=== PATIENT | male | born 1940 | race Caucasian/White ===

== ENCOUNTER → 2018-05-30 07:14 | Outpatient (CLI) | payer MEDICARE, SELFPAY ==
[2018-05-30 13:59] LABS: Basophils # 0.1 K/mm3 (0-0.2); Basophils % 0.9 % (0.1-2.0); Eosinophils # 0.5 K/mm3 (0.0-0.4); Eosinophils % 7.1 % (0.1-12.0); Hematocrit 34.5 % (42.0-52.0); Hemoglobin 10.4 g/dL (14.1-18.0); Lymphocytes # 1.2 K/mm3 (0.7-4.5); Lymphocytes % 18.2 K/mm3 (10-50); Mean Corpuscular HGB Conc 30.1 g/dL (31.8-35.4); Mean Corpuscular Hemoglobin 23.5 pg (27.0-31.2); Mean Platelet Volume 9.6 fl (7.4-10.4); Monocytes # 0.4 K/mm3 (0.1-1.0); Monocytes % 6.9 % (1.7-9.3); Neutrophils # 4.3 K/mm3 (1.8-7.8); Platelet Count 236 K/mm3 (142-424); Red Blood Count 4.43 M/mm3 (4.60-6.20); Red Cell Distribution Width 16.7 % (11.5-17.5); White Blood Count 6.5 K/mm3 (4.8-10.8)
[2018-05-30 14:25] LABS: Alanine Aminotransferase 22 U/L (12-78); Albumin Level 3.4 gm/dL (3.4-5.0); Albumin/Globulin Ratio 1.1 (1.1-1.8); Alkaline Phosphatase 44 U/L (46-116); Anion Gap 10.4 mEq/L (5-15); Aspartate Amino Transferase 17 U/L (15-37); Bilirubin,Total 0.3 mg/dL (0.2-1.0); Blood Urea Nitrogen 24 mg/dL (7-18); Calcium 9.5 mg/dL (8.5-10.1); Carbon Dioxide 29 mmol/L (21.0-32.0); Chloride 109 mmol/L (98-107); Chol/HDL Ratio 2.8 (1-3.5); Cholesterol 130 mg/dL (140-200); Creatinine,Serum 1.37 mg/dL (0.70-1.30); Estimated Glomerular Filt Rate 50 ml/min (>60); GFR (African American) 61 ML/MIN (>60); Globulin 3.2 gm/dl (1.3-3.2); Glucose 122 mg/dL (74-106); HDL Cholesterol 47 mg/dL (27-67); LDL Cholesterol 60 mg/dL (0-130); Potassium 4.4 mmoL/L (3.5-5.1); Sodium 144 mmol/L (136-145); Total Protein,Serum 6.6 gm/dL (6.4-8.2); Triglycerides 114 mg/dL (30-200); VLDL Cholesterol 23 mg/dL (0-40)
[2018-05-30 14:36] LABS: Hemoglobin A1C 6.5 % (0.0-7.0)
== END ==
PROVIDERS: Visit Provider Internal Medicine Adolescent Medicine
DX: E11.9 Type 2 diabetes mellitus without complications (principal); I25.119 Atherosclerotic heart disease of native coronary artery with unspecified angina pectoris; E78.5 Hyperlipidemia, unspecified
CPT/HCPCS: 36415; 80053; 80061; 83036; 85025

== ENCOUNTER → 2018-10-13 13:26 | Outpatient (CLI) | payer MEDICARE, SELFPAY ==
--- NOTE | 2018-10-13 | CI_ITS ---
Cerebrovascular Exam Indications: 780.4 Dizziness and giddiness. 785.9 Bruit. IMPRESSIONS 1. The bilateral vertebral arteries are patent with normal antegrade flow. 2. Study suggests less than 20% stenosis involving the right internal carotid artery. 3. Study suggests 50-69% stenosis involving the left internal carotid artery. Carotid duplex study. Complete study and Doppler flow study including spectral analysis, color and rolle scale imaging. Height: Height: 177.8cm. Height: 70in. Weight: Weight: 79.4kg. Weight: 174.6lb. Body mass index: BMI: 25.1kg/m^2. Body surface area: BSA: 1.99m^2. Location: Vascular laboratory. Patient status: Outpatient. Tables: Arterial flow: + +--------+--------+ Location V sys V ed + +--------+--------+ Right CCA - proximal 82.5cm/s 16.5cm/s + +--------+--------+ Right CCA - distal 72.2cm/s 14.9cm/s + +--------+--------+ Right ECA 122cm/s -------- + +--------+--------+ Right ICA - proximal 82.3cm/s 20.1cm/s + +--------+--------+ Right ICA - mid 91.1cm/s 28.3cm/s + +--------+--------+ Right ICA - distal 105cm/s 33.9cm/s + +--------+--------+ Right vertebral 52.9cm/s -------- + +--------+--------+ Left CCA - proximal 86.1cm/s 13.2cm/s + +--------+--------+ Left CCA - distal 71cm/s 13.8cm/s + +--------+--------+ Left ECA 142cm/s -------- + +--------+--------+ Left ICA - proximal 159cm/s 36.3cm/s + +--------+--------+ Left ICA - mid 138cm/s 31.4cm/s + +--------+--------+ Left ICA - distal 107cm/s 29.7cm/s + +--------+--------+ Left vertebral 41.5cm/s -------- + +--------+--------+ Velocity ratios: + + + + + + Right, V sys Right, V ed Left, V sys Left, V ed + + + + + + Max ICA/dist CCA 1.45 2.28 2.24 2.63 + + + + + + (Report amended ) Electronically signed by: Boni Escobedo [id number]
--- NOTE | 2018-10-13 14:06 | CT_ITS ---
CT chest wo con * (This is updated/ Redictated report on [facility]..) HISTORY: Smoker ITS.REASON: H/O NICOTINE DEPENDENCE,LUNG NODULES follow-up ORDERING PHYSICIAN: Asif Kirk MD PATIENT AGE: 78 years COMPARISON: CT chest 02/26/2015 Technique: Axial images obtained. Sagittal and coronal reformatted images are also generated and reviewed. All CT scans at the facility use one or more dose reduction, viz: automated exposure control, ma/kV adjustment per patient size (including targeted exams where dose is matched to indication, i.e. head), or iterative reconstruction technique. . ========= FINDINGS:========= LUNG SAGASTUME . The previously 2014 CT chest demonstrated pneumonia right lower lobe with some areas of nodularity associated with that inflammation process these features have cleared we see that there may be some subtle coarsening residual fibrotic changes at the right base with some borderline bronchiectatic changes towards right base likely from previous multiple pneumonia episodes at right lower lobe. Present patient also had a pneumonia here 05/20/2016 addition to the February 2015 episode. Given this history of recurrent pneumonia close inspection of the airway shows no good evidence of central airway lesion. No endobronchial lesion evident no hilar mass or adenopathy. No focal infiltrates today. Borderline to mild mild airway thickening of mild hyperexpansion with minimal emphysematous changes At Right chest there is some linear scarring anteriorly at the RML as well as linear scarring at right lung base above the right hemidiaphragm. . These are best seen on sagittal slice 18 and 12 respectively.. Slight coarsening markings just above the right hemidiaphragm reflecting mild chronic changes . Small less than 4 mm calcified granuloma at the lateral segment RLL Also note small area of linear density likely reflecting linear scarring superior right upper lobe, axial image 27 sagittal 22-I believe this does reflect some minimal scarring can be followed in one year . Left chest with minimal scarring anteriorly at the lingula is similar to previous study. . MEDIASTINUM/MEAGAN. Scattered small to moderate nodes at the mediastinum appears similar to 2015. With the largest nodes at the right pretracheal region measuring up to 13 mm x 7 mm No hilar no mediastinal adenopathy. Heart normal size. Normal pulmonary arteries. Aorta satisfactory Slight generous ascending aorta 4.1 cm-stable. . Very extensive in prominent Coronary artery calcifications again seen involving left main. Extensive calcification LAD circumflex first diagonal right coronary. Likely extensive at right coronary. CABG noted. Dense calcification at the aortic arch and moderate atherosclerotic calcifications throughout the aorta including origins of the SMA artery UPPER ABDOMEN: .Cholelithiasis. .Slight Progressive atherosclerotic calcification aorta and branches .Left kidney Note 3.1 cm benign cyst at the lateral left kidney-measures fluid density. Just Superior to this is a a small hyperdense nodule or cyst measuring 13 mm.- It has become more evident slightly larger on since 2015 CT studies previously measuring less than 10 mm. Would benefit from follow-up but is most likely hemorrhagic cyst. There are some additional scarring about the left kidney versus 2015 which may reflect interval infection. .Right kidney 12 mm cyst. Osseous. Vertebral bodies the spine intact. Degenerative facet changes throughout the lower T-spine. Prior CABG otherwise chest wall unremarkable... IMPRESSION...... . 1. No suspicious nodule or masses. Benign findingsLung-RADS 2 Only Benign granulomatous disease and benign appearing chronic findings Suggest follow-up screening CT in 12 months-( if patient does have over 30 year
== END ==
PROVIDERS: PCP Internal Medicine Adolescent Medicine; Visit Provider Internal Medicine Adolescent Medicine
DX: R42 Dizziness and giddiness (principal); Z87.891 Personal history of nicotine dependence
CPT/HCPCS: 71250; 93880

== ENCOUNTER → 2018-11-14 09:57 | Outpatient (CLI) | payer MEDICARE, SELFPAY ==
[2018-11-14 13:32] LABS: Hemoglobin A1C 6.2 % (0.0-7.0)
[2018-11-14 13:40] LABS: Basophils # 0.1 K/mm3 (0-0.2); Basophils % 0.8 % (0.1-2.0); Eosinophils # 0.2 K/mm3 (0.0-0.4); Eosinophils % 3.5 % (0.1-12.0); Hematocrit 36.6 % (42.0-52.0); Hemoglobin 11.1 g/dL (14.1-18.0); Lymphocytes # 1.2 K/mm3 (0.7-4.5); Lymphocytes % 18.4 % (10-50); Mean Corpuscular HGB Conc 30.2 g/dL (31.8-35.4); Mean Corpuscular Hemoglobin 24.8 pg (27.0-31.2); Mean Platelet Volume 9.3 fl (7.4-10.4); Monocytes # 0.4 K/mm3 (0.1-1.0); Monocytes % 6.2 % (1.7-9.3); Neutrophils # 4.7 K/mm3 (1.8-7.8); Neutrophils % 71.1 % (37.0-80.0); Platelet Count 213 K/mm3 (142-424); Red Blood Count 4.46 M/mm3 (4.60-6.20); Red Cell Distribution Width 16.3 % (11.5-17.5); White Blood Count 6.6 K/mm3 (4.8-10.8)
[2018-11-14 13:52] LABS: Alanine Aminotransferase 24 U/L (12-78); Albumin Level 3.5 gm/dL (3.4-5.0); Albumin/Globulin Ratio 1.2 (1.1-1.8); Alkaline Phosphatase 42 U/L (46-116); Anion Gap 13.4 mEq/L (5-15); Aspartate Amino Transferase 18 U/L (15-37); Bilirubin,Total 0.4 mg/dL (0.2-1.0); Blood Urea Nitrogen 19 mg/dL (7-18); Calcium 9.2 mg/dL (8.5-10.1); Carbon Dioxide 29 mmol/L (21.0-32.0); Chloride 105 mmol/L (98-107); Chol/HDL Ratio 2.5 (1-3.5); Cholesterol 127 mg/dL (140-200); Creatinine,Serum 1.22 mg/dL (0.70-1.30); Estimated Glomerular Filt Rate 57 ml/min (>60); GFR (African American) 69 ML/MIN (>60); Glucose 115 mg/dL (74-106); HDL Cholesterol 51 mg/dL (27-67); LDL Cholesterol 57 mg/dL (0-130); Potassium 4.4 mmoL/L (3.5-5.1); Sodium 143 mmol/L (136-145); Total Protein,Serum 6.5 gm/dL (6.4-8.2); Triglycerides 97 mg/dL (30-200); VLDL Cholesterol 19 mg/dL (0-40)
== END ==
PROVIDERS: PCP Internal Medicine Adolescent Medicine; Visit Provider Internal Medicine Adolescent Medicine
DX: E78.5 Hyperlipidemia, unspecified (principal); E11.9 Type 2 diabetes mellitus without complications; I10 Essential (primary) hypertension
CPT/HCPCS: 36415; 80053; 80061; 83036; 85025

== ENCOUNTER 2019-02-19 13:57 | Observation (INO) ==
--- NOTE | 2019-02-19 14:43 | Emergency Department Note ---
ED Disposition Clinical Impression: Pneumonia Disposition: Admitted as Observation Condition on Discharge: Fair Time of Disposition: 16:57 - Critical Care Critical Care Time: No Attestation: On 02/19/19, the high probability of a clinically significant, sudden or life threatening deterioration of the following system(s) required my full and direct attention, intervention and personal management. The time I documented below is in addition to time spent performing reported procedures but includes the following listed in this critical care notation. Medical Decision Making - Medical Records Medical records reviewed: Yes: I reviewed the patient's medical records. - John Inquiry Pt receiving controlled substance: No John was queried for this patient: No Vital Signs: 02/19/19 14:21 02/19/19 15:58 02/19/19 17:00 Temperature 97.8 F 97.7 F Temperature Source Oral Oral Pulse Rate [Right Radial] 69 64 55 L Respiratory Rate 24 20 20 Blood Pressure [Right Arm] 114/51 L 118/54 L 139/57 L Blood Pressure Mean [Right Arm] 72 75 84 Blood Pressure Source [Right Arm] Automatic Cuff Automatic Cuff Automatic Cuff Blood Pressure Position [Right Arm] Sitting Supine Sitting 02 Sat by Pulse Oximetry 89 L 94 L 95 Oxygen Delivery Method Room Air Nasal Cannula Nasal Cannula Oxygen Flow Rate (LPM) 2 2 - Lab Data Lab results reviewed: Yes: I reviewed the patient's lab results. Lab Results 02/19/19 14:45: B-Natriuretic Peptide 200 H 02/19/19 14:45: WBC 17.6 H, RBC 3.90 L, Hgb 10.0 L, Hct 31.4 L, MCV 80.4, MCH 25.7 L, MCHC 31.9, RDW 14.6, Plt Count 193, MPV 9.0, Neut % (Auto) 89.4 H, Lymph % (Auto) 5.1 L, [place] % (Auto) 4.8, Eos % (Auto) 0.5, Baso % (Auto) 0.3, Neut # (Auto) 15.7 H, Lymph # (Auto) 0.9, [place] # (Auto) 0.8, Eos # (Auto) 0.1, Baso # (Auto) 0.1, Total Counted 100, Neutrophils % (Manual) 90 H, Band Neutrophils % 2.0, Lymphocytes % (Manual) 5 L, Atypical Lymphs % 1.0, Monocytes % (Manual) 2, Platelet Estimate Normal, RBC Morphology Normal 02/19/19 14:45: Sodium 146 H, Potassium 3.9, Chloride 110 H, Carbon Dioxide 26, Anion Gap 13.9, BUN 20 H, Creatinine 1.29, Estimated Creat Clear 50, Estimated GFR 54 L, Est GFR ( Amer) 65, Glucose 173 H, Calcium 8.5, Troponin I < 0.02 02/19/19 15:30: Lactate 1.6 Result diagrams: 02/19/19 14:45 02/19/19 14:45 Orders (Tests/Meds): ED MEDICATIONS Generic Name Dose Route Start Last Admin Trade Name Freq PRN Reason Stop Dose Admin Ceftriaxone Sodium 1 gm/ 50 mls @ 100 mls/hr 02/19/19 17:15 02/19/19 17:00 Sodium Chloride IV 03/05/19 17:14 100 mls/hr Q24H AAKASH Administration Protocol Azithromycin 500 mg/ Sodium 250 mls @ 250 mls/hr 02/19/19 17:15 02/19/19 17:29 Chloride IV 03/05/19 17:14 250 mls/hr Q24H AAKASH Administration Protocol Discontinued Medications Generic Name Dose Route Start Last Admin Trade Name Freq PRN Reason Stop Dose Admin Levofloxacin/Dextrose 750 mg in 150 mls @ 100 mls/hr 02/19/19 16:45 02/19/19 16:58 Levofloxacin 750mg/150ml Premix IV 03/05/19 16:44 Not Given Q24H AAKASH Protocol Ketorolac Tromethamine 30 mg 02/19/19 16:42 02/19/19 16:58 Toradol 30mg/Ml Vial IV 02/19/19 16:43 30 mg ONCE ONE Administration Methylprednisolone Sodium Succinate 125 mg 02/19/19 14:52 02/19/19 15:13 Solu-Medrol 125mg/2ml Vial IV 02/19/19 14:53 125 mg ONCE ONE Administration ORDERS Category Date Time Status Chest XR 2 view (NOT portable) [XR chest 2V] Stat Exams 02/19/19 14:55 Taken Blood Culture Stat Micro 02/19/19 15:35 Received - Physician Consults Physician Consulted: terell Time: 16:57 Reason -: Admission, Pt condition Comment/Response: community acquired pneumonia, ceftriaxone and zithromax General Adult HPI - General Chief complaint: Chest Pain Stated complaint: soa Time Seen by Provider: 02/19/19 14:40 Mode of Arrival: Family Vehicle Source of Information: Patient Limitations: No Limitations Description of Symptoms (Recalled from ER Triage Doc. by RN): Family states that pt woke up this morning around 0900 very short of breath, but delayed to tell the family. When notified, family took his O2 sat at home and he was 88% on RA. Family states that the patient is has been c/o being hot and having dry mouth that is not relieved by oral intake of fluids. Family states this is very abnormal for him because he is always cold. On the car ride to the ED family states he began having chest pain. Pt states his his pain is an 8/10. Pt has a hx of heart attack, and frequent pneumonia - History of Present Illness HPI narrative: tells me of chilling/"cold shakes" onser this am. minor URI symptoms preceeding and mowed his lawn two nights ago. Breathing difficulty seems chief complaint - Related Data Home Medications Medication Instructions Recorded Confirmed ALPRAZolam [Xanax 0.25mg tab] 0.25 mg PO BID 02/19/19 02/19/19 Albuterol Sulfate [Proair 90 mcg INHALATION Q4HP PRN 02/19/19 02/19/19 Respiclick] Amlodipine Besylate 5 mg PO DAILY 02/19/19 02/19/19 Aspirin [Aspirin 81mg EC Tab] 81 mg PO DAILY 02/19/19 02/19/19 Atorvastatin Calcium [Atorvastatin 20 mg PO DAILY 02/19/19 02/19/19 20mg Tab] Budesonide/Formoterol Fumarate 160 mcg IH BID 02/19/19 02/19/19 [Symbicort 160-4.5 Mcg Inhaler] Carvedilol [Carvedilol 25mg Tab] 25 mg PO BID 02/19/19 02/19/19 Gabapentin 600 mg PO BID 02/19/19 02/19/19 Hydralazine HCl [Hydralazine HCl 50 mg pe PO TID 02/19/19 02/19/19 25mg Tablet] Ipratropium/Albuterol Sulfate 100 mcg INHALATION BID 02/19/19 02/19/19 [Combivent Respimat Inh] Losartan Potassium 100 mg PO DAILY 02/19/19 02/19/19 Magnesium Oxide [Magnesium] 400 mg PO DAILY 02/19/19 02/19/19 Metformin HCl 1,000 mg PO BID 02/19/19 02/19/19 Nitroglycerin [Nitrostat 0.4mg SL 0.4 mg SL Q5MINP PRN 02/19/19 02/19/19 Tablet] [place]-3 Acid Ethyl Esters [Lovaza] 1,000 mg PO BID 02/19/19 02/19/19 cloNIDine HCl [Clonidine HCl] 0.3 mg PO BID 02/19/19 02/19/19 raNITIdine HCl [Zantac 150mg] 150 mg PO BID 02/19/19 02/19/19 Allergies Allergy/AdvReac Type Severity Reaction Status Date / Time No Known Allergies Allergy Unverified 10/26/17 15:33 [facility] History - Hepatitis A Screen Drug use history?: No High risk sexual behaviors?: No History of sexually transmitted infection?: No Currently employed?: No Childcare worker?: No Do you have indoor plumbing?: Yes Do you have electricity?: Yes Attestation statement:: This patient has been screened for Hepatitis A risk factors. I have reviewed the patient's past medical history: Yes - Social History Alcohol Intake: never Occupational Status: other - Psychiatric History Expresses thoughts of harming self/others: None Suicide Plan Description: No Plan ROS Obtained: Yes All systems reviewed & no additional complaints - Constitutional Constitutional: Reports chills, Reports lethargy - Cardiovascular Cardiovascular: Reports dyspnea, Reports dyspnea on exertion - Respiratory Respiratory: Yes dyspnea, Yes dyspnea on exertion, No pain on inspiration - Gastrointestinal Gastrointestingal: Denies: abdominal pain, diarrhea, nausea, vomiting - Musculoskeletal Musculoskeletal: Denies muscle cramps, Denies muscle weakness - Integumentary/Breasts Skin/Breast: Denies rash - Neurologic Neurologic: Denies syncope - Hematologic/Lymphatic Henatologic/Lymphatic: Denies easy bleeding, Denies easy bruising Physical Exam - General General appearance: alert, in no apparent distress - Head Head exam: atraumatic, normocephalic, normal inspection - Eye Eye exam: Present: normal appearance, PERRL, EOMI - ENT ENT exam: Present: normal exam, normal oropharynx, mucous membranes moist, TM's normal bilaterally, normal external ear exam - Respiratory Respiratory exam: Present: wheezes, other (rhonchi in rll). Absent: normal lung sounds bilaterally, respiratory distress - Cardiovascular Cardiovascular exam: Present: regular rate, normal rhythm. Absent: JVD - Abdominal Exam Abdominal exam: Present: soft, normal bowel sounds. Absent: distention, ten derness, guarding - Extremities Exam Extremities exam: Present: normal inspection, full ROM, normal capillary refill. Absent: calf tenderness - Back Exam Back exam: Present: normal inspection. Absent: tenderness - Neurological Exam Neurological exam: Present: alert, oriented X3 - Psychiatric Psychiatric exam: Present: normal affect, normal mood - Skin Skin exam: Present: warm, dry, intact, normal color
[2019-02-19 15:02] LABS: Basophils # 0.1 K/mm3 (0-0.2); Basophils % 0.3 % (0.1-2.0); Eosinophils # 0.1 K/mm3 (0.0-0.4); Eosinophils % 0.5 % (0.1-12.0); Hematocrit 31.4 % (42.0-52.0); Lymphocytes # 0.9 K/mm3 (0.7-4.5); Lymphocytes % 5.1 % (10-50); Mean Corpuscular HGB Conc 31.9 g/dL (31.8-35.4); Mean Corpuscular Hemoglobin 25.7 pg (27.0-31.2); Mean Corpuscular Volume 80.4 fl (80-94); Monocytes # 0.8 K/mm3 (0.1-1.0); Monocytes % 4.8 % (1.7-9.3); Neutrophils # 15.7 K/mm3 (1.8-7.8); Neutrophils % 89.4 % (37.0-80.0); Platelet Count 193 K/mm3 (142-424); Red Cell Distribution Width 14.6 % (11.5-17.5); White Blood Count 17.6 K/mm3 (4.8-10.8)
[2019-02-19 15:13] LABS: Anion Gap 13.9 mEq/L (5-15); Blood Urea Nitrogen 20 mg/dL (7-18); Calcium 8.5 mg/dL (8.5-10.1); Carbon Dioxide 26 mmol/L (21.0-32.0); Chloride 110 mmol/L (98-107); Glucose 173 mg/dL (74-106); Potassium 3.9 mmoL/L (3.5-5.1); Sodium 146 mmol/L (136-145)
[2019-02-19 15:14] LABS: Lymphocytes % 5 % (10-50); Monocytes % 2 % (2-9); Neutrophils % 90 % (42-76); RBC Morphology Normal; Total Cells Counted 100
[2019-02-20 06:56] LABS: Eosinophils % 0.1 % (0.1-12.0); Hematocrit 31.9 % (42.0-52.0); Hemoglobin 9.9 g/dL (14.1-18.0); Lymphocytes # 0.8 K/mm3 (0.7-4.5); Lymphocytes % 3.5 % (10-50); Mean Corpuscular HGB Conc 31.1 g/dL (31.8-35.4); Mean Corpuscular Hemoglobin 25.5 pg (27.0-31.2); Mean Platelet Volume 9.6 fl (7.4-10.4); Monocytes # 0.3 K/mm3 (0.1-1.0); Monocytes % 1.5 % (1.7-9.3); Neutrophils % 94.9 % (37.0-80.0); Platelet Count 200 K/mm3 (142-424); Red Cell Distribution Width 14.6 % (11.5-17.5); White Blood Count 23.2 K/mm3 (4.8-10.8)
[2019-02-20 07:06] LABS: Calcium 8.7 mg/dL (8.5-10.1)
--- NOTE | 2019-02-20 07:34 | Pharmacy Consult Notes ---
[facility] Pharmacy VTE Monitoring - Patient Demographics Admission date: 02/19/19 Report Date: 02/20/19 Time: 07:34 Allergies/Adverse Reactions: Patient Allergies No Known Allergies Allergy (Unverified 10/26/17 15:33) Height: 1.7 m Weight: 78.16 kg Patient Problems: Current Active Problems Pneumonia (Acute) - VTE Risk Labs: VTE Related Lab Results Hgb 9.9 g/dL (14.1-18.0) L 02/20/19 06:11 Hct 31.9 % (42.0-52.0) L 02/20/19 06:11 Plt Count 200 K/mm3 (142-424) 02/20/19 06:11 BUN 28 mg/dL (7-18) H D 02/20/19 06:11 Creatinine 1.39 mg/dL (0.70-1.30) H 02/20/19 06:11 Estimated Creat Clear 47 mL/min (50-200) 02/20/19 06:11 VTE Score: 5 VTE Risk Level: Low Risk - Prophylaxis VTE Prophylaxis Ordered?: Yes Types of VTE Prophylaxis: TEDS Knee High Location of Applied Device: Bilateral Lower Extremeties - VTE Diagnosis Confirmed Treatment or plan recommended: Continue Current Treatment
[2019-02-20 08:29] LABS: Lymphocytes % 4 % (10-50); Monocytes % 1 % (2-9); Neutrophils % 92 % (42-76); Total Cells Counted 100
--- NOTE | 2019-02-20 08:50 | History & Physical Report ---
*Admission Date: 02/19/19 *Chief complaint: Cough/congestion *History of present illness: 79-year-old white male with multiple medical problems who over the past week has had increasing cough and shortness of air, sputum production and shortness of air. Came to the emergency department, found to have infiltrate and low O2 saturations, mid to hospital for IV antibiotics. 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 No: Pacemaker Amputation: No Fractures: No - *Social History Educational Level: Attended Grade School Smoking Status: Light tobacco smoker Tobacco Type: smokeless tobacco # Packs/Day (cigarettes): 0 Alcohol Intake: never *Occupational Status:: retired, other Household Members: spouse *Travel in the last 8 weeks: None - Psychiatric History Expresses thoughts of harming self/others: None Suicide Plan Description: No Plan Family Hx:: No significant family history Review of Systems - Review of Systems Review of systems:: pertinent systems reviewed and negative unless documented below - Constitutional Reports anorexia, Reports body ache(s), Reports chills - Eyes Denies blind spots, Denies blurry vision, Denies change in vision - ENT Denies abnormal hearing, Denies bleeding gums, Denies change in voice - *Cardiovascular Reports chest pain with activity, Reports shortness of breath, Reports shortness of breath with activity, Denies chest pain, Denies chest pain at rest, Denies irregular heart rhythm, Denies leg swelling - *Respiratory Reports change in phlegm color, Reports chest congestion, Reports cough, Reports shortness of breath - *Gastrointestinal Denies abdominal pain, Denies belching, Denies coffee ground vomit - *Genitourinary Denies difficulty urinating - *Musculoskeletal Denies abnormal walking, Denies joint pain, Denies decreased muscle mass - *Neurologic Denies abnormal walking, Denies abnormal hearing, Denies seizure-like activity, Denies fainting - Endocrine Denies cold intolerance - Hematologic/Lymphatic Denies easy bleeding, Denies easy bruising - Allergic/Immunologic Denies GI upset with certain foods Meds Home Medications Medication Instructions Recorded Confirmed Type ALPRAZolam [Xanax 0.25mg tab] 0.25 mg PO HS 02/19/19 02/20/19 History Albuterol Sulfate [Proair 90 mcg INHALATION Q4HP PRN 02/19/19 02/19/19 History Respiclick] Amlodipine Besylate 10 mg PO DAILY 02/19/19 02/20/19 History Aspirin [Aspirin 81mg EC Tab] 81 mg PO DAILY 02/19/19 02/19/19 History Atorvastatin Calcium [Atorvastatin 20 mg PO DAILY 02/19/19 02/19/19 History 20mg Tab] Budesonide/Formoterol Fumarate 160 mcg IH BID 02/19/19 02/19/19 History [Symbicort 160-4.5 Mcg Inhaler] Carvedilol [Carvedilol 25mg Tab] 25 mg PO BID 02/19/19 02/19/19 History Gabapentin 600 mg PO BID 02/19/19 02/19/19 History Ipratropium/Albuterol Sulfate 100 mcg INHALATION BID 02/19/19 02/19/19 History [Combivent Respimat Inh] Losartan Potassium 100 mg PO DAILY 02/19/19 02/19/19 History Magnesium Oxide [Magnesium] 400 mg PO DAILY 02/19/19 02/19/19 History Metformin HCl 1,000 mg PO BID 02/19/19 02/19/19 History Nitroglycerin [Nitrostat 0.4mg SL 0.4 mg SL Q5MINP PRN 02/19/19 02/19/19 History Tablet] [place]-3 Acid Ethyl Esters [Lovaza] 1,000 mg PO BID 02/19/19 02/19/19 History cloNIDine HCl [Clonidine HCl] 0.3 mg PO BID 02/19/19 02/19/19 History raNITIdine HCl [Zantac 150mg] 150 mg PO BID 02/19/19 02/19/19 History Hydralazine HCl 50 mg PO TID 02/20/19 02/20/19 History Isosorbide Mononitrate [Imdur 60mg 60 mg PO DAILY 04/15/19 04/15/19 History ER tablet] Tiotropium [place] [Spiriva 2 puff IH DAILY 02/20/19 02/20/19 History 18mcg/puff inhaler] Allergies Allergy/AdvReac Type Severity Reaction Status Date / Time No Known Allergies Allergy Unverified 10/26/17 15:33 Exam Vital signs and Labs for Last 24 Hours: Temp Pulse Resp BP Pulse Ox 97.5 F L 60 18 151/64 H 98 02/20/19 07:58 02/20/19 07:58 02/20/19 07:58 02/20/19 07:58 02/20/19 07:58 Laboratory Results - last 24 hr 02/19/19 14:45: B-Natriuretic Peptide 200 H 02/19/19 14:45: WBC 17.6 H, RBC 3.90 L, Hgb 10.0 L, Hct 31.4 L, MCV 80.4, MCH 25.7 L, MCHC 31.9, RDW 14.6, Plt Count 193, MPV 9.0, Neut % (Auto) 89.4 H, Lymph % (Auto) 5.1 L, [place] % (Auto) 4.8, Eos % (Auto) 0.5, Baso % (Auto) 0.3, Neut # (Auto) 15.7 H, Lymph # (Auto) 0.9, [place] # (Auto) 0.8, Eos # (Auto) 0.1, Baso # (Auto) 0.1, Total Counted 100, Neutrophils % (Manual) 90 H, Band Neutrophils % 2.0, Lymphocytes % (Manual) 5 L, Atypical Lymphs % 1.0, Monocytes % (Manual) 2, Platelet Estimate Normal, RBC Morphology Normal 02/19/19 14:45: Sodium 146 H, Potassium 3.9, Chloride 110 H, Carbon Dioxide 26, Anion Gap 13.9, BUN 20 H, Creatinine 1.29, Estimated Creat Clear 50, Estimated GFR 54 L, Est GFR ( Amer) 65, Glucose 173 H, Calcium 8.5, Troponin I < 0.02 02/19/19 15:30: Lactate 1.6 02/19/19 22:14: POC Glucose 298 H 02/20/19 06:09: POC Glucose 134 H 02/20/19 06:11: WBC 23.2 H* D, RBC 3.90 L, Hgb 9.9 L, Hct 31.9 L, MCV 82.0, MCH 25.5 L, MCHC 31.1 L, RDW 14.6, Plt Count 200, MPV 9.6, Neut % (Auto) 94.9 H, Lymph % (Auto) 3.5 L, [place] % (Auto) 1.5 L, Eos % (Auto) 0.1, Baso % (Auto) 0.0 L , Neut # (Auto) 22.0 H, Lymph # (Auto) 0.8, [place] # (Auto) 0.3, Eos # (Auto) 0.0, Baso # (Auto) 0.0, Total Counted 100, Neutrophils % (Manual) 92 H, Band Neutrophils % 3.0, Lymphocytes % (Manual) 4 L, Monocytes % (Manual) 1 L, Platelet Estimate Normal 02/20/19 06:11: Sodium 144, Potassium 4.0, Chloride 107, Carbon Dioxide 25, Anion Gap 16.0 H, BUN 28 H D, Creatinine 1.39 H, Estimated Creat Clear 47, Estimated GFR 49 L, Est GFR ( Amer) 59, Glucose 142 H, Calcium 8.7 I & O for Last 24 hours: Intake & Output 02/17/19 02/18/19 02/19/19 02/20/19 11:59 11:59 11:59 11:59 Intake Total 1809 Balance 1809 Weight 172 lb 5 oz Narrative: Patient is pleasant, alert. Oriented x3. Abnormal oxygen readings noted. Oropharynx clear, moist. No JVD. Lungs have good air movement but do have crackles in the right lower lung field. Left side is fairly clear. Abdomen soft and nontender. No edema or clubbing. Heart rate regular with previously noted murmur. Assessment and Plan (1) Diabetes type 2, controlled Current visit: Yes Status: Acute Qualifiers: Diabetes mellitus detention insulin use: without terminal make up operator use Diabetes mellitus complication status: without complication Qualified Code(s): E11.9 - Type 2 diabetes mellitus without complications Category: Medical Code(s): E11.9 - Type 2 diabetes mellitus without complications Complicating factor for infectious disease (2) Hypoxia Current visit: Yes Status: Acute Category: Medical Code(s): R09.02 - Hypoxemia Improving on oxygen therapy (3) Pulmonary emphysema Current visit: Yes Status: Acute Category: Medical Code(s): J43.9 - Emphysema, unspecified Complicates pneumonia admission (4) Pneumonia Current visit: Yes Status: Acute Category: Medical Code(s): J18.9 - Pneumonia, unspecified organism Treat with IV antibiotics as noted above secondary to multiple comorbidities (5) Chronic disease anemia Current visit: Yes Status: Chronic Category: Medical Code(s): D63.8 - Anemia in other chronic diseases classified elsewhere
--- NOTE | 2019-02-20 21:55 | Discharge Summary ---
General - General Admission date:: 02/19/19 Discharge date: 02/21/19 HPI HPI: 79-year-old white male with multiple medical problems who over the past week has had increasing cough and shortness of air, sputum production and shortness of air. Came to the emergency department, found to have infiltrate and low O2 saturations, mid to hospital for IV antibiotics. Hospital Course Hospital Course: Admitted to medicine for management of hypoxemia and pneumonia. Started on antibiotics, increased oxygen from baseline, steroids. Patient improved with medical management. Oxygen status normalized. Transition oral medication. Medically stable for discharge home to complete course of antibiotics and steroids for pneumonia. Tolerating regular diet. Denies fevers, nausea vomiting, diarrhea, headaches. And to follow-up within 1 week with primary care Objective Vital signs: Temp Pulse Resp BP Pulse Ox 97.5 F L 62 20 150/62 H 98 02/20/19 20:00 02/20/19 20:00 02/20/19 20:00 02/20/19 20:00 02/20/19 20:45 Narrative: Patient is pleasant, alert. Oriented x3. Oropharynx clear, moist. No JVD. Lungs have good air movement, faint crackles in right lower lung field, good air movement in left lung field, no crackles or rhonchi. Abdomen soft and nontender. No edema or clubbing. Heart rate regular with previously noted murmur. Results Labs on day of discharge: Labs from last 24 hours 02/20/19 02/20/19 02/20/19 17:18 11:16 06:11 WBC RBC Hgb Hct MCV MCH MCHC RDW Plt Count MPV Neut % (Auto) Lymph % (Auto) [place] % (Auto) Eos % (Auto) Baso % (Auto) Neut # (Auto) Lymph # (Auto) [place] # (Auto) Eos # (Auto) Baso # (Auto) Total Counted Neutrophils % (Manual) Band Neutrophils % Lymphocytes % (Manual) Monocytes % (Manual) Platelet Estimate Sodium 144 Potassium 4.0 Chloride 107 Carbon Dioxide 25 Anion Gap 16.0 H BUN 28 H D Creatinine 1.39 H Estimated Creat Clear 47 Estimated GFR 49 L Est GFR ( Amer) 59 Glucose 142 H POC Glucose 163 H 198 H Calcium 8.7 02/20/19 02/20/19 02/19/19 06:11 06:09 22:14 WBC 23.2 H* D RBC 3.90 L Hgb 9.9 L Hct 31.9 L MCV 82.0 MCH 25.5 L MCHC 31.1 L RDW 14.6 Plt Count 200 MPV 9.6 Neut % (Auto) 94.9 H Lymph % (Auto) 3.5 L [place] % (Auto) 1.5 L Eos % (Auto) 0.1 Baso % (Auto) 0.0 L Neut # (Auto) 22.0 H Lymph # (Auto) 0.8 [place] # (Auto) 0.3 Eos # (Auto) 0.0 Baso # (Auto) 0.0 Total Counted 100 Neutrophils % (Manual) 92 H Band Neutrophils % 3.0 Lymphocytes % (Manual) 4 L Monocytes % (Manual) 1 L Platelet Estimate Normal Sodium Potassium Chloride Carbon Dioxide Anion Gap BUN Creatinine Estimated Creat Clear Estimated GFR Est GFR ( Amer) Glucose POC Glucose 134 H 298 H Calcium DS: Diagnosis - Discharge Diagnosis (1) Diabetes type 2, controlled Status: Chronic (2) Hypoxia Status: Acute Problem details: Acute on chronic hypoxemic respiratory failure (3) Pulmonary emphysema Status: Chronic (4) Pneumonia Status: Acute (5) Chronic disease anemia Status: Chronic Discharge Plan - Patient Discharge Instructions ACTIVITY: Continue current activity DIET: continue same diet Patient Instructions: DI for Pneumonia -- Adult - Follow up Plan Follow up with: Asif Kirk MD [Primary Care Provider] - Disposition: Home, Self-[facility] Medications: Home Medications Medication Instructions Recorded Confirmed Type ALPRAZolam [Xanax 0.25mg tab] 0.25 mg PO HS 02/19/19 02/20/19 History Albuterol Sulfate [Proair 2 puffs INHALATION Q4HP PRN 02/19/19 02/20/19 History Respiclick] Amlodipine Besylate 10 mg PO DAILY 02/19/19 02/20/19 History Aspirin [Aspirin 81mg EC Tab] 81 mg PO DAILY 02/19/19 02/19/19 History Atorvastatin Calcium [Atorvastatin 20 mg PO DAILY 02/19/19 02/19/19 History 20mg Tab] Carvedilol [Carvedilol 25mg Tab] 25 mg PO BID 02/19/19 02/19/19 History Gabapentin 600 mg PO BID 02/19/19 02/19/19 History Ipratropium/Albuterol Sulfate 100 mcg INHALATION BID 02/19/19 02/19/19 History [Combivent Respimat Inh] Losartan Potassium 100 mg PO DAILY 02/19/19 02/19/19 History Magnesium Oxide [Magnesium] 400 mg PO DAILY 02/19/19 02/19/19 History Metformin HCl 1,000 mg PO BID 02/19/19 02/19/19 History Nitroglycerin [Nitrostat 0.4mg SL 0.4 mg SL Q5MINP PRN 02/19/19 02/19/19 History Tablet] [place]-3 Acid Ethyl Esters [Lovaza] 2,000 mg PO BID 02/19/19 02/20/19 History cloNIDine HCl [Clonidine HCl] 0.3 mg PO BID 02/19/19 02/19/19 History raNITIdine HCl [Zantac 150mg] 150 mg PO BID 02/19/19 02/19/19 History Amoxicillin/Potassium Clav 1 tab PO Q12H 8 Days #16 tab 02/20/19 Rx [Augmentin 875-125 Tablet] Budesonide/Formoterol Fumarate 160 mcg IH BID 02/20/19 Rx [Symbicort 160-4.5 Mcg Inhaler] Fexofenadine HCl 180 mg PO DAILY 02/20/19 02/20/19 History Hydralazine HCl 50 mg PO TID 02/20/19 02/20/19 History Isosorbide Mononitrate [Imdur 60mg 60 mg PO DAILY 02/20/19 02/20/19 History ER tablet] Meclizine HCl [Antivert 25mg 25 mg PO TID PRN 02/20/19 02/20/19 History tablet] Meloxicam [Mobic 15 mg tab] 15 mg PO DAILY 02/20/19 02/20/19 History Multivitamin [Daily Multiple 1 each PO DAILY 02/20/19 02/20/19 History Vitamin] Tiotropium [place] [Spiriva 2 puff IH DAILY 02/20/19 02/20/19 History 18mcg/puff inhaler] Tizanidine HCl 2 mg PO Q8HP PRN 02/20/19 02/20/19 History predniSONE [Deltasone 10mg tablet] 40 mg PO DAILY 3 Days #12 tablet 02/20/19 Rx Prescriptions/Medication Reconciliation: New predniSONE [Deltasone 10mg tablet] 40 mg PO DAILY 3 Days #12 tablet Budesonide/Formoterol Fumarate [Symbicort 160-4.5 Mcg Inhaler] 160 mcg IH BID Amoxicillin/Potassium Clav [Augmentin 875-125 Tablet] 1 tab PO Q12H 8 Days #16 tab Continue Metformin HCl 1,000 mg PO BID Losartan Potassium 100 mg PO DAILY Gabapentin 600 mg PO BID cloNIDine HCl [Clonidine HCl] 0.3 mg PO BID Carvedilol [Carvedilol 25mg Tab] 25 mg PO BID Amlodipine Besylate 10 mg PO DAILY raNITIdine HCl [Zantac 150mg] 150 mg PO BID Aspirin [Aspirin 81mg EC Tab] 81 mg PO DAILY Ipratropium/Albuterol Sulfate [Combivent Respimat Inh] 100 mcg INHALATION BID Nitroglycerin [Nitrostat 0.4mg SL Tablet] 0.4 mg SL Q5MINP PRN PRN Reason: Chest Pain Albuterol Sulfate [Proair Respiclick] 2 puffs INHALATION Q4HP PRN PRN Reason: COPD Hydralazine HCl 50 mg PO TID Isosorbide Mononitrate [Imdur 60mg ER tablet] 60 mg PO DAILY Tiotropium [place] [Spiriva 18mcg/puff inhaler] 2 puff IH DAILY Meclizine HCl [Antivert 25mg tablet] 25 mg PO TID PRN PRN Reason: Vertigo Meloxicam [Mobic 15 mg tab] 15 mg PO DAILY Multivitamin [Daily Multiple Vitamin] 1 each PO DAILY [place]-3 Acid Ethyl Esters [Lovaza] 2,000 mg PO BID ALPRAZolam [Xanax 0.25mg tab] 0.25 mg PO HS Atorvastatin Calcium [Atorvastatin 20mg Tab] 20 mg PO DAILY Magnesium Oxide [Magnesium] 400 mg PO DAILY Fexofenadine HCl 180 mg PO DAILY Tizanidine HCl 2 mg PO Q8HP PRN PRN Reason: PAIN
[2019-02-21 07:39] LABS: Hematocrit 29.1 % (42.0-52.0); Hemoglobin 9.1 g/dL (14.1-18.0); Lymphocytes # 0.9 K/mm3 (0.7-4.5); Lymphocytes % 3.5 % (10-50); Mean Corpuscular HGB Conc 31.4 g/dL (31.8-35.4); Mean Corpuscular Hemoglobin 25.5 pg (27.0-31.2); Mean Corpuscular Volume 81.3 fl (80-94); Mean Platelet Volume 9.9 fl (7.4-10.4); Monocytes # 0.6 K/mm3 (0.1-1.0); Monocytes % 2.4 % (1.7-9.3); Neutrophils # 23.7 K/mm3 (1.8-7.8); Platelet Count 209 K/mm3 (142-424); Red Blood Count 3.58 M/mm3 (4.60-6.20); Red Cell Distribution Width 14.7 % (11.5-17.5); White Blood Count 25.3 K/mm3 (4.8-10.8)
[2019-02-21 07:49] LABS: Anion Gap 14.5 mEq/L (5-15); Calcium 8.3 mg/dL (8.5-10.1); Potassium 4.5 mmoL/L (3.5-5.1)
[2019-02-21 10:39] LABS: Lymphocytes % 3 % (10-50); Monocytes % 4 % (2-9); Neutrophils % 91 % (42-76); Total Cells Counted 100
[2019-02-21 10:40] LABS: Hypochromasia 2+
== END 2019-02-21 11:49 | disposition home or self-care (01) ==
LOC: 2ND 13:57 → ER 13:57 → 2ND 18:31
PROVIDERS: ADMIT Internal Medicine Adolescent Medicine; ATTEND Internal Medicine Adolescent Medicine
CPT/HCPCS: 36415; 71020; 71046; 80048; 82962; 83605; 83880; 84484; 85007; 85025; 87040; 93005; 94640; 94761; 96365; 96375; 99284; G0378; J0456

== ENCOUNTER → 2019-05-19 08:14 | Outpatient (CLI) | payer MEDICARE, SELFPAY ==
--- NOTE | 2019-05-19 08:21 | CA_ITS ---
PROCEDURE: 2-D M-mode and color Doppler study INDICATIONS FOR THE TEST: Chest pain+ COPD Heart Murmur Tobacco Smoking Palpitations Fatigue Syncope Edema Hypertension+Diabetes Mellitus+ Rheumatic Fever SOB+CORLEY Obesity Hyperlipidemia Family History HD Additional History SC, CABG, STENTS PATIENT INFORMATION HEIGHT: 71 WEIGHT:176 GENDER: Male B/P:151/64 2-D/M-MODE INTERPRETATION: 2-D MEASUREMENTS OBSERVED VALUES IN CMS Right Ventricular Dimension (RVDd) 3.1 Interventricular Septum (Thickness)(IVsd) 1.2 Left Ventricular Internal Dimensions(LVIDd) 5.0 Left Ventricular Posterior Wall (Thickness)(LVPWd) 1.6 Aortic Root 4.6 Aortic Cusp Separation 1.8 Left Atrial Dimensions (LAD) 4.4 2D 1. Left atrium is mildly enlarged, left ventricle is normal size, mild concentric left ventricular hypertrophy, visually estimated ejection fraction 55% with no regional wall motion abnormality. 2. The right atrium and ventricle are mildly enlarged with normal contractility. 3. The aortic valve is thickened and calcified leaflet continue to display mobility. 4. The mitral and tricuspid valve leaflets are minimally thickened. 5. The pulmonic valve is poorly visualized. 6. No significant pericardial effusion noted. DOPPLER INTERROGATION: Doppler interrogation of the aortic, mitral and tricuspid valvular presence of moderate mitral and mild tricuspid regurgitation, calculated right ventricular systolic pressure 36 mmHg, grade 1 diastolic dysfunction seen with tissue Doppler evidence of raised left atrial pressure. The aortic outflow velocities mildly increased does not represent significant aortic stenosis. CONCLUSION: 1. Mildly enlarged left atrium, normal left ventricular size, mild concentric left ventricular hypertrophy, visually estimated ejection fraction 55% with no regional wall motion abnormality, grade 1 diastolic dysfunction seen with tissue Doppler evidence of raised left atrial pressure. 2. Thickened and calcified aortic valve without significant aortic stenosis aortic insufficiency. 3. Moderate mitral and mild tricuspid regurgitation, likely related ventricular systolic pressure 36 mmHg 4. No significant pericardial effusion noted.
== END ==
PROVIDERS: PCP Internal Medicine Adolescent Medicine; Visit Provider Internal Medicine Adolescent Medicine
DX: R06.00 Dyspnea, unspecified (principal); I10 Essential (primary) hypertension
CPT/HCPCS: 93306

== ENCOUNTER 2019-06-27 14:41 | Inpatient (IN) ==
[2019-06-27 14:45] LABS: ABG Base Excess -0.2 mmol/L (-2.4-2.3); ABG HCO3 25.6 mmhg (22.0-26.0); ABG Oxygen Saturation 74 % (90-100); ABG PCO2 48.6 mmhg (35.0-45.0); ABG PH 7.34 mmol/L (7.35-7.45); ABG TCO2 27.1 mmhg (23-27)
[2019-06-27 14:47] LABS: Tidal Volume CPAP 10 FROM EMT
[2019-06-27 14:48] LABS: ABG PO2 42.1 mmhg (80-100); Oxygen UNSURE %
[2019-06-27 14:57] LABS: Basophils # 0.1 K/mm3 (0-0.2); Basophils % 0.3 % (0.1-2.0); Eosinophils % 0.1 % (0.1-12.0); Hematocrit 31.5 % (42.0-52.0); Hemoglobin 8.9 g/dL (14.1-18.0); Lymphocytes # 1.5 K/mm3 (0.7-4.5); Lymphocytes % 8.7 % (10-50); Mean Corpuscular HGB Conc 28.2 g/dL (31.8-35.4); Mean Corpuscular Volume 69.2 fl (80-94); Mean Platelet Volume 9.3 fl (7.4-10.4); Monocytes # 1.1 K/mm3 (0.1-1.0); Monocytes % 6.2 % (1.7-9.3); Neutrophils # 14.5 K/mm3 (1.8-7.8); Neutrophils % 84.6 % (37.0-80.0); Platelet Count 239 K/mm3 (142-424); Red Blood Count 4.55 M/mm3 (4.60-6.20); Red Cell Distribution Width 18.1 % (11.5-17.5); White Blood Count 17.1 K/mm3 (4.8-10.8)
[2019-06-27 15:11] LABS: Anisocytosis 1+; Hypochromasia 3+; Lymphocytes % 6 % (10-50); Myelocytes % 1 (0-1); Neutrophils % 76 % (42-76); Total Cells Counted 100
[2019-06-27 15:23] LABS: Albumin Level 2.8 gm/dL (3.4-5.0); Anion Gap 14.8 mEq/L (5-15); Bilirubin,Total 0.5 mg/dL (0.2-1.0); Calcium 8.8 mg/dL (8.5-10.1); Globulin 2.7 gm/dl (1.3-3.2); Total Protein,Serum 5.5 gm/dL (6.4-8.2)
--- NOTE | 2019-06-27 19:03 | Emergency Department Note ---
ED Disposition Clinical Impression: Pneumonia, Community acquired pneumonia Disposition: Admitted As Inpatient Condition on Discharge: Fair - Critical Care Critical Care Time: No Attestation: On 06/27/19, the high probability of a clinically significant, sudden or life threatening deterioration of the following system(s) required my full and direct attention, intervention and personal management. The time I documented below is in addition to time spent performing reported procedures but includes the following listed in this critical care notation. Medical Decision Making - John Inquiry Pt receiving controlled substance: No John was queried for this patient: No Vital Signs: 06/27/19 14:36 06/27/19 15:32 06/27/19 16:21 Temperature 98.1 F Temperature Source Oral Pulse Rate Pulse Rate [Right Brachial] 81 58 L 58 L Respiratory Rate 16 Blood Pressure Blood Pressure [Right Arm] 98/53 L 104/53 L 109/51 L Blood Pressure Mean [Right Arm] 68 70 70 Blood Pressure Source Blood Pressure Source [Right Arm] Automatic Cuff Automatic Cuff Automatic Cuff Blood Pressure Position Blood Pressure Position [Right Arm] Sitting Sitting Sitting 02 Sat by Pulse Oximetry 100 87 L 89 L Oxygen Delivery Method Room Air BiPAP BiPAP 06/27/19 18:23 06/27/19 18:34 Temperature 98.4 F Temperature Source Temporal Artery Scan Pulse Rate 61 Pulse Rate [Right Brachial] 56 L Respiratory Rate 26 H Blood Pressure 106/74 L Blood Pressure [Right Arm] 102/52 L Blood Pressure Mean [Right Arm] 68 Blood Pressure Source Automatic Cuff Blood Pressure Source [Right Arm] Automatic Cuff Blood Pressure Position Sitting Blood Pressure Position [Right Arm] Supine 02 Sat by Pulse Oximetry 91 L Oxygen Delivery Method BiPAP BiPAP - Lab Data Lab Results 06/27/19 14:10: B-Natriuretic Peptide 404 H 06/27/19 14:40: Specimen Source L brachial, O2 % Unsure, ABG pH 7.34 L, ABG pCO2 48.6 H, ABG pO2 42.1 L, ABG HCO3 25.6, ABG Total CO2 27.1 H, ABG O2 Saturation 74 L*, ABG Base Excess -0.2, Tidal Volume Cpap 10 from emt 06/27/19 14:40: WBC 17.1 H, RBC 4.55 L, Hgb 8.9 L, Hct 31.5 L, MCV 69.2 L, MCH 19.5 L, MCHC 28.2 L, RDW 18.1 H, Plt Count 239, MPV 9.3, Neut % (Auto) 84.6 H, Lymph % (Auto) 8.7 L, [place] % (Auto) 6.2, Eos % (Auto) 0.1, Baso % (Auto) 0.3, Neut # (Auto) 14.5 H, Lymph # (Auto) 1.5, [place] # (Auto) 1.1 H, Eos # (Auto) 0.0, Baso # (Auto) 0.1, Total Counted 100, Neutrophils % (Manual) 76, Band Neutrophils % 14.0 H, Lymphocytes % (Manual) 6 L, Metamyelocytes % 3.0 H, Myel ocytes % 1, Platelet Estimate Normal, Hypochromasia 3+, Anisocytosis 1+, Microcytosis 2+ 06/27/19 14:40: Sodium 147 H, Potassium 4.8, Chloride 111 H, Carbon Dioxide 26, Anion Gap 14.8, BUN 25 H, Creatinine 2.26 H, Estimated Creat Clear 25, Estimated GFR 28 L, Est GFR ( Amer) 34 L, Glucose 72 L, Calcium 8.8, Total Gagan irubin 0.5, AST 33, ALT 27, Alkaline Phosphatase 56, Troponin I 3.12 H, Total Protein 5.5 L, Albumin 2.8 L, Globulin 2.7, Albumin/Globulin Ratio 1.0 L 06/27/19 14:40: Lactate 3.2 H Result diagrams: 06/27/19 14:40 06/27/19 14:40 Orders (Tests/Meds): ED MEDICATIONS Generic Name Dose Route Start Last Admin Trade Name Jorge L PRN Reason Stop Dose Admin Albuterol/Ipratropium puff 06/27/19 21:00 Combivent Respimat 20mcg/100mcg Inhaler IH 07/27/19 20:59 BID AAKASH Alprazolam 0.25 mg 06/27/19 21:00 Xanax 0.25mg Tablet PO 07/27/19 20:59 HS AAKASH Amlodipine Besylate 10 mg 06/28/19 09:00 Norvasc 10mg Tablet PO 07/28/19 08:59 DAILY AAKASH Aspirin 81 mg 06/28/19 09:00 Aspirin 81mg Enteric Coated Tablet PO 07/28/19 08:59 DAILY AAKASH Atorvastatin Calcium 20 mg 06/28/19 09:00 Lipitor 20mg Tablet PO 07/28/19 08:59 DAILY [facility] Carvedilol 25 mg 06/27/19 21:00 Coreg 25mg Tablet PO 07/27/19 20:59 BID [facility] Gabapentin 600 mg 06/27/19 21:00 Neurontin 600mg Tablet PO 07/27/19 20:59 BID [facility] Sodium Chloride 1,000 mls @ 50 mls/hr 06/27/19 17:45 Sod Chlor 0.9% 1000ml Bag IV 07/27/19 17:44 .Q20H AAKASH Ceftriaxone Sodium 1 gm/ 50 mls @ 100 mls/hr 06/27/19 18:00 06/27/19 17:55 Sodium Chloride IV 07/11/19 17:59 100 mls/hr Q24H AAKASH Administration Protocol Sodium Chloride 2,040 mls @ 1,020 mls/hr 06/27/19 17:35 06/27/19 17:57 Sod Chlor 0.9% 1000ml Bag 30 ml/kg infuse over 2 hr (2040 ml) 06/27/19 19:34 1,020 mls/hr IV Administration .Q2H ONE Isosorbide Mononitrate 60 mg 06/28/19 09:00 Imdur 60mg Er Tablet PO 07/28/19 08:59 DAILY [facility] Multivitamins 1 each 06/28/19 09:00 Multi-Vitamin Plain PO 07/28/19 08:59 DAILY [facility] Nitroglycerin 0.4 mg 06/27/19 17:42 Nitrostat 0.4mg Sl Tablet SL 07/27/19 17:41 Q5MINP PRN Chest Pain Non-Formulary Medication 2 puffs 06/27/19 17:42 Albuterol Sulfate [Proair Respiclick] INHALATION Q4HP PRN COPD Non-Formulary Medication 160 mcg 06/27/19 21:00 Budesonide/Formoterol Fumarate [Symbicort 160-4.5 Mcg Inhaler] IH 07/27/19 20:59 BID [facility] Non-Formulary Medication 0.3 mg 06/27/19 21:00 Clonidine Hcl [Clonidine Hcl] PO 07/27/19 20:59 BID [facility] Non-Formulary Medication 180 mg 06/28/19 09:00 Fexofenadine Hcl PO 07/28/19 08:59 DAILY AAKASH Non-Formulary Medication 100 mg 06/28/19 09:00 Losartan Potassium PO 07/28/19 08:59 DAILY AAKASH Non-Formulary Medication 400 mg 06/28/19 09:00 Magnesium Oxide [Magnesium] PO 07/28/19 08:59 DAILY AAKASH Non-Formulary Medication 15 mg 06/28/19 09:00 Meloxicam [Mobic 15 Mg Tab] PO 07/28/19 08:59 DAILY AAKASH Non-Formulary Medication 2,000 mg 06/27/19 21:00 [place]-3 Acid Ethyl Esters [Lovaza] PO 07/27/19 20:59 BID AAKASH Non-Formulary Medication 150 mg 06/27/19 21:00 Ranitidine Hcl [Zantac 150mg] PO 07/27/19 20:59 BID AAKASH Non-Formulary Medication 1,000 mg 06/27/19 21:00 Metformin Hcl [Metformin 1000mg Tablets] PO 07/27/19 20:59 BID AAKASH Non-Formulary Medication 2 mg 06/27/19 17:42 Tizanidine Hcl PO Q8HP PRN Pain Ondansetron HCl 4 mg 06/27/19 17:37 Zofran 4mg/2ml Vial IV 07/27/19 17:36 Q8HP PRN Nausea Sodium Chloride 10 ml 06/27/19 17:37 Saline Flush 10ml Syringe IV 07/27/19 17:36 NEEDED PRN Maintain IV Site Tiotropium [place] puffs 06/28/19 09:00 Spiriva 18mcg/Puff Inhaler IH 07/28/19 08:59 DAILY AAKASH Discontinued Medications Generic Name Dose Route Start Last Admin Trade Name Freq PRN Reason Stop Dose Admin Azithromycin 500 mg/ Sodium 250 mls @ 250 mls/hr 06/27/19 17:50 Chloride IV 06/27/19 17:51 ONCE ONE Protocol Ceftriaxone Sodium 1 gm/ 50 mls @ 100 mls/hr 06/27/19 17:55 06/27/19 17:57 Sodium Chloride IV 06/27/19 18:24 Not Given ONCE ONE Protocol Miscellaneous 1 unit 06/27/19 17:42 Aerochamber/Optihaler MC 06/27/19 17:43 ONCE ONE ORDERS Category Date Time Status Blood Culture Stat Micro 06/27/19 14:40 Received General Adult HPI - General Chief complaint: Shortness of Breath/Dyspnea Stated complaint: soa Time Seen by Provider: 06/27/19 16:00 Mode of Arrival: EMS Limitations: No Limitations Description of Symptoms (Recalled from ER Triage Doc. by RN): copd exacerbation after mowing grass two days ago without his mask tht he normally wears. pt is alert to name and self, other details, unk - History of Present Illness HPI narrative: Patient is an 79-year-old male who today became greatly obtunded. The patient opted and has been walking around talking though he has chronic lung disease stents in his heart open heart surgery open heart surgery x2 vascular disease as well as aortic aneurysm that has been repaired. The patient comes in at this time because of this change in mental status and difficulty having him do anything compared to what it was like when everything was doing okay. Onset (ago): day(s) Location: chest Radiation: non-radiation Severity: mild Exacerbating factors: none - Related Data Home Medications Medication Instructions Recorded Confirmed ALPRAZolam [Xanax 0.25mg tab] 0.25 mg PO HS 02/19/19 02/20/19 Albuterol Sulfate [Proair 2 puffs INHALATION Q4HP PRN 02/19/19 02/20/19 Respiclick] Amlodipine Besylate 10 mg PO DAILY 02/19/19 02/20/19 Aspirin [Aspirin 81mg EC Tab] 81 mg PO DAILY 02/19/19 02/19/19 Atorvastatin Calcium [Atorvastatin 20 mg PO DAILY 02/19/19 02/19/19 20mg Tab] Carvedilol [Carvedilol 25mg Tab] 25 mg PO BID 02/19/19 02/19/19 Gabapentin 600 mg PO BID 02/19/19 02/19/19 Ipratropium/Albuterol Sulfate 100 mcg INHALATION BID 02/19/19 02/19/19 [Combivent Respimat Inh] Losartan Potassium 100 mg PO DAILY 02/19/19 02/19/19 Magnesium Oxide [Magnesium] 400 mg PO DAILY 02/19/19 02/19/19 Metformin HCl [Metformin 1000mg 1,000 mg PO BID 02/19/19 02/19/19 Tablets] Nitroglycerin [Nitrostat 0.4mg SL 0.4 mg SL Q5MINP PRN 02/19/19 02/19/19 Tablet] [place]-3 Acid Ethyl Esters [Lovaza] 2,000 mg PO BID 02/19/19 02/20/19 cloNIDine HCl [Clonidine HCl] 0.3 mg PO BID 02/19/19 02/19/19 raNITIdine HCl [Zantac 150mg] 150 mg PO BID 02/19/19 02/19/19 Fexofenadine HCl 180 mg PO DAILY 02/20/19 02/20/19 Hydralazine HCl 50 mg PO TID 02/20/19 02/20/19 Isosorbide Mononitrate [Imdur 60mg 60 mg PO DAILY 02/20/19 02/20/19 ER tablet] Meclizine HCl [Antivert 25mg 25 mg PO TID PRN 02/20/19 02/20/19 tablet] Meloxicam [Mobic 15 mg tab] 15 mg PO DAILY 02/20/19 02/20/19 Multivitamin [Daily Multiple 1 each PO DAILY 02/20/19 02/20/19 Vitamin] Tiotropium [place] [Spiriva 2 puff IH DAILY 02/20/19 02/20/19 18mcg/puff inhaler] Tizanidine HCl 2 mg PO Q8HP PRN 02/20/19 02/20/19 Previous Rx's Medication Instructions Recorded Budesonide/Formoterol Fumarate 160 mcg IH BID 02/20/19 [Symbicort 160-4.5 Mcg Inhaler] Allergies Allergy/AdvReac Type Severity Reaction Status Date / Time No Known Allergies Allergy Unverified 10/26/17 15:33 [facility] History - Hepatitis A Screen Drug use history?: No High risk sexual behaviors?: No History of sexually transmitted infection?: No Currently employed?: No Childcare worker?: No Do you have indoor plumbing?: Yes Do you have electricity?: Yes Attestation statement:: This patient has been screened for Hepatitis A risk factors. 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 No: Pacemaker Amputation: No Fractures: No - Social History Smoking Status: Light tobacco smoker Tobacco Type: smokeless tobacco # Packs/Day (cigarettes): 0 Alcohol Intake: never Occupational Status: retired, other Household Members: spouse Family Hx:: No significant family history ROS Obtained: Yes All systems reviewed & no additional complaints Physical Exam - General General appearance: alert, in no apparent distress - Head Head exam: atraumatic, normocephalic, normal inspection - Eye Eye exam: Present: normal appearance, PERRL, EOMI - ENT ENT exam: Present: normal exam, normal oropharynx, mucous membranes moist, TM's normal bilaterally, normal external ear exam - Neck Neck exam: Present: normal inspection, full ROM, trachea midline. Absent: m eningismus, lymphadenopathy - Chest Chest inspection: Present: normal inspection, symmetric chest wall rise, other (Previous cardiac surgery x2). Absent: tenderness - Respiratory Respiratory exam: Present: wheezes, other. Absent: respiratory distress - Cardiovascular Cardiovascular exam: Present: regular rate, irregular rhythm. Absent: JVD - Abdominal Exam Abdominal exam: Present: soft, normal bowel sounds. Absent: distention, tenderness, guarding - Extremities Exam Extremities exam: Present: normal inspection, full ROM, normal capillary refill. Absent: calf tenderness - Back Exam Back exam: Present: normal inspection. Absent: tenderness - Neurological Exam Neurological exam: Present: alert, oriented X3, other (Patient is obtunded though can answers simple questions with some difficulty) - Psychiatric Psychiatric exam: Present: normal affect, normal mood - Skin Skin exam: Present: warm, dry, intact, normal color - Lymphatic Lymphatic Findings: no adenopathy
[2019-06-28 07:12] LABS: Basophils # 0.1 K/mm3 (0-0.2); Basophils % 0.3 % (0.1-2.0); Hematocrit 30.2 % (42.0-52.0); Hemoglobin 8.4 g/dL (14.1-18.0); Lymphocytes # 1.2 K/mm3 (0.7-4.5); Lymphocytes % 4.2 % (10-50); Mean Corpuscular HGB Conc 27.7 g/dL (31.8-35.4); Mean Corpuscular Volume 70.1 fl (80-94); Mean Platelet Volume 9.9 fl (7.4-10.4); Monocytes # 1.1 K/mm3 (0.1-1.0); Monocytes % 4.2 % (1.7-9.3); Neutrophils # 24.9 K/mm3 (1.8-7.8); Neutrophils % 91.2 % (37.0-80.0); Platelet Count 214 K/mm3 (142-424); Red Blood Count 4.31 M/mm3 (4.60-6.20); Red Cell Distribution Width 18.3 % (11.5-17.5); White Blood Count 27.3 K/mm3 (4.8-10.8)
[2019-06-28 07:30] LABS: Albumin Level 2.8 gm/dL (3.4-5.0); Albumin/Globulin Ratio 0.9 (1.1-1.8); Anion Gap 16.2 mEq/L (5-15); Bilirubin,Total 0.3 mg/dL (0.2-1.0); Calcium 8.5 mg/dL (8.5-10.1); Globulin 3.1 gm/dl (1.3-3.2); Total Protein,Serum 5.9 gm/dL (6.4-8.2)
--- NOTE | 2019-06-28 07:34 | Pharmacy Consult Notes ---
[facility] Pharmacy VTE Monitoring - Patient Demographics Admission date: 06/28/19 Report Date: 06/28/19 Time: 07:34 Allergies/Adverse Reactions: Patient Allergies No Known Allergies Allergy (Verified 06/27/19 22:33) Height: 1.78 m Weight: 81.102 kg Patient Problems: Current Active Problems Pneumonia (Acute) Community acquired pneumonia (Acute) - VTE Risk Labs: VTE Related Lab Results Hgb 8.9 g/dL (14.1-18.0) L 06/27/19 14:40 Hct 31.5 % (42.0-52.0) L 06/27/19 14:40 Plt Count 239 K/mm3 (142-424) 06/27/19 14:40 BUN 43 mg/dL (7-18) H D 06/28/19 05:47 Creatinine 3.51 mg/dL (0.70-1.30) H D 06/28/19 05:47 Estimated Creat Clear 19 mL/min (50-200) 06/28/19 05:47 Was VTE Risk Assessment Performed: Yes VTE Risk Level: Moderate Risk Clinical Trial Participant: No - Prophylaxis VTE Prophylaxis Ordered?: Yes Types of VTE Prophylaxis: TEDS Knee High
--- NOTE | 2019-06-28 07:44 | H&P/Discharge Summary ---
General - General Admission date:: 06/27/19 Discharge date: 06/28/19 *Admission Date: 06/28/19 *Chief complaint: Mental status changes/confusion/shortness of air *History of present illness: 79-year-old white male with history of coronary disease, status post stent placement in 2011, who over the past couple of weeks has reported increasing pain in his legs and some dysfunction. This has now transitioned into inc reasing cough and congestion, along with some chest pain and functional decline issues, but he actually mowed his yard 2 days ago and felt very short of air after this event. Is been progressively feeling more sick with coughing and congestion and the afternoon of admission to [facility] became "unresponsive" with garbled speech and diminished activity. Brought to the emergency department. In the emergency department was found to have infiltrates, was hypoxic and somewhat acidotic and responded well to CPAP. Admitted to hospital for antibiotic therapy, IV fluids and further diagnostic testing. [facility] History I have reviewed the patient's past medical history: Yes Medical History: Reports:: Aneurysm, Cancer (SKIN), Congestive Heart Failure, Coronary Artery Disease, Diabetes Mellitus Type 2, Hyperlipidemia, Hypertension (History of malignant hypertension with mental status changes in the past), Myocardial Infarction, Peripheral Artery Disease, Peripheral Vascular Disease Denies:: Diabetes Mellitus Type 1, Internal Pacemaker, MRSA *Have you ever received a pneumonia vaccine?: Yes *Have you received a flu vaccine this season?: Yes Other Medical History: Reports: Anemia (Chronic disease anemia), Arthritis, Cataracts, Sinus Problems Other Surgeries: Yes: CABG, Cardiac Catheterization, Cardiac Surgery, Colonoscopy, Coronary Stent, EGD, Skin Cancer Excision. No: Pacemaker Amputation: No Fractures: No - *Social History Smoking Status: Former smoker Tobacco Type: smokeless tobacco # Packs/Day (cigarettes): 0 Alcohol Intake: never *Occupational Status:: retired, other Household Members: spouse *Travel in the last 8 weeks: None Family Hx:: No significant family history Review of Systems - Review of Systems Review of systems:: unable to obtain Patient is minimally responsive but very tired, unable to really give a detailed review of systems. Notes in HPI per family report Exam Vital signs and Labs for Last 24 Hours: Temp Pulse Resp BP Pulse Ox 97.5 F L 60 20 119/59 L 97 06/28/19 00:00 06/28/19 06:00 06/28/19 06:00 06/28/19 06:00 06/28/19 06:00 Laboratory Results - last 24 hr 06/27/19 14:10: B-Natriuretic Peptide 404 H 06/27/19 14:40: Specimen Source L brachial, O2 % Unsure, ABG pH 7.34 L, ABG pCO2 48.6 H, ABG pO2 42.1 L, ABG HCO3 25.6, ABG Total CO2 27.1 H, ABG O2 Saturation 74 L*, ABG Base Excess -0.2, Tidal Volume Cpap 10 from emt 06/27/19 14:40: WBC 17.1 H, RBC 4.55 L, Hgb 8.9 L, Hct 31.5 L, MCV 69.2 L, MCH 19.5 L, MCHC 28.2 L, RDW 18.1 H, Plt Count 239, MPV 9.3, Neut % (Auto) 84.6 H, Lymph % (Auto) 8.7 L, [place] % (Auto) 6.2, Eos % (Auto) 0.1, Baso % (Auto) 0.3, Neut # (Auto) 14.5 H, Lymph # (Auto) 1.5, [place] # (Auto) 1.1 H, Eos # (Auto) 0.0, Baso # (Auto) 0.1, Total Counted 100, Neutrophils % (Manual) 76, Band Neutrophils % 14.0 H, Lymphocytes % (Manual) 6 L, Metamyelocytes % 3.0 H, Myelocytes % 1, Platelet Estimate Normal, Hypochromasia 3+, Anisocytosis 1+, M icrocytosis 2+ 06/27/19 14:40: Sodium 147 H, Potassium 4.8, Chloride 111 H, Carbon Dioxide 26, Anion Gap 14.8, BUN 25 H, Creatinine 2.26 H, Estimated Creat Clear 25, Estimated GFR 28 L, Est GFR ( Amer) 34 L, Glucose 72 L, Calcium 8.8, Total Bilirubin 0.5, AST 33, ALT 27, Alkaline Phosphatase 56, Troponin I 3.12 H, Total Protein 5.5 L, Albumin 2.8 L, Globulin 2.7, Albumin/Globulin Ratio 1.0 L 06/27/19 14:40: Lactate 3.2 H 06/27/19 19:02: Lactate 3.3 H 06/27/19 20:26: POC Glucose 87 06/27/19 20:59: Troponin I 13.39 H 06/27/19 22:20: Lactate 3.6 H 06/27/19 22:28: POC Glucose 98 06/28/19 03:00: Troponin I 25.49 H 06/28/19 05:47: Sodium 144, Potassium 6.2 H* D, Chloride 110 H, Carbon Dioxide 24, Anion Gap 16.2 H, BUN 43 H D, Creatinine 3.51 H D, Estimated Creat Clear 19, Estimated GFR 17 L*, Est GFR ( Amer) 20 L D, Glucose 99 D, Calcium 8.5, Total Bilirubin 0.3, AST 299 H D, ALT 221 H D, Alkaline Phosphatase 47, Total Protein 5.9 L, Albumin 2.8 L, Globulin 3.1, Albumin/Globulin Ratio 0.9 L 06/28/19 06:04: POC Glucose 107 I & O for Last 24 hours: Intake & Output 06/25/19 06/26/19 06/27/19 06/28/19 11:59 11:59 11:59 11:59 Intake Total 2402 / 2402 Output Total 325 / 325 Balance 2076 / 2076 Weight 178 lb 12.8 oz Narrative: Patient is in the stepdown unit. On BiPAP. Will respond to commands, but is not very conversant. Pupillary reactivity is equal. Oropharynx clear, CPAP in good position. Lungs have rhonchi in both bases but is moving air symmetrically with the assistance of CPAP. Heart rate regular. In the 60s. Blood pressures acceptable. Abdomen soft and nontender. Extremities have no clubbing or edema. Good skin turgor. Hospital Course Hospital Course: Patient was admitted to hospital. Ruled in for non-STEMI with significant enzyme elevation up to 17 and then 25 this morning. Rhythm has been stable with sinus bradycardia. Blood pressures been stable. In talking to the family after the diagnosis of non-STEMI was made they requested transfer to [facility] where his cardiology service is located. Have contacted radiology service and they have agreed to accept the patient in transfer. Of note he has developed hyperkalemia and worsening acute kidney injury this morning. I have ordered calcium gluconate, Kayexalate and slightly increased his fluid rate. Patient will be transferred to [place] for further evaluation of the complicated cardiac issues. Results Labs on day of discharge: Labs from last 24 hours 06/28/19 06/28/19 06/28/19 06:04 05:47 03:00 WBC RBC Hgb Hct MCV MCH MCHC RDW Plt Count MPV Neut % (Auto) Lymph % (Auto) [place] % (Auto) Eos % (Auto) Baso % (Auto) Neut # (Auto) Lymph # (Auto) [place] # (Auto) Eos # (Auto) Baso # (Auto) Total Counted Neutrophils % (Manual) Band Neutrophils % Lymphocytes % (Manual) Metamyelocytes % Myelocytes % Platelet Estimate Hypochromasia Anisocytosis Microcytosis Specimen Source O2 % ABG pH ABG pCO2 ABG pO2 ABG HCO3 ABG Total CO2 ABG O2 Saturation ABG Base Excess Tidal Volume Sodium 144 Potassium 6.2 H* D Chloride 110 H Carbon Dioxide 24 Anion Gap 16.2 H BUN 43 H D Creatinine 3.51 H D Estimated Creat Clear 19 Estimated GFR 17 L* Est GFR ( Amer) 20 L D Glucose 99 D POC Glucose 107 Lactate Calcium 8.5 Total Bilirubin 0.3 AST 299 H D ALT 221 H D Alkaline Phosphatase 47 Troponin I 25.49 H B-Natriuretic Peptide Total Protein 5.9 L Albumin 2.8 L Globulin 3.1 Albumin/Globulin Ratio 0.9 L 06/27/19 06/27/19 06/27/19 22:28 22:20 20:59 WBC RBC Hgb Hct MCV MCH MCHC RDW Plt Count MPV Neut % (Auto) Lymph % (Auto) [place] % (Auto) Eos % (Auto) Baso % (Auto) Neut # (Auto) Lymph # (Auto) [place] # (Auto) Eos # (Auto) Baso # (Auto) Total Counted Neutrophils % (Manual) Band Neutrophils % Lymphocytes % (Manual) Metamyelocytes % Myelocytes % Platelet Estimate Hypochromasia Anisocytosis Microcytosis Specimen Source O2 % ABG pH ABG pCO2 ABG pO2 ABG HCO3 ABG Total CO2 ABG O2 Saturation ABG Base Excess Tidal Volume Sodium Potassium Chloride Carbon Dioxide Anion Gap BUN Creatinine Estimated Creat Clear Estimated GFR Est GFR ( Amer) Glucose POC Glucose 98 Lactate 3.6 H Calcium Total Bilirubin AST ALT Alkaline Phosphatase Troponin I 13.39 H B-Natriuretic Peptide Total Protein Albumin Globulin Albumin/Globulin Ratio 06/27/19 06/27/19 06/27/19 20:26 19:02 14:40 WBC RBC Hgb Hct MCV MCH MCHC RDW Plt Count MPV Neut % (Auto) Lymph % (Auto) [place] % (Auto) Eos % (Auto) Baso % (Auto) Neut # (Auto) Lymph # (Auto) [place] # (Auto) Eos # (Auto) Baso # (Auto) Total Counted Neutrophils % (Manual) Band Neutrophils % Lymphocytes % (Manual) Metamyelocytes % Myelocytes % Platelet Estimate Hypochromasia Anisocytosis Microcytosis Specimen Source O2 % ABG pH ABG pCO2 ABG pO2 ABG HCO3 ABG Total CO2 ABG O2 Saturation ABG Base Excess Tidal Volume Sodium Potassium Chloride Carbon Dioxide Anion Gap BUN Creatinine Estimated Creat Clear Estimated GFR Est GFR ( Amer) Glucose POC Glucose 87 Lactate 3.3 H 3.2 H Calcium Total Bilirubin AST ALT Alkaline Phosphatase Troponin I B-Natriuretic Peptide Total Protein Albumin Globulin Albumin/Globulin Ratio 06/27/19 06/27/19 06/27/19 14:40 14:40 14:40 WBC 17.1 H RBC 4.55 L Hgb 8.9 L Hct 31.5 L MCV 69.2 L MCH 19.5 L MCHC 28.2 L RDW 18.1 H Plt Count 239 MPV 9.3 Neut % (Auto) 84.6 H Lymph % (Auto) 8.7 L [place] % (Auto) 6.2 Eos % (Auto) 0.1 Baso % (Auto) 0.3 Neut # (Auto) 14.5 H Lymph # (Auto) 1.5 [place] # (Auto) 1.1 H Eos # (Auto) 0.0 Baso # (Auto) 0.1 Total Counted 100 Neutrophils % (Manual) 76 Band Neutrophils % 14.0 H Lymphocytes % (Manual) 6 L Metamyelocytes % 3.0 H Myelocytes % 1 Platelet Estimate Normal Hypochromasia 3+ Anisocytosis 1+ Microcytosis 2+ Specimen Source L brachial O2 % Unsure ABG pH 7.34 L ABG pCO2 48.6 H ABG pO2 42.1 L ABG HCO3 25.6 ABG Total CO2 27.1 H ABG O2 Saturation 74 L* ABG Base Excess -0.2 Tidal Volume Cpap 10 from emt Sodium 147 H Potassium 4.8 Chloride 111 H Carbon Dioxide 26 Anion Gap 14.8 BUN 25 H Creatinine 2.26 H Estimated Creat Clear 25 Estimated GFR 28 L Est GFR ( Amer) 34 L Glucose 72 L POC Glucose Lactate Calcium 8.8 Total Bilirubin 0.5 AST 33 ALT 27 Alkaline Phosphatase 56 Troponin I 3.12 H B-Natriuretic Peptide Total Protein 5.5 L Albumin 2.8 L Globulin 2.7 Albumin/Globulin Ratio 1.0 L 06/27/19 14:10 WBC RBC Hgb Hct MCV MCH MCHC RDW Plt Count MPV Neut % (Auto) Lymph % (Auto) [place] % (Auto) Eos % (Auto) Baso % (Auto) Neut # (Auto) Lymph # (Auto) [place] # (Auto) Eos # (Auto) Baso # (Auto) Total Counted Neutrophils % (Manual) Band Neutrophils % Lymphocytes % (Manual) Metamyelocytes % Myelocytes % Platelet Estimate Hypochromasia Anisocytosis Microcytosis Specimen Source O2 % ABG pH ABG pCO2 ABG pO2 ABG HCO3 ABG Total CO2 ABG O2 Saturation ABG Base Excess Tidal Volume Sodium Potassium Chloride Carbon Dioxide Anion Gap BUN Creatinine Estimated Creat Clear Estimated GFR Est GFR ( Amer) Glucose POC Glucose Lactate Calcium Total Bilirubin AST ALT Alkaline Phosphatase Troponin I B-Natriuretic Peptide 404 H Total Protein Albumin Globulin Albumin/Globulin Ratio DS: Diagnosis - Discharge Diagnosis (1) Non-STEMI (non-ST elevated myocardial infarction) Status: Acute (2) Hyperkalemia Status: Acute (3) Acute kidney injury Status: Acute (4) Community acquired pneumonia Status: Acute (5) Hypoxia Status: Acute Problem details: Acute on chronic hypoxemic respiratory failure Discharge Plan - Patient Discharge Instructions ACTIVITY: Continue current activity DIET: continue same diet, NPO Patient Instructions: DI for Heart Attack, Pneumonia-Adult, Heart Attack, Pneumococcal Vaccine, DI for Pneumonia -- Adult - Follow up Plan Follow up with: Provider,Referral, [Primary Care Provider] - Disposition: Xfer Short-Term Hosp Home Medications: Home Medications Medication Instructions Recorded Confirmed Type ALPRAZolam [Xanax 0.25mg tab] 0.25 mg PO HS PRN 02/19/19 06/27/19 History Albuterol Sulfate [Proair 2 puffs INHALATION Q4HP PRN 02/19/19 06/27/19 History Respiclick] Amlodipine Besylate 10 mg PO DAILY 02/19/19 06/27/19 History Aspirin [Aspirin 81mg EC Tab] 81 mg PO DAILY 02/19/19 06/27/19 History Atorvastatin Calcium [Atorvastatin 20 mg PO HS 02/19/19 06/27/19 History 20mg Tab] Carvedilol [Carvedilol 25mg Tab] 25 mg PO BID 02/19/19 06/27/19 History Gabapentin 600 mg PO BID 02/19/19 06/27/19 History Ipratropium/Albuterol Sulfate 100 mcg INHALATION BID 02/19/19 06/27/19 History [Combivent Respimat Inh] Losartan Potassium 100 mg PO DAILY 02/19/19 06/27/19 History Magnesium Oxide [Magnesium] 400 mg PO DAILY 02/19/19 06/27/19 History Metformin HCl [Metformin 1000mg 1,000 mg PO BID 02/19/19 06/27/19 History Tablets] Nitroglycerin [Nitrostat 0.4mg SL 0.4 mg SL Q5MINP PRN 02/19/19 06/27/19 History Tablet] [place]-3 Acid Ethyl Esters [Lovaza] 2,000 mg PO BID 02/19/19 06/27/19 History cloNIDine HCl [Clonidine HCl] 0.3 mg PO BID 02/19/19 06/27/19 History raNITIdine HCl [Zantac 150mg] 150 mg PO BID 02/19/19 06/27/19 History Budesonide/Formoterol Fumarate 160 mcg IH BID 02/20/19 06/28/19 Rx [Symbicort 160-4.5 Mcg Inhaler] Hydralazine HCl 50 mg PO TID 02/20/19 06/27/19 History Isosorbide Mononitrate [Imdur 60mg 60 mg PO DAILY 02/20/19 06/27/19 History ER tablet] Meclizine HCl [Antivert 25mg 25 mg PO TID PRN 02/20/19 06/27/19 History tablet] Multivitamin [Daily Multiple 1 each PO HS 02/20/19 06/27/19 History Vitamin] Tiotropium [place] [Spiriva 2 puff IH DAILY 02/20/19 06/27/19 History 18mcg/puff inhaler] Tizanidine HCl 2 mg PO Q8HP PRN 02/20/19 06/27/19 History Docusate Sodium [Stool Softener] 100 mg PO DAILYP PRN 06/27/19 06/27/19 History Prescriptions/Medication Reconciliation: Continued Metformin HCl [Metformin 1000mg Tablets] 1,000 mg PO BID Losartan Potassium 100 mg PO DAILY Gabapentin 600 mg PO BID cloNIDine HCl [Clonidine HCl] 0.3 mg PO BID Carvedilol [Carvedilol 25mg Tab] 25 mg PO BID Amlodipine Besylate 10 mg PO DAILY raNITIdine HCl [Zantac 150mg] 150 mg PO BID Aspirin [Aspirin 81mg EC Tab] 81 mg PO DAILY Ipratropium/Albuterol Sulfate [Combivent Respimat Inh] 100 mcg INHALATION BID Nitroglycerin [Nitrostat 0.4mg SL Tablet] 0.4 mg SL Q5MINP PRN PRN Reason: Chest Pain Albuterol Sulfate [Proair Respiclick] 2 puffs INHALATION Q4HP PRN PRN Reason: COPD Hydralazine HCl 50 mg PO TID Isosorbide Mononitrate [Imdur 60mg ER tablet] 60 mg PO DAILY Tiotropium [place] [Spiriva 18mcg/puff inhaler] 2 puff IH DAILY Meclizine HCl [Antivert 25mg tablet] 25 mg PO TID PRN PRN Reason: Vertigo Multivitamin [Daily Multiple Vitamin] 1 each PO HS Docusate Sodium [Stool Softener] 100 mg PO DAILYP PRN PRN Reason: Constipation [place]-3 Acid Ethyl Esters [Lovaza] 2,000 mg PO BID ALPRAZolam [Xanax 0.25mg tab] 0.25 mg PO HS PRN PRN Reason: Anxiety Atorvastatin Calcium [Atorvastatin 20mg Tab] 20 mg PO HS Magnesium Oxide [Magnesium] 400 mg PO DAILY Tizanidine HCl 2 mg PO Q8HP PRN PRN Reason: PAIN Budesonide/Formoterol Fumarate [Symbicort 160-4.5 Mcg Inhaler] 160 mcg IH BID - Problem Reconciliation Problems Reviewed?: Yes
[2019-06-28 07:57] LABS: Chol/HDL Ratio 1.7 (1-3.5)
--- NOTE | 2019-06-28 10:39 | Electrocardiograph Report ---
APPROVED REPORT Exam: Resting ECG HR:49 bpm ECG Measurements Heart Rate 49 AXES MT 192 P -23 QRSd 90 QRS 12 QT 436 T62 QTc 393 <Conclusion> Marked sinus bradycardia Abnormal ECG Electronically signed by : Asif Kirk, 06/28/2019 10:38:39
--- NOTE | 2019-06-28 10:39 | Electrocardiograph Report ---
APPROVED REPORT Exam: Resting ECG HR:49 bpm ECG Measurements Heart Rate 49 AXES OR 192 P -23 QRSd 90 QRS 12 QT 436 T62 QTc 393 <Conclusion> Marked sinus bradycardia Abnormal ECG Electronically signed by : Asif Kirk, 06/28/2019 10:38:42
--- NOTE | 2019-06-28 13:05 | Electrocardiograph Report ---
APPROVED REPORT Exam: Resting ECG HR:59 bpm ECG Measurements Heart Rate 59 AXES QRSd 74 QRS 24 QT 392 T51 QTc 388 <Conclusion> Atrial fibrillation with slow ventricular response Abnormal ECG Electronically signed by : Asif Kirk, 06/28/2019 13:04:35
[2019-06-28 14:11] LABS: Lymphocytes % 21 % (10-50); Neutrophils % 73 % (42-76); Total Cells Counted 100
[2019-06-28 14:12] LABS: Hypochromasia 2+
== END 2019-06-28 11:31 | disposition short-term general hospital (02) | DRG 280 ==
LOC: ER 14:41 → ICU 17:22 → 2ND 20:32 → ICU 22:07
PROVIDERS: ADMIT Internal Medicine Adolescent Medicine; ATTEND Internal Medicine Adolescent Medicine
DX: E87.5 Hyperkalemia; J18.9 Pneumonia, unspecified organism; J96.21 Acute and chronic respiratory failure with hypoxia; Z95.1 Presence of aortocoronary bypass graft; I25.2 Old myocardial infarction; N17.9 Acute kidney failure, unspecified; I11.0 Hypertensive heart disease with heart failure; I25.10 Atherosclerotic heart disease of native coronary artery without angina pectoris; I50.9 Heart failure, unspecified; E11.9 Type 2 diabetes mellitus without complications; Z95.5 Presence of coronary angioplasty implant and graft; I21.4 Non-ST elevation (NSTEMI) myocardial infarction
CPT/HCPCS: J0456

== ENCOUNTER 2019-09-14 18:30 | Observation (INO) ==
[2019-09-14 19:11] LABS: Basophils # 0.1 K/mm3 (0-0.2); Basophils % 0.9 % (0.1-2.0); Eosinophils # 0.4 K/mm3 (0.0-0.4); Eosinophils % 5.3 % (0.1-12.0); Hematocrit 33.9 % (42.0-52.0); Hemoglobin 9.8 g/dL (14.1-18.0); Lymphocytes # 1.8 K/mm3 (0.7-4.5); Lymphocytes % 22.9 % (10-50); Mean Corpuscular Volume 76.2 fl (80-94); Mean Platelet Volume 9.2 fl (7.4-10.4); Monocytes # 0.7 K/mm3 (0.1-1.0); Monocytes % 8.9 % (1.7-9.3); Neutrophils # 4.9 K/mm3 (1.8-7.8); Neutrophils % 61.9 % (37.0-80.0); Platelet Count 231 K/mm3 (142-424); Red Blood Count 4.45 M/mm3 (4.60-6.20); Red Cell Distribution Width 21.1 % (11.5-17.5)
[2019-09-14 19:25] LABS: Blood Urea Nitrogen 19 mg/dL (7-18); C-Reactive Protein 0.3 mg/dL (0.0-0.9); Calcium 9.2 mg/dL (8.5-10.1); Carbon Dioxide 30 mmol/L (21.0-32.0); Chloride 108 mmol/L (98-107); Glucose 65 mg/dL (74-106); Sodium 144 mmol/L (136-145)
--- NOTE | 2019-09-14 20:35 | Emergency Department Note ---
ED Disposition Clinical Impression: Bradycardia Chest pain Qualifiers: Chest pain type: unspecified Qualified Code(s): R07.9 - Chest pain, unspecified Anemia Qualifiers: Anemia type: unspecified type Qualified Code(s): D64.9 - Anemia, unspecified Diabetes type 2, controlled Qualifiers: Diabetes mellitus [place]st[place] insulin use: unspecified senior care insulin use status Diabetes mellitus complication status: with unspecified complications Qualified Code(s): E11.8 - Type 2 diabetes mellitus with unspecified complications Disposition: Admitted as Observation Condition on Discharge: Good Referrals: Asif Kirk MD [Primary Care Provider] - - Critical Care Critical Care Time: No Attestation: On 09/14/19, the high probability of a clinically significant, sudden or life threatening deterioration of the following system(s) required my full and direct attention, intervention and personal management. The time I documented below is in addition to time spent performing reported procedures but includes the following listed in this critical care notation. Medical Decision Making - Medical Records Medical records reviewed: Yes: I reviewed the patient's medical records. - John Inquiry Pt receiving controlled substance: No Vital Signs: 09/14/19 18:47 Temperature 97.9 F Temperature Source Oral Pulse Rate [Left Radial] 50 L Respiratory Rate 22 Blood Pressure [Right Arm] 102/48 L Blood Pressure Mean [Right Arm] 66 Blood Pressure Position [Right Arm] Sitting 02 Sat by Pulse Oximetry 98 Oxygen Delivery Method Room Air - Lab Data Lab results reviewed: Yes: I reviewed the patient's lab results. Lab Results 09/14/19 18:30: WBC 8.0, RBC 4.45 L, Hgb 9.8 L, Hct 33.9 L, MCV 76.2 L, MCH 22.1 L, MCHC 29.0 L, RDW 21.1 H, Plt Count 231, MPV 9.2, Neut % (Auto) 61.9, Lymph % (Auto) 22.9, [place] % (Auto) 8.9, Eos % (Auto) 5.3, Baso % (Auto) 0.9, Neut # (Auto) 4.9, Lymph # (Auto) 1.8, [place] # (Auto) 0.7, Eos # (Auto) 0.4, Baso # (Auto) 0.1 09/14/19 18:30: Sodium 144, Potassium 4.0, Chloride 108 H, Carbon Dioxide 30, Anion Gap 10.0, BUN 19 H, Creatinine 1.22, Estimated Creat Clear 50, Estimated GFR 57 L, Est GFR ( Amer) 69, Glucose 65 L, Calcium 9.2, Troponin I < 0.02, C-Reactive Protein 0.3 09/14/19 18:30: B-Natriuretic Peptide 253 H 09/14/19 18:30: ESR 22 H Result diagrams: 09/14/19 18:30 09/14/19 18:30 Orders (Tests/Meds): ORDERS Category Date Time Status CT head/brain wo con Stat Cat Scan 09/14/19 18:52 Taken Chest XR -- portable [XR chest portable] Stat Exams 09/14/19 18:51 Taken - Radiology Data #1 Image(s): Chest Image Reviewed: Yes I reviewed the patient's radiology image Preliminary Findings: Normal/NAD - CT Data CT Scan: Head Time Received: 21:[address] Reviewed: Yes: I have viewed the radiologist's interpretation Preliminary Findings: Abnormal (nad ) - ECG Data Tracing #1 Arrhythmias present: sinus adri Ischemic changes: non-specific ST-T wave changes Chest Pain HPI - General Chief Complaint: Chest Pain Stated Complaint: Chest Pain Time Seen by Provider: 09/14/19 20:32 Mode of Arrival: Ambulatory Source of Information: Patient, Relative, Medical Record Limitations: No Limitations Description of Symptoms (Recalled from ER Triage Doc. by RN): to ed per pvt car with c/o intermittent lt side temporal headache x 3-4 days lasting approx 2-3 secs. [facility] home health nurse at house today states pt needs to go to ed due to low heart rate, dizziness, generalized weakness. - History of Present Illness HPI narrative: this wm who has hx of cad with recent nstemi in 06/26 - has over the last few days had dec hr and dizzyness ayden with standing and movement - pt was seen by home health nurse and advised to come to ed - no chest pain at this time - no syncope MD complaint: chest pain indicative of cardiac Onset (ago): day(s) Duration: now resolved Activity at onset: light activity Pain location: left chest Severity: moderate Quality: dull Pain radiation: none Risk Factors for CAD: Family Hx of CAD, Diabetes Treatments prior to or on arrival for Cardiac Chest Pain: none - KAVON Score for Non-Stemi Age of Patient: 80-89 years old Heart Rate: 50-69 bpm Systolic Blood Pressure: 100-119 mmHg Serum Creatinine: 1.20-1.59 mg/dl CHF [place] Class: I-No CHF Other Risk Factors: None Non-Stemi Risk Score: 147 - Related Data Prior Cardiac Testing/Procedures: Stenting Home Medications Medication Instructions Recorded Confirmed ALPRAZolam [Xanax 0.25mg tab] 0.25 mg PO HS PRN 02/19/19 09/14/19 Albuterol Sulfate [Proair 2 puffs INHALATION Q4HP PRN 02/19/19 09/14/19 Respiclick] Amlodipine Besylate 10 mg PO HS 02/19/19 09/14/19 Aspirin [Aspirin 81mg EC Tab] 81 mg PO HS 02/19/19 09/14/19 Atorvastatin Calcium [Atorvastatin 20 mg PO HS 02/19/19 09/14/19 20mg Tab] Gabapentin 600 mg PO BID 02/19/19 09/14/19 Ipratropium/Albuterol Sulfate 100 mcg INHALATION BID 02/19/19 09/14/19 [Combivent Respimat Inh] Losartan Potassium 100 mg PO DAILY 02/19/19 09/14/19 Magnesium Oxide [Magnesium] 400 mg PO HS 02/19/19 09/14/19 Metformin HCl [Metformin 1000mg 1,000 mg PO BID 02/19/19 09/14/19 Tablets] Nitroglycerin [Nitrostat 0.4mg SL 0.4 mg SL Q5MINP PRN 02/19/19 09/14/19 Tablet] [place]-3 Acid Ethyl Esters [Lovaza] 2,000 mg PO BID 02/19/19 09/14/19 cloNIDine HCl [Clonidine HCl] 0.3 mg PO BID 02/19/19 09/14/19 raNITIdine HCl [Zantac 150mg] 150 mg PO BID 02/19/19 09/14/19 Hydralazine HCl 75 mg PO TID 02/20/19 09/14/19 Isosorbide Mononitrate [Imdur 60mg 60 mg PO DAILY 02/20/19 09/14/19 ER tablet] Meclizine HCl [Antivert 25mg 25 mg PO TID PRN 02/20/19 09/14/19 tablet] Multivitamin [Daily Multiple 1 each PO HS 02/20/19 09/14/19 Vitamin] Tiotropium [place] [Spiriva 2 puff IH DAILY 02/20/19 09/14/19 18mcg/puff inhaler] Tizanidine HCl 2 mg PO Q8HP PRN 02/20/19 09/14/19 Docusate Sodium [Stool Softener] 100 mg PO DAILYP PRN 06/27/19 09/14/19 Budesonide/Formoterol Fumarate 160 mcg IH BID 09/14/19 09/14/19 [Symbicort 160-4.5 Mcg Inhaler] Hydrocod/Acet 5/325 mg [[place] 1 tab PO Q6HP PRN 09/14/19 09/14/19 5/325mg tablet] Metoprolol Tartrate [Lopressor 50 mg PO BID 09/14/19 09/14/19 50mg tablet] Allergies Allergy/AdvReac Type Severity Reaction Status Date / Time No Known Allergies Allergy Verified 09/14/19 20:06 [facility] History - Hepatitis A Screen Drug use history?: No High risk sexual behaviors?: No History of sexually transmitted infection?: No Currently employed?: No Childcare worker?: No Do you have indoor plumbing?: Yes Do you have electricity?: Yes Attestation statement:: This patient has been screened for Hepatitis A risk factors. I have reviewed the patient's past medical history: Yes Medical History: Reports:: Aneurysm, Cancer (SKIN), Congestive Heart Failure, Coronary Artery Disease, Diabetes Mellitus Type 2, Hyperlipidemia, Hypertension (History of malignant hypertension with mental status changes in the past), Myocardial Infarction, Peripheral Artery Disease, Peripheral Vascular Disease Denies:: Diabetes Mellitus Type 1, Internal Pacemaker, MRSA Other Medical History: Reports: Anemia (Chronic disease anemia), Arthritis, Cataracts, Sinus Problems Other Surgeries: Yes: CABG, Cardiac Catheterization, Cardiac Surgery, Colonoscopy, Coronary Stent, EGD, Skin Cancer Excision. No: Pacemaker Amputation: No Fractures: No - Social History Smoking Status: Former smoker Tobacco Type: smokeless tobacco # Packs/Day (cigarettes): 0 Alcohol Intake: never Occupational Status: retired, other Housing: other Household Members: spouse Family Hx:: No significant family history ROS Obtained: Yes All systems reviewed & no additional complaints - Constitutional Constitutional: Denies fever(s) - Eyes Eyes: Denies change in vision - ENT Ears, Nose, Mouth, and Throat: Denies sore throat - Cardiovascular Cardiovascular: Reports chest pain, Reports dyspnea, Denies radiating jaw, neck or arm pain, Reports slow heart rate - Respiratory Respiratory: No cough - Gastrointestinal Gastrointestingal: Denies: abdominal pain - Genitourinary Male Genitourinary: Denies flank pain - Musculoskeletal Musculoskeletal: Denies joint pain - Integumentary/Breasts Skin/Breast: Denies rash - Neurologic Neurologic: Denies focal weakness, Denies seizure-like activity Physical Exam - General General appearance: alert - Head Head exam: normocephalic - Eye Eye exam: Present: PERRL, EOMI - ENT ENT exam: Present: mucous membranes dry - Neck Neck exam: Present: trachea midline - Respiratory Respiratory exam: Present: other (dec bs bilat ). Absent: respiratory distress - Cardiovascular Cardiovascular exam: Present: bradycardia, systolic murmur, +S4 - Abdominal Exam Abdominal exam: Present: soft - Extremities Exam Extremities exam: Absent: calf tenderness - Neurological Exam Neurological exam: Present: alert, oriented X3, CN II-XII intact - Psychiatric Psychiatric exam: Present: normal affect - Skin Skin exam: Absent: rash
[2019-09-15 06:44] LABS: Basophils % 0.6 % (0.1-2.0); Eosinophils # 0.4 K/mm3 (0.0-0.4); Eosinophils % 5.3 % (0.1-12.0); Hematocrit 29.7 % (42.0-52.0); Lymphocytes # 2.2 K/mm3 (0.7-4.5); Mean Corpuscular HGB Conc 28.8 g/dL (31.8-35.4); Mean Corpuscular Volume 75.2 fl (80-94); Mean Platelet Volume 9.6 fl (7.4-10.4); Monocytes # 0.7 K/mm3 (0.1-1.0); Monocytes % 8.9 % (1.7-9.3); Neutrophils # 4.1 K/mm3 (1.8-7.8); Neutrophils % 55.2 % (37.0-80.0); Platelet Count 198 K/mm3 (142-424); Red Blood Count 3.95 M/mm3 (4.60-6.20); Red Cell Distribution Width 20.9 % (11.5-17.5); White Blood Count 7.4 K/mm3 (4.8-10.8)
[2019-09-15 07:05] LABS: Calcium 8.9 mg/dL (8.5-10.1)
[2019-09-15 07:12] LABS: Hemoglobin 8.7 g/dL (14.1-18.0)
--- NOTE | 2019-09-15 07:34 | Pharmacy Consult Notes ---
[facility] Pharmacy VTE Monitoring - Patient Demographics Admission date: 09/14/19 Report Date: 09/15/19 Time: 07:34 Allergies/Adverse Reactions: Patient Allergies No Known Allergies Allergy (Verified 09/14/19 20:06) Height: 1.8 m Weight: 71.724 kg Patient Problems: Current Active Problems Diabetes type 2, controlled (Chronic) Chest pain (Acute) Bradycardia (Acute) Anemia (Acute) - VTE Risk Labs: VTE Related Lab Results Hgb 8.7 g/dL (14.1-18.0) L D 09/15/19 06:04 Hct 29.7 % (42.0-52.0) L 09/15/19 06:04 Plt Count 198 K/mm3 (142-424) 09/15/19 06:04 BUN 18 mg/dL (7-18) 09/15/19 06:04 Creatinine 1.12 mg/dL (0.70-1.30) 09/15/19 06:04 Estimated Creat Clear 53 mL/min (50-200) 09/15/19 06:04 Was VTE Risk Assessment Performed: Yes VTE Score: 5 VTE Risk Level: Low Risk Clinical Trial Participant: No - Prophylaxis VTE Prophylaxis Ordered?: Yes Types of VTE Prophylaxis: TEDS Knee High Location of Applied Device: Bilateral Lower Extremeties
--- NOTE | 2019-09-15 08:21 | H&P/Discharge Summary ---
General - General Admission date:: 09/14/19 Discharge date: 09/15/19 *Admission Date: 09/14/19 *Chief complaint: Fatigue and dizziness *History of present illness: 79-year-old white male with history of hypertension, recurrent pneumonia and diastolic CHF who presented to the emergency department at the advice of his home health nurse for bradycardia with symptomatic dizziness and fatigue. he was found to have heart rates in the 40s. Admitted to hospital for further diagnostic testing and labs. [facility] History I have reviewed the patient's past medical history: Yes Medical History: Reports:: Aneurysm, Cancer (SKIN), Congestive Heart Failure, Coronary Artery Disease, Diabetes Mellitus Type 2, Hyperlipidemia, Hypertension (History of malignant hypertension with mental status changes in the past), Myocardial Infarction, Peripheral Artery Disease, Peripheral Vascular Disease Denies:: Diabetes Mellitus Type 1, Internal Pacemaker, MRSA *Have you ever received a pneumonia vaccine?: Yes *Have you received a flu vaccine this season?: Yes Other Medical History: Reports: Anemia (Chronic disease anemia), Arthritis, Cataracts, Sinus Problems Other Surgeries: Yes: CABG, Cardiac Catheterization, Cardiac Surgery, Colonoscopy, Coronary Stent, EGD, Skin Cancer Excision. No: Pacemaker Amputation: No Fractures: No - *Social History Educational Level: Attended Grade School Smoking Status: Former smoker Tobacco Type: smokeless tobacco # Packs/Day (cigarettes): 2 Smoking End Date: 1989 Alcohol Intake: never *Occupational Status:: retired, other Housing: other Household Members: spouse *Travel in the last 8 weeks: None Family Hx:: Asthma, Cancer, Heart Attack Review of Systems - Review of Systems Review of systems:: pertinent systems reviewed and negative unless documented below Denies chest pain, dyspnea over baseline, leg swelling or abdominal pain or vomiting. - *Neurologic Denies localized weakness, Denies seizure-like activity Exam Vital signs and Labs for Last 24 Hours: Temp Pulse Resp BP Pulse Ox 98.2 F 52 L 18 162/74 H 96 09/15/19 07:26 09/15/19 07:26 09/15/19 07:26 09/15/19 07:26 09/15/19 07:26 Laboratory Results - last 24 hr 09/14/19 18:30: WBC 8.0, RBC 4.45 L, Hgb 9.8 L, Hct 33.9 L, MCV 76.2 L, MCH 22.1 L, MCHC 29.0 L, RDW 21.1 H, Plt Count 231, MPV 9.2, Neut % (Auto) 61.9, Lymph % (Auto) 22.9, [place] % (Auto) 8.9, Eos % (Auto) 5.3, Baso % (Auto) 0.9, Neut # (Auto) 4.9, Lymph # (Auto) 1.8, [place] # (Auto) 0.7, Eos # (Auto) 0.4, Baso # (Auto) 0.1 09/14/19 18:30: Sodium 144, Potassium 4.0, Chloride 108 H, Carbon Dioxide 30, Anion Gap 10.0, BUN 19 H, Creatinine 1.22, Estimated Creat Clear 50, Estimated GFR 57 L, Est GFR ( Amer) 69, Glucose 65 L, Calcium 9.2, Troponin I < 0.02, C-Reactive Protein 0.3 09/14/19 18:30: B-Natriuretic Peptide 253 H 09/14/19 18:30: ESR 22 H 09/15/19 00:10: Troponin I 0.02 09/15/19 03:25: Troponin I 0.02 09/15/19 05:45: POC Glucose 93 09/15/19 06:04: WBC 7.4, RBC 3.95 L, Hgb 8.7 L D, Hct 29.7 L, MCV 75.2 L, MCH 21.7 L, MCHC 28.8 L, RDW 20.9 H, Plt Count 198, MPV 9.6, Neut % (Auto) 55.2, Lymph % (Auto) 30.0, [place] % (Auto) 8.9, Eos % (Auto) 5.3, Baso % (Auto) 0.6, Neut # (Auto) 4.1, Lymph # (Auto) 2.2, [place] # (Auto) 0.7, Eos # (Auto) 0.4, Baso # (Auto) 0.0 09/15/19 06:04: Sodium 144, Potassium 4.0, Chloride 108 H, Carbon Dioxide 29, Anion Gap 11.0, BUN 18, Creatinine 1.12, Estimated Creat Clear 53, Estimated GFR 63, Est GFR ( Amer) 76, Glucose 94 D, Calcium 8.9, Magnesium 1.6 I & O for Last 24 hours: Intake & Output 09/12/19 09/13/19 09/14/19 09/15/19 11:59 11:59 11:59 11:59 Intake Total 1323 / 1323 Balance 1323 / 1323 Weight 158 lb 2 oz Narrative: Patient is awake. Alert. Oriented x3. Wishes to go home this morning. Oropharynx clear, no JVD. Pulse rate in the low 70s, regular. Abdomen soft and nontender. Anterior lung page are clear. No edema or clubbing. No neurologic deficits. Hospital Course Hospital Course: Patient was admitted overnight, beta-blockers were held, patient tolerated this well, blood pressure this morning is in the 150 range systolic. Pulse rate in the 70s and he feels much better. Troponin levels are negative. Patient will be discharged home with increased amlodipine dose with close follow-up in office on Wednesday. Results Labs on day of discharge: Labs from last 24 hours 09/15/19 09/15/19 09/15/19 06:04 06:04 05:45 WBC 7.4 RBC 3.95 L Hgb 8.7 L D Hct 29.7 L MCV 75.2 L MCH 21.7 L MCHC 28.8 L RDW 20.9 H Plt Count 198 MPV 9.6 Neut % (Auto) 55.2 Lymph % (Auto) 30.0 [place] % (Auto) 8.9 Eos % (Auto) 5.3 Baso % (Auto) 0.6 Neut # (Auto) 4.1 Lymph # (Auto) 2.2 [place] # (Auto) 0.7 Eos # (Auto) 0.4 Baso # (Auto) 0.0 ESR Sodium 144 Potassium 4.0 Chloride 108 H Carbon Dioxide 29 Anion Gap 11.0 BUN 18 Creatinine 1.12 Estimated Creat Clear 53 Estimated GFR 63 Est GFR ( Amer) 76 Glucose 94 D POC Glucose 93 Calcium 8.9 Magnesium 1.6 Troponin I C-Reactive Protein B-Natriuretic Peptide 09/15/19 09/15/19 09/14/19 03:25 00:10 18:30 WBC RBC Hgb Hct MCV MCH MCHC RDW Plt Count MPV Neut % (Auto) Lymph % (Auto) [place] % (Auto) Eos % (Auto) Baso % (Auto) Neut # (Auto) Lymph # (Auto) [place] # (Auto) Eos # (Auto) Baso # (Auto) ESR 22 H Sodium Potassium Chloride Carbon Dioxide Anion Gap BUN Creatinine Estimated Creat Clear Estimated GFR Est GFR ( Amer) Glucose POC Glucose Calcium Magnesium Troponin I 0.02 0.02 C-Reactive Protein B-Natriuretic Peptide 09/14/19 09/14/19 09/14/19 18:30 18:30 18:30 WBC 8.0 RBC 4.45 L Hgb 9.8 L Hct 33.9 L MCV 76.2 L MCH 22.1 L MCHC 29.0 L RDW 21.1 H Plt Count 231 MPV 9.2 Neut % (Auto) 61.9 Lymph % (Auto) 22.9 [place] % (Auto) 8.9 Eos % (Auto) 5.3 Baso % (Auto) 0.9 Neut # (Auto) 4.9 Lymph # (Auto) 1.8 [place] # (Auto) 0.7 Eos # (Auto) 0.4 Baso # (Auto) 0.1 ESR Sodium 144 Potassium 4.0 Chloride 108 H Carbon Dioxide 30 Anion Gap 10.0 BUN 19 H Creatinine 1.22 Estimated Creat Clear 50 Estimated GFR 57 L Est GFR ( Amer) 69 Glucose 65 L POC Glucose Calcium 9.2 Magnesium Troponin I < 0.02 C-Reactive Protein 0.3 B-Natriuretic Peptide 253 H DS: Diagnosis - Discharge Diagnosis (1) Bradycardia Status: Resolved Discharge Plan - Patient Discharge Instructions ACTIVITY: Continue current activity DIET: continue same diet Patient Instructions: Angina, Anemia, DI for Angina, DI for Atypical Chest Pain, DI for Chest Pain - Follow up Plan Follow up with: Asif Kirk MD [Primary Care Provider] - 09/19/19 Disposition: Home, Self-Custodial Medications: Home Medications Medication Instructions Recorded Confirmed Type ALPRAZolam [Xanax 0.25mg tab] 0.25 mg PO HS PRN 02/19/19 09/14/19 History Albuterol Sulfate [Proair 2 puffs INHALATION Q4HP PRN 02/19/19 09/14/19 History Respiclick] Aspirin [Aspirin 81mg EC Tab] 81 mg PO HS 02/19/19 09/14/19 History Atorvastatin Calcium [Atorvastatin 20 mg PO HS 02/19/19 09/14/19 History 20mg Tab] Gabapentin 600 mg PO BID 02/19/19 09/14/19 History Ipratropium/Albuterol Sulfate 100 mcg INHALATION BID 02/19/19 09/14/19 History [Combivent Respimat Inh] Losartan Potassium 100 mg PO DAILY 02/19/19 09/14/19 History Magnesium Oxide [Magnesium] 400 mg PO HS 02/19/19 09/14/19 History Metformin HCl [Metformin 1000mg 1,000 mg PO BID 02/19/19 09/14/19 History Tablets] Nitroglycerin [Nitrostat 0.4mg SL 0.4 mg SL Q5MINP PRN 02/19/19 09/14/19 History Tablet] [place]-3 Acid Ethyl Esters [Lovaza] 2,000 mg PO BID 02/19/19 09/14/19 History cloNIDine HCl [Clonidine HCl] 0.3 mg PO BID 02/19/19 09/14/19 History raNITIdine HCl [Zantac 150mg] 150 mg PO BID 02/19/19 09/14/19 History Hydralazine HCl 75 mg PO TID 02/20/19 09/14/19 History Isosorbide Mononitrate [Imdur 60mg 60 mg PO DAILY 02/20/19 09/14/19 History ER tablet] Meclizine HCl [Antivert 25mg 25 mg PO TID PRN 02/20/19 09/14/19 History tablet] Multivitamin [Daily Multiple 1 each PO HS 02/20/19 09/14/19 History Vitamin] Tiotropium [place] [Spiriva 2 puff IH DAILY 02/20/19 09/14/19 History 18mcg/puff inhaler] Tizanidine HCl 2 mg PO Q8HP PRN 02/20/19 09/14/19 History Docusate Sodium [Stool Softener] 100 mg PO DAILYP PRN 06/27/19 09/14/19 History Budesonide/Formoterol Fumarate 160 mcg IH BID 09/14/19 09/14/19 History [Symbicort 160-4.5 Mcg Inhaler] Hydrocod/Acet 5/325 mg [[place] 1 tab PO Q6HP PRN 09/14/19 09/14/19 History 5/325mg tablet] Amlodipine Besylate 10 mg PO BID #60 tab 09/15/19 Rx Metoprolol Tartrate [Lopressor 100 mg PO BID 09/15/19 09/15/19 History 100mg Tablet] Prescriptions/Medication Reconciliation: Continued Metformin HCl [Metformin 1000mg Tablets] 1,000 mg PO BID Losartan Potassium 100 mg PO DAILY Gabapentin 600 mg PO BID cloNIDine HCl [Clonidine HCl] 0.3 mg PO BID raNITIdine HCl [Zantac 150mg] 150 mg PO BID Aspirin [Aspirin 81mg EC Tab] 81 mg PO HS Ipratropium/Albuterol Sulfate [Combivent Respimat Inh] 100 mcg INHALATION BID Nitroglycerin [Nitrostat 0.4mg SL Tablet] 0.4 mg SL Q5MINP PRN PRN Reason: Chest Pain Albuterol Sulfate [Proair [place]] 2 puffs INHALATION Q4HP PRN PRN Reason: COPD Hydralazine HCl 75 mg PO TID Isosorbide Mononitrate [Imdur 60mg ER tablet] 60 mg PO DAILY Tiotropium [place] [Spiriva 18mcg/puff inhaler] 2 puff IH DAILY Meclizine HCl [Antivert 25mg tablet] 25 mg PO TID PRN PRN Reason: Vertigo Multivitamin [Daily Multiple Vitamin] 1 each PO HS Docusate Sodium [Stool Softener] 100 mg PO DAILYP PRN PRN Reason: Constipation Hydrocod/Acet 5/325 mg [[place] 5/325mg tablet] 1 tab PO Q6HP PRN PRN Reason: back pain Budesonide/Formoterol Fumarate [Symbicort 160-4.5 Mcg Inhaler] 160 mcg IH BID [place]-3 Acid Ethyl Esters [Lovaza] 2,000 mg PO BID ALPRAZolam [Xanax 0.25mg tab] 0.25 mg PO HS PRN PRN Reason: Anxiety Atorvastatin Calcium [Atorvastatin 20mg Tab] 20 mg PO HS Magnesium Oxide [Magnesium] 400 mg PO HS Changed Amlodipine Besylate 10 mg PO BID #60 tab Discontinued Metoprolol Tartrate [Lopressor 100mg Tablet] 100 mg PO BID No Action Tizanidine HCl 2 mg PO Q8HP PRN PRN Reason: PAIN - Problem Reconciliation Problems Reviewed?: Yes
--- NOTE | 2019-09-16 07:28 | Electrocardiograph Report ---
APPROVED REPORT Exam: Resting ECG HR:49 bpm ECG Measurements Heart Rate [address] 186 P 34 QRSd 102 QRS 23 QT 458 T28 QTc 413 <Conclusion> Marked sinus bradycardia with marked sinus arrhythmia Abnormal ECG Electronically signed by : Asif Kirk, 09/16/2019 07:27:51
== END 2019-09-15 10:26 | disposition home health service (06) ==
LOC: 2ND 18:30 → ER 18:30 → 2ND 21:31
PROVIDERS: ADMIT Emergency Medicine; ATTEND Internal Medicine Adolescent Medicine
CPT/HCPCS: 36415; 70450; 71010; 71045; 80048; 82962; 83735; 83880; 84484; 85025; 85651; 86140; 93005; 94640; 99284; G0378

== ENCOUNTER 2019-10-27 14:38 | Observation (INO) ==
[2019-10-27 15:31] LABS: Basophils # 0.1 K/mm3 (0-0.2); Basophils % 0.2 % (0.1-2.0); Eosinophils # 0.1 K/mm3 (0.0-0.4); Eosinophils % 0.4 % (0.1-12.0); Lymphocytes # 1.1 K/mm3 (0.7-4.5); Lymphocytes % 4.3 % (10-50); Mean Corpuscular HGB Conc 30.2 g/dL (31.8-35.4); Mean Corpuscular Volume 68.6 fl (80-94); Mean Platelet Volume 10.2 fl (7.4-10.4); Monocytes # 1.2 K/mm3 (0.1-1.0); Monocytes % 4.7 % (1.7-9.3); Neutrophils # 23.2 K/mm3 (1.8-7.8); Neutrophils % 90.4 % (37.0-80.0); Platelet Count 265 K/mm3 (142-424); Red Blood Count 4.02 M/mm3 (4.60-6.20)
[2019-10-27 15:39] LABS: Hematocrit 27.5 % (42.0-52.0); Hemoglobin 8.2 g/dL (14.1-18.0); White Blood Count 25.1 K/mm3 (4.8-10.8)
[2019-10-27 15:54] LABS: Eosinophils % 2 % (0-3); Lymphocytes % 3 % (10-50); Monocytes % 1 % (2-9); Neutrophils % 94 % (42-76); Total Cells Counted 100
[2019-10-27 15:55] LABS: Anisocytosis 2+; Hypochromasia 2+
[2019-10-27 15:56] LABS: Anion Gap 14.9 mEq/L (5-15); Calcium 8.7 mg/dL (8.5-10.1); Ovalocytes 1+
--- NOTE | 2019-10-27 16:42 | Emergency Department Note ---
ED Disposition Clinical Impression: Pneumonia, Coronary artery disease, CHF (congestive heart failure), Diabetes mellitus type 2, controlled, Hypertension, Hyperlipidemia, Peripheral vascular disease, Hypochromic microcytic anemia, Renal insufficiency, Generalized weakness Disposition: Admitted As Inpatient Condition on Discharge: Serious Time of Disposition: 19:30 - Critical Care Critical Care Time: No Attestation: On 10/27/19, the high probability of a clinically significant, sudden or life threatening deterioration of the following system(s) required my full and direct attention, intervention and personal management. The time I documented below is in addition to time spent performing reported procedures but includes the following listed in this critical care notation. Medical Decision Making - Medical Records Medical records reviewed: Yes: I reviewed the patient's medical records. - John Inquiry Pt receiving controlled substance: No Vital Signs: 10/27/19 14:38 10/27/19 15:49 10/27/19 19:09 Temperature 98.1 F 98.9 F Temperature Source Oral Oral Pulse Rate Pulse Rate [Right] 89 93 H 82 Respiratory Rate 18 20 Blood Pressure Blood Pressure [Right Arm] 130/74 122/69 130/68 Blood Pressure Mean [Right Arm] 92 86 88 Blood Pressure Source [Right Arm] Automatic Cuff Blood Pressure Position [Right Arm] Sitting 02 Sat by Pulse Oximetry 98 91 L 95 Oxygen Delivery Method Room Air Room Air 10/27/19 19:47 Temperature 98.9 F Temperature Source Oral Pulse Rate 86 Pulse Rate [Right] Respiratory Rate 16 Blood Pressure 132/68 Blood Pressure [Right Arm] Blood Pressure Mean [Right Arm] Blood Pressure Source [Right Arm] Blood Pressure Position [Right Arm] 02 Sat by Pulse Oximetry Oxygen Delivery Method Room Air - Lab Data Lab results reviewed: Yes: I reviewed the patient's lab results. Lab Results 10/27/19 15:15: WBC 25.1 H*, RBC 4.02 L, Hgb 8.2 L, Hct 27.5 L, MCV 68.6 L, MCH 20.7 L, MCHC 30.2 L, RDW 19.0 H, Plt Count 265, MPV 10.2, Neut % (Auto) 90.4 H, Lymph % (Auto) 4.3 L, [place] % (Auto) 4.7, Eos % (Auto) 0.4, Baso % (Auto) 0.2, Neut # (Auto) 23.2 H, Lymph # (Auto) 1.1, [place] # (Auto) 1.2 H, Eos # (Auto) 0.1, Baso # (Auto) 0.1, Total Counted 100, Neutrophils % (Manual) 94 H, Lymphocytes % (Manual) 3 L, Monocytes % (Manual) 1 L, Eosinophils % (Manual) 2, Platelet Estimate Normal, Hypochromasia 2+, Poikilocytosis 1+, Anisocytosis 2+, Microcytosis 2+, Ovalocytes 1+, Acanthocytes (Spur) 1+ 10/27/19 15:15: Sodium 143, Potassium 3.9, Chloride 106, Carbon Dioxide 26, Anion Gap 14.9, BUN 21 H, Creatinine 1.43 H, Estimated Creat Clear 53, Estimated GFR 48 L, Est GFR ( Amer) 58 L, Glucose 84, Calcium 8.7, Troponin I 0.09 H 10/27/19 15:15: Lactate 1.4 10/27/19 15:15: B-Natriuretic Peptide 108 H 10/27/19 15:15: TSH 1.31 10/27/19 16:55: Urine Color Yellow, Urine Appearance Clear, Urine pH 5.0, Ur Specific [place] 1.020, Urine Protein 2+, Urine Glucose (UA) Negative, Urine Ketones Negative, Urine Blood Negative, Urine Nitrate Negative, Urine Bilirubin Negative, Urine Urobilinogen 0.2, Ur Leukocyte Esterase Negative, Urine WBC 3-5, Ur Squamous Epith Cells 5-10, Urine Bacteria Trace 10/27/19 17:43: Troponin I 0.07 H Result diagrams: 10/27/19 15:15 10/27/19 15:15 Orders (Tests/Meds): ED MEDICATIONS Generic Name Dose Route Start Last Admin Trade Name Freq PRN Reason Stop Dose Admin Aspirin 325 mg 10/28/19 09:00 Aspirin 325mg Tablet PO 11/27/19 08:59 DAILY AAKASH Discontinued Medications Generic Name Dose Route Start Last Admin Trade Name Freq PRN Reason Stop Dose Admin Aspirin 324 mg 10/27/19 16:40 10/27/19 17:04 Aspirin 81mg Chewable Tablet PO 10/27/19 16:41 324 mg ONCE ONE Administration Piperacillin Sod/Tazobactam 50 mls @ 100 mls/hr 10/27/19 16:45 10/27/19 16:30 Sod 3.375 gm/ Sodium Chloride IV 10/27/19 17:14 100 mls/hr ONCE ONE Administration Protocol ORDERS Category Date Time Status Troponin I Q3H Lab 10/27/19 20:45 Ordered Blood Culture Stat Micro 10/27/19 15:15 Received - Physician Consults Physician Consulted: Dr. Bob Time: 19:17 Reason -: Admission - KAVON Score for Non-Stemi Age of Patient: 80-89 years old Heart Rate: 70-89 bpm Systolic Blood Pressure: 120-139 mmhg Serum Creatinine: 1.20-1.59 mg/dl CHF [place] Class: I-No CHF Other Risk Factors: Elevated Cardiac Enzymes or Biomarkers Non-Stemi Risk Score: 158 Risk Stratification: [id number] = High Risk General Adult HPI - General Chief complaint: Weakness Stated complaint: weakness Time Seen by Provider: 10/27/19 15:00 Mode of Arrival: EMS Limitations: No Limitations Description of Symptoms (Recalled from ER Triage Doc. by RN): C/o helen. leg weakness and a sever headache going on for 2 months. - History of Present Illness HPI narrative: 79-year-old male reports to the emergency department with complaints of generalized weakness. Patient fell during ambulation this morning but states no localized weakness or numbness. Onset (ago): hour(s) (8) Severity: moderate Relieving factors: none Exacerbating factors: none Associated symptoms: shortness of breath, weakness Treatments prior to arrival: none - Related Data Home Medications Medication Instructions Recorded Confirmed ALPRAZolam [Xanax 0.25mg tab] 0.25 mg PO HS PRN 02/19/19 10/27/19 Albuterol Sulfate [Proair 2 puffs INHALATION Q4HP PRN 02/19/19 10/27/19 Respiclick] Aspirin [Aspirin 81mg EC Tab] 81 mg PO HS 02/19/19 10/27/19 Atorvastatin Calcium [Atorvastatin 20 mg PO HS 02/19/19 10/27/19 20mg Tab] Gabapentin 600 mg PO BID 02/19/19 10/27/19 Ipratropium/Albuterol Sulfate 100 mcg INHALATION BID 02/19/19 10/27/19 [Combivent Respimat Inh] Losartan Potassium 100 mg PO DAILY 02/19/19 10/27/19 Magnesium Oxide [Magnesium] 400 mg PO HS 02/19/19 10/27/19 Metformin HCl [Metformin 1000mg 1,000 mg PO BID 02/19/19 10/27/19 Tablets] Nitroglycerin [Nitrostat 0.4mg SL 0.4 mg SL Q5MINP PRN 02/19/19 10/27/19 Tablet] [place]-3 Acid Ethyl Esters [Lovaza] 2,000 mg PO BID 02/19/19 10/27/19 cloNIDine HCL [Clonidine HCl] 0.3 mg PO BID 02/19/19 10/27/19 raNITIdine HCl [Zantac 150mg] 150 mg PO BID 02/19/19 10/27/19 Hydralazine HCl 75 mg PO TID 02/20/19 10/27/19 Isosorbide Mononitrate [Imdur 60mg 60 mg PO DAILY 02/20/19 10/27/19 ER tablet] Meclizine HCl [Antivert 25mg 25 mg PO TID PRN 02/20/19 10/27/19 tablet] Multivitamin [Daily Multiple 1 each PO HS 02/20/19 10/27/19 Vitamin] Tiotropium [place] [Spiriva 2 puff IH DAILY 02/20/19 10/27/19 18mcg/puff inhaler] Tizanidine HCl 2 mg PO Q8HP PRN 02/20/19 10/27/19 Docusate Sodium [Stool Softener] 100 mg PO DAILYP PRN 06/27/19 10/27/19 Budesonide/Formoterol Fumarate 160 mcg IH BID 09/14/19 10/27/19 [Symbicort 160-4.5 Mcg Inhaler] Hydrocod/Acet 5/325 mg [[place] 1 tab PO Q6HP PRN 09/14/19 10/27/19 5/325mg tablet] Clopidogrel Bisulfate [Plavix 75mg 75 mg PO DAILY 09/15/19 10/27/19 Tab] Furosemide [Lasix 40mg tablet] 40 mg PO DAILY 09/15/19 10/27/19 Previous Rx's Medication Instructions Recorded Amlodipine Besylate 10 mg PO BID #60 tab 09/15/19 Allergies Allergy/AdvReac Type Severity Reaction Status Date / Time No Known Allergies Allergy Verified 10/27/19 19:09 [facility] History - Hepatitis A Screen Drug use history?: No High risk sexual behaviors?: No History of sexually transmitted infection?: No Currently employed?: No Childcare worker?: No Do you have indoor plumbing?: Yes Do you have electricity?: Yes Attestation statement:: This patient has been screened for Hepatitis A risk factors. Medical History: Reports:: Aneurysm, Cancer (SKIN), Congestive Heart Failure, Coronary Artery Disease, Diabetes Mellitus Type 2, Hyperlipidemia, Hypertension (History of malignant hypertension with mental status changes in the past), Myocardial Infarction, Peripheral Artery Disease, Peripheral Vascular Disease Denies:: Diabetes Mellitus Type 1, Internal Pacemaker, MRSA Other Medical History: Reports: Anemia (Chronic disease anemia), Arthritis, Cataracts, Sinus Problems Other Surgeries: Yes: CABG, Cardiac Catheterization, Cardiac Surgery, Colonoscopy, Coronary Stent, EGD, Skin Cancer Excision. No: Pacemaker Amputation: No Fractures: No - Social History Smoking Status: Former smoker Tobacco Type: smokeless tobacco # Packs/Day (cigarettes): 2 Alcohol Intake: never Occupational Status: retired, other Housing: other Household Members: spouse Family Hx:: Asthma, Cancer, Heart Attack ROS Obtained: Yes Systems reviewed as appropriate & no additional complaints - Constitutional Constitutional: Reports weakness - Eyes Eyes: Reports system reviewed and no additional complaints, except as docu - ENT Ears, Nose, Mouth, and Throat: Reports system reviewed and no additional complaints, except as docu - Cardiovascular Cardiovascular: Reports system reviewed and no additional complaints, except as docu - Respiratory Respiratory: Yes system reviewed and no additional complaints, except as docu - Genitourinary Male Genitourinary: Reports system reviewed and no additional complaints, except as docu - Musculoskeletal Musculoskeletal: Reports system reviewed and no additional complaints, except as docu - Integumentary/Breasts Skin/Breast: Reports system reviewed and no additional complaints, except as docu - Neurologic Neurologic: Reports system reviewed and no additional complaints, except as docu, Reports weakness (Generalized) - Endocrine Endocrine: Reports system reviewed and no additional complaints, except as docu - Hematologic/Lymphatic Henatologic/Lymphatic: Reports system reviewed and no additional complaints, except as docu - Allergic/Immunologic Allergic/Immunologic: Reports system reviewed and no additional complaints, except as docu Physical Exam - General General appearance: alert, in no apparent distress - Head Head exam: atraumatic, normocephalic, normal inspection - Eye Eye exam: Present: normal appearance, PERRL, EOMI - ENT ENT exam: Present: normal exam, normal oropharynx, mucous membranes moist, normal external ear exam - Neck Neck exam: Present: normal inspection, full ROM, trachea midline. Absent: meningismus, lymphadenopathy - Chest Chest inspection: Present: normal inspection, symmetric chest wall rise. Absent: tenderness - Respiratory Respiratory exam: Present: other (Administered lung sounds bilaterally.). Absent: respiratory distress - Cardiovascular Cardiovascular exam: Present: regular rate, normal rhythm. Absent: JVD - Abdominal Exam Abdominal exam: Present: soft, normal bowel sounds. Absent: distention, tenderness, guarding - Extremities Exam Extremities exam: Present: normal inspection, full ROM, normal capillary refill. Absent: calf tenderness - Back Exam Back exam: Present: normal inspection. Absent: tenderness - Neurological Exam Neurological exam: Present: alert, oriented X3, CN II-XII intact. Absent: motor sensory deficit - Psychiatric Psychiatric exam: Present: normal affect, normal mood - Skin Skin exam: Present: warm, dry, intact, normal color
[2019-10-27 17:00] LABS: Microscopic, Urine URINE MICROSCOPIC (MICROSCOPIC)
[2019-10-27 17:03] LABS: Appearance,Urine CLEAR (Clear); Bilirubin,Urine Negative (Negative); Blood, Urine Negative (Negative); Color,Urine YELLOW (Yellow); Glucose,Urine (UA) Negative (Negative); Ketones,Urine Negative (Negative); Leukocyte Esterase,Urine Negative (Negative); Protein,Urine 2+ (Negative); Urobilinogen,Urine 0.2 EU/dl (0.2)
[2019-10-27 18:35] LABS: Bacteria,Urine Trace /lpf
[2019-10-28 07:24] LABS: Basophils # 0.1 K/mm3 (0-0.2); Basophils % 0.4 % (0.1-2.0); Eosinophils # 0.3 K/mm3 (0.0-0.4); Eosinophils % 1.7 % (0.1-12.0); Lymphocytes # 2.2 K/mm3 (0.7-4.5); Lymphocytes % 13.2 % (10-50); Mean Corpuscular HGB Conc 29.8 g/dL (31.8-35.4); Mean Corpuscular Volume 72.5 fl (80-94); Mean Platelet Volume 9.3 fl (7.4-10.4); Monocytes # 0.9 K/mm3 (0.1-1.0); Monocytes % 5.5 % (1.7-9.3); Neutrophils # 13.4 K/mm3 (1.8-7.8); Neutrophils % 79.1 % (37.0-80.0); Platelet Count 208 K/mm3 (142-424); Red Blood Count 3.71 M/mm3 (4.60-6.20); Red Cell Distribution Width 17.3 % (11.5-17.5); White Blood Count 16.9 K/mm3 (4.8-10.8)
[2019-10-28 07:27] LABS: Hematocrit 27.2 % (42.0-52.0)
[2019-10-28 07:30] LABS: Albumin Level 2.7 gm/dL (3.4-5.0); Albumin/Globulin Ratio 0.8 (1.1-1.8); Anion Gap 14.8 mEq/L (5-15); Bilirubin,Total 0.3 mg/dL (0.2-1.0); Calcium 8.8 mg/dL (8.5-10.1); Chol/HDL Ratio 1.8 (1-3.5); Globulin 3.6 gm/dl (1.3-3.2); Phosphorous 3.9 mg/dL (2.4-4.9); Total Protein,Serum 6.3 gm/dL (6.4-8.2)
[2019-10-28 08:40] LABS: Eosinophils % 1 % (0-3); Hypochromasia 1+; Lymphocytes % 19 % (10-50); Monocytes % 4 % (2-9); Neutrophils % 76 % (42-76); Total Cells Counted 100
--- NOTE | 2019-10-28 09:08 | History & Physical Report ---
*Admission Date: 10/27/19 *Chief complaint: Fall with hip pain, headache and cough and congestion. *History of present illness: 79-year-old white male, significant past medical history includes COPD, oxygen requirement at home, nebulizer requiring, with frequent exacerbations and frequent episodes of community-acquired pneumonia, also has type 2 diabetes and systolic congestive heart failure, as well as lumbar neuralgia, significant spinal stenosis and lower extremity weakness and chronic pain, who presents to the hospital after falling in the middle of the night and being unable to get up for several hours. Is brought to the emergency department where he was found to have leukocytosis, febrile status, anemia and significant debility. Admitted to hospital for IV antibiotics and further diagnostic testing. 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 No: Pacemaker Amputation: No Fractures: No - *Social History Educational Level: Attended Grade School Smoking Status: Former smoker Tobacco Type: cigarettes # Packs/Day (cigarettes): 2 Alcohol Intake: never *Occupational Status:: retired, other Housing: other Household Members: spouse *Travel in the last 8 weeks: None Family Hx:: Unable to obtain Review of Systems - Review of Systems Review of systems:: pertinent systems reviewed and negative unless documented below Patient complains of a headache that has had for several months. Complains of shortness of air and productive cough but this is improved overnight. Main complaint is global weakness. Denies chest pain. Otherwise 10 point review of systems negative except as outlined in the HPI. - *Neurologic Reports weakness (Generalized) Meds Home Medications Medication Instructions Recorded Confirmed Type ALPRAZolam [Xanax 0.25mg tab] 0.25 mg PO HS PRN 02/19/19 10/27/19 History Albuterol Sulfate [Proair 2 puffs INHALATION Q4HP PRN 02/19/19 10/27/19 History Respiclick] Aspirin [Aspirin 81mg EC Tab] 81 mg PO HS 02/19/19 10/27/19 History Atorvastatin Calcium [Atorvastatin 20 mg PO HS 02/19/19 10/27/19 History 20mg Tab] Gabapentin 600 mg PO BID 02/19/19 10/27/19 History Ipratropium/Albuterol Sulfate 100 mcg INHALATION BID PRN 02/19/19 10/27/19 History [Combivent Respimat Inh] Losartan Potassium 100 mg PO DAILY 02/19/19 10/27/19 History Magnesium Oxide [Magnesium] 400 mg PO HS 02/19/19 10/27/19 History Metformin HCl [Metformin 1000mg 1,000 mg PO BID 02/19/19 10/27/19 History Tablets] Nitroglycerin [Nitrostat 0.4mg SL 0.4 mg SL Q5MINP PRN 02/19/19 10/27/19 History Tablet] [place]-3 Acid Ethyl Esters [Lovaza] 2,000 mg PO BID 02/19/19 10/27/19 History cloNIDine HCL [Clonidine HCl] 0.3 mg PO BID 02/19/19 10/27/19 History raNITIdine HCl [Zantac 150mg] 150 mg PO BID 02/19/19 10/27/19 History Hydralazine HCl 75 mg PO TID 02/20/19 10/27/19 History Isosorbide Mononitrate [Imdur 60mg 60 mg PO DAILY 02/20/19 10/27/19 History ER tablet] Meclizine HCl [Antivert 25mg 25 mg PO TID PRN 02/20/19 10/27/19 History tablet] Multivitamin [Daily Multiple 1 each PO HS 02/20/19 10/27/19 History Vitamin] Tiotropium [place] [Spiriva 2 puff IH DAILY 02/20/19 10/27/19 History 18mcg/puff inhaler] Tizanidine HCl 2 mg PO Q8HP PRN 02/20/19 10/27/19 History Docusate Sodium [Stool Softener] 100 mg PO DAILYP PRN 06/27/19 10/27/19 History Budesonide/Formoterol Fumarate 160 mcg IH DAILY 09/14/19 10/27/19 History [Symbicort 160-4.5 Mcg Inhaler] Hydrocod/Acet 5/325 mg [[place] 1 tab PO Q6HP PRN 09/14/19 10/27/19 History 5/325mg tablet] Clopidogrel Bisulfate [Plavix 75mg 75 mg PO DAILY 09/15/19 10/27/19 History Tab] Furosemide [Lasix 40mg tablet] 40 mg PO DAILY 09/15/19 10/27/19 History Allergies Allergy/AdvReac Type Severity Reaction Status Date / Time No Known Allergies Allergy Verified 10/27/19 19:09 Exam Vital signs and Labs for Last 24 Hours: Temp Pulse Resp BP Pulse Ox 98.1 F 78 18 129/50 L 93 L 10/28/19 04:10 10/28/19 08:00 10/28/19 04:10 10/28/19 08:00 10/28/19 06:34 Laboratory Results - last 24 hr 10/27/19 15:15: WBC 25.1 H*, RBC 4.02 L, Hgb 8.2 L, Hct 27.5 L, MCV 68.6 L, MCH 20.7 L, MCHC 30.2 L, RDW 19.0 H, Plt Count 265, MPV 10.2, Neut % (Auto) 90.4 H, Lymph % (Auto) 4.3 L, [place] % (Auto) 4.7, Eos % (Auto) 0.4, Baso % (Auto) 0.2, Neut # (Auto) 23.2 H, Lymph # (Auto) 1.1, [place] # (Auto) 1.2 H, Eos # (Auto) 0.1, Baso # (Auto) 0.1, Total Counted 100, Neutrophils % (Manual) 94 H, Lymphocytes % (Manual) 3 L, Monocytes % (Manual) 1 L, Eosinophils % (Manual) 2, Platelet Estimate Normal, Hypochromasia 2+, Poikilocytosis 1+, Anisocytosis 2+, Microcytosis 2+, Ovalocytes 1+, Acanthocytes (Spur) 1+ 10/27/19 15:15: Sodium 143, Potassium 3.9, Chloride 106, Carbon Dioxide 26, Anion Gap 14.9, BUN 21 H, Creatinine 1.43 H, Estimated Creat Clear 53, Estimated GFR 48 L, Est GFR ( Amer) 58 L, Glucose 84, Calcium 8.7, Troponin I 0.09 H 10/27/19 15:15: Lactate 1.4 10/27/19 15:15: B-Natriuretic Peptide 108 H 10/27/19 15:15: TSH 1.31 10/27/19 16:55: Urine Color Yellow, Urine Appearance Clear, Urine pH 5.0, Ur Specific [place] 1.020, Urine Protein 2+, Urine Glucose (UA) Negative, Urine Ketones Negative, Urine Blood Negative, Urine Nitrate Negative, Urine Bilirubin Negative, Urine Urobilinogen 0.2, Ur Leukocyte Esterase Negative, Urine WBC 3-5, Ur Squamous Epith Cells 5-10, Urine Bacteria Trace 10/27/19 17:43: Troponin I 0.07 H 10/27/19 20:27: POC Glucose 123 H 10/27/19 21:40: Troponin I 0.07 H 10/28/19 06:42: POC Glucose 97 10/28/19 06:53: WBC 16.9 H D, RBC 3.71 L, Hgb 8.0 L, Hct 27.2 L, MCV 72.5 L, MCH 21.6 L, MCHC 29.8 L, RDW 17.3, Plt Count 208, MPV 9.3, Neut % (Auto) 79.1, Lymph % (Auto) 13.2, [place] % (Auto) 5.5, Eos % (Auto) 1.7, Baso % (Auto) 0.4, Neut # (Auto) 13.4 H, Lymph # (Auto) 2.2, [place] # (Auto) 0.9, Eos # (Auto) 0.3, Baso # (Auto) 0.1, Total Counted 100, Neutrophils % (Manual) 76, Lymphocytes % (Manual) 19, Monocytes % (Manual) 4, Eosinophils % (Manual) 1, Platelet Estimate Normal, Hypochromasia 1+ 10/28/19 06:53: Sodium 143, Potassium 3.8, Chloride 106, Carbon Dioxide 26, Anion Gap 14.8, BUN 23 H, Creatinine 1.46 H, Estimated Creat Clear 40, Estimated GFR 46 L, Est GFR ( Amer) 56 L, Glucose 103 D, Calcium 8.8, Phosphorus 3.9, Magnesium 1.5, Total Bilirubin 0.3, AST 18, ALT 20, Alkaline Phosphatase 84, Total Protein 6.3 L, Albumin 2.7 L, Globulin 3.6 H, Albumin/Globulin Ratio 0.8 L, Triglycerides 57, Cholesterol 117 L, LDL Cholesterol 40, VLDL Cholesterol 11, HDL Cholesterol 66, Cholesterol/HDL Ratio 1.8 I & O for Last 24 hours: Intake & Output 10/25/19 10/26/19 10/27/19 10/28/19 11:59 11:59 11:59 11:59 Intake Total 560 / 560 Balance 560 / 560 Weight 154 lb 1 oz Microbiology Reports for the Last 24 Hours: Microbiology 10/28/19 02:10 Sputum - Expectorated Sputum Gram Stain - Final Narrative: Patient is pleasant, talkative, alert, oriented x3. Oropharynx clear. No JVD. Heart rate regular. Rhonchi and crackles in the right anterior lower lung field. Left side fairly clear. Abdomen soft nontender. Globally weak. No focal deficits. No skin breakdown, some bruising on the right hip from his fall. No evidence of joint displacement or bony trauma. No evidence of leg foreshortening or twisting. Assessment and Plan (1) Frequent falls Current visit: Yes Status: Acute Category: Medical Code(s): R29.6 - Repeated falls Treat anemia as noted below, along with his pneumonia. PT/OT evaluation. Has had home health in the past. Would probably benefit from this again. (2) Type 2 diabetes mellitus Current visit: Yes Status: Acute Category: Medical Code(s): E11.9 - Type 2 diabetes mellitus without complications Overall doing well on metformin. No changes in plans, watch sugar tomorrow (3) CHF (congestive heart failure) Current visit: Yes Status: Acute Category: Medical Code(s): I50.9 - Heart failure, unspecified Clinically not fluid overloaded. Cautious transfusion today. (4) Generalized weakness Current visit: Yes Status: Acute Category: Medical Code(s): R53.1 - Weakness (5) Hypochromic microcytic anemia Current visit: Yes Status: Acute Category: Medical Code(s): D50.9 - Iron deficiency anemia, unspecified Given symptomatology of falls, weakness, transfuse 1 unit, reassess fluid status and probable transfuse second unit tomorrow (6) Pneumonia Current visit: Yes Status: Acute Category: Medical Code(s): J18.9 - Pneumonia, unspecified organism Aggressive antibiotic therapy, await culture results
--- NOTE | 2019-10-28 10:00 | Pharmacy Consult Notes ---
[facility] Pharmacy VTE Monitoring - Patient Demographics Admission date: 10/27/19 Report Date: 10/28/19 Time: 09:59 Allergies/Adverse Reactions: Patient Allergies No Known Allergies Allergy (Verified 10/27/19 19:09) Height: 1.8 m Weight: 69.882 kg Patient Problems: Current Active Problems Pneumonia (Acute) Diabetes type 2, controlled (Chronic) Coronary artery disease (Acute) CHF (congestive heart failure) (Acute) Hypertension (Acute) Hyperlipidemia (Acute) Peripheral vascular disease (Acute) Hypochromic microcytic anemia (Acute) Renal insufficiency (Acute) Generalized weakness (Acute) - VTE Risk Labs: VTE Related Lab Results Hgb 8.0 g/dL (14.1-18.0) L 10/28/19 06:53 Hct 27.2 % (42.0-52.0) L 10/28/19 06:53 Plt Count 208 K/mm3 (142-424) 10/28/19 06:53 BUN 23 mg/dL (7-18) H 10/28/19 06:53 Creatinine 1.46 mg/dL (0.70-1.30) H 10/28/19 06:53 Estimated Creat Clear 40 mL/min (50-200) 10/28/19 06:53 Was VTE Risk Assessment Performed: Yes VTE Score: 11 VTE Risk Level: Moderate Risk - Prophylaxis VTE Prophylaxis Ordered?: Yes Types of VTE Prophylaxis: TEDS Knee High Location of Applied Device: Bilateral Lower Extremeties
--- NOTE | 2019-10-28 11:15 | Electrocardiograph Report ---
APPROVED REPORT Exam: Resting ECG HR:79 bpm ECG Measurements Heart Rate 79 AXES SD 182 P 36 QRSd 88 QRS 23 QT 390 T73 QTc 447 <Conclusion> Normal sinus rhythm Nonspecific T wave abnormality Abnormal ECG Electronically signed by : Asif Kirk, 10/28/2019 11:15:30
[2019-10-28 15:00] LABS: Hemoglobin 8.5 g/dL (14.1-18.0)
[2019-10-29 07:12] LABS: Basophils # 0.1 K/mm3 (0-0.2); Basophils % 0.6 % (0.1-2.0); Eosinophils # 0.4 K/mm3 (0.0-0.4); Eosinophils % 3.8 % (0.1-12.0); Hematocrit 29.4 % (42.0-52.0); Hemoglobin 8.9 g/dL (14.1-18.0); Lymphocytes # 1.3 K/mm3 (0.7-4.5); Lymphocytes % 11.8 % (10-50); Mean Corpuscular HGB Conc 30.3 g/dL (31.8-35.4); Mean Corpuscular Volume 73.8 fl (80-94); Mean Platelet Volume 9.3 fl (7.4-10.4); Monocytes # 0.7 K/mm3 (0.1-1.0); Neutrophils # 8.1 K/mm3 (1.8-7.8); Neutrophils % 76.7 % (37.0-80.0); Platelet Count 213 K/mm3 (142-424); Red Blood Count 3.99 M/mm3 (4.60-6.20); Red Cell Distribution Width 17.8 % (11.5-17.5); White Blood Count 10.5 K/mm3 (4.8-10.8)
[2019-10-29 07:21] LABS: Anion Gap 14.2 mEq/L (5-15); Calcium 8.9 mg/dL (8.5-10.1)
--- NOTE | 2019-10-29 08:51 | Progress Note ---
Internal Medicine - PN: Subj *Date: 10/29/19 *Time: 08:49 Interval history: Overall patient feels better. No shortness of air when resting. Has been eating well. Less of a cough. Exam Vital signs and Labs for Last 24 Hours: Temp Pulse Resp BP Pulse Ox 98.2 F 83 18 137/69 95 10/29/19 07:53 10/29/19 07:53 10/29/19 07:53 10/29/19 07:53 10/29/19 07:53 Laboratory Results - last 24 hr 10/28/19 06:19: POC Glucose 68 L 10/28/19 09:50: Blood Type O Positive, Antibody Screen Negative, Crossmatch (AHG) See Detail 10/28/19 09:53: Blood Type Confirm O Positive 10/28/19 14:50: Hgb 8.5 L, Hct 28.0 L 10/29/19 06:35: WBC 10.5 D, RBC 3.99 L, Hgb 8.9 L, Hct 29.4 L, MCV 73.8 L, MCH 22.3 L, MCHC 30.3 L, RDW 17.8 H, Plt Count 213, MPV 9.3, Neut % (Auto) 76.7, Lymph % (Auto) 11.8, [place] % (Auto) 7.0, Eos % (Auto) 3.8, Baso % (Auto) 0.6, Neut # (Auto) 8.1 H, Lymph # (Auto) 1.3, [place] # (Auto) 0.7, Eos # (Auto) 0.4, Baso # (Auto) 0.1 10/29/19 06:35: Sodium 142, Potassium 4.2, Chloride 105, Carbon Dioxide 27, Anion Gap 14.2, BUN 25 H, Creatinine 1.42 H, Estimated Creat Clear 42, Estimated GFR 48 L, Est GFR ( Amer) 58 L, Glucose 98, Calcium 8.9 I & O for Last 24 hours: Intake & Output 10/26/19 10/27/19 10/28/19 10/29/19 11:59 11:59 11:59 11:59 Intake Total 560 / 560 1463 / 1463 Output Total 2 / 2 Balance 560 / 560 1461 / 1461 Weight 154 lb 1 oz 157 lb 5 oz Microbiology Reports for the Last 24 Hours: Microbiology 10/28/19 02:10 Sputum - Expectorated Sputum Gram Stain - Final 10/28/19 02:10 Sputum - Expectorated Sputum Sputum Culture - Preliminary - Constitutional no acute distress - *Routine HEENT Exam Eye: Present: EOMI, PERRL ENT: Present: mucous membranes moist - *Routine Neck Exam Present: supple, full ROM. Absent: JVD - *Routine Respiratory Exam Present: decreased breath sounds, rhonchi - *Routine Cardiovascular Exam Present: RRR, Normal S1, Normal S2 - *Routine Abdominal Exam Present: soft, normoactive bowel sounds - *Routine Skin Exam Present: warm. Absent: rash - *Routine Neurological Exam Present: alert, oriented X3 Assessment and Plan (1) Frequent falls Current visit: Yes Status: Acute Category: Medical Code(s): R29.6 - Repeated falls (2) Type 2 diabetes mellitus Current visit: Yes Status: Acute Category: Medical Code(s): E11.9 - Type 2 diabetes mellitus without complications (3) CHF (congestive heart failure) Current visit: Yes Status: Acute Category: Medical Code(s): I50.9 - Heart failure, unspecified (4) Generalized weakness Current visit: Yes Status: Acute Category: Medical Code(s): R53.1 - Weakness (5) Hypochromic microcytic anemia Current visit: Yes Status: Acute Category: Medical Code(s): D50.9 - Iron deficiency anemia, unspecified (6) Pneumonia Current visit: Yes Status: Acute Category: Medical Code(s): J18.9 - Pneumonia, unspecified organism - Assessment and plan all Dx Assessment and Plan for all problems:: Overall improving. Await sputum cultures. Anemia improved after 1 unit with hemoglobin 8.9. PT/OT evaluation. Probable home tomorrow with oral antibiotics, medication adjustment at home health for PT/OT given his significant weakness.
[2019-10-30 06:37] LABS: Anion Gap 13.4 mEq/L (5-15); Calcium 8.7 mg/dL (8.5-10.1)
[2019-10-30 06:38] LABS: Basophils # 0.1 K/mm3 (0-0.2); Basophils % 0.6 % (0.1-2.0); Eosinophils # 0.3 K/mm3 (0.0-0.4); Eosinophils % 3.6 % (0.1-12.0); Lymphocytes # 1.3 K/mm3 (0.7-4.5); Lymphocytes % 14.6 % (10-50); Mean Corpuscular HGB Conc 29.4 g/dL (31.8-35.4); Mean Corpuscular Volume 73.9 fl (80-94); Mean Platelet Volume 9.5 fl (7.4-10.4); Monocytes # 0.7 K/mm3 (0.1-1.0); Neutrophils # 6.3 K/mm3 (1.8-7.8); Neutrophils % 73.1 % (37.0-80.0); Platelet Count 208 K/mm3 (142-424); Red Blood Count 3.65 M/mm3 (4.60-6.20); White Blood Count 8.7 K/mm3 (4.8-10.8)
[2019-10-30 06:44] LABS: Hemoglobin 7.9 g/dL (14.1-18.0)
--- NOTE | 2019-10-30 08:54 | Discharge Summary ---
General - General Admission date:: 10/27/19 Discharge date: 10/30/19 HPI HPI: 79-year-old white male, significant past medical history includes COPD, oxygen requirement at home, nebulizer requiring, with frequent exacerbations and frequent episodes of community-acquired pneumonia, also has type 2 diabetes and systolic congestive heart failure, as well as lumbar neuralgia, significant spinal stenosis and lower extremity weakness and chronic pain, who presents to the hospital after falling in the middle of the night and being unable to get up for several hours. Is brought to the emergency department where he was found to have leukocytosis, febrile status, anemia and significant debility. Admitted to hospital for IV antibiotics and further diagnostic testing. Hospital Course Hospital Course: Patient was admitted, placed on IV antibiotics and tolerated this well and had good improvement. Clinically presented with pneumonia and infiltrates, present on admission. Leukocytosis improved. Given patient's breathlessness and other issues he was given 1 unit of packed cells because of his anemia. The breathlessness improved and patient's hemoglobin stabilized right around 8 g. It was decided he would benefit from home health for PT/OT, home safety evaluation and nursing evaluation for blood pressure issues and he reached maximal medical improvement in the hospital. He has multiple falls at home. He is eligible for home health because of weakness, falls and is unable to leave the house without extreme difficulty because of his lumbar neuralgia, chronic pain and ataxia issues. Please note I examined the patient in a [id number] fashion today. Objective Vital signs: Temp Pulse Resp BP Pulse Ox 97.9 F 70 19 144/69 H 93 L 10/30/19 07:42 10/30/19 08:00 10/30/19 07:42 10/30/19 07:42 10/30/19 07:42 Narrative: Patient is alert, pleasant, slept well overnight. Reports that he is slightly nervous-but reports this is an hospital phenomenon. Oropharynx moist and clear, no JVD. Lungs good with good air movement. Minimal rhonchi in the right base. But improved over admission. Heart rate regular. No murmurs. Abdomen soft and nontender. No edema or clubbing. Globally weak but otherwise neurologically intact. Results Labs on day of discharge: Labs from last 24 hours 10/30/19 10/30/19 06:10 06:10 WBC 8.7 RBC 3.65 L Hgb 7.9 L* Hct 27.0 L MCV 73.9 L MCH 21.7 L MCHC 29.4 L RDW 18.0 H Plt Count 208 MPV 9.5 Neut % (Auto) 73.1 Lymph % (Auto) 14.6 [place] % (Auto) 8.0 Eos % (Auto) 3.6 Baso % (Auto) 0.6 Neut # (Auto) 6.3 Lymph # (Auto) 1.3 [place] # (Auto) 0.7 Eos # (Auto) 0.3 Baso # (Auto) 0.1 Sodium 142 Potassium 4.4 Chloride 106 Carbon Dioxide 27 Anion Gap 13.4 BUN 24 H Creatinine 1.41 H Estimated Creat Clear 42 Estimated GFR 48 L Est GFR ( Amer) 59 Glucose 116 H Calcium 8.7 Preliminary micro results at discharge 10/27/19 15:15 Blood Culture - Preliminary Blood NO GROWTH AFTER 48 HOURS 10/27/19 15:15 Blood Culture - Preliminary Blood NO GROWTH AFTER 48 HOURS 10/28/19 02:10 Sputum Culture - Preliminary Sputum - Expectorated Sputum DS: Diagnosis - Discharge Diagnosis (1) Frequent falls Status: Acute (2) Type 2 diabetes mellitus Status: Acute (3) CHF (congestive heart failure) Status: Acute (4) Generalized weakness Status: Acute (5) Hypochromic microcytic anemia Status: Acute (6) Pneumonia Status: Acute Discharge Plan - Patient Discharge Instructions ACTIVITY: Continue current activity DIET: continue same diet Patient Instructions: Pneumonia-Adult, Heart Failure, Coronary Artery Disease, Essential Hypertension, Pneumococcal Vaccine, DI for Heart Failure, DI for Pneumonia -- Adult, DI for High Blood Pressure, DI for Coronary Artery Disease - Follow up Plan Follow up with: Asif Kirk MD [Primary Care Provider] - 11/14/19 Disposition: Home Health Service Home Medications: Home Medications Medication Instructions Recorded Confirmed Type ALPRAZolam [Xanax 0.25mg tab] 0.25 mg PO HS PRN 02/19/19 10/27/19 History Albuterol Sulfate [Proair 2 puffs INHALATION Q4HP PRN 02/19/19 10/27/19 History Respiclick] Aspirin [Aspirin 81mg EC Tab] 81 mg PO HS 02/19/19 10/27/19 History Atorvastatin Calcium [Atorvastatin 20 mg PO HS 02/19/19 10/27/19 History 20mg Tab] Gabapentin 600 mg PO BID 02/19/19 10/27/19 History Ipratropium/Albuterol Sulfate 100 mcg INHALATION BID PRN 02/19/19 10/27/19 History [Combivent Respimat Inh] Losartan Potassium 100 mg PO DAILY 02/19/19 10/27/19 History Magnesium Oxide [Magnesium] 400 mg PO HS 02/19/19 10/27/19 History Metformin HCl [Metformin 1000mg 1,000 mg PO BID 02/19/19 10/27/19 History Tablets] Nitroglycerin [Nitrostat 0.4mg SL 0.4 mg SL Q5MINP PRN 02/19/19 10/27/19 History Tablet] [place]-3 Acid Ethyl Esters [Lovaza] 2,000 mg PO BID 02/19/19 10/27/19 History cloNIDine HCL [Clonidine HCl] 0.3 mg PO BID 02/19/19 10/27/19 History Hydralazine HCl 75 mg PO TID 02/20/19 10/27/19 History Isosorbide Mononitrate [Imdur 60mg 60 mg PO DAILY 02/20/19 10/27/19 History ER tablet] Meclizine HCl [Antivert 25mg 25 mg PO TID PRN 02/20/19 10/27/19 History tablet] Multivitamin [Daily Multiple 1 each PO HS 02/20/19 10/27/19 History Vitamin] Tiotropium [place] [Spiriva 2 puff IH DAILY 02/20/19 10/27/19 History 18mcg/puff inhaler] Docusate Sodium [Stool Softener] 100 mg PO DAILYP PRN 06/27/19 10/27/19 History Budesonide/Formoterol Fumarate 2 puffs IH BID #0 09/14/19 10/27/19 History [Symbicort 160-4.5 Mcg Inhaler] Hydrocod/Acet 5/325 mg [[place] 1 tab PO Q6HP PRN 09/14/19 10/27/19 History 5/325mg tablet] Clopidogrel Bisulfate [Plavix 75mg 75 mg PO DAILY 09/15/19 10/27/19 History Tab] Amlodipine Besylate [Amlodipine 10 mg PO DAILY 10/28/19 10/28/19 History 10mg Tab] Famotidine [Pepcid 20mg Tablet] 20 mg PO BID 10/28/19 10/28/19 History Amoxicillin/Potassium Clav 1 tab PO Q12H #14 tab 10/30/19 Rx [Augmentin 875-125 Tablet] levoFLOXacin [Levaquin 500mg 500 mg PO DAILY #7 tab 10/30/19 Rx tab] Prescriptions/Medication Reconciliation: New Amoxicillin/Potassium Clav [Augmentin 875-125 Tablet] 1 tab PO Q12H #14 tab levoFLOXacin [Levaquin 500mg tab] 500 mg PO DAILY #7 tab Continued Metformin HCl [Metformin 1000mg Tablets] 1,000 mg PO BID Losartan Potassium 100 mg PO DAILY Gabapentin 600 mg PO BID cloNIDine HCL [Clonidine HCl] 0.3 mg PO BID Aspirin [Aspirin 81mg EC Tab] 81 mg PO HS Ipratropium/Albuterol Sulfate [Combivent Respimat Inh] 100 mcg INHALATION BID PRN PRN Reason: Shortness Of Breath Nitroglycerin [Nitrostat 0.4mg SL Tablet] 0.4 mg SL Q5MINP PRN PRN Reason: Chest Pain Albuterol Sulfate [Proair [place]iclick] 2 puffs INHALATION Q4HP PRN PRN Reason: COPD Hydralazine HCl 75 mg PO TID Isosorbide Mononitrate [Imdur 60mg ER tablet] 60 mg PO DAILY Tiotropium [place] [Spiriva 18mcg/puff inhaler] 2 puff IH DAILY Meclizine HCl [Antivert 25mg tablet] 25 mg PO TID PRN PRN Reason: Vertigo Multivitamin [Daily Multiple Vitamin] 1 each PO HS Docusate Sodium [Stool Softener] 100 mg PO DAILYP PRN PRN Reason: Constipation Hydrocod/Acet 5/325 mg [[place] 5/325mg tablet] 1 tab PO Q6HP PRN PRN Reason: back pain Budesonide/Formoterol Fumarate [Symbicort 160-4.5 Mcg Inhaler] 2 puffs IH BID #0 Famotidine [Pepcid 20mg Tablet] 20 mg PO BID [place]-3 Acid Ethyl Esters [Lovaza] 2,000 mg PO BID ALPRAZolam [Xanax 0.25mg tab] 0.25 mg PO HS PRN PRN Reason: Anxiety Atorvastatin Calcium [Atorvastatin 20mg Tab] 20 mg PO HS Magnesium Oxide [Magnesium] 400 mg PO HS Clopidogrel Bisulfate [Plavix 75mg Tab] 75 mg PO DAILY Amlodipine Besylate [Amlodipine 10mg Tab] 10 mg PO DAILY - Problem Reconciliation Problems Reviewed?: Yes
== END 2019-10-30 10:35 | disposition home health service (06) ==
LOC: 2ND 14:38 → ER 14:38 → 2ND 20:11
PROVIDERS: ADMIT Internal Medicine Adolescent Medicine; ATTEND Internal Medicine Adolescent Medicine
CPT/HCPCS: 36415; 70450; 71010; 71020; 71045; 71046; 72100; 73502; 80048; 80053; 80061; 81001; 82962; 83605; 83735; 83880; 84100; 84443; 84484; 85007; 85014; 85018; 85025; 86850; 87040; 87070; 87205; 93005; 94640; 94761; 96365; 97161; 97165; 99284; G0378; J1956; J2543; P9016

== ENCOUNTER → 2019-11-03 07:58 | Outpatient (CLI) | payer MEDICARE, SELFPAY ==
[2019-11-03 13:39] LABS: Basophils # 0.1 K/mm3 (0-0.2); Basophils % 0.9 % (0.1-2.0); Eosinophils # 0.7 K/mm3 (0.0-0.4); Eosinophils % 6.9 % (0.1-12.0); Hematocrit 30.7 % (42.0-52.0); Lymphocytes # 1.6 K/mm3 (0.7-4.5); Mean Corpuscular HGB Conc 29.3 g/dL (31.8-35.4); Mean Corpuscular Hemoglobin 21.3 pg (27.0-31.2); Mean Corpuscular Volume 72.6 fl (80-94); Mean Platelet Volume 9.1 fl (7.4-10.4); Monocytes # 0.9 K/mm3 (0.1-1.0); Monocytes % 9.1 % (1.7-9.3); Neutrophils # 6.8 K/mm3 (1.8-7.8); Neutrophils % 67.2 % (37.0-80.0); Platelet Count 294 K/mm3 (142-424); Red Blood Count 4.22 M/mm3 (4.60-6.20); Red Cell Distribution Width 19.5 % (11.5-17.5); White Blood Count 10.1 K/mm3 (4.8-10.8)
[2019-11-03 14:30] LABS: Alanine Aminotransferase 27 U/L (12-78); Albumin/Globulin Ratio 0.9 (1.1-1.8); Alkaline Phosphatase 85 U/L (46-116); Anion Gap 15.8 mEq/L (5-15); Aspartate Amino Transferase 16 U/L (15-37); Bilirubin,Total 0.3 mg/dL (0.2-1.0); Blood Urea Nitrogen 20 mg/dL (7-18); Calcium 9.3 mg/dL (8.5-10.1); Carbon Dioxide 26 mmol/L (21.0-32.0); Chloride 107 mmol/L (98-107); Creatinine,Serum 1.29 mg/dL (0.70-1.30); Estimated Glomerular Filt Rate 54 ml/min (>60); GFR (African American) 65 ML/MIN (>60); Globulin 3.5 gm/dl (1.3-3.2); Glucose 147 mg/dL (74-106); Potassium 3.8 mmoL/L (3.5-5.1); Sodium 145 mmol/L (136-145); Total Protein,Serum 6.5 gm/dL (6.4-8.2)
== END ==
PROVIDERS: Visit Provider Internal Medicine Adolescent Medicine
DX: D64.9 Anemia, unspecified (principal)
CPT/HCPCS: 36415; 80053; 85025

== ENCOUNTER 2019-12-16 01:38 | Inpatient (IN) ==
--- NOTE | 2019-12-16 01:43 | Emergency Department Note ---
ED Disposition Clinical Impression: Healthcare-associated pneumonia, Hypoglycemia Disposition: Admitted as Observation Condition on Discharge: Fair - Critical Care Critical Care Time: No Attestation: On , the high probability of a clinically significant, sudden or life threatening deterioration of the following system(s) required my full and direct attention, intervention and personal management. The time I documented below is in addition to time spent performing reported procedures but includes the following listed in this critical care notation. Medical Decision Making - John Inquiry Pt receiving controlled substance: No Vital Signs: 12/16/19 01:35 12/16/19 02:16 Temperature 99.4 F 98.7 F Temperature Source Oral Oral Pulse Rate [Left Radial] 89 82 Respiratory Rate 17 14 Blood Pressure [Right Arm] 116/67 139/66 Blood Pressure Mean [Right Arm] 83 90 Blood Pressure Source [Right Arm] Automatic Cuff Automatic Cuff Blood Pressure Position [Right Arm] Sitting Sitting 02 Sat by Pulse Oximetry 96 98 Oxygen Delivery Method Nasal Cannula Nasal Cannula Oxygen Flow Rate (LPM) 3 3 - Lab Data Lab Results 12/16/19 01:30: WBC 23.6 H*, RBC 4.38 L, Hgb 9.0 L, Hct 31.1 L, MCV 70.8 L, MCH 20.4 L, MCHC 28.8 L, RDW 17.2, Plt Count 292, MPV 8.9, Neut % (Auto) 90.9 H, Lymph % (Auto) 4.0 L, [place] % (Auto) 4.4, Eos % (Auto) 0.3, Baso % (Auto) 0.4, Ne ut # (Auto) 21.4 H, Lymph # (Auto) 1.0, [place] # (Auto) 1.0, Eos # (Auto) 0.1, Baso # (Auto) 0.1, Total Counted 100, Neutrophils % (Manual) 80 H, Band N eutrophils % 15.0 H, Lymphocytes % (Manual) 4 L, Monocytes % (Manual) 1 L, Platelet Estimate Normal, Hypochromasia 3+, Anisocytosis 1+, Microcytosis 3+ 12/16/19 01:30: Sodium 144, Potassium 4.0, Chloride 111 H, Carbon Dioxide 25, Anion Gap 12.0, BUN 17, Creatinine 1.41 H, Estimated Creat Clear 41, Estimated GFR 48 L, Est GFR ( Amer) 59, Glucose 47 L, Calcium 8.6, Total Bilirubin 0.4, AST 19, ALT 18, Alkaline Phosphatase 76, Troponin I 0.05, Total Protein 6.4, Albumin 3.2 L, Globulin 3.2, Albumin/Globulin Ratio 1.0 L 12/16/19 01:30: Lactate 1.6 Result diagrams: 12/16/19 01:30 12/16/19 01:30 Orders (Tests/Meds): ED MEDICATIONS Generic Name Dose Route Start Last Admin Trade Name Freq PRN Reason Stop Dose Admin Levofloxacin/Dextrose 750 mg in 150 mls @ 100 mls/hr 12/16/19 02:30 Levofloxacin 750mg/150ml Premix IV 12/30/19 02:29 Q24H AAKASH Protocol Cefepime HCl 2 gm/ Sodium 100 mls @ 100 mls/hr 12/16/19 02:30 12/16/19 02:37 Chloride IV 12/30/19 02:29 100 mls/hr Q12H AAKASH Administration Protocol Miscellaneous 1 each 12/16/19 02:30 12/16/19 03:02 Vancomycin Consult Request NOTAPPLIC 12/16/19 14:29 1 each CONSULT PHARMACY AAKASH Administration Discontinued Medications Generic Name Dose Route Start Last Admin Trade Name Freq PRN Reason Stop Dose Admin Dextrose 50 ml 12/16/19 02:30 12/16/19 02:37 Dextrose 50% 50ml Syringe IVP 12/16/19 02:31 50 ml ONCE ONE Administration ORDERS Category Date Time Status XR chest portable Stat Exams 12/16/19 01:56 Taken Rapid Influenza A&B Antigens Stat Lab 12/16/19 01:56 Ordered Troponin I Q3H Lab 12/16/19 05:00 Ordered Troponin I Q3H Lab 12/16/19 08:00 Ordered Blood Culture Stat Micro 12/16/19 01:30 Received - ECG Data Tracing #1 EKG interpreted by Chuck Saldivar MD: Rhythm: sinus Rate: 86 [place]: normal Ectopy: none Conduction: normal ST Segment Changes: none T Wave Changes: Nonspecific Q Waves: none No evidence of acute ischemia or injury - Physician Consults Physician Consulted: Dr. Kirk Time: 02:45 Reason -: Admission Comment/Response: Agrees to admit the patient to the hospital. We discussed the patient's clinical information, including history, exam, laboratory and radiology results and ED course. Per hospital procedure, I will write temporary bridge inpatient orders on the patient. Specific orders requested by the admitting physician: Continue current antibiotics General Adult HPI - General Stated complaint: weakness, SOB Time Seen by Provider: 12/16/19 01:42 - History of Present Illness HPI narrative: History obtained from patient and family. Patient is brought in by ambulance. Family states he started getting ill today with generalized weakness, difficulty breathing, productive cough, fever to 101 degrees. They state he has a prior history of pneumonia and symptoms now are the same as prior episodes. Patient is on oxygen here and family states that he wears 3 L at night. - Related Data Home Medications Medication Instructions Recorded Confirmed Albuterol Sulfate [Proair 2 puffs INHALATION Q4HP PRN 02/19/19 12/16/19 Respiclick] Aspirin [Aspirin 81mg EC Tab] 81 mg PO HS 02/19/19 12/16/19 Atorvastatin Calcium [Atorvastatin 20 mg PO HS 02/19/19 12/16/19 20mg Tab] Gabapentin 600 mg PO BID PRN 02/19/19 12/16/19 Losartan Potassium 100 mg PO DAILY 02/19/19 12/16/19 Magnesium Oxide [Magnesium] 400 mg PO HS 02/19/19 12/16/19 Metformin HCl [Metformin 1000mg 1,000 mg PO BID 02/19/19 12/16/19 Tablets] [place]-3 Acid Ethyl Esters [Lovaza] 2,000 mg PO BID 02/19/19 12/16/19 cloNIDine HCL [Clonidine HCl] 0.3 mg PO BID 02/19/19 12/16/19 Hydralazine HCl 75 mg PO TID 02/20/19 12/16/19 Isosorbide Mononitrate [Imdur 60mg 60 mg PO DAILY 02/20/19 12/16/19 ER tablet] Multivitamin [Daily Multiple 1 each PO HS 02/20/19 12/16/19 Vitamin] Tiotropium [place] [Spiriva 2 puff IH DAILY 02/20/19 12/16/19 18mcg/puff inhaler] Budesonide/Formoterol Fumarate 2 puffs IH BID #0 09/14/19 12/16/19 [Symbicort 160-4.5 Mcg Inhaler] Clopidogrel Bisulfate [Plavix 75mg 75 mg PO DAILY 09/15/19 12/16/19 Tab] Amlodipine Besylate [Amlodipine 10 mg PO DAILY 10/28/19 12/16/19 10mg Tab] Allergies Allergy/AdvReac Type Severity Reaction Status Date / Time No Known Allergies Allergy Verified 10/27/19 19:09 [facility] History - Hepatitis A Screen Attestation statement:: This patient has been screened for Hepatitis A risk factors. I have reviewed the patient's past medical history: Yes Medical History: Reports:: Aneurysm, Cancer (SKIN), Congestive Heart Failure, Coronary Artery Disease, Diabetes Mellitus Type 2, Hyperlipidemia, Hypertension (History of malignant hypertension with mental status changes in the past), Myocardial Infarction, Peripheral Artery Disease, Peripheral Vascular Disease Denies:: Diabetes Mellitus Type 1, Internal Pacemaker, MRSA Other Medical History: Reports: Anemia (Chronic disease anemia), Arthritis, Cataracts, Sinus Problems Other Surgeries: Yes: CABG, Cardiac Catheterization, Cardiac Surgery, Colonoscopy, Coronary Stent, EGD, Skin Cancer Excision. No: Pacemaker Amputation: No Fractures: No - Social History Smoking Status: Former smoker Tobacco Type: cigarettes # Packs/Day (cigarettes): 2 Alcohol Intake: never Occupational Status: retired, other Housing: other Household Members: spouse Family Hx:: Unable to obtain ROS Obtained: Yes All systems reviewed & no additional complaints - Constitutional Constitutional: Reports fatigue, Reports fever(s) - Cardiovascular Cardiovascular: Denies chest pain - Respiratory Respiratory: Yes cough, Yes dyspnea - Gastrointestinal Gastrointestingal: Reports: vomiting. Denies: abdominal pain - Musculoskeletal Musculoskeletal: Reports joint pain (Left knee) Physical Exam - General General appearance: alert, in no apparent distress - Head Head exam: atraumatic, normocephalic - Eye Eye exam: Present: normal appearance, EOMI - ENT ENT exam: Present: mucous membranes moist - Neck Neck exam: Present: normal inspection, trachea midline - Chest Chest inspection: Present: normal inspection, symmetric chest wall rise - Respiratory Respiratory exam: Present: normal lung sounds bilaterally. Absent: respiratory distress - Cardiovascular Cardiovascular exam: Present: regular rate, normal rhythm, normal heart sounds - Abdominal Exam Abdominal exam: Present: soft, normal bowel sounds. Absent: distention, tenderness - Extremities Exam Extremities exam: Present: normal inspection, other (No erythema or heat of the joints). Absent: tenderness, joint swelling - Neurological Exam Neurological exam: Present: alert - Psychiatric Psychiatric exam: Present: normal affect, normal mood - Skin Skin exam: Present: warm, dry. Absent: rash, cyanosis
[2019-12-16 02:05] LABS: Basophils # 0.1 K/mm3 (0-0.2); Basophils % 0.4 % (0.1-2.0); Eosinophils # 0.1 K/mm3 (0.0-0.4); Eosinophils % 0.3 % (0.1-12.0); Hematocrit 31.1 % (42.0-52.0); Mean Corpuscular HGB Conc 28.8 g/dL (31.8-35.4); Mean Corpuscular Volume 70.8 fl (80-94); Mean Platelet Volume 8.9 fl (7.4-10.4); Monocytes % 4.4 % (1.7-9.3); Neutrophils # 21.4 K/mm3 (1.8-7.8); Neutrophils % 90.9 % (37.0-80.0); Platelet Count 292 K/mm3 (142-424); Red Blood Count 4.38 M/mm3 (4.60-6.20); Red Cell Distribution Width 17.2 % (11.5-17.5)
[2019-12-16 02:08] LABS: White Blood Count 23.6 K/mm3 (4.8-10.8)
[2019-12-16 02:21] LABS: Anisocytosis 1+; Hypochromasia 3+; Lymphocytes % 4 % (10-50); Monocytes % 1 % (2-9); Neutrophils % 80 % (42-76); Total Cells Counted 100
[2019-12-16 02:28] LABS: Albumin Level 3.2 gm/dL (3.4-5.0); Bilirubin,Total 0.4 mg/dL (0.2-1.0); Calcium 8.6 mg/dL (8.5-10.1); Globulin 3.2 gm/dl (1.3-3.2); Total Protein,Serum 6.4 gm/dL (6.4-8.2)
--- NOTE | 2019-12-16 08:54 | History & Physical Report ---
*Admission Date: 12/16/19 *Chief complaint: Cough/congestion/lethargy *History of present illness: 79-year-old white male with multiple medical problems, including COPD that is oxygen requiring, and propensity for pneumonia with probable recurrent aspiration issues who was brought to the emergency department by his family with lethargy, fever and clouded consciousness. Found to have elevated white count, increased oxygen requirement, hypoglycemia and infiltrate on chest x-ray. Given recent exposure to hospital environment about 6 weeks ago he was placed on broad-spectrum antibiotics for hospital- acquired pneumonia. [facility] History I have reviewed the patient's past medical history: Yes Medical History: Reports:: Aneurysm, Cancer (skin), Congestive Heart Failure, Coronary Artery Disease, Diabetes Mellitus Type 2, Hyperlipidemia, Hypertension, Myocardial Infarction, Peripheral Artery Disease, Peripheral Vascular Disease Denies:: Diabetes Mellitus Type 1, Internal Pacemaker, MRSA *Have you ever received a pneumonia vaccine?: Yes *Have you received a flu vaccine this season?: Yes Other Medical History: Reports: Anemia, Arthritis, Cataracts, Sinus Problems Other Surgeries: Yes: CABG, Cardiac Catheterization, Cardiac Surgery, Colonoscopy, Coronary Stent, EGD, Skin Cancer Excision. No: Pacemaker Amputation: No Fractures: No - *Social History Smoking Status: Former smoker Tobacco Type: cigarettes # Packs/Day (cigarettes): 1 Alcohol Intake: current Alcohol Intake Frequency:: holidays/special occasions only *Occupational Status:: retired Housing: house Household Members: spouse, significant other, family, children *Travel in the last 8 weeks: None Family Hx:: No significant family history Review of Systems - Review of Systems Review of systems:: pertinent systems reviewed and negative unless documented below This morning patient feels better. Denies pain. Reports breathing is still a little bit "rough" but other than leg pain denies other symptoms. GI, cardiac, skin, ENT symptoms negative. Meds Home Medications Medication Instructions Recorded Confirmed Type Albuterol Sulfate [Proair 2 puffs INHALATION Q4HP PRN 02/19/19 12/16/19 History Respiclick] Aspirin [Aspirin 81mg EC Tab] 81 mg PO HS 02/19/19 12/16/19 History Atorvastatin Calcium [Atorvastatin 20 mg PO HS 02/19/19 12/16/19 History 20mg Tab] Gabapentin 600 mg PO BID PRN 02/19/19 12/16/19 History Losartan Potassium 100 mg PO DAILY 02/19/19 12/16/19 History Magnesium Oxide [Magnesium] 400 mg PO HS 02/19/19 12/16/19 History Metformin HCl [Metformin 1000mg 1,000 mg PO BID 02/19/19 12/16/19 History Tablets] [place]-3 Acid Ethyl Esters [Lovaza] 2,000 mg PO BID 02/19/19 12/16/19 History cloNIDine HCL [Clonidine HCl] 0.3 mg PO BID 02/19/19 12/16/19 History Hydralazine HCl 75 mg PO TID 02/20/19 12/16/19 History Isosorbide Mononitrate [Imdur 60mg 60 mg PO DAILY 02/20/19 12/16/19 History ER tablet] Multivitamin [Daily Multiple 1 each PO HS 02/20/19 12/16/19 History Vitamin] Tiotropium [place] [Spiriva 2 puff IH DAILY 02/20/19 12/16/19 History 18mcg/puff inhaler] Budesonide/Formoterol Fumarate 2 puffs IH BID #0 09/14/19 12/16/19 History [Symbicort 160-4.5 Mcg Inhaler] Clopidogrel Bisulfate [Plavix 75mg 75 mg PO DAILY 09/15/19 12/16/19 History Tab] Amlodipine Besylate [Amlodipine 10 mg PO DAILY 10/28/19 12/16/19 History 10mg Tab] Allergies Allergy/AdvReac Type Severity Reaction Status Date / Time No Known Allergies Allergy Verified 10/27/19 19:09 Exam Vital signs and Labs for Last 24 Hours: Temp Pulse Resp BP Pulse Ox 99.1 F 84 18 126/58 L 94 L 12/16/19 04:33 12/16/19 06:25 12/16/19 04:33 12/16/19 04:33 12/16/19 06:25 Laboratory Results - last 24 hr 12/16/19 01:30: WBC 23.6 H*, RBC 4.38 L, Hgb 9.0 L, Hct 31.1 L, MCV 70.8 L, MCH 20.4 L, MCHC 28.8 L, RDW 17.2, Plt Count 292, MPV 8.9, Neut % (Auto) 90.9 H, Lymph % (Auto) 4.0 L, [place] % (Auto) 4.4, Eos % (Auto) 0.3, Baso % (Auto) 0.4, Neut # (Auto) 21.4 H, Lymph # (Auto) 1.0, [place] # (Auto) 1.0, Eos # (Auto) 0.1, Baso # (Auto) 0.1, Total Counted 100, Neutrophils % (Manual) 80 H, Band Neutrophils % 15.0 H, Lymphocytes % (Manual) 4 L, Monocytes % (Manual) 1 L, Platelet Estimate Normal, Hypochromasia 3+, Anisocytosis 1+, Microcytosis 3+ 12/16/19 01:30: Sodium 144, Potassium 4.0, Chloride 111 H, Carbon Dioxide 25, Anion Gap 12.0, BUN 17, Creatinine 1.41 H, Estimated Creat Clear 41, Estimated GFR 48 L, Est GFR ( Amer) 59, Glucose 47 L, Calcium 8.6, Total Bilirubin 0.4, AST 19, ALT 18, Alkaline Phosphatase 76, Troponin I 0.05, Total Protein 6.4, Albumin 3.2 L, Globulin 3.2, Albumin/Globulin Ratio 1.0 L 12/16/19 01:30: Lactate 1.6 12/16/19 03:42: POC Glucose 134 H 12/16/19 04:59: POC Glucose 84 12/16/19 05:57: POC Glucose 95 12/16/19 06:56: POC Glucose 65 L I & O for Last 24 hours: Intake & Output 12/13/19 12/14/19 12/15/19 12/16/19 11:59 11:59 11:59 11:59 Intake Total 144 / 144 Balance 144 / 144 Weight 144 lb 1 oz Narrative: Patient is pleasant. Oriented x2. A little fuzzy about the date. Oropharynx clear, slightly dry, no JVD. Otherwise ENT exam clear. Lungs with rhonchi and crackles especially in the right side. Left side clear. Abdomen soft and nontender. Skin turgor good. Able to move all extremities well. Cranial nerves and peripheral neurologic exam unremarkable. Heart rate regular. Previously noted murmur. Assessment and Plan (1) Diabetes type 2, controlled Current visit: Yes Status: Acute Category: Medical Code(s): E11.9 - Type 2 diabetes mellitus without complications Complicates all aspects of his care. Hold oral antidiabetic agents given his admission hypoglycemia. (2) Healthcare-associated pneumonia Current visit: Yes Status: Acute Category: Medical Code(s): J18.9 - Pneumonia, unspecified organism Agree with admission, broad-spectrum antibiotics, follow leukocytosis carefully. Sputum and blood cultures pending (3) Hypoglycemia Current visit: Yes Status: Acute Category: Medical Code(s): E16.2 - Hypoglycemia, unspecified Corrected with administration of dextrose intravenously. See plan above for diabetes (4) Acute kidney injury Current visit: No Status: Acute Category: Medical Code(s): N17.9 - Acute kidney failure, unspecified Seems to be at baseline. Watch carefully (5) CHF (congestive heart failure) Current visit: No Status: Chronic Qualifiers: Heart failure type: diastolic Heart failure chronicity: chronic Qualified Code(s): I50.32 - Chronic diastolic (congestive) heart failure Category: Medical Code(s): I50.9 - Heart failure, unspecified Chronic diastolic heart failure with EF 55% in May 2019. Complicates all aspects of his care, watch fluid status carefully. (6) Community acquired pneumonia Current visit: No Status: Acute Category: Medical Code(s): J18.9 - Pneumonia, unspecified organism
--- NOTE | 2019-12-16 10:25 | Pharmacy Consult Notes ---
[facility] VTE Monitoring - Patient Demographics Admission date: 12/16/19 Report Date: 12/16/19 Time: 10:25 Allergies/Adverse Reactions: Patient Allergies No Known Allergies Allergy (Verified 10/27/19 19:09) Height: 1.8 m Weight: 65.346 kg Patient Problems: Current Active Problems Healthcare-associated pneumonia (Acute) Hypoglycemia (Acute) Diabetes type 2, controlled (Acute) - VTE Risk Labs: VTE Related Lab Results Hgb 9.0 g/dL (14.1-18.0) L 12/16/19 01:30 Hct 31.1 % (42.0-52.0) L 12/16/19 01:30 Plt Count 292 K/mm3 (142-424) 12/16/19 01:30 BUN 17 mg/dL (7-18) 12/16/19 01:30 Creatinine 1.41 mg/dL (0.70-1.30) H 12/16/19 01:30 Estimated Creat Clear 41 mL/min (50-200) 12/16/19 01:30 Was VTE Risk Assessment Performed: Yes VTE Score: 6 VTE Risk Level: Moderate Risk - Prophylaxis VTE Prophylaxis Ordered?: Yes Types of VTE Prophylaxis: TEDS Knee High Location of Applied Device: Bilateral Lower Extremeties, Refused
--- NOTE | 2019-12-16 10:56 | Pharmacy Consult Notes ---
- Pharmacy Consult Date: 12/16/19 Time: 10:55 Referring provider: DR. ANNE Reason for Consult:: VANCOMYCIN DOSING Allergies and ADEs:: Allergies Allergy/AdvReac Type Severity Reaction Status Date / Time No Known Allergies Allergy Verified 10/27/19 19:09 Home Medications:: Home Medications Medication Instructions Recorded Confirmed Type Albuterol Sulfate [Proair 2 puffs INHALATION Q4HP PRN 02/19/19 12/16/19 History Respiclick] Aspirin [Aspirin 81mg EC Tab] 81 mg PO HS 02/19/19 12/16/19 History Atorvastatin Calcium [Atorvastatin 20 mg PO HS 02/19/19 12/16/19 History 20mg Tab] Gabapentin 600 mg PO BID PRN 02/19/19 12/16/19 History Losartan Potassium 100 mg PO DAILY 02/19/19 12/16/19 History Magnesium Oxide [Magnesium] 400 mg PO HS 02/19/19 12/16/19 History Metformin HCl [Metformin 1000mg 1,000 mg PO BID 02/19/19 12/16/19 History Tablets] [place]-3 Acid Ethyl Esters [Lovaza] 2,000 mg PO BID 02/19/19 12/16/19 History cloNIDine HCL [Clonidine HCl] 0.3 mg PO BID 02/19/19 12/16/19 History Hydralazine HCl 75 mg PO TID 02/20/19 12/16/19 History Isosorbide Mononitrate [Imdur 60mg 60 mg PO DAILY 02/20/19 12/16/19 History ER tablet] Multivitamin [Daily Multiple 1 each PO HS 02/20/19 12/16/19 History Vitamin] Tiotropium [place] [Spiriva 2 puff IH DAILY 02/20/19 12/16/19 History 18mcg/puff inhaler] Budesonide/Formoterol Fumarate 2 puffs IH BID #0 09/14/19 12/16/19 History [Symbicort 160-4.5 Mcg Inhaler] Clopidogrel Bisulfate [Plavix 75mg 75 mg PO DAILY 09/15/19 12/16/19 History Tab] Amlodipine Besylate [Amlodipine 10 mg PO DAILY 10/28/19 12/16/19 History 10mg Tab] Height: 1.8 m Weight: 65.346 kg Laboratory Results:: Laboratory Results - last 24 hr 12/16/19 01:30: WBC 23.6 H*, RBC 4.38 L, Hgb 9.0 L, Hct 31.1 L, MCV 70.8 L, MCH 20.4 L, MCHC 28.8 L, RDW 17.2, Plt Count 292, MPV 8.9, Neut % (Auto) 90.9 H, Lymph % (Auto) 4.0 L, [place] % (Auto) 4.4, Eos % (Auto) 0.3, Baso % (Auto) 0.4, Neut # (Auto) 21.4 H, Lymph # (Auto) 1.0, [place] # (Auto) 1.0, Eos # (Auto) 0.1, Baso # (Auto) 0.1, Total Counted 100, Neutrophils % (Manual) 80 H, Band Neutrophils % 15.0 H, Lymphocytes % (Manual) 4 L, Monocytes % (Manual) 1 L, Platelet Estimate Normal, Hypochromasia 3+, Anisocytosis 1+, Microcytosis 3+ 12/16/19 01:30: Sodium 144, Potassium 4.0, Chloride 111 H, Carbon Dioxide 25, Anion Gap 12.0, BUN 17, Creatinine 1.41 H, Estimated Creat Clear 41, Estimated GFR 48 L, Est GFR ( Amer) 59, Glucose 47 L, Calcium 8.6, Total Bilirubin 0.4, AST 19, ALT 18, Alkaline Phosphatase 76, Troponin I 0.05, Total Protein 6.4, Albumin 3.2 L, Globulin 3.2, Albumin/Globulin Ratio 1.0 L 12/16/19 01:30: Lactate 1.6 12/16/19 03:42: POC Glucose 134 H 12/16/19 04:59: POC Glucose 84 12/16/19 05:57: POC Glucose 95 12/16/19 06:56: POC Glucose 65 L Medical History: Reports:: Aneurysm, Cancer (skin), Congestive Heart Failure, Coronary Artery Disease, Diabetes Mellitus Type 2, Hyperlipidemia, Hypertension, Myocardial Infarction, Peripheral Artery Disease, Peripheral Vascular Disease Denies:: Diabetes Mellitus Type 1, Internal Pacemaker, MRSA Assessment and Plan (1) Diabetes type 2, controlled Current visit: Yes Status: Acute Category: Medical Code(s): E11.9 - Type 2 diabetes mellitus without complications (2) Healthcare-associated pneumonia Current visit: Yes Status: Acute Category: Medical Code(s): J18.9 - Pneumonia, unspecified organism (3) Hypoglycemia Current visit: Yes Status: Acute Category: Medical Code(s): E16.2 - Hypoglycemia, unspecified (4) Acute kidney injury Current visit: No Status: Acute Category: Medical Code(s): N17.9 - Acute kidney failure, unspecified (5) CHF (congestive heart failure) Current visit: No Status: Chronic Qualifiers: Heart failure type: diastolic Heart failure chronicity: chronic Qualified Code(s): I50.32 - Chronic diastolic (congestive) heart failure Category: Medical Code(s): I50.9 - Heart failure, unspecified (6) Community acquired pneumonia Current visit: No Status: Acute Category: Medical Code(s): J18.9 - Pneumonia, unspecified organism - Assessment and plan all Dx Assessment and Plan for all problems:: BASED ON PATIENT FACTORS, RECOMMEND VANCOMYCIN 1250 MG IV ONCE, FOLLOWED BY VANCOMYCIN 1 GM IV Q24H. PHARMACY WILL FOLLOW DAILY AND ADJUST APPROPRIATE.
--- NOTE | 2019-12-16 11:50 | Electrocardiograph Report ---
APPROVED REPORT Exam: Resting ECG HR:86 bpm ECG Measurements Heart Rate 86 AXES HI 184 P 11 QRSd 86 QRS -5 QT 378 T54 QTc 452 <Conclusion> Normal sinus rhythm Nonspecific T wave abnormality Abnormal ECG Electronically signed by : Asif Kirk, 12/16/2019 11:49:51
[2019-12-17 06:14] LABS: Basophils # 0.1 K/mm3 (0-0.2); Basophils % 0.3 % (0.1-2.0); Eosinophils # 0.2 K/mm3 (0.0-0.4); Hemoglobin 8.3 g/dL (14.1-18.0); Lymphocytes # 1.7 K/mm3 (0.7-4.5); Lymphocytes % 8.1 % (10-50); Mean Corpuscular HGB Conc 28.9 g/dL (31.8-35.4); Mean Corpuscular Volume 69.5 fl (80-94); Mean Platelet Volume 7.8 fl (7.4-10.4); Monocytes # 1.4 K/mm3 (0.1-1.0); Monocytes % 6.8 % (1.7-9.3); Neutrophils # 17.6 K/mm3 (1.8-7.8); Neutrophils % 83.9 % (37.0-80.0); Platelet Count 246 K/mm3 (142-424); Red Blood Count 4.12 M/mm3 (4.60-6.20)
[2019-12-17 06:19] LABS: Hematocrit 28.6 % (42.0-52.0)
[2019-12-17 06:31] LABS: Albumin Level 2.9 gm/dL (3.4-5.0); Albumin/Globulin Ratio 0.9 (1.1-1.8); Bilirubin,Total 0.5 mg/dL (0.2-1.0); Globulin 3.4 gm/dl (1.3-3.2); Total Protein,Serum 6.3 gm/dL (6.4-8.2)
[2019-12-17 06:42] LABS: Anisocytosis 1+; Hypochromasia 2+; Lymphocytes % 8 % (10-50); Monocytes % 5 % (2-9); Neutrophils % 82 % (42-76); Rouleaux 1+; Total Cells Counted 100
--- NOTE | 2019-12-17 08:57 | Progress Note ---
Internal Medicine - PN: Subj *Date: 12/17/19 *Time: 08:55 Interval history: Overall patient is feeling much better. His up in a chair, has been able to go to the bathroom by himself without significant dizziness. Blood pressure record of 231 systolic in the nurses aide record is spurious. Re checked personally and was normal. Exam Vital signs and Labs for Last 24 Hours: Temp Pulse Resp BP Pulse Ox 97.3 F L 98 H 18 231/83 H 93 L 12/17/19 08:00 12/17/19 08:00 12/17/19 08:00 12/17/19 08:00 12/17/19 08:00 Laboratory Results - last 24 hr 12/16/19 08:01: POC Glucose 188 H 12/16/19 11:14: POC Glucose 91 12/16/19 14:10: POC Glucose 94 12/16/19 14:40: Influenza Type A Ag Negative, Influenza Type B Ag Negative 12/16/19 15:45: Troponin I < 0.02 12/16/19 16:50: POC Glucose 113 H 12/16/19 20:27: POC Glucose 138 H 12/17/19 01:24: POC Glucose 112 H 12/17/19 05:35: WBC 21.0 H*, RBC 4.12 L, Hgb 8.3 L, Hct 28.6 L, MCV 69.5 L, MCH 20.1 L, MCHC 28.9 L, RDW 17.0, Plt Count 246, MPV 7.8, Neut % (Auto) 83.9 H, Lymph % (Auto) 8.1 L, [place] % (Auto) 6.8, Eos % (Auto) 1.0, Baso % (Auto) 0.3, Neut # (Auto) 17.6 H, Lymph # (Auto) 1.7, [place] # (Auto) 1.4 H, Eos # (Auto) 0.2, Baso # (Auto) 0.1, Total Counted 100, Neutrophils % (Manual) 82 H, Band Neutrophils % 5.0, Lymphocytes % (Manual) 8 L, Monocytes % (Manual) 5, Platelet Estimate Normal, Hypochromasia 2+, Anisocytosis 1+, Microcytosis 2+, [place]leaux 1+ 12/17/19 05:35: Sodium 147 H, Potassium 4.0, Chloride 111 H, Carbon Dioxide 24, Anion Gap 16.0 H, BUN 20 H, Creatinine 1.44 H, Estimated Creat Clear 41, Estimated GFR 47 L, Est GFR ( Amer) 57 L, Glucose 102, Calcium 9.0, Total Bilirubin 0.5, AST 20, ALT 21, Alkaline Phosphatase 75, Total Protein 6.3 L, Albumin 2.9 L, Globulin 3.4 H, Albumin/Globulin Ratio 0.9 L 12/17/19 06:12: POC Glucose 115 H I & O for Last 24 hours: Intake & Output 12/14/19 12/15/19 12/16/19 12/17/19 11:59 11:59 11:59 11:59 Intake Total 384 / 384 2778 / 2778 Output Total 400 / 400 Balance 384 / 384 2378 / 2378 Weight 144 lb 1 oz 154 lb 5 oz Microbiology Reports for the Last 24 Hours: Microbiology 12/16/19 01:30 Blood Blood Culture - Preliminary Gram Positive Cocci 12/16/19 01:30 Blood Blood Culture - Preliminary 12/16/19 11:17 Sputum - Expectorated Sputum Gram Stain - Final 12/16/19 11:17 Sputum - Expectorated Sputum Sputum Culture - Preliminary Gram Negative Rods Narrative: Awake, alert, ENT exam unremarkable. No JVD. Lungs have rhonchi in both bases but much clearer. Heart rate regular. Abdomen soft, no edema or clubbing. Neurologic exam nonfocal. Assessment and Plan (1) Diabetes type 2, controlled Current visit: Yes Status: Acute Category: Medical Code(s): E11.9 - Type 2 diabetes mellitus without complications (2) Healthcare-associated pneumonia Current visit: Yes Status: Acute Category: Medical Code(s): J18.9 - Pneumonia, unspecified organism (3) Hypoglycemia Current visit: Yes Status: Acute Category: Medical Code(s): E16.2 - Hypoglycemia, unspecified (4) Acute kidney injury Current visit: No Status: Acute Category: Medical Code(s): N17.9 - Acute kidney failure, unspecified (5) CHF (congestive heart failure) Current visit: No Status: Chronic Qualifiers: Heart failure type: diastolic Heart failure chronicity: chronic Qualified Code(s): I50.32 - Chronic diastolic (congestive) heart failure Category: Medical Code(s): I50.9 - Heart failure, unspecified (6) Community acquired pneumonia Current visit: No Status: Acute Category: Medical Code(s): J18.9 - Pneumonia, unspecified organism - Assessment and plan all Dx Assessment and Plan for all problems:: Overall good improvement. Continue current antibiotics. Await sputum culture results.
[2019-12-18 04:55] LABS: Basophils # 0.1 K/mm3 (0-0.2); Eosinophils # 0.4 K/mm3 (0.0-0.4); Monocytes # 0.7 K/mm3 (0.1-1.0)
[2019-12-18 05:05] LABS: Albumin Level 2.4 gm/dL (3.4-5.0); Albumin/Globulin Ratio 0.8 (1.1-1.8); Anion Gap 12.9 mEq/L (5-15); Basophils % 0.6 % (0.1-2.0); Bilirubin,Total 0.5 mg/dL (0.2-1.0); Calcium 8.5 mg/dL (8.5-10.1); Eosinophils % 3.5 % (0.1-12.0); Globulin 3.1 gm/dl (1.3-3.2); Lymphocytes # 1.1 K/mm3 (0.7-4.5); Lymphocytes % 9.1 % (10-50); Mean Corpuscular HGB Conc 28.7 g/dL (31.8-35.4); Mean Corpuscular Volume 70.1 fl (80-94); Mean Platelet Volume 9.5 fl (7.4-10.4); Neutrophils # 9.5 K/mm3 (1.8-7.8); Neutrophils % 80.8 % (37.0-80.0); Platelet Count 214 K/mm3 (142-424); Red Blood Count 3.49 M/mm3 (4.60-6.20); Red Cell Distribution Width 17.5 % (11.5-17.5); Total Protein,Serum 5.5 gm/dL (6.4-8.2); White Blood Count 11.7 K/mm3 (4.8-10.8)
[2019-12-18 05:06] LABS: Vancomycin,Trough 9.6 mcg/ml (10.0-20.0)
[2019-12-18 05:09] LABS: Hematocrit 24.5 % (42.0-52.0)
--- NOTE | 2019-12-18 08:28 | Progress Note ---
Internal Medicine - PN: Subj *Date: 12/18/19 *Time: 08:27 Interval history: Patient up in a chair this morning, eating well. Feels better except feels very tired and occasionally dizzy when he stands up. Exam Vital signs and Labs for Last 24 Hours: Temp Pulse Resp BP Pulse Ox 97.9 F 80 16 130/59 L 90 L 12/18/19 04:00 12/18/19 06:08 12/18/19 04:00 12/18/19 04:00 12/18/19 06:08 Laboratory Results - last 24 hr 12/17/19 11:49: POC Glucose 133 H 12/17/19 16:25: POC Glucose 212 H 12/17/19 20:33: POC Glucose 195 H 12/18/19 04:30: WBC 11.7 H D, RBC 3.49 L, Hgb 7.0 L*, Hct 24.5 L, MCV 70.1 L, MCH 20.1 L, MCHC 28.7 L, RDW 17.5, Plt Count 214, MPV 9.5, Neut % (Auto) 80.8 H, Lymph % (Auto) 9.1 L, [place] % (Auto) 6.0, Eos % (Auto) 3.5, Baso % (Auto) 0.6, Neut # (Auto) 9.5 H, Lymph # (Auto) 1.1, [place] # (Auto) 0.7, Eos # (Auto) 0.4, Baso # (Auto) 0.1 12/18/19 04:30: Sodium 147 H, Potassium 3.9, Chloride 113 H, Carbon Dioxide 25, Anion Gap 12.9, BUN 21 H, Creatinine 1.24, Estimated Creat Clear 47, Estimated GFR 56 L, Est GFR ( Amer) 68, Glucose 158 H D, Calcium 8.5, Total Bilirubin 0.5, AST 16, ALT 21, Alkaline Phosphatase 65, Total Protein 5.5 L, Albumin 2.4 L D, Globulin 3.1, Albumin/Globulin Ratio 0.8 L, Vancomycin Trough 9.6 L 12/18/19 05:41: POC Glucose 160 H I & O for Last 24 hours: Intake & Output 12/15/19 12/16/19 12/17/19 12/18/19 11:59 11:59 11:59 11:59 Intake Total 384 / 384 2778 / 2778 2448 / 2448 Output Total 400 / 400 Balance 384 / 384 2378 / 2378 2448 / 2448 Weight 144 lb 1 oz 154 lb 5 oz 155 lb 7 oz Microbiology Reports for the Last 24 Hours: Microbiology 12/16/19 01:30 Blood Blood Culture - Preliminary Staphylococcus epidermidis 12/16/19 11:17 Sputum - Expectorated Sputum Gram Stain - Final 12/16/19 11:17 Sputum - Expectorated Sputum Sputum Culture - Preliminary Escherichia coli 12/16/19 01:30 Blood Blood Culture - Preliminary Narrative: Rhonchi in the right chest. Otherwise good air movement. Left side clear. Heart rate regular. No edema or clubbing. Alert, oriented. Abdomen soft. ENT exam clear. Neurologic exam nonfocal. Assessment and Plan (1) Diabetes type 2, controlled Current visit: Yes Status: Acute Category: Medical Code(s): E11.9 - Type 2 diabetes mellitus without complications (2) Healthcare-associated pneumonia Current visit: Yes Status: Acute Category: Medical Code(s): J18.9 - Pneumonia, unspecified organism (3) Hypoglycemia Current visit: Yes Status: Acute Category: Medical Code(s): E16.2 - Hypoglycemia, unspecified (4) Acute kidney injury Current visit: No Status: Acute Category: Medical Code(s): N17.9 - Acute kidney failure, unspecified (5) CHF (congestive heart failure) Current visit: No Status: Chronic Qualifiers: Heart failure type: diastolic Heart failure chronicity: chronic Qualified Code(s): I50.32 - Chronic diastolic (congestive) heart failure Category: Medical Code(s): I50.9 - Heart failure, unspecified (6) Community acquired pneumonia Current visit: No Status: Acute Category: Medical Code(s): J18.9 - Pneumonia, unspecified organism - Assessment and plan all Dx Assessment and Plan for all problems:: Pneumonia with E. coli, ESBL producing. Switch therapy to Invanz to cover this as well as vancomycin to cover staph epi in the culture. Transfuse blood today given symptomatic dizziness and hemoglobin less than 8. Anemia is from chronic disease, possible discharge in the next 24 to 48 hours
--- NOTE | 2019-12-18 09:21 | Pharmacy Consult Notes ---
- Pharmacy Consult Date: 12/18/19 Time: 09:19 Referring provider: DR. ANNE Reason for Consult:: VANCOMYCIN TROUGH LEVEL Allergies and ADEs:: Allergies Allergy/AdvReac Type Severity Reaction Status Date / Time No Known Allergies Allergy Verified 10/27/19 19:09 Home Medications:: Home Medications Medication Instructions Recorded Confirmed Type Albuterol Sulfate [Proair 2 puffs INHALATION Q4HP PRN 02/19/19 12/16/19 History Respiclick] Aspirin [Aspirin 81mg EC Tab] 81 mg PO HS 02/19/19 12/16/19 History Atorvastatin Calcium [Atorvastatin 20 mg PO HS 02/19/19 12/16/19 History 20mg Tab] Gabapentin 600 mg PO BID PRN 02/19/19 12/16/19 History Losartan Potassium 100 mg PO DAILY 02/19/19 12/16/19 History Magnesium Oxide [Magnesium] 400 mg PO HS 02/19/19 12/16/19 History Metformin HCl [Metformin 1000mg 1,000 mg PO BID 02/19/19 12/16/19 History Tablets] [place]-3 Acid Ethyl Esters [Lovaza] 2,000 mg PO BID 02/19/19 12/16/19 History cloNIDine HCL [Clonidine HCl] 0.3 mg PO BID 02/19/19 12/16/19 History Hydralazine HCl 75 mg PO TID 02/20/19 12/16/19 History Isosorbide Mononitrate [Imdur 60mg 60 mg PO DAILY 02/20/19 12/16/19 History ER tablet] Multivitamin [Daily Multiple 1 each PO HS 02/20/19 12/16/19 History Vitamin] Tiotropium [place] [Spiriva 2 puff IH DAILY 02/20/19 12/16/19 History 18mcg/puff inhaler] Budesonide/Formoterol Fumarate 2 puffs IH BID #0 09/14/19 12/16/19 History [Symbicort 160-4.5 Mcg Inhaler] Clopidogrel Bisulfate [Plavix 75mg 75 mg PO DAILY 09/15/19 12/16/19 History Tab] Amlodipine Besylate [Amlodipine 10 mg PO DAILY 10/28/19 12/16/19 History 10mg Tab] Height: 1.8 m Weight: 70.505 kg Laboratory Results:: Laboratory Results - last 24 hr 12/17/19 11:49: POC Glucose 133 H 12/17/19 16:25: POC Glucose 212 H 12/17/19 20:33: POC Glucose 195 H 12/18/19 04:30: WBC 11.7 H D, RBC 3.49 L, Hgb 7.0 L*, Hct 24.5 L, MCV 70.1 L, MCH 20.1 L, MCHC 28.7 L, RDW 17.5, Plt Count 214, MPV 9.5, Neut % (Auto) 80.8 H, Lymph % (Auto) 9.1 L, [place] % (Auto) 6.0, Eos % (Auto) 3.5, Baso % (Auto) 0.6, Neut # (Auto) 9.5 H, Lymph # (Auto) 1.1, [place] # (Auto) 0.7, Eos # (Auto) 0.4, Baso # (Auto) 0.1 12/18/19 04:30: Sodium 147 H, Potassium 3.9, Chloride 113 H, Carbon Dioxide 25, Anion Gap 12.9, BUN 21 H, Creatinine 1.24, Estimated Creat Clear 47, Estimated GFR 56 L, Est GFR ( Amer) 68, Glucose 158 H D, Calcium 8.5, Total Bilirubin 0.5, AST 16, ALT 21, Alkaline Phosphatase 65, Total Protein 5.5 L, Albumin 2.4 L D, Globulin 3.1, Albumin/Globulin Ratio 0.8 L, Vancomycin Trough 9.6 L 12/18/19 05:41: POC Glucose 160 H 12/18/19 09:05: Crossmatch (AHG) See Detail Medical History: Reports:: Aneurysm, Cancer (skin), Congestive Heart Failure, Coronary Artery Disease, Diabetes Mellitus Type 2, Hyperlipidemia, Hypertension, Myocardial Infarction, Peripheral Artery Disease, Peripheral Vascular Disease Denies:: Diabetes Mellitus Type 1, Internal Pacemaker, MRSA Assessment and Plan (1) Diabetes type 2, controlled Current visit: Yes Status: Acute Category: Medical Code(s): E11.9 - Type 2 diabetes mellitus without complications (2) Healthcare-associated pneumonia Current visit: Yes Status: Acute Category: Medical Code(s): J18.9 - Pneumonia, unspecified organism (3) Hypoglycemia Current visit: Yes Status: Acute Category: Medical Code(s): E16.2 - Hypoglycemia, unspecified (4) Acute kidney injury Current visit: No Status: Acute Category: Medical Code(s): N17.9 - Acute kidney failure, unspecified (5) CHF (congestive heart failure) Current visit: No Status: Chronic Qualifiers: Heart failure type: diastolic Heart failure chronicity: chronic Qualified Code(s): I50.32 - Chronic diastolic (congestive) heart failure Category: Medical Code(s): I50.9 - Heart failure, unspecified (6) Community acquired pneumonia Current visit: No Status: Acute Category: Medical Code(s): J18.9 - Pneumonia, unspecified organism - Assessment and plan all Dx Assessment and Plan for all problems:: BASED ON PATIENT FACTORS AND VANCOMYCIN TROUGH LEVEL, RECOMMEND CONTINUING VANCOMYCIN 1 GM IV Q24H. PHARMACY WILL CONTINUE TO MONITOR DAILY AND ADJUST APPROPRIATE. BASED ON CULTURES, LEVAQUIN AND CEFEPIME WERE STOPPED AND INVANZ WAS ADDED.
[2019-12-18 19:06] LABS: Hematocrit 31.6 % (42.0-52.0); Hemoglobin 9.6 g/dL (14.1-18.0)
[2019-12-19 06:14] LABS: Basophils # 0.1 K/mm3 (0-0.2); Basophils % 0.8 % (0.1-2.0); Eosinophils # 0.6 K/mm3 (0.0-0.4); Eosinophils % 5.9 % (0.1-12.0); Hematocrit 31.1 % (42.0-52.0); Lymphocytes # 1.3 K/mm3 (0.7-4.5); Lymphocytes % 12.6 % (10-50); Mean Corpuscular HGB Conc 32.3 g/dL (31.8-35.4); Mean Corpuscular Volume 72.3 fl (80-94); Mean Platelet Volume 8.2 fl (7.4-10.4); Monocytes # 0.8 K/mm3 (0.1-1.0); Monocytes % 7.4 % (1.7-9.3); Neutrophils # 7.5 K/mm3 (1.8-7.8); Neutrophils % 73.3 % (37.0-80.0); Platelet Count 214 K/mm3 (142-424); Red Cell Distribution Width 18.1 % (11.5-17.5); White Blood Count 10.2 K/mm3 (4.8-10.8)
[2019-12-19 06:22] LABS: Calcium 9.1 mg/dL (8.5-10.1)
--- NOTE | 2019-12-19 07:22 | Discharge Summary ---
General - General Admission date:: 12/16/19 Discharge date: 12/19/19 HPI HPI: 79-year-old white male with multiple medical problems, including COPD that is oxygen requiring, and propensity for pneumonia with probable recurrent aspiration issues who was brought to the emergency department by his family with lethargy, fever and clouded consciousness. Found to have elevated white count, increased oxygen requirement, hypoglycemia and infiltrate on chest x-ray. Given recent exposure to hospital environment about 6 weeks ago he was placed on broad-spectrum antibiotics for hospital- acquired pneumonia. Hospital Course Hospital Course: 79-year-old male with COPD admitted for worsening respiratory status and concern for pneumonia. Found to have healthcare acquired pneumonia with ESBL bacteria. Initially started on broad-spectrum antibiotics, transition to Invanz based on sensitivities. Patient clinically had improvement and return to baseline oxygen requirement. Tolerating good p.o. intake. No diarrhea, chest pain, nausea, vomiting. Patient did have constipation with difficulty having a bowel movement. Initiated on aggressive bowel regimen during admission. Plan to continue Invanz for a total of 10 days. Last dose on 12/27/2019. PICC placed on day of discharge for infusions of Invanz at home. Prescription sent to home health for medication. Hemodynamically stable. Medically stable for discharge home. Objective Vital signs: Temp Pulse Resp BP Pulse Ox 98.3 F 78 16 112/64 91 L 12/19/19 04:00 12/19/19 06:10 12/19/19 04:00 12/19/19 04:00 12/19/19 06:10 Narrative: No acute distress on baseline oxygen, sitting comfortably in bedside chair. Fair air movement bilaterally. Left side clear. Rhonchi in right posterior lung field best heard lower lobe Heart rate regular, no murmur No edema or clubbing. Alert, oriented x3 Abdomen soft. ENT exam clear. Neurologic exam nonfocal. Results Labs on day of discharge: Labs from last 24 hours 12/19/19 12/19/19 12/19/19 05:50 05:50 05:48 WBC 10.2 RBC 4.30 L Hgb 10.0 L Hct 31.1 L MCV 72.3 L MCH 23.3 L MCHC 32.3 RDW 18.1 H Plt Count 214 MPV 8.2 Neut % (Auto) 73.3 Lymph % (Auto) 12.6 [place] % (Auto) 7.4 Eos % (Auto) 5.9 Baso % (Auto) 0.8 Neut # (Auto) 7.5 Lymph # (Auto) 1.3 [place] # (Auto) 0.8 Eos # (Auto) 0.6 H Baso # (Auto) 0.1 Sodium 144 Potassium 4.0 Chloride 109 H Carbon Dioxide 25 Anion Gap 14.0 BUN 18 Creatinine 1.23 Estimated Creat Clear 48 Estimated GFR 57 L Est GFR ( Amer) 69 Glucose 103 POC Glucose 91 Calcium 9.1 Blood Type Antibody Screen Crossmatch ([facility]) 12/18/19 12/18/19 12/18/19 20:09 18:51 16:27 WBC RBC Hgb 9.6 L D Hct 31.6 L MCV MCH MCHC RDW Plt Count MPV Neut % (Auto) Lymph % (Auto) [place] % (Auto) Eos % (Auto) Baso % (Auto) Neut # (Auto) Lymph # (Auto) [place] # (Auto) Eos # (Auto) Baso # (Auto) Sodium Potassium Chloride Carbon Dioxide Anion Gap BUN Creatinine Estimated Creat Clear Estimated GFR Est GFR ( Amer) Glucose POC Glucose 109 187 H Calcium Blood Type Antibody Screen Crossmatch ([facility]) 12/18/19 12/18/19 11:30 09:05 WBC RBC Hgb Hct MCV MCH MCHC RDW Plt Count MPV Neut % (Auto) Lymph % (Auto) [place] % (Auto) Eos % (Auto) Baso % (Auto) Neut # (Auto) Lymph # (Auto) [place] # (Auto) Eos # (Auto) Baso # (Auto) Sodium Potassium Chloride Carbon Dioxide Anion Gap BUN Creatinine Estimated Creat Clear Estimated GFR Est GFR ( Amer) Glucose POC Glucose 147 H Calcium Blood Type O Positive Antibody Screen Negative Crossmatch ([facility]) See Detail Preliminary micro results at discharge 12/16/19 01:30 Blood Culture - Preliminary Blood Staphylococcus epidermidis 12/16/19 01:30 Blood Culture - Preliminary Blood Staphylococcus epidermidis DS: Diagnosis - Discharge Diagnosis (1) Diabetes type 2, controlled Status: Chronic (2) Healthcare-associated pneumonia Status: Acute (3) Hypoglycemia Status: Resolved (4) Acute kidney injury Status: Resolved (5) CHF (congestive heart failure) Status: Chronic (6) Community acquired pneumonia Status: Inactive Discharge Plan - Patient Discharge Instructions Patient Instructions: DI for Pneumonia -- Adult, DI for Hypoglycemia, DI for Multiple Drug-resistant Organism (MDRO) Infection, Extended Spectrum Beta- Lactamase Infection - Follow up Plan Follow up with: Asif Kirk MD [Primary Care Provider] - Disposition: Home Health Service Home Medications: Home Medications Medication Instructions Recorded Confirmed Type Albuterol Sulfate [Proair 2 puffs INHALATION Q4HP PRN 02/19/19 12/16/19 History Respiclick] Aspirin [Aspirin 81mg EC Tab] 81 mg PO HS 02/19/19 12/16/19 History Atorvastatin Calcium [Atorvastatin 20 mg PO HS 02/19/19 12/16/19 History 20mg Tab] Gabapentin 600 mg PO BID PRN 02/19/19 12/16/19 History Losartan Potassium 100 mg PO DAILY 02/19/19 12/16/19 History Magnesium Oxide [Magnesium] 400 mg PO HS 02/19/19 12/16/19 History Metformin HCl [Metformin 1000mg 1,000 mg PO BID 02/19/19 12/16/19 History Tablets] [place]-3 Acid Ethyl Esters [Lovaza] 2,000 mg PO BID 02/19/19 12/16/19 History cloNIDine HCL [Clonidine HCl] 0.3 mg PO BID 02/19/19 12/16/19 History Hydralazine HCl 75 mg PO TID 02/20/19 12/16/19 History Isosorbide Mononitrate [Imdur 60mg 60 mg PO DAILY 02/20/19 12/16/19 History ER tablet] Multivitamin [Daily Multiple 1 each PO HS 02/20/19 12/16/19 History Vitamin] Tiotropium [place] [Spiriva 2 puff IH DAILY 02/20/19 12/16/19 History 18mcg/puff inhaler] Budesonide/Formoterol Fumarate 2 puffs IH BID #0 09/14/19 12/16/19 History [Symbicort 160-4.5 Mcg Inhaler] Clopidogrel Bisulfate [Plavix 75mg 75 mg PO DAILY 09/15/19 12/16/19 History Tab] Amlodipine Besylate [Amlodipine 10 mg PO DAILY 10/28/19 12/16/19 History 10mg Tab] Prescriptions/Medication Reconciliation: New Ertapenem Sodium [Invanz 1gm Vial] 1 gm IV Q24H vial Continued Metformin HCl [Metformin 1000mg Tablets] 1,000 mg PO BID Losartan Potassium 100 mg PO DAILY Gabapentin 600 mg PO BID PRN PRN Reason: pain cloNIDine HCL [Clonidine HCl] 0.3 mg PO BID Aspirin [Aspirin 81mg EC Tab] 81 mg PO HS Albuterol Sulfate [Proair Respiclick] 2 puffs INHALATION Q4HP PRN PRN Reason: COPD Hydralazine HCl 75 mg PO TID Isosorbide Mononitrate [Imdur 60mg ER tablet] 60 mg PO DAILY Tiotropium [place] [Spiriva 18mcg/puff inhaler] 2 puff IH DAILY Multivitamin [Daily Multiple Vitamin] 1 each PO HS Budesonide/Formoterol Fumarate [Symbicort 160-4.5 Mcg Inhaler] 2 puffs IH BID #0 [place]-3 Acid Ethyl Esters [Lovaza] 2,000 mg PO BID Atorvastatin Calcium [Atorvastatin 20mg Tab] 20 mg PO HS Magnesium Oxide [Magnesium] 400 mg PO HS Clopidogrel Bisulfate [Plavix 75mg Tab] 75 mg PO DAILY Amlodipine Besylate [Amlodipine 10mg Tab] 10 mg PO DAILY - Problem Reconciliation Problems Reviewed?: Yes
== END 2019-12-19 15:45 | disposition home health service (06) | DRG 178 ==
LOC: 2ND 01:38 → ER 01:38 → OBSVTOIN 03:50 → 2ND 03:55
PROVIDERS: ADMIT Internal Medicine Adolescent Medicine; ATTEND Internal Medicine Adolescent Medicine
CPT/HCPCS: 36415; 36569; 71010; 71045; 80048; 80053; 80202; 82962; 83605; 84484; 85007; 85014; 85018; 85025; 86850; 87040; 87070; 87077; 87186; 87205; 87275; 87276; 93005; 94640; 94761; 96365; 96367; 96375; 99285; C1751; J1335; J1956; J3370; P9016

== ENCOUNTER → 2020-08-09 07:10 | Outpatient (CLI) | payer MEDICARE, SELFPAY ==
[2020-08-09 13:57] LABS: Chloride 104 mmol/L (98-107)
[2020-08-09 13:58] LABS: Potassium 4.1 mmoL/L (3.5-5.1); Sodium 142 mmol/L (136-145)
[2020-08-09 14:00] LABS: Alanine Aminotransferase 18 U/L (12-78); Anion Gap 12.1 mEq/L (5-15); Aspartate Amino Transferase 26 U/L (17-59); Blood Urea Nitrogen 17 mg/dl (9-20); Carbon Dioxide 30 mmol/L (22.0-30.0); Estimated Glomerular Filt Rate 72 ml/min (>60); GFR (African American) 87 ML/MIN (>60)
[2020-08-09 14:01] LABS: Albumin Level 3.7 g/dl (3.5-5.0); Albumin/Globulin Ratio 1.5 (1.1-1.8); Alkaline Phosphatase 71 U/L (38-126); Bilirubin,Total 0.6 mg/dl (0.2-1.3); Calcium 9.3 mg/dl (8.4-10.2); Chol/HDL Ratio 1.9 (1-3.5); Cholesterol 133 mg/dl (140-200); Globulin 2.4 g/dL (1.3-3.2); Glucose 109 mg/dl (74-100); HDL Cholesterol 70 mg/dl (40-60); Total Protein,Serum 6.1 g/dl (6.3-8.2); Triglycerides 123 mg/dl (30-150); VLDL Cholesterol 25 mg/dL (0-40)
[2020-08-09 14:11] LABS: Basophils # 0.1 K/mm3 (0-0.2); Basophils % 1.1 % (0.1-2.0); Eosinophils # 0.4 K/mm3 (0.0-0.4); Eosinophils % 4.8 % (0.1-12.0); Hematocrit 40.3 % (42.0-52.0); Hemoglobin 12.4 g/dL (14.1-18.0); Lymphocytes # 1.8 K/mm3 (0.7-4.5); Lymphocytes % 21.7 % (10-50); Mean Corpuscular HGB Conc 30.9 g/dL (31.8-35.4); Mean Corpuscular Hemoglobin 28.7 pg (27.0-31.2); Mean Corpuscular Volume 92.8 fl (80-94); Monocytes # 0.5 K/mm3 (0.1-1.0); Monocytes % 6.6 % (1.7-9.3); Neutrophils # 5.4 K/mm3 (1.8-7.8); Neutrophils % 65.8 % (37.0-80.0); Platelet Count 182 K/mm3 (142-424); Red Blood Count 4.34 M/mm3 (4.60-6.20); Red Cell Distribution Width 13.4 % (11.5-17.5); White Blood Count 8.2 K/mm3 (4.8-10.8)
[2020-08-09 14:12] LABS: Direct LDL Cholesterol 49.54 mg/dL (100-129)
[2020-08-09 14:38] LABS: Hemoglobin A1C 5.7 % (4.0-6.0)
== END ==
PROVIDERS: Visit Provider Internal Medicine Adolescent Medicine
DX: I25.119 Atherosclerotic heart disease of native coronary artery with unspecified angina pectoris (principal); E78.5 Hyperlipidemia, unspecified; E11.9 Type 2 diabetes mellitus without complications; Z79.84 Long term (current) use of oral hypoglycemic drugs
CPT/HCPCS: 36415; 80053; 80061; 83036; 85025

== ENCOUNTER → 2021-11-20 08:04 | Outpatient (CLI) | payer MEDICARE, SELFPAY ==
[2021-11-20 14:43] LABS: Basophils # 0.1 K/mm3 (0-0.2); Basophils % 1.1 % (0.1-2.0); Eosinophils # 0.4 K/mm3 (0.0-0.4); Eosinophils % 4.8 % (0.1-12.0); Hematocrit 41.7 % (42.0-52.0); Hemoglobin 13.2 g/dL (14.1-18.0); Lymphocytes # 1.6 K/mm3 (0.7-4.5); Lymphocytes % 19.7 % (10-50); Mean Corpuscular HGB Conc 31.7 g/dL (31.8-35.4); Mean Corpuscular Hemoglobin 29.1 pg (27.0-31.2); Mean Corpuscular Volume 91.8 fl (80-94); Monocytes # 0.6 K/mm3 (0.1-1.0); Monocytes % 7.4 % (1.7-9.3); Neutrophils # 5.6 K/mm3 (1.8-7.8); Platelet Count 225 K/mm3 (142-424); Red Blood Count 4.54 M/mm3 (4.60-6.20); Red Cell Distribution Width 13.8 % (11.5-17.5); White Blood Count 8.4 K/mm3 (4.8-10.8)
[2021-11-20 15:22] LABS: Alanine Aminotransferase 15 U/L (12-78); Albumin Level 3.9 g/dl (3.5-5.0); Albumin/Globulin Ratio 1.8 (1.1-1.8); Alkaline Phosphatase 72 U/L (38-126); Anion Gap 9.5 mEq/L (5-15); Aspartate Amino Transferase 22 U/L (17-59); Bilirubin,Total 0.4 mg/dl (0.2-1.3); Blood Urea Nitrogen 21 mg/dl (9-20); Calcium 9.4 mg/dl (8.4-10.2); Carbon Dioxide 30 mmol/L (22.0-30.0); Chloride 102 mmol/L (98-107); Chol/HDL Ratio 2.3 (1-3.5); Cholesterol 136 mg/dl (140-200); Estimated Glomerular Filt Rate 42 ml/min (>60); GFR (African American) 50 ML/MIN (>60); Globulin 2.2 g/dL (1.3-3.2); Glucose 84 mg/dl (74-100); HDL Cholesterol 58 mg/dl (40-60); Potassium 4.5 mmoL/L (3.5-5.1); Sodium 137 mmol/L (136-145); Total Protein,Serum 6.1 g/dl (6.3-8.2); Triglycerides 127 mg/dl (30-150); VLDL Cholesterol 25 mg/dL (0-40)
[2021-11-20 15:33] LABS: Direct LDL Cholesterol 52.35 mg/dL (100-129)
== END ==
PROVIDERS: Visit Provider Internal Medicine Adolescent Medicine
DX: I25.119 Atherosclerotic heart disease of native coronary artery with unspecified angina pectoris (principal); E11.9 Type 2 diabetes mellitus without complications; Z79.84 Long term (current) use of oral hypoglycemic drugs
CPT/HCPCS: 36415; 80053; 80061; 83036; 85025

== ENCOUNTER 2022-01-05 08:32 | Observation (INO) | payer MEDICARE, SELFPAY ==
[2022-01-05] VITALS (16 sets, daily range): BP systolic 78–132; BP diastolic 27–66; PULSE 47–75; RESP 15–20; TEMP 36.4–36.8; O2SAT 90–98; BMI 21.0; BMI 20.7
--- NOTE | 2022-01-05 08:40 | CT_ITS ---
FINAL REPORT CLINICAL HISTORY: stroke r/o COMPARISON: October 27, 2019 FINDINGS: Axial images of the head were obtained without contrast. Coronal reformatted images were also obtained. This study was performed with techniques to keep radiation doses as low as reasonably achievable (ALARA). Individualized dose reduction techniques using automated exposure control or adjustment of mA and/or kV according to the patient's size were employed. There is generalized age-appropriate atrophy. Periventricular low-attenuation areas are seen consistent with mild chronic ischemic changes. There is no evidence of intracranial hemorrhage or mass. There is no evidence of acute infarct. There is no evidence of shift of the midline structures. No skull abnormality is seen on the bone window images. There are retention cysts or polyps in the maxillary sinuses. IMPRESSION: Atrophy and mild periventricular chronic ischemic changes. No acute intracranial abnormality identified. Overall stable exam from the previous. Reviewed, Interpreted and Dictated by Bob Aguero III, MD Transcribed by Ethel Zamudio Authenticated by Bob Aguero III, MD on 01/05/2022 09:04:25 AM [facility]
--- NOTE | 2022-01-05 08:42 | PC.NURSE ---
called for stroke protocol ct
--- NOTE | 2022-01-05 08:44 | CT_ITS ---
FINAL REPORT TECHNIQUE: Thin section axial CT with IV contrast supplemented with multiplanar reconstruction under CT angiogram protocol. This study was performed with techniques to keep radiation doses as low as reasonably achievable (ALARA). Individualized dose reduction techniques using automated exposure control or adjustment of mA and/or kV according to the patient''s size were employed. NASCET criteria was utilized during interpretation. CLINICAL HISTORY: coffee ground emesis and dysarthria FINDINGS: Aortic arch: Arch shows no significant narrowing. Great vessel origins are widely patent. Right carotid: Calcified plaque is noted in the common carotid and internal carotid arteries but without evidence of significant stenosis or occlusion. Left carotid: Calcified plaque is noted in the common carotid and internal carotid arteries but without evidence of significant stenosis or occlusion. Vertebral: The vertebral arteries are codominant. No significant stenosis is present. IMPRESSION: No evidence of significant stenosis or major branch occlusion. Authenticated by Bob Aguero III, MD on 01/05/2022 10:27:44 AM [facility]
--- NOTE | 2022-01-05 08:44 | CT_ITS ---
FINAL REPORT TECHNIQUE: Thin section axial CT with IV contrast supplemented with multiplanar reconstruction under CT angiogram protocol. 3-D reconstructions were performed. This study was performed with techniques to keep radiation doses as low as reasonably achievable (ALARA). Individualized dose reduction techniques using automated exposure control or adjustment of mA and/or kV according to the patient''s size were employed. CLINICAL HISTORY: coffee ground emesis and dysarthria FINDINGS: The distal internal carotid and basilar arteries are patent without significant stenosis. The proximal anterior, middle and posterior cerebral arteries are patent without evidence of significant stenosis or major branch occlusion. There is no evidence of aneurysm or vascular malformation. IMPRESSION: No evidence of significant stenosis or major branch occlusion. Authenticated by oBb Aguero III, MD on 01/05/2022 10:30:04 AM [facility]
[2022-01-05 08:46] LABS: Chloride 102 mmol/L (98-107)
[2022-01-05 08:47] LABS: Potassium 4.9 mmoL/L (3.5-5.1); Sodium 136 mmol/L (136-145)
[2022-01-05 08:48] LABS: Basophils # 0.1 K/mm3 (0-0.2); Basophils % 0.3 % (0.1-2.0); Eosinophils # 0.1 K/mm3 (0.0-0.4); Eosinophils % 0.7 % (0.1-12.0); Hematocrit 40.5 % (42.0-52.0); Hemoglobin 12.8 g/dL (14.1-18.0); Lymphocytes # 0.8 K/mm3 (0.7-4.5); Lymphocytes % 4.7 % (10-50); Mean Corpuscular HGB Conc 31.5 g/dL (31.8-35.4); Mean Corpuscular Volume 91.9 fl (80-94); Mean Platelet Volume 8.7 fl (7.4-10.4); Monocytes # 0.7 K/mm3 (0.1-1.0); Monocytes % 4.4 % (1.7-9.3); Neutrophils # 14.6 K/mm3 (1.8-7.8); Platelet Count 227 K/mm3 (142-424); Red Cell Distribution Width 13.3 % (11.5-17.5); White Blood Count 16.2 K/mm3 (4.8-10.8)
[2022-01-05 08:49] LABS: Alanine Aminotransferase 16 U/L (12-78); Alkaline Phosphatase 84 U/L (38-126); Aspartate Amino Transferase 25 U/L (17-59); Bilirubin,Total 0.4 mg/dl (0.2-1.3); Blood Urea Nitrogen 24 mg/dl (9-20); Creatinine Clearance Estimated 32 mL/min (50-200); Estimated Glomerular Filt Rate 39 ml/min (>60); GFR (African American) 47 ML/MIN (>60)
[2022-01-05 08:50] LABS: Albumin Level 3.6 g/dl (3.5-5.0); Albumin/Globulin Ratio 1.6 (1.1-1.8); Anion Gap 6.9 mEq/L (5-15); Carbon Dioxide 32 mmol/L (22.0-30.0); Globulin 2.3 g/dL (1.3-3.2); Glucose 106 mg/dl (74-100); Total Protein,Serum 5.9 g/dl (6.3-8.2)
[2022-01-05 08:54] LABS: MANUAL DIFFERENTIAL MANUAL DIFFERENTIAL (MANUAL DIFF)
[2022-01-05 08:55] LABS: INR 1.02 (0.9-1.1); Prothrombin Time 11.5 seconds (10.1-12.5)
--- NOTE | 2022-01-05 09:02 | CT_ITS ---
FINAL REPORT TECHNIQUE: Axial images were obtained from the lung apex to the mid abdomen by computed tomography. Coronal reformatted images were obtained. This study was performed with techniques to keep radiation doses as low as reasonably achievable, (ALARA). Individualized dose reduction techniques using automated exposure control or adjustment of mA and/or kV according to the patient's size were employed. CLINICAL HISTORY: dyspnea FINDINGS: Patient status post median sternotomy. There is no axillary adenopathy. There are multiple mildly enlarged mediastinal lymph nodes which are nonspecific. Heart size is normal. There is a small right pleural effusion. There is mild emphysema. There are multifocal right lung opacities which are most worrisome for pneumonia. There are minimal left lung ground-glass opacities which may also represent pneumonia. IMPRESSION: 1. Multifocal right lung opacities are most worrisome for pneumonia. 2. Minimal left lung ground-glass opacities may also represent pneumonia. 3. Multiple mildly enlarged mediastinal lymph nodes are nonspecific. 4. Small right pleural effusion. Reviewed, Interpreted and Dictated by Bob Aguero III, MD Transcribed by RITIKA Brandon Authenticated by Bob Aguero III, MD on 01/05/2022 11:04:51 AM [facility]
--- NOTE | 2022-01-05 09:02 | CT_ITS ---
FINAL REPORT TECHNIQUE: Axial CT images of the abdomen were obtained without contrast. Coronal reformatted images were also obtained.This study was performed with techniques to keep radiation doses as low as reasonably achievable (ALARA). Individualized dose reduction techniques using automated exposure control or adjustment of mA and/or kV according to the patient''s size were employed. CLINICAL HISTORY: coughing up melena, coffee ground emesis FINDINGS: Motion artifact limits many images. The liver has an unremarkable appearance, without evidence of mass. There are gallstones in the gallbladder. There is no evidence of biliary ductal dilatation. The pancreas appears normal. The spleen size is within normal limits. There are multiple bilateral renal cysts. There is no evidence of renal stone or hydronephrosis. There is no evidence of adenopathy. No abnormal fluid collection is seen. There are multiple fluid-filled bowel loops in a nonspecific pattern. There are sigmoid diverticuli. There are diffuse vascular calcifications. The appendix is not visualized. IMPRESSION: 1. Cholelithiasis. 2. Multiple fluid-filled loops of bowel in a nonspecific pattern. Reviewed, Interpreted and Dictated by Bob Aguero III, MD Transcribed by RITIKA Brandon Authenticated by Bob Aguero III, MD on 01/05/2022 11:04:54 AM [facility]
[2022-01-05 09:14] LABS: Coronavirus 19, PCR Not Detected (NotDetected); Influenza A, PCR Not Detected (NotDetected); Influenza B, PCR Not Detected (NotDetected)
[2022-01-05 09:20] LABS: Eosinophils % 1 % (0-3); Lymphocytes % 4 % (10-50); Monocytes % 2 % (2-9); Neutrophils % 93 % (42-76); Platelet Estimate Normal; RBC Morphology Normal; Total Cells Counted 100
--- NOTE | 2022-01-05 09:25 | PC.NURSE ---
Pt returned from rad
--- NOTE | 2022-01-05 10:56 | PC.NURSE ---
Went in to assess patient. No new needs at this time. Advised we were waiting on CT chest results
--- NOTE | 2022-01-05 11:17 | HMH.PHACONS ---
- Pharmacy Consult Date: 01/05/22 Time: 11:17 Referring provider: DR. FERRARA Reason for Consult:: VANCOMYCIN DOSING Allergies and ADEs:: Allergies Allergy/AdvReac Type Severity Reaction Status Date / Time No Known Allergies Allergy Verified 10/27/19 19:09 Home Medications:: Home Medications Medication Instructions Recorded Confirmed Type Albuterol Sulfate [Proair 2 puffs INHALATION Q4HP PRN 02/19/19 12/16/19 History Respiclick] Aspirin [Aspirin 81mg EC Tab] 81 mg PO HS 02/19/19 12/16/19 History Atorvastatin Calcium [Lipitor 20mg 20 mg PO HS 02/19/19 12/16/19 History Tab] Gabapentin 600 mg PO BID PRN 02/19/19 12/16/19 History Losartan Potassium 100 mg PO DAILY 02/19/19 12/16/19 History Magnesium Oxide [Magnesium] 400 mg PO HS 02/19/19 12/16/19 History Metformin HCl [Metformin 1000mg 1,000 mg PO BID 02/19/19 12/16/19 History Tablets] [place]-3 Acid Ethyl Esters [Lovaza] 2,000 mg PO BID 02/19/19 12/16/19 History cloNIDine HCL [Clonidine HCl] 0.3 mg PO BID 02/19/19 12/16/19 History Hydralazine HCl 75 mg PO TID 02/20/19 12/16/19 History Isosorbide Mononitrate [Imdur 60mg 60 mg PO DAILY 02/20/19 12/16/19 History ER tablet] Multivitamin [Daily Multiple 1 each PO HS 02/20/19 12/16/19 History Vitamin] Tiotropium [place] [Spiriva 2 puff IH DAILY 02/20/19 12/16/19 History 18mcg/puff inhaler] Budesonide/Formoterol Fumarate 2 puffs IH BID #0 09/14/19 12/16/19 History [Symbicort 160-4.5 Mcg Inhaler] Clopidogrel Bisulfate [Plavix 75mg 75 mg PO DAILY 09/15/19 12/16/19 History Tab] Amlodipine Besylate [Amlodipine 10 mg PO DAILY 10/28/19 12/16/19 History 10mg Tab] Ertapenem Sodium [Invanz 1gm Vial] 1 gm IV Q24H vial 12/19/19 Rx Height: 1.8 m Weight: 68.492 kg Laboratory Results:: Laboratory Results - last 24 hr 01/05/22 08:35: WBC 16.2 H, RBC 4.40 L, Hgb 12.8 L, Hct 40.5 L, MCV 91.9, MCH 29.0, MCHC 31.5 L, RDW 13.3, Plt Count 227, MPV 8.7, Neut % (Auto) 90.0 H, Lymph % (Auto) 4.7 L, [place] % (Auto) 4.4, Eos % (Auto) 0.7, Baso % (Auto) 0.3, Neut # (Auto) 14.6 H, Lymph # (Auto) 0.8, [place] # (Auto) 0.7, Eos # (Auto) 0.1, Baso # (Auto) 0.1, Total Counted 100, Neutrophils % (Manual) 93 H, Lymphocytes % (Manual) 4 L, Monocytes % (Manual) 2, Eosinophils % (Manual) 1, Platelet Estimate Normal, RBC Morphology Normal 01/05/22 08:35: Sodium 136, Potassium 4.9, Chloride 102, Carbon Dioxide 32 H, Anion Gap 6.9, BUN 24 H, Creatinine 1.70 H, Estimated Creat Clear 32, Estimated GFR 39 L, Est GFR ( Amer) 47 L, Glucose 106 H, Calcium 8.0 L, Total Bilirubin 0.4, AST 25, ALT 16, Alkaline Phosphatase 84, Total Protein 5.9 L, Albumin 3.6, Globulin 2.3, Albumin/Globulin Ratio 1.6 01/05/22 08:35: PT 11.5, INR 1.02 01/05/22 09:10: SARS-CoV-2 (PCR) Not detected, Influenza A Untype (PCR) Not detected, Influenza Type B (PCR) Not detected Medical History: Reports:: Aneurysm, Cancer (skin), Congestive Heart Failure, Coronary Artery Disease, Diabetes Mellitus Type 2, Hyperlipidemia, Hypertension, Myocardial Infarction, Peripheral Artery Disease, Peripheral Vascular Disease Denies:: Diabetes Mellitus Type 1, Internal Pacemaker, MRSA Assessment and Plan - Assessment and plan all Dx Assessment and Plan for all problems:: Age: 82 yo Serum creatinine: 1.7 mg/dL Height: 71.0 Inches Weight (kg): 68.5 Assessment: IBW (kg): 70.80 Dosing wt(kg): 68.5 Estimated Creatinine clearance (ml/min): 27.1 CRCL method: Cockcroft and Gault using ibw(default). Drug selected: Vancomycin Loading dose (mg): 0 Vd (liters): 54.8 (factor used: 0.8 L/kg) Andrés (hr-1): 0.027 Half life (hrs): 25.67 Recommended dose: 1250 mg Interval: 36 hrs Infusion time (hrs): 2.0 Predicted peak (mcg/mL): 35.7 Predicted trough (mcg/mL): 14.26 Total body weight is being used for vancomycin dosing. Recommendations:
--- NOTE | 2022-01-05 11:43 | PC.NURSE ---
Dr Cummings spoke to Dr Kirk, to be admitted with pneumonia
--- NOTE | 2022-01-05 12:08 | HMH.EDGENADL ---
ED Disposition Clinical Impression: Pneumonia Disposition: Admitted As Inpatient Condition on Discharge: Good Time of Disposition: 10:00 - Critical Care Critical Care Time: No Attestation: On 01/05/22, the high probability of a clinically significant, sudden or life threatening deterioration of the following system(s) required my full and direct attention, intervention and personal management. The time I documented below is in addition to time spent performing reported procedures but includes the following listed in this critical care notation. Medical Decision Making - Medical Records Medical records reviewed: Yes: I reviewed the patient's medical records. - John Inquiry Pt receiving controlled substance: No Vital Signs: 01/05/22 08:33 01/05/22 09:00 01/05/22 09:30 Pulse Rate 71 73 Pulse Rate [Left Radial] 75 Respiratory Rate 18 18 20 Blood Pressure 113/54 L 122/52 L Blood Pressure [Right Arm] 114/50 L Blood Pressure Mean 82 86 Blood Pressure Mean [Right Arm] 71 Blood Pressure Source [Right Arm] Automatic Cuff Blood Pressure Position [Right Arm] Sitting 02 Sat by Pulse Oximetry 92 L 91 L 90 L Oxygen Delivery Method Room Air 01/05/22 10:00 Pulse Rate 71 Pulse Rate [Left Radial] Respiratory Rate 18 Blood Pressure 113/50 L Blood Pressure [Right Arm] Blood Pressure Mean 79 Blood Pressure Mean [Right Arm] Blood Pressure Source [Right Arm] Blood Pressure Position [Right Arm] 02 Sat by Pulse Oximetry 94 L Oxygen Delivery Method - Lab Data Lab results reviewed: Yes: I reviewed the patient's lab results. Lab Results 01/05/22 08:35: WBC 16.2 H, RBC 4.40 L, Hgb 12.8 L, Hct 40.5 L, MCV 91.9, MCH 29.0, MCHC 31.5 L, RDW 13.3, Plt Count 227, MPV 8.7, Neut % (Auto) 90.0 H, Lymph % (Auto) 4.7 L, [place] % (Auto) 4.4, Eos % (Auto) 0.7, Baso % (Auto) 0.3, Neut # (Auto) 14.6 H, Lymph # (Auto) 0.8, [place] # (Auto) 0.7, Eos # (Auto) 0.1, Baso # (Auto) 0.1, Total Counted 100, Neutrophils % (Manual) 93 H, Lymphocytes % (Manual) 4 L, Monocytes % (Manual) 2, Eosinophils % (Manual) 1, Platelet Estimate Normal, RBC Morphology Normal 01/05/22 08:35: Sodium 136, Potassium 4.9, Chloride 102, Carbon Dioxide 32 H, Anion Gap 6.9, BUN 24 H, Creatinine 1.70 H, Estimated Creat Clear 32, Estimated GFR 39 L, Est GFR ( Amer) 47 L, Glucose 106 H, Calcium 8.0 L, Total Bilirubin 0.4, AST 25, ALT 16, Alkaline Phosphatase 84, Total Protein 5.9 L, Albumin 3.6, Globulin 2.3, Albumin/Globulin Ratio 1.6 01/05/22 08:35: PT 11.5, INR 1.02 01/05/22 09:10: SARS-CoV-2 (PCR) Not detected, Influenza A Untype (PCR) Not detected, Influenza Type B (PCR) Not detected 01/05/22 12:13: Lactate 1.0 Result diagrams: 01/05/22 08:35 01/05/22 08:35 Orders (Tests/Meds): ED MEDICATIONS Generic Name Dose Route Start Last Admin Trade Name Freq PRN Reason Stop Dose Admin Ceftriaxone Sodium 1 gm/ 50 mls @ 100 mls/hr 01/05/22 11:30 Sodium Chloride IV 01/19/22 11:29 Q24H AAKASH Azithromycin 500 mg/ Sodium 250 mls @ 250 mls/hr 01/05/22 11:30 Chloride IV 01/19/22 11:29 Q24H AAKASH Sodium Chloride 10 ml 01/05/22 08:41 Sodium Chloride 0.9% 10ml Flush Syringe IV 02/04/22 08:40 NEEDED PRN Maintain IV Site Discontinued Medications Generic Name Dose Route Start Last Admin Trade Name Freq PRN Reason Stop Dose Admin Vancomycin/PEG/[place]/Lysine/Water 1.25 gm in 250 mls @ 125 mls/hr 01/05/22 11:00 Vancomycin 1.25gm/250ml (Peg) Premix IV 01/19/22 10:59 Q36H AAKASH Iopamidol 100 ml 01/05/22 09:32 01/05/22 09:35 Iopamidol-370 (76%);100ml Bottle IV 01/05/22 09:33 100 ml ONCE ONE Administration Miscellaneous 1 each 01/05/22 11:15 Vancomycin Consult Request * 02/04/22 11:14 CONSULT PHARMACY [facility] Sodium Chloride 50 ml 01/05/22 09:32 01/05/22 09:35 0.9 % Sodium Chloride 50 Ml Vial IV 01/05/22 09:33 50 ml ONCE ONE Administration Sodium Chloride 10 ml 01/05/22 09:32
--- NOTE | 2022-01-05 14:04 | HMH.PHAVTE ---
[facility] Pharmacy VTE Monitoring - Patient Demographics Admission date: 01/05/22 Report Date: 01/05/22 Time: 14:04 Allergies/Adverse Reactions: Patient Allergies No Known Allergies Allergy (Verified 10/27/19 19:09) Height: 1.8 m Weight: 67.273 kg Patient Problems: Current Active Problems Pneumonia (Acute) - VTE Risk Labs: VTE Related Lab Results Hgb 12.8 g/dL (14.1-18.0) L 01/05/22 08:35 Hct 40.5 % (42.0-52.0) L 01/05/22 08:35 Plt Count 227 K/mm3 (142-424) 01/05/22 08:35 PT 11.5 seconds (10.1-12.5) 01/05/22 08:35 INR 1.02 (0.9-1.1) 01/05/22 08:35 BUN 24 mg/dl (9-20) H 01/05/22 08:35 Creatinine 1.70 mg/dl (0.66-1.25) H 01/05/22 08:35 Estimated Creat Clear 32 mL/min (50-200) 01/05/22 08:35 - Prophylaxis VTE Prophylaxis Ordered?: Yes Types of VTE Prophylaxis: TEDS Knee High Location of Applied Device: Bilateral Lower Extremeties
--- NOTE | 2022-01-05 17:55 | HMH.HP ---
*Admission Date: 01/05/22 *Chief complaint: Cough/fever/mental status changes *History of present illness: 82-year-old white male with history of emphysema who has had several admissions for mental status changes when he has metabolic permutations, including hypertensive urgency's, and pneumonias. He had a very good 82rd birthday republican at his home on Wednesday, but that night after eating quite a bit of fried chicken and cake was not himself and through the day this morning was just not awake and very sluggish. Brought to the emergency department where work-up revealed negative CT scan of head over baseline, but did have infiltrate in his chest, slightly high white count and elevated temperature. Diagnosed with lobar pneumonia and admitted to hospital for treatment of community-acquired pneumonia and oxygen status and further testing if needed regarding his mental status changes. [facility] History I have reviewed the patient's past medical history: Yes Medical History: Reports:: Aneurysm, Cancer (skin), Congestive Heart Failure, Coronary Artery Disease, Hyperlipidemia, Hypertension, Myocardial Infarction, Peripheral Artery Disease, Peripheral Vascular Disease Denies:: Diabetes Mellitus Type 1, Diabetes Mellitus Type 2, Internal Pacemaker, MRSA *Have you ever received a pneumonia vaccine?: Yes *Have you received a flu vaccine this season?: Yes Other Medical History: Reports: Anemia, Arthritis, Cataracts, Sinus Problems Other Surgeries: Yes: CABG, Cardiac Catheterization, Cardiac Surgery, Colonoscopy, Coronary Stent, EGD, Skin Cancer Excision. No: Pacemaker Amputation: No Fractures: No - *Social History Smoking Status: Former smoker Tobacco Type: cigarettes # Packs/Day (cigarettes): 1 Alcohol Intake: never Alcohol Intake Frequency:: holidays/special occasions only *Occupational Status:: retired Housing: house Household Members: spouse *Travel in the last 8 weeks: None Family Hx:: No significant family history Review of Systems - Review of Systems Review of systems:: pertinent systems reviewed and negative unless documented below - *Neurologic Reports weakness Meds Home Medications Medication Instructions Recorded Confirmed Type Albuterol Sulfate [Proair 2 puffs INHALATION Q4HP PRN 02/19/19 01/05/22 History Respiclick] Aspirin [Aspirin 81mg EC Tab] 81 mg PO HS 02/19/19 01/05/22 History Atorvastatin Calcium [Lipitor 20mg 20 mg PO HS 02/19/19 01/05/22 History Tab] Gabapentin 600 mg PO BID PRN 02/19/19 01/05/22 History Losartan Potassium 100 mg PO DAILY 02/19/19 01/05/22 History cloNIDine HCL [Clonidine HCl] 0.3 mg PO BID 02/19/19 01/05/22 History Hydralazine HCl 75 mg PO TID 02/20/19 01/05/22 History Isosorbide Mononitrate [Imdur 60mg 60 mg PO DAILY 02/20/19 01/05/22 History ER tablet] Multivitamin [Daily Multiple 1 each PO HS 02/20/19 01/05/22 History Vitamin] Tiotropium [place] [Spiriva 2 puff IH DAILY 02/20/19 01/05/22 History 18mcg/puff inhaler] Budesonide/Formoterol Fumarate 2 puffs IH BID #0 09/14/19 01/05/22 History [Symbicort 160-4.5 Mcg Inhaler] Clopidogrel Bisulfate [Plavix 75mg 75 mg PO DAILY 09/15/19 01/05/22 History Tab] Amlodipine Besylate [Amlodipine 10 mg PO DAILY 10/28/19 01/05/22 History 10mg Tab] Ertapenem Sodium [Invanz 1gm Vial] 1 gm IV Q24H 01/05/22 01/05/22 History Magnesium Oxide 250 mg PO DAILY 01/05/22 01/05/22 History [place]-3 Fatty Acids/Fish Oil 2 each PO BID 01/05/22 01/05/22 History [[place] 3 1,000 mg Softgel] Allergies Allergy/AdvReac Type Severity Reaction Status Date / Time No Known Allergies Allergy Verified 10/27/19 19:09 Exam Vital signs and Labs for Last 24 Hours: Temp Pulse Resp BP Pulse Ox 97.6 F 50 L 16 118/66 97 01/05/22 16:00 01/05/22 16:00 01/05/22 16:00 01/05/22 16:00 01/05/22 16:00 Laboratory Results - last 24 hr 01/05/22 08:35: WBC 16.2 H, RBC 4.40 L, Hgb 12.8 L, Hct 40.5 L, MCV 91.9, MCH 29.0, MCHC
[2022-01-06] VITALS: BP 147/54; PULSE 59; RESP 18; TEMP 36.5; O2SAT 98
[2022-01-06 04:00] VITALS: BP 160/57; PULSE 69; RESP 16; TEMP 36.6; O2SAT 96
[2022-01-06 04:15] LABS: POC Glucose,Bedside 83 (70-110)
[2022-01-06 06:00] VITALS: BMI 20.9
--- NOTE | 2022-01-06 06:00 | PC.NURSE ---
PATIENT RESTED WELL THRU THE NIGHT. PATIENT HAS COMPLAINT OF 4 EPISODES OF DIARRHEA. THIS RN OR SRNA HAVE NOT SEEN DIARRHEA THUS FAR. PATIENT HAS NO OTHER COMPLAINTS OR CONCERNS AT THIS TIME.
--- NOTE | 2022-01-06 06:11 | PC.NURSE ---
PATIENT MENTIONED THAT HE WAS SITTING AT HOME FEELING FINE WHEN HE STOOD UP AND COULDN'T WALK AND FELL. THIS RN HAD ORTHOSTATIC BP COMPLETED BY SRNA. FINDINGS ARE FOLLOW: SUPINE: 160/57 SITTIN/76 STANDIN/81.
[2022-01-06 06:49] LABS: Basophils # 0.1 K/mm3 (0-0.2); Red Cell Distribution Width 13.8 % (11.5-17.5)
[2022-01-06 06:53] LABS: Alanine Aminotransferase 16 U/L (12-78); Albumin Level 3.3 g/dl (3.5-5.0); Albumin/Globulin Ratio 1.4 (1.1-1.8); Alkaline Phosphatase 68 U/L (38-126); Aspartate Amino Transferase 24 U/L (17-59); Bilirubin,Total 0.4 mg/dl (0.2-1.3); Blood Urea Nitrogen 31 mg/dl (9-20); Calcium 8.2 mg/dl (8.4-10.2); Carbon Dioxide 32 mmol/L (22.0-30.0); Chloride 103 mmol/L (98-107); Creatinine Clearance Estimated 30 mL/min (50-200); Estimated Glomerular Filt Rate 36 ml/min (>60); GFR (African American) 44 ML/MIN (>60); Globulin 2.3 g/dL (1.3-3.2); Glucose 81 mg/dl (74-100); Magnesium 2.9 mg/dl (1.6-2.3); Sodium 138 mmol/L (136-145); Total Protein,Serum 5.6 g/dl (6.3-8.2)
[2022-01-06 07:32] LABS: Basophils % 0.5 % (0.1-2.0); Eosinophils # 0.2 K/mm3 (0.0-0.4); Hematocrit 37.3 % (42.0-52.0); Lymphocytes # 1.5 K/mm3 (0.7-4.5); Lymphocytes % 6.7 % (10-50); Mean Corpuscular Hemoglobin 29.3 pg (27.0-31.2); Mean Corpuscular Volume 94.5 fl (80-94); Mean Platelet Volume 10.2 fl (7.4-10.4); Monocytes # 1.1 K/mm3 (0.1-1.0); Monocytes % 4.9 % (1.7-9.3); Neutrophils # 19.2 K/mm3 (1.8-7.8); Neutrophils % 86.8 % (37.0-80.0); Platelet Count 200 K/mm3 (142-424); Red Blood Count 3.95 M/mm3 (4.60-6.20); White Blood Count 22.1 K/mm3 (4.8-10.8)
[2022-01-06 07:36] LABS: Hemoglobin 11.6 g/dL (14.1-18.0)
[2022-01-06 07:39] LABS: MANUAL DIFFERENTIAL MANUAL DIFFERENTIAL (MANUAL DIFF)
[2022-01-06 08:00] VITALS: BP 164/57; PULSE 63; RESP 17; TEMP 36.7; O2SAT 94
--- NOTE | 2022-01-06 09:52 | HMH.PHAINT ---
Home med rec complete
--- NOTE | 2022-01-06 10:08 | SW/DCPLANNER ---
Addendum entered by Chaparrita Cheek 01/06/22 12:56: [facility] has stated that this patient will be accept and home health services will begin for this patient. Addendum entered by Chaparrita Cheek 01/06/22 11:40: CORRECTION: patient information/order has been faxed to [facility]. Original Note: The plan for this patient is to discharge home later this afternoon. Patient stated that he used home health services ([facility]) in the past and would be willing to have home health services again. Due to [facility] no longer accepting admissions patient information will be faxed to [facility] once medically stable for discharge. Patient stated that he has appropriate DME at home and home O2. Patient could discharge later today.
--- NOTE | 2022-01-06 10:14 | HMH.DCSUM ---
General - General Admission date:: 01/05/22 Discharge date: 01/06/22 HPI HPI: 82-year-old white male with history of emphysema who has had several admissions for mental status changes when he has metabolic permutations, including hypertensive urgency's, and pneumonias. He had a very good 82rd birthday alliance party at his home on Wednesday, but that night after eating quite a bit of fried chicken and cake was not himself and through the day this morning was just not awake and very sluggish. Brought to the emergency department where work-up revealed negative CT scan of head over baseline, but did have infiltrate in his chest, slightly high white count and elevated temperature. Diagnosed with lobar pneumonia and admitted to hospital for treatment of community-acquired pneumonia and oxygen status and further testing if needed regarding his mental status changes. Hospital Course Hospital Course: Admitted for community-acquired pneumonia and acute chronic hypoxemic respiratory failure given his increased oxygen requirement. Started on antibiotics and steroids. Has responded very well to antibiotic course and steroids. On exam this morning patient sitting at bedside feeding himself. States he feels much better. On 4 L oxygen which is home dose for him. Has oxygen at home, people to care for him and check on him. Medically stable for discharge home with continued outpatient antibiotic therapy and steroid therapy. Follow-up in the clinic in the coming days to week for close eval and monitoring. Objective Vital signs: Temp Pulse Resp BP Pulse Ox 98.0 F 63 17 164/57 H 94 L 01/06/22 08:00 01/06/22 08:00 01/06/22 08:00 01/06/22 08:00 01/06/22 08:00 Narrative: - Constitutional improved distress, on 4L NC (home dose) - *Routine HEENT Exam Head: Present: normocephalic Eye: Present: EOMI, PERRL ENT: Present: mucous membranes moist - *Routine Neck Exam Present: supple. Absent: lymphadenopathy - *Routine Respiratory Exam Present: faint wheeze, diminished air movement; faint crackles in the right lower lateral lung field - *Routine Cardiovascular Exam Present: RRR - *Routine Abdominal Exam Present: soft, normoactive bowel sounds. Absent: tenderness - *Routine Extremities Exam Absent: cyanosis, clubbing, edema - *Routine Skin Exam Present: warm. Absent: rash - *Routine Neurological Exam Present: alert, CN II-XII intact, sitting at bedside eating, baseline level of function, baseline orientation Results Labs on day of discharge: Labs from last 24 hours 01/06/22 01/06/22 01/06/22 05:58 05:58 04:05 WBC 22.1 H* D RBC 3.95 L Hgb 11.6 L Hct 37.3 L MCV 94.5 H MCH 29.3 MCHC 31.0 L RDW 13.8 Plt Count 200 MPV 10.2 Neut % (Auto) 86.8 H Lymph % (Auto) 6.7 L [place] % (Auto) 4.9 Eos % (Auto) 1.0 Baso % (Auto) 0.5 Neut # (Auto) 19.2 H Lymph # (Auto) 1.5 Henderson # (Auto) 1.1 H Eos # (Auto) 0.2 Baso # (Auto) 0.1 Sodium 138 Potassium 5.0 Chloride 103 Carbon Dioxide 32 H Anion Gap 8.0 BUN 31 H D Creatinine 1.80 H Estimated Creat Clear 30 Estimated GFR 36 L Est GFR ( Amer) 44 L Glucose 81 D POC Glucose 83 Lactate Calcium 8.2 L Magnesium 2.9 H Total Bilirubin 0.4 AST 24 ALT 16 Alkaline Phosphatase 68 Total Protein 5.6 L Albumin 3.3 L Globulin 2.3 Albumin/Globulin Ratio 1.4 01/05/22 12:13 WBC RBC Hgb Hct MCV MCH MCHC RDW Plt Count MPV Neut % (Auto) Lymph % (Auto) Henderson % (Auto) Eos % (Auto) Baso % (Auto) Neut # (Auto) Lymph # (Auto) Henderson # (Auto) Eos # (Auto) Baso # (Auto) Sodium Potassium Chloride Carbon Dioxide Anion Gap BUN Creatinine Estimated Creat Clear Estimated GFR Est GFR ( Amer) Glucose POC Glucose Lactate 1.0 Calcium Magnesium Total Bilirubin AST ALT Alkaline Phosphata
[2022-01-06 12:12] LABS: Lymphocytes % 5 % (10-50); Monocytes % 6 % (2-9); Neutrophils % 89 % (42-76); Total Cells Counted 100
[2022-01-06 12:13] LABS: Platelet Estimate Normal
--- NOTE | 2022-01-06 15:23 | HMH.PHAINT ---
Discharge counseling complete. Informed pt of new medications, purpose, how to take, and potential side effects. Pt understood and had no questions or concerns
--- NOTE | 2022-01-08 13:06 | CARE MANAGER ---
01/07/22 Contacted patient's daughter, Neeru, after hospital discharge on 01/06/22. She states the patient feels worse today and short of breath. 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 After discussing with MD discovered he has nebulizer machine but no medicine. He received nebulizer treatments in the hospital, so I contacted MD and he ordered nebs for patient. Called sister back and discussed this with her. Also encouraged them to contact MD with progressive shortness of air or any other new or worsening symptoms. ANDREW Lea
== END 2022-01-06 17:15 | disposition home or self-care (01) ==
LOC: ER 09:02 → 2ND 12:16
PROVIDERS: Internal Medicine Adolescent Medicine; Admitting Provider Internal Medicine Adolescent Medicine; Emergency Provider Student in an Organized Health Care Education/Training Program; PCP Internal Medicine Adolescent Medicine; Visit Provider Internal Medicine Adolescent Medicine
DX: J18.9 Pneumonia, unspecified organism (principal); J44.0 Chronic obstructive pulmonary disease with (acute) lower respiratory infection; I25.2 Old myocardial infarction; M19.90 Unspecified osteoarthritis, unspecified site; Z95.5 Presence of coronary angioplasty implant and graft; Z87.891 Personal history of nicotine dependence; E78.5 Hyperlipidemia, unspecified; J96.21 Acute and chronic respiratory failure with hypoxia; Z99.81 Dependence on supplemental oxygen; Z20.822 Contact with and (suspected) exposure to COVID-19; E11.51 Type 2 diabetes mellitus with diabetic peripheral angiopathy without gangrene
CPT/HCPCS: G0378; 36415; 70450; 70496; 70498; 71250; 74176; 80053; 82962; 83605; 83735; 85007; 85025; 85610; 87040; 94760; 94761; 96374; 99285; C9803; J0456; J0696; Q9967; U0003; U0005

== ENCOUNTER → 2022-07-07 10:35 | Outpatient (POV) | payer MEDICARE, SELFPAY | PROVIDERS: Visit Provider Dermatology | DX: Z00.00 Encounter for general adult medical examination without abnormal findings (principal) ==

== ENCOUNTER 2023-03-16 18:10 | Emergency (ER) | payer MEDICARE, SELFPAY ==
[2023-03-16 18:10] VITALS: BP 129/80; PULSE 57; RESP 16; TEMP 37.1; O2SAT 95; BMI 20.5
--- NOTE | 2023-03-16 18:28 | CT_ITS ---
PROCEDURE INFORMATION: Exam: CTA Neck With Contrast Exam date and time: 03/16/2023 7:47 PM Age: 83 years old Clinical indication: Numbness; Additional info: Lue numbness x1 day, chest pain TECHNIQUE: Imaging protocol: Computed tomographic angiography of the neck with contrast. 3D rendering (Not supervised by radiologist): MIP and/or 3D reconstructed images were created by the technologist. Radiation optimization: All CT scans at this facility use at least one of these dose optimization techniques: automated exposure control; mA and/or kV adjustment per patient size (includes targeted exams where dose is matched to clinical indication); or iterative reconstruction. Contrast material: ISOVUE; Contrast volume: 160 ml; Contrast route: INTRAVENOUS (IV); REPORTING DATA: Count of CT and Cardiac NM exams in prior 12 months: This patient has received 0 known CTs and 0 known cardiac nuclear medicine studies in the 12 months prior to the current study. COMPARISON: CT ANGIO NECK 01/05/2022 9:10 AM FINDINGS: Right common carotid artery: Moderate calcific atherosclerotic disease of the right carotid bulb resulting in moderate stenosis. Right internal carotid artery: No stenosis of the extracranial segment. No dissection or occlusion. Right external carotid artery: No occlusion or stenosis of the origin. Left common carotid artery: Severe calcific atherosclerotic disease of the left carotid bulb resulting in moderate stenosis. Left internal carotid artery: No stenosis of the extracranial segment. No dissection or occlusion. Left external carotid artery: No occlusion or stenosis of the origin. Right vertebral artery: No stenosis. No dissection or occlusion. Left vertebral artery: No stenosis. No dissection or occlusion. Soft tissues: Normal. No significant soft tissue swelling. Bones/joints: No acute fracture. IMPRESSION: 1. Moderate calcific atherosclerotic disease of the right carotid bulb resulting in moderate stenosis. 2. Severe calcific atherosclerotic disease of the left carotid bulb resulting in moderate stenosis. REFERENCES: NASCET CRITERIA. The degree of stenosis in the cervical segment of the internal carotid artery is based on NASCET criteria. Normal is no stenosis. Mild is less than 50% stenosis. Moderate is 50-69% stenosis. Severe is 70% to 99% stenosis. Total occlusion is no detectable patent lumen.
--- NOTE | 2023-03-16 18:28 | CT_ITS ---
PROCEDURE INFORMATION: Exam: CTA Head With Contrast, Arteriography Exam date and time: 03/16/2023 7:47 PM Age: 83 years old Clinical indication: Numbness; Additional info: Lue numbness x1 day, chest pain TECHNIQUE: Imaging protocol: Computed tomographic angiography of the head with contrast. Exam focused on the arteries. 3D rendering (Not supervised by radiologist): MIP and/or 3D reconstructed images were created by the technologist. Radiation optimization: All CT scans at this facility use at least one of these dose optimization techniques: automated exposure control; mA and/or kV adjustment per patient size (includes targeted exams where dose is matched to clinical indication); or iterative reconstruction. Contrast material: ISOVUE; Contrast volume: 160 ml; Contrast route: INTRAVENOUS (IV); REPORTING DATA: Count of CT and Cardiac NM exams in prior 12 months: This patient has received 0 known CTs and 0 known cardiac nuclear medicine studies in the 12 months prior to the current study. COMPARISON: CT HEAD/BRAIN WO CON 03/16/2023 7:45 PM FINDINGS: ANTERIOR CIRCULATION: Right internal carotid artery: Moderate to severe calcific atherosclerotic disease involving the cavernous and ophthalmic segments of the right ICA resulting in moderate stenosis. Right middle cerebral artery: No occlusion or significant stenosis. No aneurysm. Right anterior cerebral artery: No occlusion or significant stenosis. No aneurysm. Left internal carotid artery: Moderate to severe calcific atherosclerotic disease involving the cavernous and ophthalmic segments of the left ICA resulting in moderate stenosis. Left middle cerebral artery: No occlusion or significant stenosis. No aneurysm. Left anterior cerebral artery: No occlusion or significant stenosis. No aneurysm. POSTERIOR CIRCULATION: Right vertebral artery: No occlusion or significant stenosis. No aneurysm. Left vertebral artery: No occlusion or significant stenosis. No aneurysm. Basilar artery: No occlusion or significant stenosis. No aneurysm. Right posterior cerebral artery: No occlusion or significant stenosis. No aneurysm. Left posterior cerebral artery: No occlusion or significant stenosis. No aneurysm. Brain: No definite mass, mass effect, or midline shift. Cerebral ventricles: No ventriculomegaly. Bones/joints: Unremarkable. No acute fracture. Soft tissues: Unremarkable. IMPRESSION: 1. Moderate to severe calcific atherosclerotic disease involving the cavernous and ophthalmic segments of the right ICA resulting in moderate stenosis. 2. Moderate to severe calcific atherosclerotic disease involving the cavernous and ophthalmic segments of the left ICA resulting in moderate stenosis.
--- NOTE | 2023-03-16 18:28 | CT_ITS ---
PROCEDURE INFORMATION: Exam: CT Head Without Contrast Exam date and time: 03/16/2023 7:45 PM Age: 83 years old Clinical indication: Numbness / parasthesia; Left; Additional info: Lue numbness x1 day, chest pain TECHNIQUE: Imaging protocol: Computed tomography of the head without contrast. Radiation optimization: All CT scans at this facility use at least one of these dose optimization techniques: automated exposure control; mA and/or kV adjustment per patient size (includes targeted exams where dose is matched to clinical indication); or iterative reconstruction. REPORTING DATA: Count of CT and Cardiac NM exams in prior 12 months: This patient has received 0 known CTs and 0 known cardiac nuclear medicine studies in the 12 months prior to the current study. COMPARISON: CT HEAD/BRAIN WO CON 10/27/2019 2:48 PM FINDINGS: Brain: There is moderate diffuse cerebral volume loss present. Multiple subcortical and deep hypoattenuating white matter foci are present, likely related to small vessel senescent changes and can also be seen with prior infectious / inflammatory insult, or prior traumatic events. No hyperattenuating foci are identified to suggest acute intracranial hemorrhage. Cerebral ventricles: No ventriculomegaly. Paranasal sinuses: Visualized sinuses are unremarkable. No fluid levels. Mastoid air cells: Visualized mastoid air cells are well aerated. Bones/joints: Unremarkable. No acute fracture. Soft tissues: Unremarkable. IMPRESSION: 1. Multiple subcortical and deep hypoattenuating white matter foci are present, likely related to small vessel senescent changes and can also be seen with prior infectious / inflammatory insult, or prior traumatic events. 2. No hyperattenuating foci are identified to suggest acute intracranial hemorrhage.
--- NOTE | 2023-03-16 18:28 | CT_ITS ---
PROCEDURE INFORMATION: Exam: CTA Chest With Contrast Exam date and time: 03/16/2023 7:51 PM Age: 83 years old Clinical indication: Sternal or substernal pain; Additional info: Lue numbness x1 day, chest pain TECHNIQUE: Imaging protocol: Computed tomographic angiography of the chest with contrast. 3D rendering (Not supervised by radiologist): MIP and/or 3D reconstructed images were created by the technologist. Radiation optimization: All CT scans at this facility use at least one of these dose optimization techniques: automated exposure control; mA and/or kV adjustment per patient size (includes targeted exams where dose is matched to clinical indication); or iterative reconstruction. Contrast material: ISOVUE; Contrast volume: 160 ml; Contrast route: INTRAVENOUS (IV); REPORTING DATA: Count of CT and Cardiac NM exams in prior 12 months: This patient has received 0 known CTs and 0 known cardiac nuclear medicine studies in the 12 months prior to the current study. COMPARISON: CT CHEST WO CON 01/05/2022 9:16 AM FINDINGS: Pulmonary arteries: Normal. No pulmonary emboli. Aorta: Extensive aortic calcifications. No aortic aneurysm. No aortic dissection. Lungs: Suspect emphysema. No consolidation. Several small pulmonary nodules measuring up to 5 mm within the anterior right upper lobe. Pleural spaces: No pneumothorax. No pleural effusion. Heart: No cardiomegaly. No pericardial effusion. Coronary arteries: Coronary artery calcifications. Lymph nodes: No enlarged lymph nodes. Gallbladder and bile ducts: Calcified gallstones. Kidneys and ureters: Renal cysts measuring up to 3.9 cm. Bones/joints: Median sternotomy wires. Soft tissues: No significant swelling. IMPRESSION: Several small pulmonary nodules measuring up to 5 mm within the anterior right upper lobe. For patients at low risk (minimal or absent history of smoking and of other known risk factors), no routine follow-up is indicated. For patients at high risk (history of smoking or of other known risk factors), consider optional CT Chest at 12 months. (Reference: Chauncey) References: Chauncey Reyes et al. Guidelines for Management of Incidental Pulmonary Nodules Detected on CT Images: From the Fleischner Society 2017. Radiology. 2017;284(1):228-243.
--- NOTE | 2023-03-16 18:29 | XR_ITS ---
PROCEDURE INFORMATION: Exam: XR Chest Exam date and time: 03/16/2023 7:47 PM Age: 83 years old Clinical indication: Cough and shortness of breath; Additional info: Cough, SOA TECHNIQUE: Imaging protocol: Radiologic exam of the chest. Views: 1 view. COMPARISON: CT CHEST WO CON 01/05/2022 9:16 AM FINDINGS: Lungs: No consolidation. Pleural spaces: No pneumothorax. Heart/Mediastinum: No cardiomegaly. Bones/joints: Median sternotomy wires. IMPRESSION: No acute findings. CTA chest dictated separately.
[2023-03-16 18:38] LABS: Chloride 101 mmol/L (98-107); Potassium 4.6 mmoL/L (3.5-5.1); Sodium 142 mmol/L (136-145)
[2023-03-16 18:41] LABS: Alanine Aminotransferase 21 U/L (12-78); Albumin/Globulin Ratio 1.5 (1.1-1.8); Alkaline Phosphatase 84 U/L (38-126); Anion Gap 15.6 mEq/L (5-15); Aspartate Amino Transferase 24 U/L (17-59); Bilirubin,Total 0.4 mg/dl (0.2-1.3); Blood Urea Nitrogen 20 mg/dl (9-20); Carbon Dioxide 30 mmol/L (22.0-30.0); Creatinine Clearance Estimated 37 mL/min (50-200); Estimated Glomerular Filt Rate 48 ml/min (>60); GFR (African American) 58 ML/MIN (>60); Globulin 2.6 g/dL (1.3-3.2); Total Protein,Serum 6.6 g/dl (6.3-8.2)
[2023-03-16 18:42] LABS: Glucose 123 mg/dl (74-100)
--- NOTE | 2023-03-16 18:44 | ECG_ITS ---
APPROVED REPORT Exam: Resting ECG HR:61 bpm ECG Measurements Heart Rate 61 AXES TX 140 P -59 QRSd 93 QRS 14 QT 407 T 37 QTc 410 Conclusion SINUS RHYTHM WITH SINUS ARRHYTHMIA NORMAL ECG UNCONFIRMED REPORT Electronically signed by : Asif Kirk MD 03/17/2023 21:17:14
[2023-03-16 18:46] LABS: Basophils # 0.1 K/mm3 (0-0.2); Basophils % 0.7 % (0.1-2.0); Eosinophils # 0.4 K/mm3 (0.0-0.4); Hematocrit 41.6 % (42.0-52.0); Hemoglobin 13.1 g/dL (14.1-18.0); Lymphocytes # 1.5 K/mm3 (0.7-4.5); Lymphocytes % 17.5 % (10-50); Mean Corpuscular HGB Conc 31.4 g/dL (31.8-35.4); Mean Corpuscular Hemoglobin 28.8 pg (27.0-31.2); Mean Corpuscular Volume 91.6 fl (80-94); Mean Platelet Volume 9.4 fl (7.4-10.4); Monocytes # 0.6 K/mm3 (0.1-1.0); Monocytes % 6.4 % (1.7-9.3); Neutrophils # 6.3 K/mm3 (1.8-7.8); Neutrophils % 71.4 % (37.0-80.0); Platelet Count 203 K/mm3 (142-424); Red Blood Count 4.54 M/mm3 (4.60-6.20); Red Cell Distribution Width 13.3 % (11.5-17.5); White Blood Count 8.8 K/mm3 (4.8-10.8)
--- NOTE | 2023-03-16 18:50 | PC.NURSE ---
due to pt gfr, radiologist recommends 500 cc of NS for scan. aware
[2023-03-16 18:53] LABS: Troponin I 0.02 ng/ml (0.00-0.034)
--- NOTE | 2023-03-16 18:53 | PC.NURSE ---
pt given warm blankets
--- NOTE | 2023-03-16 20:42 | HMH.EDGENADL ---
Discharge Plan Disposition Patient Disposition: Home, Self-Care Condition: Good Prescriptions Prescriptions: No Action atorvastatin 20 mg tablet 20 mg PO HS Label Comments: TAKE 1 TABLET BY MOUTH AT BEDTIME hydrocodone-acetaminophen 5-325 mg tablet 1 tab PO BIDP PRN (Reason: Pain) clonidine HCl 0.3 mg tablet 0.3 mg PO BID clopidogrel 75 mg tablet 75 mg PO DAILY carvedilol 3.125 mg tablet 3.125 mg PO BID Label Comments: TAKE 1 TABLET BY MOUTH TWICE DAILY isosorbide mononitrate 60 mg tablet extended release 24 hr 60 mg PO DAILY Label Comments: TAKE 1 TABLET BY MOUTH ONCE DAILY IN THE MORNING alprazolam 0.25 mg tablet 0.25 mg PO DAILY amlodipine 10 mg tablet 10 mg PO DAILY ferrous sulfate [FeroSul] 325 mg (65 mg iron) tablet 325 mg PO BID Label Comments: TAKE 1 TABLET BY MOUTH TWICE DAILY aspirin 81 mg Tablet,Chewable 81 mg PO DAILY hydralazine 50 mg tablet 50 mg PO Q6HP PRN (Reason: Anxiety) gabapentin 100 mg capsule 100 mg PO TID losartan 100 mg tablet 100 mg PO DAILY escitalopram oxalate 10 mg tablet 10 mg PO DAILY Label Comments: TAKE 1 TABLET BY MOUTH ONCE DAILY Referrals Follow up/Referrals: Asif Kirk MD [Primary Care Provider] - See instructions Activity Restrictions/Add. Instructions Additional Instructions/Restrictions: You were evaluated in the emergency department today. Please follow-up closely with your primary care provider. Return to the emergency department for any new or worsening symptoms. Clinical Impressions Clinical Impression: Arm paresthesia, left Instructions Patient Instructions: DI for Numbness/Tingling Discharge ED Provider: Kendal Sal General Adult HPI General Chief complaint: Neuro Symptoms/Deficit Stated complaint: Weakness Time Seen by Provider: 03/16/23 18:17 Mode of Arrival: EMS Source of Information: Patient and EMS Limitations: No Limitations Description of Symptoms (Recalled from ER Triage Doc. by RN): report recieved from EMS. they were called to pts resideance by family. per report from family pt has been having left arm numbness and tingiling for two days. numbness is constant. History of Present Illness HPI narrative: This patient is an 83-year-old male with a history of CVA, NSTEMI, CAD, CHF, hypertension, hyperlipidemia, type 2 diabetes, and frequent falls presenting to the emergency department for evaluation with concern for several days of left upper extremity tingling. No other acute concerns noted by the patient. He states that it is constant. Nothing seems to make it better or worse. No traumatic injuries noted. No fevers, chills, headache, vision changes, chest pain, shortness of breath, abdominal pain, nausea, vomiting, weakness, change in bowel movements, or other concerns. Related Data Home Medications Medication Instructions Recorded Confirmed alprazolam 0.25 mg tablet 0.25 mg PO DAILY Anxiety 03/16/23 03/16/23 amlodipine 10 mg tablet 10 mg PO DAILY High blood pressure 03/16/23 03/16/23 aspirin 81 mg chewable tablet 81 mg PO DAILY Heart health 03/16/23 03/16/23 atorvastatin 20 mg tablet 20 mg PO HS Cholesterol 03/16/23 03/16/23 carvedilol 3.125 mg tablet 3.125 mg PO BID Heart rhythm 03/16/23 03/16/23 clonidine HCl 0.3 mg tablet 0.3 mg PO BID High blood pressure 03/16/23 03/16/23 clopidogrel 75 mg tablet 75 mg PO DAILY Blood thinner 03/16/23 03/16/23 escitalopram oxalate 10 mg tablet 10 mg PO DAILY Mood 03/16/23 03/16/23 ferrous sulfate 325 mg (65 mg 325 mg PO BID Supplement 03/16/23 03/16/23 iron) tablet (FeroSul) gabapentin 100 mg capsule 100 mg PO TID Pain 03/16/23 03/16/23 hydralazine 50 mg tablet 50 mg PO Q6HP PRN Anxiety 03/16/23 03/16/23 hydrocodone 5 mg-acetaminophen 325 1 tab PO BIDP PRN Pain 03/16/23 03/16/23 mg tablet isosorbide mononitrate 60 mg 60 mg PO DAILY High blood pressure 03/16/23 03/16/23 ta
[2023-03-16 21:05] VITALS: BP 129/80; PULSE 63; RESP 17; TEMP 36.6; O2SAT 95
== END 2023-03-16 21:07 | disposition home or self-care (01) ==
PROVIDERS: Emergency Provider Emergency Medicine; PCP Internal Medicine Adolescent Medicine
DX: R53.1 Weakness (principal); R20.0 Anesthesia of skin; R20.2 Paresthesia of skin; I11.0 Hypertensive heart disease with heart failure; I50.9 Heart failure, unspecified; Z87.891 Personal history of nicotine dependence
CPT/HCPCS: 70450; 70496; 70498; 71045; 71275; 80053; 84484; 85025; 93005; 96360; 96361; 99285; Q9967

== ENCOUNTER → 2023-06-29 06:49 | Outpatient (CLI) | payer MEDICARE, SELFPAY ==
--- NOTE | 2023-06-29 07:16 | CT_ITS ---
PROCEDURE INFORMATION: Exam: CT Head Without Contrast Exam date and time: 06/29/2023 7:15 AM Age: 83 years old Clinical indication: Injury or trauma; Fall; Concussion/head injury; Consciousness not specified; Additional info: Injury of head, fall hit back of his head, imbalance TECHNIQUE: Imaging protocol: Computed tomography of the head without contrast. Radiation optimization: All CT scans at this facility use at least one of these dose optimization techniques: automated exposure control; mA and/or kV adjustment per patient size (includes targeted exams where dose is matched to clinical indication); or iterative reconstruction. REPORTING DATA: Count of CT and Cardiac NM exams in prior 12 months: This patient has received 4 known CTs and 0 known cardiac nuclear medicine studies in the 12 months prior to the current study. COMPARISON: CT HEAD/BRAIN WO CON 03/16/2023 7:45 PM FINDINGS: Brain: There is mild periventricular white matter hypodensity likely representing chronic microvascular ischemic change. There is no mass effect, midline shift, acute hemorrhage, extra-axial fluid collection or acute lobar infarct. Cerebral ventricles: No ventriculomegaly. Paranasal sinuses: Polypoid mucosal disease is noted in the floors of the maxillary antra. Mastoid air cells: Visualized mastoid air cells are well aerated. Bones/joints: Unremarkable. No acute fracture. Soft tissues: Unremarkable. Intracranial process. IMPRESSION: No acute
== END ==
PROVIDERS: PCP Internal Medicine Adolescent Medicine; Visit Provider Internal Medicine Adolescent Medicine
DX: R26.89 Other abnormalities of gait and mobility (principal); S09.90XA Unspecified injury of head, initial encounter; W19.XXXA Unspecified fall, initial encounter
CPT/HCPCS: 70450

== ENCOUNTER 2023-08-08 10:36 | Emergency (ER) | payer MEDICARE, SELFPAY ==
--- NOTE | 2023-08-08 10:31 | ECG_ITS ---
APPROVED REPORT Exam: Resting ECG HR:57 bpm ECG Measurements Heart Rate 57 AXES MT 161 P -3 QRSd 98 QRS 53 QT 431 T 127 QTc 425 Conclusion SINUS BRADYCARDIA MODERATE ST DEPRESSION [0.05+ mV ST DEPRESSION] ABNORMAL QRS-T ANGLE [QRS-T AXIS DIFFERENCE > 60] ABNORMAL ECG UNCONFIRMED REPORT Electronically signed by : Asif Kirk MD 08/09/2023 17:12:33
--- NOTE | 2023-08-08 10:35 | PC.NURSE ---
EKG obtained @1031 upon arrival
[2023-08-08 10:36] VITALS: BP 141/51; PULSE 62; RESP 13; TEMP 36.3; O2SAT 97; BMI 19.5
--- NOTE | 2023-08-08 10:50 | PC.NURSE ---
Dr. Pastrana at [facility] for pt eval
--- NOTE | 2023-08-08 11:01 | CT_ITS ---
PROCEDURE INFORMATION: Exam: CT Lumbar Spine Without Contrast Exam date and time: 08/08/2023 11:30 AM Age: 83 years old Clinical indication: Injury or trauma; Fall; Additional info: Fall, pain TECHNIQUE: Imaging protocol: Computed tomography of the lumbar spine without contrast. Radiation optimization: All CT scans at this facility use at least one of these dose optimization techniques: automated exposure control; mA and/or kV adjustment per patient size (includes targeted exams where dose is matched to clinical indication); or iterative reconstruction. REPORTING DATA: Count of CT and Cardiac NM exams in prior 12 months: This patient has received 5 known CTs and 0 known cardiac nuclear medicine studies in the 12 months prior to the current study. COMPARISON: CR XR LUMBAR SPINE 2-3V 10/27/2019 9:32 PM FINDINGS: Bones/joints: No acute fracture. Normal alignment. Pedicle screws at L4-L5 with laminectomies. Severe disc space narrowing at L3-L4 and L4-L5, with metallic spacer noted at L4-L5. No significant disc bulge or herniation. No severe spinal canal stenosis. Prominent facet arthropathy lower lumbar spine. No significant neural foraminal narrowing. Soft tissues: Unremarkable. IMPRESSION: No acute findings.
--- NOTE | 2023-08-08 11:01 | CT_ITS ---
PROCEDURE INFORMATION: Exam: CT Thoracic Spine Without Contrast Exam date and time: 08/08/2023 11:26 AM Age: 83 years old Clinical indication: Injury or trauma; Fall; Additional info: Fall, pain TECHNIQUE: Imaging protocol: Computed tomography of the thoracic spine without contrast. Radiation optimization: All CT scans at this facility use at least one of these dose optimization techniques: automated exposure control; mA and/or kV adjustment per patient size (includes targeted exams where dose is matched to clinical indication); or iterative reconstruction. REPORTING DATA: Count of CT and Cardiac NM exams in prior 12 months: This patient has received 5 known CTs and 0 known cardiac nuclear medicine studies in the 12 months prior to the current study. COMPARISON: CT CERVICAL SPINE WO CON 08/08/2023 11:23 AM FINDINGS: Bones/joints: No acute fracture. Normal alignment. No significant disc bulge or herniation. No severe spinal canal stenosis. No significant neural foraminal narrowing. Soft tissues: Unremarkable. IMPRESSION: Unremarkable CT Spine.
--- NOTE | 2023-08-08 11:01 | CT_ITS ---
PROCEDURE INFORMATION: Exam: CT Head Without Contrast Exam date and time: 08/08/2023 11:21 AM Age: 83 years old Clinical indication: Injury or trauma; Additional info: Fall, struck head, on ac TECHNIQUE: Imaging protocol: Computed tomography of the head without contrast. Total images: 277 Radiation optimization: All CT scans at this facility use at least one of these dose optimization techniques: automated exposure control; mA and/or kV adjustment per patient size (includes targeted exams where dose is matched to clinical indication); or iterative reconstruction. REPORTING DATA: Count of CT and Cardiac NM exams in prior 12 months: This patient has received 5 known CTs and 0 known cardiac nuclear medicine studies in the 12 months prior to the current study. COMPARISON: CT HEAD/BRAIN WO CON 06/29/2023 7:15 AM FINDINGS: Brain: No hemorrhage, mass effect or midline shift. Age-related atrophy and chronic white matter ischemic changes, with no evidence of an acute intracranial abnormality. Cerebral ventricles: No ventriculomegaly. Paranasal sinuses: Mucous retention cyst noted within both maxillary sinuses. Mastoid air cells: Visualized mastoid air cells are well aerated. Bones/joints: No acute fracture. Soft tissues: No acute changes IMPRESSION: 1. No hemorrhage, mass effect or midline shift. 2. Age-related atrophy and chronic white matter ischemic changes, with no evidence of an acute intracranial abnormality.
--- NOTE | 2023-08-08 11:01 | XR_ITS ---
PROCEDURE INFORMATION: Exam: XR Chest Exam date and time: 08/08/2023 11:31 AM Age: 83 years old Clinical indication: Injury or trauma; Fall; Blunt trauma (contusions or hematomas); Additional info: Pre op, bradycardia TECHNIQUE: Imaging protocol: Radiologic exam of the chest. Views: 1 view. COMPARISON: CR XR CHEST PORTABLE 03/16/2023 7:47 PM FINDINGS: Lungs: Unremarkable. No consolidation. Pleural spaces: Unremarkable. No pleural effusion. No pneumothorax. Heart/Mediastinum: Unremarkable. No cardiomegaly. Bones/joints: Median sternotomy wires. . IMPRESSION: No acute findings.
--- NOTE | 2023-08-08 11:01 | CT_ITS ---
PROCEDURE INFORMATION: Exam: CT Cervical Spine Without Contrast Exam date and time: 08/08/2023 11:23 AM Age: 83 years old Clinical indication: Injury or trauma; Fall; Additional info: Fall, struck head, on ac TECHNIQUE: Imaging protocol: Computed tomography of the cervical spine without contrast. Radiation optimization: All CT scans at this facility use at least one of these dose optimization techniques: automated exposure control; mA and/or kV adjustment per patient size (includes targeted exams where dose is matched to clinical indication); or iterative reconstruction. REPORTING DATA: Count of CT and Cardiac NM exams in prior 12 months: This patient has received 5 known CTs and 0 known cardiac nuclear medicine studies in the 12 months prior to the current study. COMPARISON: CT ANGIO NECK 03/16/2023 7:47 PM FINDINGS: Bones/joints: No acute fracture. Normal alignment. Grade 1 anterolisthesis at C3-C4. Moderate to severe disc space narrowing C4 through C7. No significant disc bulge or herniation. No severe spinal canal stenosis. Multilevel facet arthropathy. No significant neural foraminal narrowing. Lungs: Lung apices are normal. Soft tissues: Unremarkable. IMPRESSION: No acute findings.
--- NOTE | 2023-08-08 11:01 | CT_ITS ---
PROCEDURE INFORMATION: Exam: CT Pelvis Without Contrast; Skeletal Exam date and time: 08/08/2023 11:31 AM Age: 83 years old Clinical indication: Injury or trauma; Fall; Additional info: Fall, shortened lle TECHNIQUE: Imaging protocol: Computed tomography of the pelvis without contrast. Exam focused on the skeleton. Radiation optimization: All CT scans at this facility use at least one of these dose optimization techniques: automated exposure control; mA and/or kV adjustment per patient size (includes targeted exams where dose is matched to clinical indication); or iterative reconstruction. REPORTING DATA: Count of CT and Cardiac NM exams in prior 12 months: This patient has received 5 known CTs and 0 known cardiac nuclear medicine studies in the 12 months prior to the current study. COMPARISON: CT ABDOMEN PELVIS WO CON 01/05/2022 9:16 AM FINDINGS: Stomach and bowel: Colonic diverticulosis without CT evidence of diverticulitis. Bones/joints: Displaced and angulated subcapital fracture proximal left femur. No dislocation of the femoral head. Pedicle screws lower lumbar spine. Osteoarthritic changes both hips, right worse than left. Soft tissues: Unremarkable. IMPRESSION: Displaced and angulated subcapital fracture proximal left femur.
--- NOTE | 2023-08-08 11:01 | XR_ITS ---
PROCEDURE INFORMATION: Exam: XR Left Femur Exam date and time: 08/08/2023 11:34 AM Age: 83 years old Clinical indication: Injury or trauma; Fall; Blunt trauma; Thigh or upper leg; Left; Additional info: Femur lef TECHNIQUE: Imaging protocol: Radiologic exam of the left femur. Views: 2 views. COMPARISON: CR XR HIP LT 2-3V W/PELVIS 08/08/2023 11:33 AM FINDINGS: Bones/joints: Distal femur intact. Proximal femur included on hip imaging. Soft tissues: Unremarkable. Vasculature: Vascular calcifications. IMPRESSION: Distal femur intact.
--- NOTE | 2023-08-08 11:01 | XR_ITS ---
PROCEDURE INFORMATION: Exam: XR Left Hip Exam date and time: 08/08/2023 11:33 AM Age: 83 years old Clinical indication: Injury or trauma; Fall; Blunt trauma (contusions or hematomas); Left; Hip; Additional info: Fall, shortened and ex rotated TECHNIQUE: Imaging protocol: Radiologic exam of the left hip. Views: 2 or 3 views hip with pelvis when performed. COMPARISON: CT BONY PELVIS 08/08/2023 11:31 AM FINDINGS: Bones/joints: Subcapital fracture left proximal femur. Degenerative changes both hips, right worse than left. Pedicle screws L4 and L5. Soft tissues: Unremarkable. IMPRESSION: Subcapital fracture left proximal femur.
[2023-08-08 11:12] LABS: Chloride 109 mmol/L (98-107)
[2023-08-08 11:13] LABS: Potassium 4.9 mmoL/L (3.5-5.1); Sodium 140 mmol/L (136-145)
[2023-08-08 11:15] LABS: Alanine Aminotransferase 19 U/L (12-78); Alkaline Phosphatase 78 U/L (38-126); Aspartate Amino Transferase 23 U/L (17-59); Bilirubin,Total 0.4 mg/dl (0.2-1.3); Blood Urea Nitrogen 43 mg/dl (9-20); Creatinine Clearance Estimated 22 mL/min (50-200); Estimated Glomerular Filt Rate 29 ml/min (>60); GFR (African American) 35 ML/MIN (>60)
[2023-08-08 11:16] LABS: Albumin Level 3.5 g/dl (3.5-5.0); Albumin/Globulin Ratio 1.5 (1.1-1.8); Anion Gap 11.9 mEq/L (5-15); Calcium 8.5 mg/dl (8.4-10.2); Carbon Dioxide 24 mmol/L (22.0-30.0); Globulin 2.4 g/dL (1.3-3.2); Glucose 127 mg/dl (74-100); Total Protein,Serum 5.9 g/dl (6.3-8.2)
[2023-08-08 11:17] LABS: Basophils # 0.1 K/mm3 (0-0.2); Basophils % 0.5 % (0.1-2.0); Eosinophils # 0.3 K/mm3 (0.0-0.4); Eosinophils % 2.5 % (0.1-12.0); Hematocrit 38.4 % (42.0-52.0); Hemoglobin 11.7 g/dL (14.1-18.0); Lymphocytes # 1.3 K/mm3 (0.7-4.5); Lymphocytes % 10.2 % (10-50); Mean Corpuscular HGB Conc 30.4 g/dL (31.8-35.4); Mean Corpuscular Hemoglobin 27.6 pg (27.0-31.2); Mean Corpuscular Volume 90.9 fl (80-94); Mean Platelet Volume 9.2 fl (7.4-10.4); Monocytes # 0.9 K/mm3 (0.1-1.0); Monocytes % 7.3 % (1.7-9.3); Neutrophils # 9.9 K/mm3 (1.8-7.8); Neutrophils % 79.5 % (37.0-80.0); Platelet Count 185 K/mm3 (142-424); Red Blood Count 4.23 M/mm3 (4.60-6.20); Red Cell Distribution Width 13.9 % (11.5-17.5); White Blood Count 12.5 K/mm3 (4.8-10.8)
--- NOTE | 2023-08-08 11:18 | HMH.EDGENADL ---
Discharge Plan Disposition Patient Disposition: Xfer Short-Term Hosp Prescriptions Prescriptions: No Action atorvastatin 20 mg tablet 20 mg PO HS Patient Comments: TAKE 1 TABLET BY MOUTH AT BEDTIME hydrocodone-acetaminophen 5-325 mg tablet 1 tab PO BIDP PRN (Reason: Pain) clonidine HCl 0.3 mg tablet 0.3 mg PO BID clopidogrel 75 mg tablet 75 mg PO DAILY carvedilol 3.125 mg tablet 3.125 mg PO BID Patient Comments: TAKE 1 TABLET BY MOUTH TWICE DAILY isosorbide mononitrate 60 mg tablet extended release 24 hr 60 mg PO DAILY Patient Comments: TAKE 1 TABLET BY MOUTH ONCE DAILY IN THE MORNING alprazolam 0.25 mg tablet 0.25 mg PO DAILY amlodipine 10 mg tablet 10 mg PO DAILY ferrous sulfate [FeroSul] 325 mg (65 mg iron) tablet 325 mg PO BID Patient Comments: TAKE 1 TABLET BY MOUTH TWICE DAILY aspirin 81 mg Tablet,Chewable 81 mg PO DAILY hydralazine 50 mg tablet 50 mg PO Q6HP PRN (Reason: Anxiety) gabapentin 100 mg capsule 100 mg PO TID losartan 100 mg tablet 100 mg PO DAILY escitalopram oxalate 10 mg tablet 10 mg PO DAILY Patient Comments: TAKE 1 TABLET BY MOUTH ONCE DAILY Referrals Follow up/Referrals: Asif Kirk MD [Primary Care Provider] - See instructions Clinical Impressions Clinical Impression: TRACIE (acute kidney injury), Bradycardia Closed subcapital fracture of left femur Qualifiers: Encounter type: initial encounter Qualified Code(s): S72.012A - Unspecified intracapsular fracture of left femur, initial encounter for closed fracture Stand Alone Forms Stand Alone Forms: Transfer Record - ED Discharge ED Provider: Tong Pastrana General Adult HPI General Chief complaint: Fall Stated complaint: Lethargy, Pain Time Seen by Provider: 08/08/23 10:40 Mode of Arrival: EMS Source of Information: Patient and EMS Limitations: No Limitations Description of Symptoms (Recalled from ER Triage Doc. by RN): Per EMS patient got up yesterday and felt swimmy headed and fell injuring his left hip and leg. States he has been having issues with dizziness for approx 1 week. Denies LOC. History of Present Illness HPI narrative: 83-year-old male with history of hypertension, hyperlipidemia, type 2 diabetes, CKD, COPD not on home oxygen, CHF, frequent falls, chronic debility presenting with fall. Patient states that on 08/07 around 8 PM, he fell in the kitchen after tripping. Has not been able to bear weight since after landing on his left hip. Has significant hip lateral/anterior left hip near groin. Hip pain is severe, made worse with motion, does not radiate. Denies numbness, weakness, tingling, but has had midline back pain since that time as well. States he did hit his head, does not think he lost consciousness. He is on blood thinners, but cannot remember which ones. Patient took 2 Percocets prior to coming in today. Related Data Home Medications Medication Instructions Recorded Confirmed alprazolam 0.25 mg tablet 0.25 mg PO DAILY Anxiety 03/16/23 03/16/23 amlodipine 10 mg tablet 10 mg PO DAILY High blood pressure 03/16/23 03/16/23 aspirin 81 mg chewable tablet 81 mg PO DAILY Heart health 03/16/23 03/16/23 atorvastatin 20 mg tablet 20 mg PO HS Cholesterol 03/16/23 03/16/23 carvedilol 3.125 mg tablet 3.125 mg PO BID Heart rhythm 03/16/23 03/16/23 clonidine HCl 0.3 mg tablet 0.3 mg PO BID High blood pressure 03/16/23 03/16/23 clopidogrel 75 mg tablet 75 mg PO DAILY Blood thinner 03/16/23 03/16/23 escitalopram oxalate 10 mg tablet 10 mg PO DAILY Mood 03/16/23 03/16/23 ferrous sulfate 325 mg (65 mg 325 mg PO BID Supplement 03/16/23 03/16/23 iron) tablet (FeroSul) gabapentin 100 mg capsule 100 mg PO TID Pain 03/16/23 03/16/23 hydralazine 50 mg tablet 50 mg PO Q6HP PRN Anxiety 03/16/23 03/16/23 hydrocodone 5 mg-acetaminophen 325 1 tab PO BIDP PRN Pain 03/16/23 03/16/23 mg tablet isosorbide mononit
--- NOTE | 2023-08-08 11:21 | PC.NURSE ---
Pt gone to [facility] via stretcher
--- NOTE | 2023-08-08 11:26 | PC.NURSE ---
C-collar applied per Dr. Pastrana
[2023-08-08 11:27] LABS: Troponin I 0.02 ng/ml (0.00-0.034)
[2023-08-08 11:51] VITALS: BP 113/46; PULSE 78; O2SAT 90
[2023-08-08 11:52] LABS: Activated Partial Thrombo Time 27.4 seconds (22.8-30.6); INR 1.06 (0.9-1.1); Prothrombin Time 11.4 seconds (10.1-12.5)
--- NOTE | 2023-08-08 11:54 | PC.NURSE ---
Pt returned from RAD
[2023-08-08 12:00] VITALS: BP 138/55; PULSE 72; RESP 15; O2SAT 91
--- NOTE | 2023-08-08 12:05 | PC.NURSE ---
Dr. Pastrana speaking with Dr. Joseph at
--- NOTE | 2023-08-08 12:11 | PC.NURSE ---
Pt accepted to [facility] by Dr. Joseph
--- NOTE | 2023-08-08 12:19 | PC.NURSE ---
Report given to Raphael at ER.
--- NOTE | 2023-08-08 12:24 | PC.NURSE ---
Dr. Pastrana at [facility] to update pt/family on POC
[2023-08-08 12:31] VITALS: BP 140/58; PULSE 69; RESP 17; O2SAT 96
[2023-08-08 12:52] VITALS: BP 140/58; PULSE 69; RESP 17; TEMP 36.3; O2SAT 96
== END 2023-08-08 12:53 | disposition short-term general hospital (02) ==
PROVIDERS: Emergency Provider Emergency Medicine; PCP Internal Medicine Adolescent Medicine
DX: N17.9 Acute kidney failure, unspecified (principal); S72.012A Unspecified intracapsular fracture of left femur, initial encounter for closed fracture; R00.1 Bradycardia, unspecified; I13.0 Hypertensive heart and chronic kidney disease with heart failure and stage 1 through stage 4 chronic kidney disease, or unspecified chronic kidney disease; I50.9 Heart failure, unspecified; N18.9 Chronic kidney disease, unspecified; E11.22 Type 2 diabetes mellitus with diabetic chronic kidney disease; J44.9 Chronic obstructive pulmonary disease, unspecified; E78.5 Hyperlipidemia, unspecified; R29.6 Repeated falls; W01.0XXA Fall on same level from slipping, tripping and stumbling without subsequent striking against object, initial encounter
CPT/HCPCS: 70450; 71045; 72125; 72128; 72131; 72192; 73502; 73552; 80053; 84484; 85025; 85610; 85730; 93005; 99285

== ENCOUNTER → 2023-08-15 21:39 | Outpatient (CLI) | payer MEDICARE, SELFPAY ==
--- OUTSIDE RECORDS SUMMARY | 2023-08-15 21:42 | XMS_ITS | Clinical Summary ---
Author Name Unknown Address [address] [place] [address] Phone Organization [facility] Address [address] [place] [address] Phone Care Team Providers Care Planer Off Bearer Name Role Phone Jeffery SAAVEDRA, Ming Vee [ ] Conditions or Problems Problem Name Problem Code Onset Date Status Entry Date Provider Comment Standard Description Annotate Acute on chronic respiratory failure with hypoxia 45383938 (SNOMED CT) 01/10 Active 01/10 Neeru L Acute respiratory failure Coronary artery disease, S/P CABG 392828273 (SNOMED CT) 01/10 Active 01/10 Neeru L Arteriosclerosis of coronary artery bypass graft Benign Essential Hypertension 5169815 (SNOMED CT) 01/10 Active 01/10 Neeru L Benign essential hypertension E coli Pneumonia 81361343 (SNOMED CT) 01/10 Active 01/10 Neeru L Pneumonia due to Escherichia coli ESBL infection Z16.12 (ICD-10-CM ) 01/10 Active 01/10 Neeru L Extended
--- OUTSIDE RECORDS SUMMARY | 2023-08-15 21:43 | XMS_ITS | Continuity of Care Document ---
Author Name Unknown Address [address] [place] [address] [phone] Organization [facility] Phone Care Team Providers Care Mental Health Specialist Name Role Phone SADI ANNE Admitting SADI ANNE Primary Care SADI ANNE Primary Attending [phone] SADI ANNE Unavailable ALLERGIES AND ADVERSE REACTIONS ALLERGIES AND ADVERSE REACTIONS Code System Allergy Substance Adverse Reaction Date Reaction (Severity) Comment Status Reported By Updated By No Known Allergies RESULTS Patient: ARMANI SCHILLING Date of : 1940 LABORATORY RESULTS ORDER 200: CBC AUTO W DIFF ( LOINC: 71829-9) ORDER DATE: June 22, 2023 6:23:00 PM UTC Specimen Source: Whole Blood PERFORMING LAB: [address] [id number] Result Comment: Final Result Date: June 22, 2023 6:28:00 PM UTC (TECH: TH) LOINC TEST FLAG RESULT REFERENCE RANGE UPDA JOSEPH BY 6690-2 Leukocytes [#/volume] in Blood by Automated count N 11.2 10^3/uL 4.5 10^3/uL - 11.5 10^3/uL June 22, 2023 6:28:00 PM UTC (TECH: TH) 789-8 Erythrocytes [#/volume] in Blood by Automated count N 4.25 10^6/uL 4.25 10^6/uL - 5.57 10^6/uL June 22, 2023 6:28:00 PM UTC (TECH: TH) 718-7 Hemoglobin [Mass/volume] in Blood L 12.0
--- OUTSIDE RECORDS SUMMARY | 2023-08-15 21:43 | XMS_ITS | Continuity of Care Document ---
Author Name Unknown Address [address] [place] [address] [phone] Organization [facility] Phone Care Team Providers Care [employer] Name Role Phone SADI ANNE Admitting SADI ANNE Primary Care SADI ANNE Primary Attending SADI ANNE Unavailable ALLERGIES AND ADVERSE REACTIONS ALLERGIES AND ADVERSE REACTIONS Code System Allergy Substance Adverse Reaction Date Reaction (Severity) Comment Status Reported By Updated By No Known Allergies RESULTS Patient: ARMANI SCHILLING Date of : 1940 LABORATORY RESULTS ORDER 200: CBC AUTO W DIFF ( LOINC: 38962-5) ORDER DATE: June 22, 2023 6:23:00 PM UTC Specimen Source: Whole Blood PERFORMING LAB: [address] [id number] Result Comment: Final Result Date: June 22, 2023 6:28:00 PM UTC (TECH: TH) LOINC TEST FLAG RESULT REFERENCE RANGE UPDA JOSEPH BY 6690-2 Leukocytes [#/volume ] in Blood by Automated count N 11.2 10^3/uL 4.5 10^3/uL - 11.5 10^3/uL June 22, 2023 6:28:00 PM UTC (TECH: TH) 789-8 Erythrocytes [#/volu me] in Blood by Automated count N 4.25 10^6/uL 4.25 10^6/uL - 5.57 10^6/uL June 22, 2023 6:28:00 PM UTC (TECH: TH) 718-7 Hemoglobin [Mass/volume] in Blood L
[2023-08-15 22:27] LABS: Chloride 104 mmol/L (98-107); Potassium 4.5 mmoL/L (3.5-5.1); Sodium 140 mmol/L (136-145)
[2023-08-15 22:30] LABS: Blood Urea Nitrogen 33 mg/dl (9-20); Estimated Glomerular Filt Rate 53 ml/min (>60); GFR (African American) 64 ML/MIN (>60)
[2023-08-15 22:31] LABS: Anion Gap 9.5 mEq/L (5-15); Basophils # 0.1 K/mm3 (0-0.2); Basophils % 0.4 % (0.1-2.0); Calcium 8.6 mg/dl (8.4-10.2); Carbon Dioxide 31 mmol/L (22.0-30.0); Eosinophils # 0.6 K/mm3 (0.0-0.4); Eosinophils % 5.4 % (0.1-12.0); Glucose 129 mg/dl (74-100); Hematocrit 30.4 % (42.0-52.0); Hemoglobin 9.6 g/dL (14.1-18.0); Lymphocytes # 1.4 K/mm3 (0.7-4.5); Lymphocytes % 12.2 % (10-50); Mean Corpuscular HGB Conc 31.5 g/dL (31.8-35.4); Mean Corpuscular Hemoglobin 27.8 pg (27.0-31.2); Mean Corpuscular Volume 88.2 fl (80-94); Mean Platelet Volume 10.3 fl (7.4-10.4); Monocytes # 0.8 K/mm3 (0.1-1.0); Monocytes % 7.1 % (1.7-9.3); Neutrophils # 8.8 K/mm3 (1.8-7.8); Platelet Count 314 K/mm3 (142-424); Red Blood Count 3.45 M/mm3 (4.60-6.20); Red Cell Distribution Width 13.9 % (11.5-17.5); White Blood Count 11.8 K/mm3 (4.8-10.8)
== END ==
PROVIDERS: PCP Internal Medicine Adolescent Medicine; Visit Provider Internal Medicine Adolescent Medicine
DX: Z01.812 Encounter for preprocedural laboratory examination (principal); D72.829 Elevated white blood cell count, unspecified; R71.8 Other abnormality of red blood cells
CPT/HCPCS: 80048; 85025

== ENCOUNTER 2024-01-20 09:55 | Outpatient (CLI) | payer MEDICARE, SELFPAY ==
[2024-01-20 10:20] VITALS: BP 129/52; PULSE 59; RESP 16; O2SAT 93
[2024-01-20] MEDS: IRON SUCROSE COMPLEX 200 MG in 0.9 % SODIUM CHLORIDE 100 ML 220 MG IV (10:20)
[2024-01-20 10:55] VITALS: BP 134/49; PULSE 63; RESP 16
[2024-01-20] MEDS: SODIUM CHLORIDE 0.9% 50ML BAG 50 ML IV (11:15)
== END 2024-01-20 11:10 | disposition home or self-care (01) ==
LOC: INF 09:56
PROVIDERS: PCP Internal Medicine Adolescent Medicine; Visit Provider Internal Medicine Adolescent Medicine
DX: D50.8 Other iron deficiency anemias (principal)
CPT/HCPCS: 96365; J1756

== ENCOUNTER 2024-01-27 09:07 | Outpatient (CLI) | payer MEDICARE, SELFPAY ==
[2024-01-27 09:45] VITALS: BP 142/78; PULSE 59; RESP 18; TEMP 36.8; O2SAT 96
[2024-01-27] MEDS: SODIUM CHLORIDE 0.9% 10ML FLUSH SYRINGE 10 ML IV (09:45)
[2024-01-27] MEDS: 0.9 % SODIUM CHLORIDE 50 ML 100 ML IV (09:45)
[2024-01-27] MEDS: IRON SUCROSE COMPLEX 200 MG in 0.9 % SODIUM CHLORIDE 100 ML 220 MG IV (09:45)
[2024-01-27 10:15] VITALS: BP 135/51; PULSE 55; O2SAT 99
== END 2024-01-27 10:20 | disposition home or self-care (01) ==
LOC: INF 09:08
PROVIDERS: PCP Internal Medicine Adolescent Medicine; Visit Provider Internal Medicine Adolescent Medicine
DX: D50.8 Other iron deficiency anemias (principal)
CPT/HCPCS: 96365; J1756

== ENCOUNTER 2024-02-03 13:40 | Outpatient (CLI) | payer MEDICARE, SELFPAY ==
[2024-02-03 14:00] VITALS: BP 157/64; PULSE 62; RESP 16; TEMP 36.5; O2SAT 95
[2024-02-03] MEDS: SODIUM CHLORIDE 0.9% 50ML BAG 50 ML IV (14:19)
[2024-02-03] MEDS: SODIUM CHLORIDE 0.9% 10ML FLUSH SYRINGE 10 ML IV (14:20)
[2024-02-03 15:06] VITALS: BP 155/64; PULSE 66; RESP 16; O2SAT 99
== END 2024-02-03 15:08 | disposition home or self-care (01) ==
PROVIDERS: PCP Internal Medicine Adolescent Medicine; Visit Provider Internal Medicine Adolescent Medicine
DX: D50.8 Other iron deficiency anemias (principal)
CPT/HCPCS: 96365

== ENCOUNTER 2024-02-10 09:50 | Outpatient (CLI) | payer MEDICARE, SELFPAY ==
[2024-02-10] MEDS: IRON SUCROSE COMPLEX 200 MG in 0.9 % SODIUM CHLORIDE 100 ML 220 MG IV (10:08)
[2024-02-10] MEDS: SODIUM CHLORIDE 0.9% 50ML BAG 50 ML IV (10:09)
[2024-02-10 10:16] VITALS: BP 131/64; PULSE 66; RESP 18; O2SAT 97
[2024-02-10 10:45] VITALS: BP 137/63; PULSE 63
== END 2024-02-10 10:50 | disposition home or self-care (01) ==
LOC: INF 09:51
PROVIDERS: PCP Internal Medicine Adolescent Medicine; Visit Provider Internal Medicine Adolescent Medicine
DX: D50.9 Iron deficiency anemia, unspecified (principal)
CPT/HCPCS: 96365; J1756

== ENCOUNTER 2024-02-17 10:13 | Outpatient (CLI) | payer MEDICARE, SELFPAY ==
[2024-02-17] MEDS: IRON SUCROSE COMPLEX 200 MG in 0.9 % SODIUM CHLORIDE 100 ML 220 MG IV (10:34)
[2024-02-17] MEDS: SODIUM CHLORIDE 0.9% 50ML BAG 50 ML IV (10:34)
[2024-02-17 10:40] VITALS: BP 116/53; PULSE 58; RESP 16; O2SAT 95
[2024-02-17 11:10] VITALS: BP 107/59; PULSE 61; RESP 16; O2SAT 95
== END 2024-02-17 11:21 | disposition home or self-care (01) ==
PROVIDERS: PCP Internal Medicine Adolescent Medicine; Visit Provider Internal Medicine Adolescent Medicine
DX: D50.8 Other iron deficiency anemias (principal)
CPT/HCPCS: 96365; J1756

== ENCOUNTER 2024-07-17 18:51 | Inpatient (IN) | payer MEDICARE, SELFPAY ==
[2024-07-17] VITALS (10 sets, daily range): BP systolic 130–146; BP diastolic 60–69; PULSE 58–73; RESP 18–21; TEMP 36.8–37.2; O2SAT 91–97; BMI 19.5
--- NOTE | 2024-07-17 18:55 | ECG_ITS ---
APPROVED REPORT Exam: Resting ECG HR:71 bpm ECG Measurements Heart Rate 71 AXES LA 180 P 41 QRSd 105 QRS 23 QT 388 T 82 QTc 411 Conclusion SINUS RHYTHM WITH SINUS ARRHYTHMIA NONSPECIFIC T-WAVE ABNORMALITY BORDERLINE ECG Electronically signed by : GUSTAVO BOYER, 07/17/2024 22:07:32
--- NOTE | 2024-07-17 19:01 | ED_ITS ---
Discharge Plan Disposition Patient Disposition: Home, Self-Care Chief Complaint: Upper Respiratory Infection Prescriptions Prescriptions: No Action atorvastatin 20 mg tablet 20 mg PO HS Patient Comments: TAKE 1 TABLET BY MOUTH AT BEDTIME hydrocodone-acetaminophen 5-325 mg tablet 1 tab PO BIDP PRN (Reason: Pain) clonidine HCl 0.3 mg tablet 0.3 mg PO BID clopidogrel 75 mg tablet 75 mg PO DAILY carvedilol 3.125 mg tablet 3.125 mg PO BID Patient Comments: TAKE 1 TABLET BY MOUTH TWICE DAILY isosorbide mononitrate 60 mg tablet extended release 24 hr 60 mg PO DAILY Patient Comments: TAKE 1 TABLET BY MOUTH ONCE DAILY IN THE MORNING alprazolam 0.25 mg tablet 0.25 mg PO DAILY amlodipine 10 mg tablet 10 mg PO DAILY ferrous sulfate [FeroSul] 325 mg (65 mg iron) tablet 325 mg PO BID Patient Comments: TAKE 1 TABLET BY MOUTH TWICE DAILY aspirin 81 mg Tablet,Chewable 81 mg PO DAILY hydralazine 50 mg tablet 50 mg PO Q6HP PRN (Reason: Anxiety) gabapentin 100 mg capsule 100 mg PO TID losartan 100 mg tablet 100 mg PO DAILY escitalopram oxalate 10 mg tablet 10 mg PO DAILY Patient Comments: TAKE 1 TABLET BY MOUTH ONCE DAILY Referrals Follow up/Referrals: Asif Kirk MD [Primary Care Provider] - See instructions Clinical Impressions Clinical Impression: Pneumonia, Acute exacerbation of chronic obstructive pulmonary disease Print Language Print Language: Guamanian Discharge ED Provider: Roman Fuchs HPI General Chief Complaint: Upper Respiratory Infection Stated Complaint: coughing/weakness Time Seen by Provider: 07/17/24 19:00 History of Present Illness HPI narrative: Patient is a 84-year-old male with past medical history of COPD on 2 to 3 L nasal cannula at baseline, hypertension, coronary artery disease status post bypass graft, diabetes who presents emergency department for evaluation of cough shortness of breath. Onset was acute, over the last 72 to 96 hours. Patient has had cough, shortness of breath throughout the course, there is associated soreness of his chest throughout when he coughs, no resting chest pain. No vomiting. No other acute complaints at this time. Patient has good support system at home and has been doing DuoNebs and incentive spirometer for which symptoms have been refractory. Patient has had to be intubated with pneumonia before. Related Data Home Medications ?Medication ?Instructions ?Recorded ?Confirmed alprazolam 0.25 mg tablet 0.25 mg PO DAILY Anxiety 03/16/23 02/17/24 amlodipine 10 mg tablet 10 mg PO DAILY High blood pressure 03/16/23 02/17/24 aspirin 81 mg chewable tablet 81 mg PO DAILY Heart health 03/16/23 02/17/24 atorvastatin 20 mg tablet 20 mg PO HS Cholesterol 03/16/23 02/17/24 carvedilol 3.125 mg tablet 3.125 mg PO BID Heart rhythm 03/16/23 02/17/24 clonidine HCl 0.3 mg tablet 0.3 mg PO BID High blood pressure 03/16/23 02/17/24 clopidogrel 75 mg tablet 75 mg PO DAILY Blood thinner 03/16/23 02/17/24 escitalopram oxalate 10 mg tablet 10 mg PO DAILY Mood 03/16/23 02/17/24 ferrous sulfate 325 mg (65 mg 325 mg PO BID Supplement 03/16/23 02/17/24 iron) tablet (FeroSul) gabapentin 100 mg capsule 100 mg PO TID Pain 03/16/23 02/17/24 hydralazine 50 mg tablet 50 mg PO Q6HP PRN Anxiety 03/16/23 02/17/24 hydrocodone 5 mg-acetaminophen 325 1 tab PO BIDP PRN Pain 03/16/23 02/17/24 mg tablet isosorbide mononitrate 60 mg 60 mg PO DAILY High blood pressure 03/16/23 02/17/24 tablet,extended release 24 hr losartan 100 mg tablet 100 mg PO DAILY High blood pressure 03/16/23 02/17/24 Allergies Allergy/AdvReac Type Severity Reaction Status Date / Time No Known Allergies Allergy Verified 02/03/24 14:23 [facility] Disclaimer: The information contained in this section may have been updated after the patient was seen, as this information can be updated by other users. Medical History (Updated 07/17/24 @ 22:01 by Roman Fuchs MD) Skin cancer Non-STEMI (non-ST elevated myocardial infarction) Emphysema lung CAD (coronary artery disease) CHF (congestive heart failure) PVD (peripheral vascular disease) Diabetes type 2, controlled Anxiety Hyperlipidemia Iron deficiency anemia Hypertension Surgical History History of esophagogastroduodenoscopy (EGD) Hx of colonoscopy Stented coronary artery History of cardiac cath Hx of CABG Social History Smoking Status: Former smoker tobacco type: cigarettes packs per day: 1 second hand exposure: No alcohol intake: never current occupational status: retired Travel in the last 8 weeks: None household members: spouse housing: house current occupational exposures/hazards: No caffeine: Yes ROS Obtained: Yes Systems reviewed as appropriate & no additional complaints except as documented Physical Exam General General appearance: alert and in no apparent distress Head Head exam: atraumatic and normocephalic Eye Eye exam: Present PERRL and EOMI ENT ENT exam: Present mucous membranes moist Neck Neck exam: Present normal inspection Chest Chest inspection: Present normal inspection and symmetric chest wall rise Respiratory Respiratory exam: Present respiratory distress (Slight tachypnea) and wheezes (Expiratory phase, global) Cardiovascular Cardiovascular exam: Present regular rate and normal rhythm Abdominal Exam Abdominal exam: Present soft; Absent tenderness Extremities Exam Extremities exam: Present normal inspection Neurological Exam Neurological exam: Present alert Psychiatric Psychiatric exam: Present normal affect Skin Skin exam: Present warm and dry HEART Score HEART Score HEART Score assessment performed?: Yes History (anamnesis): Slightly suspicious ECG: Normal Age: >65 years Risk factors: 3 or more risk factors Troponin: </= normal limit HEART Score: 4 Critical Care Critical Care Time Critical Care Time: Yes Attestation: On 07/17/24, the high probability of a clinically significant, sudden or life threatening deterioration of the following system(s) required my full and direct attention, intervention and personal management. The time I documented below is in addition to time spent performing reported procedures but includes the following listed in this critical care notation. Total Time Total Critical Care Time: 40 Medical Decision Making John Inquiry Pt receiving controlled substance: No Vital Signs Vital Signs: 07/17/24 18:51 07/17/24 19:02 07/17/24 19:31 Temperature 98.9 F Temperature Source Oral Pulse Rate 69 63 Pulse Rate [Left Radial] 73 Respiratory Rate 19 Blood Pressure 138/67 144/69 H Blood Pressure [Right Arm] 136/68 Blood Pressure Mean [Right Arm] 90 02 Sat by Pulse Oximetry 94 L 94 L 97 Oxygen Delivery Method Nasal Cannula Room Air Oxygen Flow Rate (LPM) 2 07/17/24 20:00 07/17/24 20:30 07/17/24 21:00 Temperature Temperature Source Pulse Rate 58 L 58 L 63 Pulse Rate [Left Radial] Respiratory Rate Blood Pressure 146/69 H 134/62 134/65 Blood Pressure [Right Arm] Blood Pressure Mean [Right Arm] 02 Sat by Pulse Oximetry 94 L 92 L 91 L Oxygen Delivery Method Oxygen Flow Rate (LPM) Lab Data Labs: Lab Results 07/17/24 19:01: WBC 12.2 H, RBC 4.64, Hgb 13.4 L, Hct 44.0, MCV 94.8 H, MCH 28.9, MCHC 30.5 L, RDW 13.9, Plt Count 239, MPV 9.0, Neut % (Auto) 78.7, Lymph % (Auto) 9.3 L, Person % (Auto) 8.1, Eos % (Auto) 3.3, Baso % (Auto) 0.6, Neut # (Auto) 9.6 H, Lymph # (Auto) 1.1, Person # (Auto) 1.0, Eos # (Auto) 0.4, Baso # (Auto) 0.1, Sodium 141, Potassium 4.2, Chloride 106, Carbon Dioxide 31 H, Anion Gap 8.2, BUN 22 H, Creatinine 1.40 H, Estimated Creat Clear 35, Estimated GFR 48 L, Est GFR ( Amer) 58 L, Glucose 143 H, Calcium 8.4, Total Bilirubin 0.5, AST 24, ALT 18, Alkaline Phosphatase 76, Troponin I 0.01, Total Protein 6.3, A lbumin 3.3 L, Globulin 3.0, Albumin/Globulin Ratio 1.1 07/17/24 19:07: VBG pH 7.39, VBG pCO2 47.3, VBG pO2 93.8 H, VBG HCO3 27.9, VBG Total CO2 29.4 H, VBG O2 Saturation 97.5 H, VBG Base Excess 2.9 H, VBG Lactic Acid 1.6 07/17/24 19:01 07/17/24 19:01 Response Orders (Tests/Meds): ED MEDICATIONS Discontinued Medications Generic Name Dose Route Start Last Admin Trade Name Freq PRN Reason Stop Dose Admin Albuterol/Ipratropium 9 ml 07/17/24 19:07 07/17/24 19:15 Ipratropium/Albuterol 3 Ml Neb IH 07/17/24 19:08 9 ml ONCE ONE Administration Azithromycin 500 mg 07/17/24 19:07 07/17/24 19:16 Azithromycin 250mg Tablet PO 07/17/24 19:08 500 mg ONCE ONE Administration Magnesium Sulfate 2 gm in 50 mls @ 50 mls/hr 07/17/24 19:07 07/17/24 19:15 Magnesium Sulfate 2gm/50ml Premix IV 07/17/24 20:06 50 mls/hr ONCE ONE Administration Ceftriaxone Sodium 1 gm/ 50 mls @ 100 mls/hr 07/17/24 21:11 07/17/24 21:17 Sodium Chloride IV 07/17/24 21:40 100 mls/hr ONCE ONE Administration Methylprednisolone Sodium Succinate 125 mg 07/17/24 19:07 07/17/24 19:15 Methylprednisolone Sod Succ 125mg Vial IV 07/17/24 19:08 125 mg ONCE ONE Administration ORDERS Category Date Time Status CXR 2 view (NOT portable) [XR chest 2V] Stat Exams 07/17/24 19:07 Completed CBC w/Auto Diff [Complete Blood Count Auto Diff] Stat Lab 07/17/24 19:01 Completed CMP [Comprehensive Metabolic Panel] Stat Lab 07/17/24 19:01 Completed Trop I [Troponin I] Stat Lab 07/17/24 19:01 Completed Troponin I Q3H Lab 07/17/24 22:15 Ordered Troponin I Q3H Lab 07/18/24 01:15 Ordered VBG [Venous Blood Gas] Stat RT 07/17/24 19:07 Completed ECG Data Tracing #1: ECG Narrative: Independently interpreted by me rate of 71, rhythm is regular, axis normal, no ST elevation in anatomical contiguous leads, QTc 411 MDM Narrative Medical Decision Narrative: In summary patient is 84-year-old male past medical history described above who presents emergency department for evaluation of shortness of breath and cough in the setting of COPD on oxygen at baseline. Patient is hemodynamically stable nontoxic-appearing upon arrival, afebrile. Patient is at his baseline oxygen requirement saturating in the mid 90s. He does have expiratory phase wheezing. Differential diagnosis includes COPD exacerbation, pneumonia, among others. With respect to chest pain single troponin will be obtained however it sounds mechanical in nature from his cough. Workup will be conducted with hematologic labs, chest x-ray, EKG, troponin. Initial inventions include DuoNePerformable x 3, methylprednisolone, azithromycin, IV magnesium. Workup reviewed by me, hematologic labs remarkable for white blood cell count 12.2, compensated acid- base status. Chest x-ray informally interpreted by me, left lower lobe pneumonia for which ceftriaxone will be added. Patient does not meet sepsis criteria currently with isolated leukocytosis and aggressive volume resuscitation will be deferred given that he appears euvolemic. Case discussed with hospital medicine regarding management they agree patient will benefit from continued evaluation at this time given pneumonia and age. Patient admitted in stable condition.
--- NOTE | 2024-07-17 19:07 | XR_ITS ---
PROCEDURE INFORMATION: Exam: XR Chest Exam date and time: 07/17/2024 7:40 PM Age: 84 years old Clinical indication: Cough; Additional info: Copd cough TECHNIQUE: Imaging protocol: Radiologic exam of the chest. Views: 2 views. COMPARISON: CR XR CHEST PORTABLE 08/08/2023 11:31 AM FINDINGS: Lungs: Left lower lobe consolidative opacities. Pleural spaces: No pleural effusion. No pneumothorax. Heart/Mediastinum: Postsurgical changes of CABG. Calcified atherosclerotic changes of the thoracic aorta. No cardiomegaly. Bones/joints: Median sternotomy. IMPRESSION: Left lower lobe consolidative opacities suspicious for pneumonia.
[2024-07-17 19:14] LABS: Basophils # 0.1 K/mm3 (0-0.2); Basophils % 0.6 % (0.1-2.0); Eosinophils # 0.4 K/mm3 (0.0-0.4); Eosinophils % 3.3 % (0.1-12.0); Hemoglobin 13.4 g/dL (14.1-18.0); Lymphocytes # 1.1 K/mm3 (0.7-4.5); Lymphocytes % 9.3 % (10-50); Mean Corpuscular HGB Conc 30.5 g/dL (31.8-35.4); Mean Corpuscular Hemoglobin 28.9 pg (27.0-31.2); Mean Corpuscular Volume 94.8 fl (80-94); Monocytes % 8.1 % (1.7-9.3); Neutrophils # 9.6 K/mm3 (1.8-7.8); Neutrophils % 78.7 % (37.0-80.0); Platelet Count 239 K/mm3 (142-424); Red Blood Count 4.64 M/mm3 (4.60-6.20); Red Cell Distribution Width 13.9 % (11.5-17.5); White Blood Count 12.2 K/mm3 (4.8-10.8)
[2024-07-17] MEDS: METHYLPREDNISOLONE SOD SUCC 125MG VIAL 125 MG IV (19:15)
[2024-07-17] MEDS: MAGNESIUM SULFATE IN WATER 2 GM/50 ML PIGGYBACK IV (19:15)
[2024-07-17] MEDS: IPRATROPIUM/ALBUTEROL 3 ML NEB 9 ML IH (19:15)
[2024-07-17] MEDS: AZITHROMYCIN 250MG TABLET 500 MG PO (19:16)
[2024-07-17 19:28] LABS: Lactate Venous 1.6 mmol/L (0.4-2.0); VBG Base Excess 2.9 mmol/L (-2.4-2.3); VBG HCO3 27.9 mmol/L (23-30); VBG Oxygen Saturation 97.5 % (50-70); VBG PCO2 47.3 mmol/L (35-51); VBG PH 7.39 mmol/L (7.31-7.41); VBG PO2 93.8 mmol/L (28-40); VBG Total CO2 29.4 mmol/L (23-27)
--- NOTE | 2024-07-17 21:11 | PC.NURSE ---
Rounded on patient at this time patient is sleeping, family member at bedside.
[2024-07-17] MEDS: CEFTRIAXONE 1 GM 1 GM in 0.9 % SODIUM CHLORIDE 50 ML IV (21:17)
--- NOTE | 2024-07-17 21:32 | PC.NURSE ---
contacted lab to find out if they were needing additional blood and spoke with benson. Benson stated she would check on it and find out why the troponin/cmp hadn't resulted numbers yet.
[2024-07-17 21:37] LABS: Albumin Level 3.3 g/dl (3.5-5.0); Chloride 106 mmol/L (98-107); Potassium 4.2 mmoL/L (3.5-5.1); Sodium 141 mmol/L (136-145)
[2024-07-17 21:39] LABS: Blood Urea Nitrogen 22 mg/dl (9-20); Creatinine Clearance Estimated 35 mL/min (50-200); Estimated Glomerular Filt Rate 48 ml/min (>60); GFR (African American) 58 ML/MIN (>60)
[2024-07-17 21:40] LABS: Alanine Aminotransferase 18 U/L (12-78); Albumin/Globulin Ratio 1.1 (1.1-1.8); Alkaline Phosphatase 76 U/L (38-126); Anion Gap 8.2 mEq/L (5-15); Aspartate Amino Transferase 24 U/L (17-59); Bilirubin,Total 0.5 mg/dl (0.2-1.3); Calcium 8.4 mg/dl (8.4-10.2); Carbon Dioxide 31 mmol/L (22.0-30.0); Glucose 143 mg/dl (74-100); Total Protein,Serum 6.3 g/dl (6.3-8.2)
[2024-07-17 21:58] LABS: Troponin I 0.01 ng/ml (0.00-0.034)
--- NOTE | 2024-07-17 22:01 | PC.NURSE ---
Notified House of admission, Dx: Left lobe pneumonia admitted to hospitalist.
--- NOTE | 2024-07-17 22:02 | EXP.HP ---
History of Present Illness *Admission Date: 07/17/24 *Reason for visit:: SOB *History of present illness: This is a 84-year-old male with PMHx of COPD on 2 to 3 L nasal cannula at baseline, hypertension, coronary artery disease status post bypass graft, controlled NIDDM who presented to ED for evaluation of cough and shortness of breath started over the last 72 to 96 hours. Patient has had cough, shortness of breath throughout the course, there is associated soreness of his chest throughout when he coughs, no resting chest pain. No vomiting. No other acute complaints at this time. Patient has good support system at home and has been doing DuoNebs and incentive spirometer for which symptoms have been refractory. Patient has had to be intubated with pneumonia before. Admitted for further monitoring and treatment. [facility] Disclaimer: The information contained in this section may have been updated after the patient was seen, as this information can be updated by other users. Medical History (Updated 07/18/24 @ 06:19 by Delvis Vega APRN) Abdominal aneurysm Skin cancer Non-STEMI (non-ST elevated myocardial infarction) Emphysema lung CAD (coronary artery disease) CHF (congestive heart failure) PVD (peripheral vascular disease) Diabetes type 2, controlled Anxiety Hyperlipidemia Iron deficiency anemia Hypertension Surgical History (Updated 07/17/24 @ 23:32 by Tiffany Morales RN) History of lumbar surgery History of esophagogastroduodenoscopy (EGD) Hx of colonoscopy Stented coronary artery History of cardiac cath Hx of CABG Family History (Updated 07/17/24 @ 23:32 by Tiffany Morales RN) Other No significant family history Social History (Updated 07/17/24 @ 23:13 by Tiffany Morales RN) Smoking Status: Former smoker tobacco type: cigarettes packs per day: 1 second hand exposure: No alcohol intake: never current occupational status: retired Travel in the last 8 weeks: None household members: spouse housing: house current occupational exposures/hazards: No caffeine: Yes Review of Systems Review of Systems Review of systems:: pertinent systems reviewed and negative unless documented below Meds Home Medications and Allergies Home Medications ?Medication ?Instructions ?Recorded ?Confirmed ?Type alprazolam 0.25 mg tablet 0.25 mg PO DAILY Anxiety 03/16/23 07/17/24 History amlodipine 10 mg tablet 5 mg PO DAILY High blood pressure 03/16/23 07/17/24 History aspirin 81 mg chewable tablet 81 mg PO DAILY Heart health 03/16/23 07/17/24 History atorvastatin 20 mg tablet 20 mg PO HS Cholesterol 03/16/23 07/17/24 History carvedilol 3.125 mg tablet 3.125 mg PO BID Heart rhythm 03/16/23 07/17/24 History clonidine HCl 0.3 mg tablet 0.3 mg PO BID High blood pressure 03/16/23 07/17/24 History escitalopram oxalate 10 mg tablet 10 mg PO DAILY Mood 03/16/23 07/17/24 History ferrous sulfate 325 mg (65 mg 325 mg PO BID Supplement 03/16/23 07/17/24 History iron) tablet (FeroSul) gabapentin 100 mg capsule 100 mg PO TID Pain 03/16/23 07/17/24 History hydralazine 50 mg tablet 50 mg PO Q6HP PRN Anxiety 03/16/23 07/17/24 History hydrocodone 5 mg-acetaminophen 325 1 tab PO BIDP PRN Pain 03/16/23 07/17/24 History mg tablet isosorbide mononitrate 60 mg 60 mg PO DAILY High blood pressure 03/16/23 07/17/24 History tablet,extended release 24 hr New Prescriptions to Start Prescriptions: Allergies Allergy/AdvReac Type Severity Reaction Status Date / Time No Known Allergies Allergy Verified 02/03/24 14:23 Exam Data for Last 24 hours Vital signs and Labs for Last 24 Hours: Temp Pulse Resp BP Pulse Ox O2 Del Method O2 Flow Rate 98.9 F 63 19 134/65 91 L Nasal Cannula 3 07/17/24 18:51 07/17/24 21:00 07/17/24 18:51 07/17/24 21:00 07/17/24 21:00 07/17/24 21:00 07/17/24 21:00 Laboratory Results - last 24 hr 07/17/24 19:01: WBC 12.2 H, RBC 4.64, Hgb 13.4 L, Hct 44.0, MCV 94.8 H, MCH 28.9, MCHC 30.5 L, RDW 13.9, Plt Count 239, MPV 9.0, Neut % (Auto) 78.7, Lymph % (Auto) 9.3 L, [place] % (Auto) 8.1, Eos % (Auto) 3.3, Baso % (Auto) 0.6, Neut # (Auto) 9.6 H, Lymph # (Auto) 1.1, [place] # (Auto) 1.0, Eos # (Auto) 0.4, Baso # (Auto) 0.1, Sodium 141, Potassium 4.2, Chloride 106, Carbon Dioxide 31 H, Anion Gap 8.2, BUN 22 H, Creatinine 1.40 H, Estimated Creat Clear 35, Estimated GFR 48 L, Est GFR ( Amer) 58 L, Glucose 143 H, Calcium 8.4, Total Bilirubin 0.5, AST 24, ALT 18, Alkaline Phosphatase 76, Troponin I 0.01, Total Protein 6.3, Albumin 3.3 L, Globulin 3.0, Albumin/Globulin Ratio 1.1 07/17/24 19:07: VBG pH 7.39, VBG pCO2 47.3, VBG pO2 93.8 H, VBG HCO3 27.9, VBG Total CO2 29.4 H, VBG O2 Saturation 97.5 H, VBG Base Excess 2.9 H, VBG Lactic Acid 1.6 I & O for Last 24 hours: Intake & Output 07/14/24 07/15/24 07/16/24 07/17/24 23:59 23:59 23:59 23:59 Weight 63.503 kg Constitutional Constitutional: mild distress, thin and cooperative *Routine HEENT Exam Head: Present normocephalic Eye: Present EOMI and PERRL ENT: Present mucous membranes moist *Routine Neck Exam Neck: Present supple; Absent lymphadenopathy *Routine Respiratory Exam Respiratory: Present CTA bilaterally, crackles, diminished air movement and symmetric chest movement; Absent respiratory distress *Routine Cardiovascular Exam Cardiovascular: Present RRR, Normal S1 and Normal S2 *Routine Abdominal Exam Abdominal: Present soft and normoactive bowel sounds; Absent tenderness *Routine Rectal Exam Rectal:: deferred *Routine Genitalia Exam Genitalia:: deferred *Routine Extremities Exam Extremities: Absent cyanosis, clubbing or edema *Routine Skin Exam Skin: Present warm; Absent rash *Routine Neurological Exam Neurological: Present alert and oriented X3 H&P: Result Imaging and Cardiology EKG: Status: image reviewed by me, Preliminary report and final report Chest x-ray: Status: image reviewed by me, Preliminary report and final report Assessment and Plan *Assessment and plan (1) Left lower lobe pneumonia: Status: Acute Qualifiers: Pneumonia type: due to unspecified organism Qualified Code(s): J18.9 - Pneumonia, unspecified organism Category: Medical Code(s): J18.9 - Pneumonia, unspecified organism (2) Acute exacerbation of chronic obstructive pulmonary disease: Status: Acute Category: Medical Code(s): J44.1 - Chronic obstructive pulmonary disease with (acute) exacerbation (3) CKD (chronic kidney disease): Status: Acute Qualifiers: Chronic kidney disease stage: stage 3 (moderate) Chronic kidney disease stage 3 subtype: stage 3a (GFR 45-59) Qualified Code(s): N18.31 - Chronic kidney disease, stage 3a Category: Medical Code(s): N18.9 - Chronic kidney disease, unspecified (4) CHF (congestive heart failure): Status: Chronic Qualifiers: Heart failure chronicity: chronic Heart failure type: diastolic Qualified Code(s): I50.32 - Chronic diastolic (congestive) heart failure Category: Medical Code(s): I50.9 - Heart failure, unspecified (5) Diabetes type 2, controlled: Status: Chronic Qualifiers: Diabetes mellitus complication status: with unspecified complications 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 transplanted heart: [place] heart Qualified Code(s): I25.10 - Atherosclerotic heart disease of [place] coronary artery without angina pectoris Category: Medical Code(s): I25.10 - Atherosclerotic heart disease of [place] coronary artery without angina pectoris (7) Hypertension: Status: Acute Qualifiers: Hypertension type: unspecified Qualified Code(s): I10 - Essential (primary) hypertension Category: Medical Code(s): I10 - Essential (primary) hypertension (8) Hyperlipidemia: Status: Acute Qualifiers: Hyperlipidemia type: unspecified Qualified Code(s): E78.5 - Hyperlipidemia, unspecified Category: Medical Code(s): E78.5 - Hyperlipidemia, unspecified Plan 84-year-old male with PMHx of COPD on 2 to 3 L nasal cannula at baseline, hypertension, coronary artery disease status post bypass graft, controlled NIDDM who presented to ED for evaluation of cough and shortness of breath started over the last 72 to 96 hours. Initial work up revealed hematologic labs remarkable for white blood cell count 12.2, compensated acid-base status. Chest x-ray reviewed, agreed for findings suggesting left lower lobe pneumonia. started on zithro and ceft. Patient required Duoneb and IV solumedrol, remains on 3L of oxygen [place]. Discussed with ED for admission. agreed for inpatient monitoring due to advanced age, others comorbidities and risk for decompensatin. Plan as follow:. -Left lower community-acquired pneumonia Acute on chronic respiratory failure with hypercarbia COPD exacerbation Admit patient for medical sepsis dispo MedSurg Continuous monitoring O2 saturation. Currently on 3 L nasal cannula keep saturation above 92 IV Solu-Medrol given in the ER. Started on IV ceftriaxone Zithromax p.o.. Continue daily DuoNeb 3 mL every 6 Sputum culture pending Blood culture pending Vital signs per unit. Monitor for sepsis Repeat daily labs -Chronic kidney disease: Caution with nephrotoxic medication. Creatinine around baseline Monitor renal function. Documented output Other chronic conditions: CHF, controlled [id number] diabetes, coronary artery disease, hypertension and hyperlipidemia Conditions reviewed. Stable Monitor Accu-Cheks before meals. Sliding scale low regimen are needed for blood sugar greater than 200 Home regimen medication reviewed and reconciled. On aspirin and statin Resume amlodipine clonidine and hydralazine for high blood pressure Isosorbide mononitrate for CAD Ferrous sulfate for anemia Chronic pain medication with gabapentin Lovenox for DVT prophylaxis. Protonix for GI bleed protection Full code
--- NOTE | 2024-07-17 22:30 | PC.NURSE ---
Nurse to nurse report to Tiffany MORALES.
--- NOTE | 2024-07-17 22:57 | PC.NURSE ---
Patient arrived to floor via wheelchair from ED at 22:46.
[2024-07-17] MEDS: IPRATROPIUM/ALBUTEROL 3 ML NEB IH (23:53)
[2024-07-18] VITALS (7 sets, daily range): BP systolic 131–157; BP diastolic 54–75; PULSE 53–87; RESP 16–19; TEMP 36.3–36.8; O2SAT 91–98
[2024-07-18 00:27] LABS: Troponin I < 0.01 ng/ml (0.00-0.034)
[2024-07-18 02:57] LABS: Troponin I < 0.01 ng/ml (0.00-0.034)
--- NOTE | 2024-07-18 05:52 | PC.NURSE ---
Attempted to call hospitalist due to patients FSBS 194 and no insulin being ordered. Phone went straight to voicemail.
[2024-07-18 05:54] LABS: POC Glucose,Bedside 194 (70-110)
--- NOTE | 2024-07-18 05:55 | PC.NURSE ---
Spoke with Alex Vega APRN regarding FSBS and insulin. See provider notification.
[2024-07-18 06:18] LABS: Basophils % 0.1 % (0.1-2.0); Hematocrit 44.4 % (42.0-52.0); Hemoglobin 13.2 g/dL (14.1-18.0); Lymphocytes # 0.5 K/mm3 (0.7-4.5); Lymphocytes % 5.1 % (10-50); Mean Corpuscular HGB Conc 29.6 g/dL (31.8-35.4); Mean Corpuscular Hemoglobin 28.7 pg (27.0-31.2); Mean Platelet Volume 8.8 fl (7.4-10.4); Monocytes # 0.1 K/mm3 (0.1-1.0); Monocytes % 1.6 % (1.7-9.3); Neutrophils # 8.4 K/mm3 (1.8-7.8); Neutrophils % 93.2 % (37.0-80.0); Platelet Count 225 K/mm3 (142-424); Red Blood Count 4.58 M/mm3 (4.60-6.20); Red Cell Distribution Width 13.8 % (11.5-17.5)
[2024-07-18 06:19] LABS: Alanine Aminotransferase 17 U/L (12-78); Albumin Level 3.1 g/dl (3.5-5.0); Alkaline Phosphatase 79 U/L (38-126); Anion Gap 8.3 mEq/L (5-15); Aspartate Amino Transferase 21 U/L (17-59); Bilirubin,Total 0.3 mg/dl (0.2-1.3); Blood Urea Nitrogen 23 mg/dl (9-20); Calcium 8.5 mg/dl (8.4-10.2); Carbon Dioxide 30 mmol/L (22.0-30.0); Chloride 106 mmol/L (98-107); Creatinine Clearance Estimated 38 mL/min (50-200); Estimated Glomerular Filt Rate 52 ml/min (>60); GFR (African American) 63 ML/MIN (>60); Glucose 244 mg/dl (74-100); MANUAL DIFFERENTIAL MANUAL DIFFERENTIAL (MANUAL DIFF); Magnesium 2.4 mg/dl (1.6-2.3); Potassium 4.3 mmoL/L (3.5-5.1); Sodium 140 mmol/L (136-145); Total Protein,Serum 6.1 g/dl (6.3-8.2)
[2024-07-18] MEDS: IPRATROPIUM/ALBUTEROL 3 ML NEB IH ×4 (06:25→23:15)
[2024-07-18] MEDS: ALPRAZolam 0.25MG TABLET 0.25 MG PO (08:02)
[2024-07-18 08:03] LABS: Hypochromasia 1+; Lymphocytes % 3 % (10-50); Neutrophils % 97 % (42-76); Platelet Estimate Normal; Total Cells Counted 100
[2024-07-18] MEDS: AMLODIPINE 5MG TABLET 5 MG PO (08:03)
[2024-07-18] MEDS: CARVEDILOL 3.125MG TABLET 3.125 MG PO ×2 (08:03→20:49)
[2024-07-18] MEDS: AZITHROMYCIN 250MG TABLET 500 MG PO (08:03)
[2024-07-18] MEDS: CITALOPRAM 20MG TABLET 20 MG PO (08:03)
[2024-07-18] MEDS: ENOXAPARIN 40MG/0.4ML SYRINGE 40 MG SQ (08:03)
[2024-07-18] MEDS: ISOSORBIDE MONO 60MG TAB.ER.24H 60 MG PO (08:03)
[2024-07-18] MEDS: ASPIRIN 81MG CHEWABLE TABLET 81 MG PO (08:03)
[2024-07-18] MEDS: GABAPENTIN 100MG CAPSULE 100 MG PO ×3 (08:03→20:48)
[2024-07-18] MEDS: FERROUS SULFATE 325MG TABLET 325 MG PO ×2 (08:03→20:49)
[2024-07-18] MEDS: cloNIDine 0.2MG TABLET 0.3 MG PO ×2 (08:04→20:48)
--- NOTE | 2024-07-18 08:38 | CT_ITS ---
FINAL REPORT TECHNIQUE: Axial images were obtained from the lung apex to the mid abdomen by computed tomography. Coronal reformatted images were obtained. This study was performed with techniques to keep radiation doses as low as reasonably achievable, (ALARA). Individualized dose reduction techniques using automated exposure control or adjustment of mA and/or kV according to the patient''s size were employed. CLINICAL HISTORY: Abnormal CXR, Pulmonary nodules RUL, TObacco, COPD COMPARISON: Chest x-ray 07/17/2024 and CTA chest 03/16/2023 FINDINGS: There is evidence of prior median sternotomy. There are multiple borderline sized mediastinal nodes which are nonspecific and favored to be reactive. No axillary mass or adenopathy is seen.There is no pericardial or pleural effusion. No pulmonary mass or suspicious nodule is identified. New opacities in the bilateral lower lobes, left greater than right, and in the lingula are consistent with pneumonia. The chest wall is intact.Limited images of the upper abdomen are unremarkable. IMPRESSION: Findings consistent with pneumonia in the bilateral lower lobes and lingula. Reviewed, Interpreted and Dictated by Bob Aguero III, MD Transcribed by Christelle Colon Authenticated and . [facility]
--- NOTE | 2024-07-18 09:12 | HMH.PHAINT1 ---
Pharmacy Intervention Comments: MEDICATION RECONCILIATION COMPLETE USING LIST FROM MD OFFICE.
--- NOTE | 2024-07-18 09:59 | P.PN_ITS ---
Subjective *Date: 07/18/24 *Time: 09:59 Interval history: The patient is seen and examined at bedside this morning. I am accompanied by his nurse Jennifer. Nursing staff report that he remains afebrile with stable vital signs and saturating appropriately on 2 L of oxygen which is his typical home oxygen requirement. His morning laboratory studies have been reviewed and discussed including a normal white blood cell count 9, normal hemoglobin 13 and platelet count 225. His electrolytes are normal. His creatinine is 1.3 which is his baseline. He is tolerating his IV antibiotic therapy with no adverse events. A CT scan of the chest was ordered with his chronic COPD, pulmonary nodules and abnormal chest x-ray findings. Exam Data for Last 24 hours Vital signs and Labs for Last 24 Hours: Temp Pulse Resp BP Pulse Ox O2 Del Method O2 Flow Rate 97.8 F 73 19 157/75 H 98 Nasal Cannula 2 07/18/24 08:00 07/18/24 08:00 07/18/24 08:00 07/18/24 08:00 07/18/24 08:00 07/18/24 08:56 07/18/24 08:56 Laboratory Results - last 24 hr 07/17/24 19:01: WBC 12.2 H, RBC 4.64, Hgb 13.4 L, Hct 44.0, MCV 94.8 H, MCH 28.9, MCHC 30.5 L, RDW 13.9, Plt Count 239, MPV 9.0, Neut % (Auto) 78.7, Lymph % (Auto) 9.3 L, [place] % (Auto) 8.1, Eos % (Auto) 3.3, Baso % (Auto) 0.6, Neut # (Auto) 9.6 H, Lymph # (Auto) 1.1, [place] # (Auto) 1.0, Eos # (Auto) 0.4, Baso # (Auto) 0.1, Sodium 141, Potassium 4.2, Chloride 106, Carbon Dioxide 31 H, Anion Gap 8.2, BUN 22 H, Creatinine 1.40 H, Estimated Creat Clear 35, Estimated GFR 48 L, Est GFR ( Amer) 58 L, Glucose 143 H, Calcium 8.4, Total Bilirubin 0.5, AST 24, ALT 18, Alkaline Phosphatase 76, Troponin I 0.01, Total Protein 6.3, Albumin 3.3 L, Globulin 3.0, Albumin/Globulin Ratio 1.1 07/17/24 19:07: VBG pH 7.39, VBG pCO2 47.3, VBG pO2 93.8 H, VBG HCO3 27.9, VBG Total CO2 29.4 H, VBG O2 Saturation 97.5 H, VBG Base Excess 2.9 H, VBG Lactic Acid 1.6 07/17/24 22:30: Troponin I < 0.01 07/18/24 01:45: Troponin I < 0.01 07/18/24 05:31: WBC 9.0 D, RBC 4.58 L, Hgb 13.2 L, Hct 44.4, MCV 97.0 H, MCH 28.7, MCHC 29.6 L, RDW 13.8, Plt Count 225, MPV 8.8, Neut % (Auto) 93.2 H, Lymph % (Auto) 5.1 L, [place] % (Auto) 1.6 L, Eos % (Auto) 0.0 L, Baso % (Auto) 0.1, Neut # (Auto) 8.4 H, Lymph # (Auto) 0.5 L, [place] # (Auto) 0.1, Eos # (Auto) 0.0, Baso # (Auto) 0.0, Total Counted 100, Neutrophils % (Manual) 97 H, Lymphocytes % (Manual) 3 L, Platelet Estimate Normal, Hypochromasia 1+, Sodium 140, Potassium 4.3, Chloride 106, Carbon Dioxide 30, Anion Gap 8.3, BUN 23 H, Creatinine 1.30 H , Estimated Creat Clear 38, Estimated GFR 52 L, Est GFR ( Amer) 63, Glucose 244 H D, Calcium 8.5, Magnesium 2.4 H, Total Bilirubin 0.3, AST 21, ALT 17, Alkaline Phosphatase 79, Total Protein 6.1 L, Albumin 3.1 L, Globulin 3.0, Albumin/Globulin Ratio 1.0 L 07/18/24 05:47: POC Glucose 194 H I & O for Last 24 hours: Intake & Output 07/15/24 07/16/24 07/17/24 07/18/24 23:59 23:59 23:59 23:59 Intake Total 480 / 480 Output Total 0 / 0 Balance 480 / 480 Weight 64.954 kg 64.954 kg Constitutional Constitutional: no acute distress, chronically ill appearing and cooperative *Routine HEENT Exam Head: Present normocephalic and atraumatic Eye: Present EOMI and PERRL ENT: Present mucous membranes moist *Routine Neck Exam Neck: Absent JVD or lymphadenopathy *Routine Respiratory Exam Respiratory: Present rhonchi, wheezes, normal respiratory effort and symmetric chest movement *Routine Cardiovascular Exam Cardiovascular: Present RRR *Routine Abdominal Exam Abdominal: Present soft and normoactive bowel sounds; Absent tenderness *Routine Extremities Exam Extremities: Present full ROM; Absent edema *Routine Skin Exam Skin: Absent rash *Routine Neurological Exam Neurological: Present alert, oriented X3, moving all extremities, vision grossly intact, hearing grossly intact and normal speech; Absent sensory deficit or motor deficit Routine Psychiatric Exam Psychiatric: Present normal affect and cooperative Assessment and Plan *Assessment and plan (1) Left lower lobe pneumonia: Status: Acute Qualifiers: Pneumonia type: due to unspecified organism Qualified Code(s): J18.9 - Pneumonia, unspecified organism Category: Medical Code(s): J18.9 - Pneumonia, unspecified organism (2) Acute exacerbation of chronic obstructive pulmonary disease: Status: Acute Category: Medical Code(s): J44.1 - Chronic obstructive pulmonary disease with (acute) exacerbation (3) CKD (chronic kidney disease): Status: Acute Qualifiers: Chronic kidney disease stage: stage 3 (moderate) Chronic kidney disease stage 3 subtype: stage 3a (GFR 45-59) Qualified Code(s): N18.31 - Chronic kidney disease, stage 3a Category: Medical Code(s): N18.9 - Chronic kidney disease, unspecified (4) Diabetes type 2, controlled: Status: Chronic Qualifiers: 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 transplanted heart: [place] heart Qualified Code(s): I25.10 - Atherosclerotic heart disease of [place] coronary artery without angina pectoris Category: Medical Code(s): I25.10 - Atherosclerotic heart disease of [place] coronary artery without angina pectoris (6) Hypertension: Status: Acute Qualifiers: Hypertension type: unspecified Qualified Code(s): I10 - Essential (primary) hypertension Category: Medical Code(s): I10 - Essential (primary) hypertension Plan 84-year-old male with PMHx of COPD on 2 to 3 L nasal cannula at baseline, hypertension, coronary artery disease status post bypass graft, controlled NIDDM who presented to ED for evaluation of cough and shortness of breath started over the last 72 to 96 hours. Chest x-ray reviewed, agreed for findings suggesting left lower lobe pneumonia. started on zithro and ceft. Problems addressed as follows: Bacterial pneumonia left lower lobe Chronic hypoxic respiratory failure COPD exacerbation Tobacco dependence in remission Pulmonary nodules Pulse oximetry monitoring Oxygen therapy to maintain appropriate oxygen saturations Currently requiring 2 L via NC (usual home O2 requirement 2 L) Chest x-ray with left lower lobe opacity CT chest pending Sputum cultures pending Trending labs and inflammatory markers Amelie/Nadia inhalation therapy ICS therapy IV ceftriaxone PO azithromycin P.o. prednisone therapy PPI therapy Chronic kidney disease 3A Baseline creatinine 1.3 Trending electrolytes and creatinine Avoiding NSAID therapy Adjust medications for GFR Accurate I's and O's Coronary artery disease s/P CABG Telemetry monitoring ED troponin trend negative x 3 Aspirin 81 mg daily Statin therapy Beta-edward therapy Long-acting nitrate therapy Avoiding ARB therapy with CKD 3 Hypertension Routine blood pressure monitoring Beta-edward therapy Dihydropyridine calcium channel edward therapy Centrally acting agent Long-acting nitrate Peripheral vasodilator Diabetes mellitus Routine blood sugar monitoring Hemoglobin A1c pending Basal insulin therapy Sliding scale insulin therapy Consistent carbohydrate diet VTE prophylaxis: Lovenox CODE STATUS full code The patient is hospitalized day 1 with above diagnoses complicated by his advanced age. Case management is assisting with discharge needs. Barriers to discharge currently include his IV antibiotic therapy for his pneumonia. Expected date of discharge over the next day or 2. I spent 50 minutes on this encounter, before, during and after the visit, evaluating the patient, reviewing records and writing orders. Time included discussing treatment recommendations, providing medical education and potential adverse events of agreed to therapies.
[2024-07-18 10:46] LABS: POC Glucose,Bedside 200 (70-110)
[2024-07-18] MEDS: humaLOG 100 UNITS/ML 10ML VIAL (SSI) SQ ×2 (11:03→20:49)
[2024-07-18] MEDS: predniSONE 20MG TAB 40 MG PO (11:07)
[2024-07-18 12:01] LABS: Hemoglobin A1C 5.7 % (4.0-6.0)
[2024-07-18] MEDS: HYDRALAZINE HCL 25MG TABLET 25 MG PO ×2 (13:15→20:48)
[2024-07-18 16:28] LABS: POC Glucose,Bedside 153 (70-110)
--- NOTE | 2024-07-18 17:07 | PC.NURSE ---
Pt alert and oriented x4. Lungs diminished upon auscultation. He is on 2L NC which is his baseline. Pt ambulating to bathroom and in halls with standby assist. Bed alarm on because of recent falls. Pt afebrile and has no complaints of SOB. Pt resting comfortably in bed with no complaints at this time.
[2024-07-18] MEDS: BUDESONIDE 0.5MG/2ML NEB 0.5 MG IH (18:37)
[2024-07-18 20:41] LABS: POC Glucose,Bedside 169 (70-110)
[2024-07-18] MEDS: INSULIN GLARGINE 100 UNITS/ML 3ML FLEXPEN 10 UNIT SQ (20:47)
[2024-07-18] MEDS: PANTOPRAZOLE 40MG TABLET 40 MG PO (20:48)
[2024-07-18] MEDS: ATORVASTATIN 20MG TABLET 20 MG PO (20:48)
[2024-07-18] MEDS: TAMSULOSIN 0.4MG CAPSULE 0.4 MG PO (20:48)
[2024-07-18] MEDS: CEFTRIAXONE 1 GM 1 GM in 0.9 % SODIUM CHLORIDE 50 ML IV (20:49)
[2024-07-19] VITALS (8 sets, daily range): BP systolic 120–143; BP diastolic 50–69; PULSE 52–82; RESP 16–18; TEMP 36.4–36.8; O2SAT 93–98; BMI 20.6
--- NOTE | 2024-07-19 04:02 | PC.NURSE ---
84 yo male pt, A/O x 3. Pt with 02 at 1.5 liters continuous. Noted occasional [employer] cough through the night. He was able to shower with assist of his son early during shift and goes to BR with assist of 1. FSBS was 169, covered with 2 units of insulin per SS.
[2024-07-19] MEDS: BUDESONIDE 0.5MG/2ML NEB 0.5 MG IH ×2 (05:47→18:24)
[2024-07-19] MEDS: IPRATROPIUM/ALBUTEROL 3 ML NEB IH ×4 (05:47→23:09)
[2024-07-19 05:49] LABS: Basophils % 0.1 % (0.1-2.0); Lymphocytes % 5.1 % (10-50); Mean Corpuscular Hemoglobin 28.9 pg (27.0-31.2); Mean Corpuscular Volume 93.3 fl (80-94); Mean Platelet Volume 9.4 fl (7.4-10.4); Monocytes # 0.9 K/mm3 (0.1-1.0); Monocytes % 4.7 % (1.7-9.3); Neutrophils # 18.1 K/mm3 (1.8-7.8); Neutrophils % 90.1 % (37.0-80.0); Platelet Count 250 K/mm3 (142-424); Red Blood Count 3.96 M/mm3 (4.60-6.20); Red Cell Distribution Width 13.9 % (11.5-17.5)
[2024-07-19 05:53] LABS: Alanine Aminotransferase 16 U/L (12-78); Albumin Level 2.9 g/dl (3.5-5.0); Albumin/Globulin Ratio 1.1 (1.1-1.8); Alkaline Phosphatase 65 U/L (38-126); Anion Gap 7.6 mEq/L (5-15); Aspartate Amino Transferase 20 U/L (17-59); Bilirubin,Total 0.2 mg/dl (0.2-1.3); Blood Urea Nitrogen 40 mg/dl (9-20); Calcium 8.6 mg/dl (8.4-10.2); Carbon Dioxide 30 mmol/L (22.0-30.0); Chloride 107 mmol/L (98-107); Creatinine Clearance Estimated 34 mL/min (50-200); Estimated Glomerular Filt Rate 44 ml/min (>60); GFR (African American) 54 ML/MIN (>60); Globulin 2.7 g/dL (1.3-3.2); Glucose 178 mg/dl (74-100); Potassium 4.6 mmoL/L (3.5-5.1); Sodium 140 mmol/L (136-145); Total Protein,Serum 5.6 g/dl (6.3-8.2)
[2024-07-19 05:54] LABS: MANUAL DIFFERENTIAL MANUAL DIFFERENTIAL (MANUAL DIFF)
[2024-07-19 05:57] LABS: Hemoglobin 11.5 g/dL (14.1-18.0)
[2024-07-19] MEDS: humaLOG 100 UNITS/ML 10ML VIAL (SSI) SQ ×2 (06:02→20:39)
[2024-07-19 06:06] LABS: POC Glucose,Bedside 180 (70-110)
[2024-07-19 06:08] LABS: Procalcitonin 0.101 ng/mL (0.0-2.0)
[2024-07-19 07:34] LABS: Lymphocytes % 7 % (10-50); Monocytes % 1 % (2-9); Neutrophils % 92 % (42-76); Platelet Estimate Normal; RBC Morphology Normal; Total Cells Counted 100
[2024-07-19] MEDS: CITALOPRAM 20MG TABLET 20 MG PO (08:11)
[2024-07-19] MEDS: ALPRAZolam 0.25MG TABLET 0.25 MG PO (08:11)
[2024-07-19] MEDS: AMLODIPINE 5MG TABLET 5 MG PO (08:11)
[2024-07-19] MEDS: CARVEDILOL 3.125MG TABLET 3.125 MG PO (08:11)
[2024-07-19] MEDS: ASPIRIN 81MG CHEWABLE TABLET 81 MG PO (08:11)
[2024-07-19] MEDS: AZITHROMYCIN 250MG TABLET 500 MG PO (08:11)
[2024-07-19] MEDS: FERROUS SULFATE 325MG TABLET 325 MG PO ×2 (08:12→20:37)
[2024-07-19] MEDS: GABAPENTIN 100MG CAPSULE 100 MG PO ×3 (08:12→20:37)
[2024-07-19] MEDS: ENOXAPARIN 40MG/0.4ML SYRINGE 40 MG SQ (08:12)
[2024-07-19] MEDS: HYDRALAZINE HCL 25MG TABLET 25 MG PO ×3 (08:13→20:38)
[2024-07-19] MEDS: cloNIDine 0.1MG TABLET 0.1 MG PO ×2 (08:13→20:37)
[2024-07-19] MEDS: predniSONE 20MG TAB 40 MG PO (08:13)
[2024-07-19] MEDS: ISOSORBIDE MONO 60MG TAB.ER.24H 60 MG PO (08:13)
--- NOTE | 2024-07-19 10:19 | EXP.PN ---
Subjective *Date: 07/19/24 *Time: 10:19 Interval history: The patient is seen and examined at bedside today. I am accompanied by his nurse Jennifer. The patient reports improved breathing and decreased cough. Nursing staff report that he remains afebrile with some bradycardic heart rates and stable blood pressures. He is saturating appropriately on 2 L of oxygen via nasal cannula which is his usual home requirement. He is tolerating his IV antibiotic therapy with no adverse events. We have reviewed and discussed his morning labs including a WBC of 20K with concerns of steroid-induced leukocytosis, stable hemoglobin and normal platelets. His morning electrolytes are normal, BUN is 40 and creatinine is 1.50 with a baseline of 1.3. His procalcitonin is negative and reassuring. CT of chest confirmed his pneumonia diagnoses with bilateral lower lobes and lingular infiltrates. His PMG=181. Exam Data for Last 24 hours Vital signs and Labs for Last 24 Hours: Temp Pulse Resp BP Pulse Ox O2 Del Method O2 Flow Rate 98.3 F 57 L 16 120/50 L 98 Nasal Cannula 2 07/19/24 07:49 07/19/24 07:49 07/19/24 07:49 07/19/24 07:49 07/19/24 07:49 07/19/24 08:27 07/19/24 08:27 Laboratory Results - last 24 hr 07/18/24 05:31: Hemoglobin A1c 5.7 07/18/24 10:35: POC Glucose 200 H 07/18/24 16:18: POC Glucose 153 H 07/18/24 20:30: POC Glucose 169 H 07/19/24 05:30: WBC 20.0 H D, RBC 3.96 L, Hgb 11.5 L D, Hct 37.0 L, MCV 93.3, MCH 28.9, MCHC 31.0 L, RDW 13.9, Plt Count 250, MPV 9.4, Neut % (Auto) 90.1 H, Lymph % (Auto) 5.1 L, [place] % (Auto) 4.7, Eos % (Auto) 0.0 L, Baso % (Auto) 0.1, Neut # (Auto) 18.1 H, Lymph # (Auto) 1.0, [place] # (Auto) 0.9, Eos # (Auto) 0.0, Baso # (Auto) 0.0, Total Counted 100, Neutrophils % (Manual) 92 H, Lymphocytes % (Manual) 7 L, Monocytes % (Manual) 1 L, Platelet Estimate Normal, RBC Morphology Normal, Sodium 140, Potassium 4.6, Chloride 107, Carbon Dioxide 30, Anion Gap 7.6, BUN 40 H D, Creatinine 1.50 H, Estimated Creat Clear 34, Estimated GFR 44 L, Est GFR ( Amer) 54 L, Glucose 178 H D, Calcium 8.6, Total Bilirubin 0.2, AST 20, ALT 16, Alkaline Phosphatase 65, Total Protein 5.6 L, Albumin 2.9 L, Globulin 2.7, Albumin/Globulin Ratio 1.1, Procalcitonin 0.101 07/19/24 05:51: POC Glucose 180 H I & O for Last 24 hours: Intake & Output 07/16/24 07/17/24 07/18/24 07/19/24 23:59 23:59 23:59 23:59 Intake Total 1240 / 1240 Output Total 0 / 0 0 / 0 Balance 1240 / 1240 0 / 0 Weight 64.954 kg 64.954 kg 66.814 kg Microbiology Reports for the Last 24 Hours: Microbiology 07/17/24 23:56 Sputum - Expectorated Sputum Gram Stain - Final 07/17/24 23:56 Sputum - Expectorated Sputum Sputum Culture - Preliminary Constitutional Constitutional: no acute distress, chronically ill appearing and cooperative *Routine HEENT Exam Head: Present normocephalic and atraumatic Eye: Present EOMI and PERRL ENT: Present mucous membranes moist *Routine Neck Exam Neck: Absent JVD or lymphadenopathy *Routine Respiratory Exam Respiratory: Present rhonchi, wheezes, normal respiratory effort and symmetric chest movement *Routine Cardiovascular Exam Cardiovascular: Present RRR *Routine Abdominal Exam Abdominal: Present soft and normoactive bowel sounds; Absent tenderness *Routine Extremities Exam Extremities: Present full ROM; Absent edema *Routine Skin Exam Skin: Absent rash *Routine Neurological Exam Neurological: Present alert, oriented X3, moving all extremities, vision grossly intact, hearing grossly intact and normal speech; Absent sensory deficit or motor deficit Routine Psychiatric Exam Psychiatric: Present normal affect and cooperative Assessment and Plan *Assessment and plan (1) Left lower lobe pneumonia: Status: Acute Qualifiers: Pneumonia type: due to unspecified organism Qualified Code(s): J18.9 - Pneumonia, unspecified organism Category: Medical Code(s): J18.9 - Pneumonia, unspecified organism (2) Acute exacerbation of chronic obstructive pulmonary disease: Status: Acute Category: Medical Code(s): J44.1 - Chronic obstructive pulmonary disease with (acute) exacerbation (3) CKD (chronic kidney disease): Status: Acute Qualifiers: Chronic kidney disease stage: stage 3 (moderate) Chronic kidney disease stage 3 subtype: stage 3a (GFR 45-59) Qualified Code(s): N18.31 - Chronic kidney disease, stage 3a Category: Medical Code(s): N18.9 - Chronic kidney disease, unspecified (4) Diabetes type 2, controlled: Status: Chronic Qualifiers: Diabetes mellitus superintendent container terminal insulin use: without shelter use Diabetes mellitus complication status: with unspecified complications Qualified Code(s): E11.8 - Type 2 diabetes mellitus with unspecified complications Category: Medical Code(s): E11.9 - Type 2 diabetes mellitus without complications (5) Coronary artery disease: Status: Acute Qualifiers: Associated angina: unspecified whether angina present Coronary Disease-Associated Artery/Lesion type: [place] artery [place] vs. transplanted heart: [place] heart Qualified Code(s): I25.10 - Atherosclerotic heart disease of [place] coronary artery without angina pectoris Category: Medical Code(s): I25.10 - Atherosclerotic heart disease of [place] coronary artery without angina pectoris (6) Hypertension: Status: Acute Qualifiers: Hypertension type: unspecified Qualified Code(s): I10 - Essential (primary) hypertension Category: Medical Code(s): I10 - Essential (primary) hypertension Plan 84-year-old male with PMHx of COPD on 2 to 3 L nasal cannula at baseline, hypertension, coronary artery disease status post bypass graft, controlled NIDDM who presented to ED for evaluation of cough and shortness of breath started over the last 72 to 96 hours. Chest x-ray reviewed, agreed for findings suggesting left lower lobe pneumonia. started on zithro and ceft. Problems addressed as follows: Bacterial pneumonia bilateral lower lobes Chronic hypoxic respiratory failure COPD exacerbation Tobacco dependence in remission Pulmonary nodules Pulse oximetry monitoring Oxygen therapy to maintain appropriate oxygen saturations Currently requiring 2 L via NC (usual home O2 requirement 2 L) Chest x-ray with left lower lobe opacity CT chest: Findings consistent with pneumonia bilateral lower lobes and lingula Sputum cultures pending Trending labs and inflammatory markers Amelie/Nadia inhalation therapy ICS therapy IV ceftriaxone PO azithromycin P.o. prednisone therapy PPI therapy Chronic kidney disease 3A Baseline creatinine 1.3 Trending electrolytes and creatinine Avoiding NSAID therapy Adjust medications for GFR Accurate I's and O's Coronary artery disease s/P CABG Telemetry monitoring ED troponin trend negative x 3 Aspirin 81 mg daily Statin therapy Beta-edward therapy Long-acting nitrate therapy Avoiding ARB therapy with CKD 3 Hypertension Routine blood pressure monitoring Beta-edward therapy reduced dose with bradycardia Dihydropyridine calcium channel edward therapy Centrally acting agent reduce dose and gently wean with advanced age Long-acting nitrate Peripheral vasodilator Diabetes mellitus Routine blood sugar monitoring Hemoglobin A1c 5.7% Basal insulin therapy Sliding scale insulin therapy Consistent carbohydrate diet VTE prophylaxis: Lovenox CODE STATUS full code The patient is hospitalized day 2 with above diagnoses complicated by his advanced age. Case management is assisting with discharge needs. Barriers to discharge currently include his IV antibiotic therapy for his pneumonia. Expected date of discharge July 20, 2024. I spent 50 minutes on this encounter, before, during and after the visit, evaluating the patient, reviewing records and writing orders. Time included discussing treatment recommendations, providing medical education and potential adverse events of agreed to therapies.
[2024-07-19 11:00] LABS: POC Glucose,Bedside 95 (70-110)
[2024-07-19 15:37] LABS: POC Glucose,Bedside 137 (70-110)
--- NOTE | 2024-07-19 17:07 | PC.NURSE ---
Pt awake and sitting at bedside chair most of shift. Pt is a standby assist to bathroom and to ambulate in halls. Pt is on 2L NC, which is baseline. Pt eating most of meal trays. he has drank 1200 ml of water today from water pitcher in room. Pt is resting in bed comfortably with no complaints at this time.
--- NOTE | 2024-07-19 18:39 | PC.NURSE ---
RESP CARE NOTE: ROOM AIR SAT 92%. Pt left on room air with sats ranging from 92%-95%.
[2024-07-19 20:12] LABS: POC Glucose,Bedside 206 (70-110)
[2024-07-19] MEDS: ATORVASTATIN 20MG TABLET 20 MG PO (20:37)
[2024-07-19] MEDS: TAMSULOSIN 0.4MG CAPSULE 0.4 MG PO (20:37)
[2024-07-19] MEDS: PANTOPRAZOLE 40MG TABLET 40 MG PO (20:39)
[2024-07-19] MEDS: CEFTRIAXONE 1 GM 1 GM in 0.9 % SODIUM CHLORIDE 50 ML IV (20:39)
[2024-07-19] MEDS: INSULIN GLARGINE 100 UNITS/ML 3ML FLEXPEN 10 UNIT SQ (20:39)
[2024-07-20] VITALS: BP 130/71; PULSE 61; RESP 18; TEMP 36.4; O2SAT 95
[2024-07-20 04:00] VITALS: BP 135/64; PULSE 54; RESP 18; TEMP 36.9; O2SAT 96; BMI 21.2
--- NOTE | 2024-07-20 04:41 | PC.NURSE ---
84 yo male pt is A/O X 4. He is now using 02 only prn and is tolerating well. Pt has increased PO intake of water this shift as instructed by yesterday. He has been able to ambulate to BR without difficulty and has denied any pain or discomfort. this shift. FSBS at 9 pm was 206 requiring 5 units of insulin per SS
[2024-07-20 06:01] LABS: POC Glucose,Bedside 118 (70-110)
[2024-07-20 06:14] VITALS: PULSE 51; PULSE 57; O2SAT 94
[2024-07-20] MEDS: BUDESONIDE 0.5MG/2ML NEB 0.5 MG IH (06:14)
[2024-07-20] MEDS: IPRATROPIUM/ALBUTEROL 3 ML NEB IH (06:14)
[2024-07-20 06:45] LABS: Anion Gap 6.4 mEq/L (5-15); Blood Urea Nitrogen 45 mg/dl (9-20); Carbon Dioxide 31 mmol/L (22.0-30.0); Chloride 104 mmol/L (98-107); Creatinine Clearance Estimated 40 mL/min (50-200); Estimated Glomerular Filt Rate 52 ml/min (>60); GFR (African American) 63 ML/MIN (>60); Glucose 115 mg/dl (74-100); Potassium 4.4 mmoL/L (3.5-5.1); Sodium 137 mmol/L (136-145)
[2024-07-20 06:48] LABS: Basophils % 0.1 % (0.1-2.0); Hematocrit 40.4 % (42.0-52.0); Hemoglobin 12.3 g/dL (14.1-18.0); Lymphocytes # 1.2 K/mm3 (0.7-4.5); Lymphocytes % 8.3 % (10-50); Mean Corpuscular HGB Conc 30.4 g/dL (31.8-35.4); Mean Corpuscular Hemoglobin 28.2 pg (27.0-31.2); Mean Corpuscular Volume 92.8 fl (80-94); Mean Platelet Volume 9.9 fl (7.4-10.4); Monocytes # 0.9 K/mm3 (0.1-1.0); Monocytes % 5.7 % (1.7-9.3); Neutrophils # 12.8 K/mm3 (1.8-7.8); Neutrophils % 85.9 % (37.0-80.0); Platelet Count 285 K/mm3 (142-424); Red Blood Count 4.35 M/mm3 (4.60-6.20); Red Cell Distribution Width 13.7 % (11.5-17.5); White Blood Count 14.9 K/mm3 (4.8-10.8)
[2024-07-20 07:07] LABS: MANUAL DIFFERENTIAL MANUAL DIFFERENTIAL (MANUAL DIFF)
[2024-07-20 08:00] VITALS: BP 138/70; PULSE 57; RESP 17; TEMP 36.6; O2SAT 96
--- NOTE | 2024-07-20 08:01 | PC.NURSE ---
Pt. is aox 4, up ad aishwarya, 's on Ra, iv removed and pt d/c.
--- NOTE | 2024-07-20 08:03 | P.DS_ITS ---
General Admission date:: 07/17/24 Discharge date: 07/20/24 HPI HPI HPI: This is a 84-year-old male with PMHx of COPD on 2 to 3 L nasal cannula at baseline, hypertension, coronary artery disease status post bypass graft, controlled NIDDM who presented to ED for evaluation of cough and shortness of breath started over the last 72 to 96 hours. Patient has had cough, shortness of breath throughout the course, there is associated soreness of his chest throughout when he coughs, no resting chest pain. No vomiting. No other acute complaints at this time. Patient has good support system at home and has been d oing DuoNebs and incentive spirometer for which symptoms have been refractory. Patient has had to be intubated with pneumonia before. Admitted for further monitoring and treatment. Hospital Course Hospital Course Hospital Course: The patient was admitted to the telemetry unit with oxygen supplementation. Imaging, labs, cultures and inflammatory markers were assessed and trended. Problems addressed as follows: Bacterial pneumonia bilateral lower lobes Chronic hypoxic respiratory failure COPD exacerbation Tobacco dependence in remission Pulmonary nodules Pulse oximetry monitoring Oxygen therapy to maintain appropriate oxygen saturations Currently requiring 2 L via NC (usual home O2 requirement 2 L) Chest x-ray with left lower lobe opacity CT chest: Findings consistent with pneumonia bilateral lower lobes and lingula Sputum cultures no growth to date Trending labs and inflammatory markers with improvement noted Amelie/Nadia inhalation therapy ICS therapy Trelegy inhaler on discharge IV ceftriaxone completed as inpatient PO azithromycin and discharged on oral antibiotic x 5 days P.o. prednisone therapy and discharged on therapy x 5 days PPI therapy Chronic kidney disease 3A Baseline creatinine 1.3 Trending electrolytes and creatinine Avoiding NSAID therapy Adjust medications for GFR Accurate I's and O's Coronary artery disease s/P CABG Telemetry monitoring ED troponin trend negative x 3 Aspirin 81 mg daily Statin therapy Beta-edward therapy Long-acting nitrate therapy Peripheral vasodilator therapy Avoiding ARB therapy with history of renal disease Hypertension Routine blood pressure monitoring Beta-edward therapy reduced dose with bradycardia Dihydropyridine calcium channel edward therapy Centrally acting agent reduce dose and gently wean with advanced age Long-acting nitrate Peripheral vasodilator therapy Diabetes mellitus Routine blood sugar monitoring Hemoglobin A1c 5.7% Basal insulin therapy Sliding scale insulin therapy Consistent carbohydrate diet The patient was hospitalized 3 days with above diagnoses. He identified improvement and requested to be discharged home. We have recommended a follow- up visit with his PCP in 1 week to discuss his hospital experience and adjust medications as deemed appropriate. We have also recommended a follow-up with a bowling ball weigher and packer to assess his chronic pulmonary disease including PFT evaluation. We have discussed his pulmonary nodules and the importance of follow-up with pulmonology and further imaging recommendations. I spent 35 minutes in [id number] time with the patient and nursing staff concerning the discharge process. We discussed the admitting diagnoses and hospital course. We discussed identified improvement and the patient's desire to be discharged. We reviewed inpatient studies and imaging. The patient voiced understanding on the importance of follow-up with his primary care provider and specialist(s). The patient plans to be compliant with the medication regimen prescribed and follow- up appointments. He understands that he can return to the emergency department with any sudden changes or concerns. Exam Data for Last 24 hours Vital signs and Labs for Last 24 Hours: Temp Pulse Resp BP Pulse Ox O2 Del Method O2 Flow Rate 98.4 F 57 L 18 135/64 94 L Nasal Cannula 2 07/20/24 04:00 07/20/24 06:14 07/20/24 04:00 07/20/24 04:00 07/20/24 06:14 07/20/24 06:43 07/20/24 06:43 Laboratory Results - last 24 hr 07/19/24 10:50: POC Glucose 95 07/19/24 15:28: POC Glucose 137 H 07/19/24 20:04: POC Glucose 206 H 07/20/24 05:46: WBC 14.9 H D, RBC 4.35 L, Hgb 12.3 L, Hct 40.4 L, MCV 92.8, MCH 28.2, MCHC 30.4 L, RDW 13.7, Plt Count 285, MPV 9.9, Neut % (Auto) 85.9 H, Lymph % (Auto) 8.3 L, [place] % (Auto) 5.7, Eos % (Auto) 0.0 L, Baso % (Auto) 0.1, Neut # (Auto) 12.8 H, Lymph # (Auto) 1.2, [place] # (Auto) 0.9, Eos # (Auto) 0.0, Baso # (Auto) 0.0, Sodium 137, Potassium 4.4, Chloride 104, Carbon Dioxide 31 H, Anion Gap 6.4, BUN 45 H, Creatinine 1.30 H, Estimated Creat Clear 40, Estimated GFR 52 L, Est GFR ( Amer) 63, Glucose 115 H, Calcium 9.0 07/20/24 05:54: POC Glucose 118 H I & O for Last 24 hours: Intake & Output 07/17/24 07/18/24 07/19/24 07/20/24 23:59 23:59 23:59 23:59 Intake Total 1240 / 1240 1140 / 1140 Output Total 0 / 0 0 / 0 0 / 0 Balance 1240 / 1240 1140 / 1140 0 / 0 Weight 64.954 kg 64.954 kg 66.81 kg 68.583 kg Microbiology Reports for the Last 24 Hours: Microbiology 07/17/24 23:56 Sputum - Expectorated Sputum Gram Stain - Final 07/17/24 23:56 Sputum - Expectorated Sputum Sputum Culture - Preliminary Constitutional Constitutional: no acute distress, chronically ill appearing and cooperative *Routine HEENT Exam Head: Present normocephalic and atraumatic Eye: Present EOMI and PERRL ENT: Present mucous membranes moist *Routine Neck Exam Neck: Absent JVD or lymphadenopathy *Routine Respiratory Exam Respiratory: Present rhonchi, normal respiratory effort and symmetric chest movement *Routine Cardiovascular Exam Cardiovascular: Present RRR *Routine Abdominal Exam Abdominal: Present soft and normoactive bowel sounds; Absent tenderness *Routine Extremities Exam Extremities: Present full ROM; Absent edema *Routine Skin Exam Skin: Absent rash *Routine Neurological Exam Neurological: Present alert, oriented X3, moving all extremities, vision grossly intact, hearing grossly intact and normal speech; Absent sensory deficit or motor deficit Routine Psychiatric Exam Psychiatric: Present normal affect and cooperative Results Data Completed and Pending Labs on day of discharge: Labs from last 24 hours 07/20/24 07/20/24 07/19/24 05:54 05:46 20:04 WBC 14.9 H D RBC 4.35 L Hgb 12.3 L Hct 40.4 L MCV 92.8 MCH 28.2 MCHC 30.4 L RDW 13.7 Plt Count 285 MPV 9.9 Neut % (Auto) 85.9 H Lymph % (Auto) 8.3 L [place] % (Auto) 5.7 Eos % (Auto) 0.0 L Baso % (Auto) 0.1 Neut # (Auto) 12.8 H Lymph # (Auto) 1.2 Canadian # (Auto) 0.9 Eos # (Auto) 0.0 Baso # (Auto) 0.0 Sodium 137 Potassium 4.4 Chloride 104 Carbon Dioxide 31 H Anion Gap 6.4 BUN 45 H Creatinine 1.30 H Estimated Creat Clear 40 Estimated GFR 52 L Est GFR ( Amer) 63 Glucose 115 H POC Glucose 118 H 206 H Calcium 9.0 07/19/24 07/19/24 15:28 10:50 WBC RBC Hgb Hct MCV MCH MCHC RDW Plt Count MPV Neut % (Auto) Lymph % (Auto) [place] % (Auto) Eos % (Auto) Baso % (Auto) Neut # (Auto) Lymph # (Auto) Canadian # (Auto) Eos # (Auto) Baso # (Auto) Sodium Potassium Chloride Carbon Dioxide Anion Gap BUN Creatinine Estimated Creat Clear Estimated GFR Est GFR ( Amer) Glucose POC Glucose 137 H 95 Calcium Preliminary micro results at discharge 07/17/24 23:56 Sputum Culture - Preliminary Sputum - Expectorated Sputum DS: Diagnosis Discharge Diagnosis (1) Left lower lobe pneumonia: Status: Acute Code(s): J18.9 - Pneumonia, unspecified organism Qualifiers: Pneumonia type: due to unspecified organism Qualified Code(s): J18.9 - Pneumonia, unspecified organism (2) Acute exacerbation of chronic obstructive pulmonary disease: Status: Acute Code(s): J44.1 - Chronic obstructive pulmonary disease with (acute) exacerbation (3) CKD (chronic kidney disease): Status: Acute Code(s): N18.9 - Chronic kidney disease, unspecified Qualifiers: Chronic kidney disease stage: stage 3 (moderate) Chronic kidney disease stage 3 subtype: stage 3a (GFR 45-59) Qualified Code(s): N18.31 - Chronic kidney disease, stage 3a (4) Diabetes type 2, controlled: Status: Chronic Code(s): E11.9 - Type 2 diabetes mellitus without complications Qualifiers: Diabetes mellitus custodial insulin use: without custodial use Diabetes mellitus complication status: with unspecified complications Qualified Code(s): E11.8 - Type 2 diabetes mellitus with unspecified complications (5) Coronary artery disease: Status: Acute Code(s): I25.10 - Atherosclerotic heart disease of [place] coronary artery without angina pectoris Qualifiers: Associated angina: unspecified whether angina present Coronary Disease- Associated Artery/Lesion type: [place] artery [place] vs. transplanted heart: [place] heart Qualified Code(s): I25.10 - Atherosclerotic heart disease of [place] coronary artery without angina pectoris (6) Hypertension: Status: Acute Code(s): I10 - Essential (primary) hypertension Qualifiers: Hypertension type: unspecified Qualified Code(s): I10 - Essential (primary) hypertension Meds Home Medications and Allergies Home Medications ?Medication ?Instructions ?Recorded ?Confirmed ?Type alprazolam 0.25 mg tablet 0.25 mg PO HSP PRN Anxiety 03/16/23 07/18/24 History aspirin 81 mg chewable tablet 81 mg PO DAILY 03/16/23 07/17/24 History atorvastatin 20 mg tablet 20 mg PO HS 03/16/23 07/17/24 History hydrocodone 5 mg-acetaminophen 325 1 tab PO Q8H Moderate Pain (Scale 03/16/23 07/18/24 History mg tablet Score 5-6) isosorbide mononitrate 60 mg 60 mg PO DAILY 03/16/23 07/17/24 History tablet,extended release 24 hr amlodipine 5 mg tablet 5 mg PO DAILY 07/18/24 07/18/24 History calcium carbonate (Oyster Shell 500 mg PO DAILY 07/18/24 07/18/24 History Calcium 500) cholecalciferol (vitamin D3) 25 25 mcg PO DAILY 07/18/24 07/18/24 History mcg (1,000 unit) tablet gabapentin 300 mg capsule 300 mg PO BID 07/18/24 07/18/24 History hydralazine 25 mg tablet 25 mg PO TID 07/18/24 07/18/24 History melatonin 3 mg tablet 3 mg PO HS 07/18/24 07/18/24 History multivitamin-ferrous 1 tab PO DAILY 07/18/24 07/18/24 History fumarate-folic acid 18 mg-400 mcg tablet (Certavite-Antioxidant) pantoprazole 40 mg tablet,delayed 40 mg PO BID 07/18/24 07/18/24 History release sennosides 8.6 mg tablet (senna) 8.6 mg PO BID 07/18/24 07/18/24 History tamsulosin 0.4 mg capsule 0.4 mg PO HS 07/18/24 07/18/24 History azithromycin 250 mg tablet 500 mg (2 x 250 mg) PO DAILY #10 07/20/24 Rx tabs bisoprolol fumarate 5 mg tablet 2.5 mg (1/2 x 5 mg) PO DAILY #30 07/20/24 Rx tabs clonidine HCl 0.1 mg tablet 0.1 mg PO BID #60 tabs 07/20/24 Rx ferrous sulfate 325 mg (65 mg 325 mg PO BID #30 tabs 07/20/24 Rx iron) tablet fluticasone fur. 200 mcg-umeclid 1 inh inhalation DAILY #60 ea 07/20/24 Rx 62.5 mcg-vilant 25 mcg inhalat.powder (Trelegy Ellipta) prednisone 20 mg tablet 40 mg (2 x 20 mg) PO DAILY #10 tabs 07/20/24 Rx New Prescriptions to Start Prescriptions: azithromycin Emeric,Paras bisoprolol fumarate Emeric,Paras clonidine HCl Emeric,Paras ferrous sulfate Emeric,Paras [id number] [Trelegy Ellipta] Emeric,Paras prednisone Emeric,Paras Allergies Allergy/AdvReac Type Severity Reaction Status Date / Time No Known Allergies Allergy Verified 02/03/24 14:23 Discharge Plan Disposition Patient Disposition: Home, Self-Care Condition: Fair Discharge Order Discharge Orders: Discharge Order (Routine); Ordered 07/20/24 Ordered By: Paras Anaya Follow up Plan Follow up with: Shayy Yung MD [Physician] - 1 month Asif Kirk MD [Primary Care Provider] - 1 week Prescriptions/Medication Reconciliation: New clonidine HCl 0.1 mg Tablet 0.1 mg PO BID Qty: 60 0RF azithromycin 250 mg Tablet 500 mg PO DAILY Qty: 10 0RF prednisone 20 mg Tablet 40 mg PO DAILY Qty: 10 0RF bisoprolol fumarate 5 mg Tablet 2.5 mg PO DAILY Qty: 30 0RF ferrous sulfate 325 mg (65 mg iron) Tablet 325 mg PO BID Qty: 30 0RF Trelegy Ellipta 200-62.5-25 mcg blister with device 1 inh inhalation DAILY Qty: 60 0RF Continued atorvastatin 20 mg tablet 20 mg PO HS Patient Comments: TAKE 1 TABLET BY MOUTH AT BEDTIME hydrocodone-acetaminophen 5-325 mg tablet 1 tab PO Q8H isosorbide mononitrate 60 mg tablet extended release 24 hr 60 mg PO DAILY Patient Comments: TAKE 1 TABLET BY MOUTH ONCE DAILY IN THE MORNING alprazolam 0.25 mg tablet 0.25 mg PO HSP PRN (Reason: Anxiety) aspirin 81 mg Tablet,Chewable 81 mg PO DAILY hydralazine 25 mg tablet 25 mg PO TID Patient Comments: TAKE 1 TABLET BY MOUTH THREE TIMES DAILY amlodipine 5 mg tablet 5 mg PO DAILY Patient Comments: TAKE 1 TABLET BY MOUTH ONCE DAILY tamsulosin 0.4 mg capsule 0.4 mg PO HS Patient Comments: TAKE 1 CAPSULE BY MOUTH ONCE DAILY pantoprazole 40 mg tablet,delayed release (DR/EC) 40 mg PO BID Patient Comments: TAKE 1 TABLET BY MOUTH TWICE DAILY gabapentin 300 mg capsule 300 mg PO BID Patient Comments: TAKE 1 CAPSULE BY MOUTH TWICE DAILY sennosides [senna] 8.6 mg Tablet 8.6 mg PO BID melatonin 3 mg Tablet 3 mg PO HS calcium carbonate [Oyster Shell Calcium 500] 500 mg calcium (1,250 mg) Tablet 500 mg PO DAILY cholecalciferol (vitamin D3) 25 mcg (1,000 unit) Tablet 25 mcg PO DAILY Certavite-Antioxidant 18-400 mg-mcg Tablet 1 tab PO DAILY Discontinued clonidine HCl 0.3 mg tablet 0.3 mg PO BID carvedilol 6.25 mg tablet 6.25 mg PO BID Patient Comments: TAKE 1 TABLET BY MOUTH TWICE DAILY Problem Reconciliation Problems Reviewed?: Yes Patient Discharge Instructions ACTIVITY: Ambulate as tolerated DIET: diabetic diet, low fat, low cholesterol, low salt diet and cardiac Patient Instructions: DI for Pneumonia -- Adult, DI for Shortness of Breath Print Language: [place] Providers Primary Care Provider: Asif Kirk Admit Provider: Paras Anaya Attending Provider: Paras Anaya
[2024-07-20] MEDS: ALPRAZolam 0.25MG TABLET 0.25 MG PO (08:38)
[2024-07-20] MEDS: AMLODIPINE 5MG TABLET 5 MG PO (08:38)
[2024-07-20] MEDS: predniSONE 20MG TAB 40 MG PO (08:38)
[2024-07-20] MEDS: GABAPENTIN 100MG CAPSULE 100 MG PO (08:38)
[2024-07-20] MEDS: ASPIRIN 81MG CHEWABLE TABLET 81 MG PO (08:38)
[2024-07-20] MEDS: cloNIDine 0.1MG TABLET 0.1 MG PO (08:38)
[2024-07-20] MEDS: FERROUS SULFATE 325MG TABLET 325 MG PO (08:38)
[2024-07-20] MEDS: ISOSORBIDE MONO 60MG TAB.ER.24H 60 MG PO (08:38)
[2024-07-20] MEDS: CITALOPRAM 20MG TABLET 20 MG PO (08:38)
[2024-07-20] MEDS: AZITHROMYCIN 250MG TABLET 500 MG PO (08:39)
[2024-07-20 10:38] LABS: Lymphocytes % 12 % (10-50); Monocytes % 1 % (2-9); Neutrophils % 87 % (42-76); Platelet Estimate Normal; RBC Morphology Normal; Total Cells Counted 100
--- NOTE | 2024-07-24 15:37 | CARE MANAGER ---
Attempted to contact patient related to hospital discharge x 2. Left Vm message. ANDREW Lea
== END 2024-07-20 10:50 | disposition home or self-care (01) | DRG 194 ==
LOC: ER 22:01 → 2ND 22:15
PROVIDERS: Nurse Practitioner Family; Admitting Provider Family Medicine; Emergency Provider Emergency Medicine; PCP Internal Medicine Adolescent Medicine; Visit Provider Family Medicine
DX: J18.9 Pneumonia, unspecified organism (principal); I13.0 Hypertensive heart and chronic kidney disease with heart failure and stage 1 through stage 4 chronic kidney disease, or unspecified chronic kidney disease; I50.32 Chronic diastolic (congestive) heart failure; J44.0 Chronic obstructive pulmonary disease with (acute) lower respiratory infection; N18.31 Chronic kidney disease, stage 3a; E11.8 Type 2 diabetes mellitus with unspecified complications; J44.1 Chronic obstructive pulmonary disease with (acute) exacerbation; I25.10 Atherosclerotic heart disease of native coronary artery without angina pectoris; E78.5 Hyperlipidemia, unspecified; F41.9 Anxiety disorder, unspecified; Z87.891 Personal history of nicotine dependence
CPT/HCPCS: 36415; 71046; 71250; 80048; 80053; 82803; 82962; 83036; 83735; 84145; 84484; 85007; 85025; 85027; 87070; 87077; 87186; 87205; 93005; 94640; 94761; 99291; J0696; J1650; J2919; J3475; J7620

== ENCOUNTER 2024-08-20 13:59 | Emergency (ER) | payer MEDICARE, SELFPAY ==
[2024-08-20 14:29] VITALS: BMI 21.5
--- NOTE | 2024-08-20 14:30 | XR_ITS ---
PROCEDURE INFORMATION: Exam: XR Chest Exam date and time: 08/20/2024 2:31 PM Age: 84 years old Clinical indication: Cough and shortness of breath; Additional info: SOA, cough TECHNIQUE: Imaging protocol: Radiologic exam of the chest. Views: 2 views. Total images: 2 COMPARISON: CT CHEST WO CON 07/18/2024 9:42 AM FINDINGS: Lungs: Atelectatic and/or early infiltrative changes noted within the left lower lobe. Bilateral hyperinflation is present. Atelectatic changes within the right lung base. Pleural spaces: Unremarkable. No pleural effusion. No pneumothorax. Heart/Mediastinum: The heart is not enlarged. Vasculature: Mild atherosclerotic disease. Bones/joints: There is evidence of prior median sternotomy. IMPRESSION: 1. Atelectatic and/or early infiltrative changes noted within the left lower lobe. 2. Bilateral hyperinflation is present. 3. Atelectatic changes within the right lung base.
[2024-08-20 14:55] VITALS: BP 128/38; PULSE 56; RESP 20; TEMP 36.7; O2SAT 93; BMI 20.5
--- NOTE | 2024-08-20 15:37 | ED_ITS ---
Discharge Plan Disposition Patient Disposition: Home, Self-Care Condition: Good Prescriptions Prescriptions: New amoxicillin-pot clavulanate 875-125 mg Tablet 1 tab PO Q12H 7 Days Qty: 14 0RF azithromycin 500 mg tablet 500 mg PO DAILY 4 Days Qty: 4 0RF Rx Instructions: Start on 08/21/24 prednisone 20 mg tablet 20 mg PO BID 5 Days Qty: 10 0RF guaifenesin [Mucinex] 600 mg tablet extended release 12hr 600 mg PO BID PRN (Reason: cough) Qty: 20 0RF No Action clonidine HCl 0.1 mg tablet 0.1 mg PO BID Patient Comments: TAKE ONE TABLET BY MOUTH TWICE DAILY carvedilol 6.25 mg tablet 6.25 mg PO DAILY atorvastatin 20 mg tablet 20 mg PO HS Patient Comments: TAKE 1 TABLET BY MOUTH ONCE DAILY AT BEDTIME FOR 90 DAYS ipratropium-albuterol 0.5 mg-3 mg(2.5 mg base)/3 mL solution for nebulization 3 ml INHALATION DAILY Patient Comments: USE 1 AMPULE IN NEBULIZER EVERY 4 HOURS NEEDED (DME) blood-glucose meter [Accu-Chek Guide Me Glucose Mtr] [facility] [place]LLANEOUS Patient Comments: USE DIRECTED hydralazine 25 mg tablet 25 mg PO DAILY Patient Comments: TAKE 1 TABLET BY MOUTH THREE TIMES DAILY (DME) Accu-Chek Guide test strips Strip MISCELLANEOUS Patient Comments: USE 1 ONCE DAILY TO CHECK FASTING BLOOD SUGAR amlodipine 5 mg tablet 5 mg PO DAILY Patient Comments: TAKE 1 TABLET BY MOUTH ONCE DAILY bisoprolol fumarate 5 mg tablet 2.5 mg PO DAILY Patient Comments: TAKE 1/2 TABLET BY MOUTH EVERY DAY isosorbide mononitrate 60 mg tablet extended release 24 hr 60 mg PO DAILY Patient Comments: TAKE 1 TABLET BY MOUTH ONCE DAILY IN THE MORNING FOR 90 DAYS (DME) lancets [Accu-Chek Softclix Lancets] [facility] [place]ISCELLANEOUS Patient Comments: USE 1 TO CHECK GLUCOSE ONCE DAILY tamsulosin 0.4 mg capsule 0.4 mg PO DAILY Patient Comments: TAKE 1 CAPSULE BY MOUTH ONCE DAILY pantoprazole 40 mg tablet,delayed release (DR/EC) 40 mg PO DAILY Patient Comments: TAKE 1 TABLET BY MOUTH TWICE DAILY gabapentin 300 mg capsule 300 mg PO BID Patient Comments: TAKE 1 CAPSULE BY MOUTH TWICE DAILY Trelegy Ellipta 200-62.5-25 mcg blister with device 1 ea inhalation DAILY Patient Comments: INHALE 1 PUFF BY MOUTH EVERY DAY Referrals Follow up/Referrals: sAif Kirk MD [Primary Care Provider] - See instructions Activity Restrictions/Add. Instructions Additional Instructions/Restrictions: * Start Augmentin antibiotic today Start Azithromycin tomorrow . Be sure to com plete entire prescription even if feeling better * Monitor temp. Tylenol every 4 hours as needed and / or ibuprofen every 6 hours as needed ( As long as your primary care physician has told you that it ok to take both. For fever/aches/pains ER if no less than 101 despite Tylenol or Motrin * Humidifier/vaporizer or hot steamy shower * Mucinex for your cough Be sure to drink lots of water. *Start Prednisone tomorrow Helps with inflammation therefore, cough and wheezing. Follow directions on the package. Reviewed side effects. Patient reports taking them before. Follow up IMMEDIATELY for new or worsening of symptoms OR no noticeable improvement over the next 48-72 hours. 911 immediately for any life threatening symptoms such as chest pain or difficulty breathing Clinical Impressions Clinical Impression: Pneumonia Qualifiers: Pneumonia type: due to unspecified organism Laterality: unspecified laterality Lung location: unspecified part of lung Qualified Code(s): J18.9 - Pneumonia, unspecified organism Instructions Patient Instructions: Pneumonia-Adult Print Language Print Language: Setswana Discharge ED Provider: Peace Alvarez [facility] General Stated complaint: soa Mode of Arrival: Ambulatory Source of Information: Patient and Relative Limitations: No Limitations Time Seen by Provider: 08/20/24 15:00 Description of Symptoms (Recalled from Triage Doc. by RN): PATIENT C/O COUGH AND SOA. HE STATES HE WAS HOSPITALIZED FOR PNEUMONIA APPROX 1 MONTH AGO HEENT Symptoms (Recalled from RN notes): No Resp Symptoms (Recalled from RN notes): Yes Skin Symptoms (Recalled from RN notes): No MS Symptoms (Recalled from RN notes): No Functional Status (Recalled from RN notes): WNL History of Present Illness Provider Complaint: Patient states that he was in the hospital about a month ago for pneumonia States he has still been having some cough and congestion here and there States last night his cough was worse and he felt SOA and had to put on his oxygen States today he has been wearing his O2 to help states he wanted to come in and get checked and get something to help with his cough and some antibiotics and a pick me up shot Related Data Home Medications ?Medication ?Instructions ?Recorded ?Confirmed amlodipine 5 mg tablet 5 mg PO DAILY 08/20/24 08/20/24 atorvastatin 20 mg tablet 20 mg PO HS 08/20/24 08/20/24 bisoprolol fumarate 5 mg tablet 2.5 mg PO DAILY 08/20/24 08/20/24 blood sugar diagnostic (Accu-Chek 08/20/24 08/20/24 Guide test strips) blood-glucose meter (Accu-Chek 08/20/24 08/20/24 Guide Me Glucose Meter) carvedilol 6.25 mg tablet 6.25 mg PO DAILY 08/20/24 08/20/24 clonidine HCl 0.1 mg tablet 0.1 mg PO BID 08/20/24 08/20/24 fluticasone fur. 200 mcg-umeclid 1 ea inhalation DAILY 08/20/24 08/20/24 62.5 mcg-vilant 25 mcg inhalat.powder (Trelegy Ellipta) gabapentin 300 mg capsule 300 mg PO BID 08/20/24 08/20/24 hydralazine 25 mg tablet 25 mg PO DAILY 08/20/24 08/20/24 ipratropium 0.5 mg-albuterol 3 mg 3 ml inhalation DAILY 08/20/24 08/20/24 (2.5 mg base)/3 mL nebulization soln isosorbide mononitrate 60 mg 60 mg PO DAILY 08/20/24 08/20/24 tablet,extended release 24 hr lancets (Accu-Chek Softclix 08/20/24 08/20/24 Lancets) pantoprazole 40 mg tablet,delayed 40 mg PO DAILY 08/20/24 08/20/24 release tamsulosin 0.4 mg capsule 0.4 mg PO DAILY 08/20/24 08/20/24 Previous Rx's ?Medication ?Instructions ?Recorded amoxicillin 875 mg-potassium 1 tab PO Q12H 7 days #14 tabs 08/20/24 clavulanate 125 mg tablet azithromycin 500 mg tablet 500 mg PO DAILY 4 days #4 tabs 08/20/24 guaifenesin 600 mg tablet, 600 mg PO BID PRN cough #20 tabs 08/20/24 extended release 12 hr (Mucinex) prednisone 20 mg tablet 20 mg PO BID 5 days #10 tabs 08/20/24 Allergies Allergy/AdvReac Type Severity Reaction Status Date / Time No Known Allergies Allergy Verified 02/03/24 14:23 Worker's Comp Is this a Worker's Comp case?: No [facility] Disclaimer: The information contained in this section may have been updated after the patient was seen, as this information can be updated by other users. Medical History (Updated 08/20/24 @ 16:41 by Peace Alvarez APRN) Abdominal aneurysm Skin cancer Non-STEMI (non-ST elevated myocardial infarction) Emphysema lung CAD (coronary artery disease) CHF (congestive heart failure) PVD (peripheral vascular disease) Diabetes type 2, controlled Anxiety Hyperlipidemia Iron deficiency anemia Hypertension Surgical History (Updated 07/17/24 @ 23:32 by Tiffany Morales RN) History of lumbar surgery History of esophagogastroduodenoscopy (EGD) Hx of colonoscopy Stented coronary artery History of cardiac cath Hx of CABG Family History (Updated 07/17/24 @ 23:32 by Tiffany Morales RN) Other No significant family history Social History (Updated 07/17/24 @ 23:13 by Tiffany Morales RN) Smoking Status: Former smoker tobacco type: cigarettes packs per day: 1 second hand exposure: No alcohol intake: never current occupational status: retired Travel in the last 8 weeks: None household members: spouse housing: house current occupational exposures/hazards: No caffeine: Yes ROS Obtained: Yes All systems reviewed & no additional complaints except as docu mented and Yes Systems reviewed as appropriate & no additional complaints except as documented Constitutional Constitutional: Reports system reviewed and no additional complaints, except as documented and Reports as per HPI ENT Ears, Nose, Mouth, and Throat: Reports system reviewed and no additional c omplaints, except as documented and Reports as per HPI Cardiovascular Cardiovascular: Reports system reviewed and no additional complaints, except as documented and Reports as per HPI Respiratory Respiratory: Reports system reviewed and no additional complaints, except as documented, Reports as per HPI, Reports shortness of breath, Reports chest congestion and Reports cough Gastrointestinal Gastrointestingal: Reports system reviewed and no additional complaints, except as documented and as per HPI Physical Exam General General appearance: alert and in no apparent distress ENT ENT exam: Present normal exam, normal oropharynx and mucous membranes moist Respiratory Respiratory exam: Present normal lung sounds bilaterally and other (rhonchi noted); Absent respiratory distress or wheezes Cardiovascular Cardiovascular exam: Present regular rate, normal rhythm and normal heart sounds Neurological Exam Neurological exam: Present alert and oriented X3 Medical Decision Making Medical Records Screening: Per USPSTF and CDC recommendations, given the prevalence of disease in our region, it is our hospital?s policy to screen for HIV and viral Hepatitis for all patients aged 18 and over and those with ongoing risk factors. John Inquiry Pt receiving controlled substance: No John was queried for this patient: No Vital Signs: 08/20/24 14:55 Temperature 98.0 F Temperature Source Oral Pulse Rate [Right Brachial] 56 L Respiratory Rate 20 Blood Pressure [Right Arm] 128/38 L Blood Pressure Mean [Right Arm] 68 Blood Pressure Source [Right Arm] Automatic Cuff Blood Pressure Position [Right Arm] Sitting 02 Sat by Pulse Oximetry 93 L Oxygen Delivery Method Nasal Cannula Oxygen Flow Rate (LPM) 4 Orders (Tests/Meds): ORDERS Category Date Time Status Chest XR 2 view (NOT portable) [XR chest 2V] Stat Exams 08/20/24 14:30 Taken Radiology Data #1: Image(s): Chest Image Reviewed: Yes I have reviewed radiologist's interpretation IMPRESSION: 1. Atelectatic and/or early infiltrative changes noted within the left lower lobe. 2. Bilateral hyperinflation is present. 3. Atelectatic changes within the right lung base. Medical Decision Narrative: Discussed with patient that due to recent hospitalization and complaints of sh ortness of breath and having to have O2 when typically it is just PRN recommended transfer to the ED for furhter work up labs and evalation and he declined States he just wanted a pick me up shot and some antibiotics and go home Discussed with patient the risks even and again recommended transfer to the ED and he declined states he does not want to go to the ed and did not want admission he wanted shots, medication and to go home Patient and family given strict return instructions After xray back again spoke with patient about transfer to the ED for further work up and evaluation and again patient refused informed patient of risks even and he still declined transfer wanted shots oral antibiotics and wanted to go home Patient and family again given strict return precautions and medications was discussed with pharmacy and patient informed to follow up with PCP in a couple days
[2024-08-20] MEDS: METHYLPREDNISOLONE SOD SUCC 125MG VIAL 125 MG IM (16:40)
[2024-08-20] MEDS: AZITHROMYCIN 250MG TABLET 500 MG PO (16:41)
[2024-08-20 16:42] VITALS: BP 128/38; PULSE 56; RESP 20; TEMP 36.7; O2SAT 93
== END 2024-08-20 16:46 | disposition home or self-care (01) ==
PROVIDERS: Emergency Provider Nurse Practitioner; PCP Internal Medicine Adolescent Medicine
DX: J18.9 Pneumonia, unspecified organism (principal)
CPT/HCPCS: 71046; 96372; 99213; G0381; J2919